=== PATIENT | male | born 1970 | race Caucasian/White ===

== ENCOUNTER 2016-06-06 21:46 | Emergency (ER) | payer MEDICAID ==
[~2016-06-06] VITALS: Ht 198.1 cm; Wt 63.9 kg
[2016-06-06 21:49] VITALS: BP 100/72; PULSE 144; RESP 20; TEMP 97.4; O2SAT 100
[2016-06-06 22:15] LABS: AUTOMATED NEUTROPHIL # 1.6 TH/MM3 (1.8-7.7); BASOPHIL % 0.9 % (0.0-2.0); EOSINOPHIL % 1.4 % (0.0-4.0); HEMATOCRIT 30.7 % (39.0-51.0); LYMPH % 15.3 % (9.0-44.0); LYMPHOCYTE # 0.3 TH/MM3 (1.0-4.8); MEAN CELL VOLUME 95.7 FL (80.0-100.0); MEAN CORPUSCULAR HEMOGLOBIN 32.4 PG (27.0-34.0); MEAN CORPUSCULAR HGB CONC 33.8 % (32.0-36.0); MONO % 7.1 % (0.0-8.0); NEUT % 75.3 % (16.0-70.0); PLATELET COUNT 45 TH/MM3 (150-450); RED BLOOD COUNT 3.21 MIL/MM3 (4.50-5.90); RED CELL DISTRIBUTION WIDTH 18.5 % (11.6-17.2); WHITE BLOOD COUNT 2.1 TH/MM3 (4.0-11.0)
[2016-06-06] MEDS ORDERED: ONDANSETRON HCL 4 MG/2 ML VIAL IV PUSH ONE (22:15)
[2016-06-06] MEDS ORDERED: SODIUM CHLOR 0.9% 1000 ML INJ 1,000 ML IV ONE ×3 (22:15→22:45)
[2016-06-06 22:22] LABS: HEMO FLAGS AUTO DIFF; POTASSIUM 3.3 MEQ/L (3.5-5.1)
--- NOTE | 2016-06-06 22:23 | PD ---
HPI Chief Complaint: GI Complaint Time Seen by Provider: 21:57 Travel History International Travel<30 days: No Contact w/Intl Traveler<30days: No Traveled to known affect area: No History of Present Illness HPI This 45-year-old male is complaining of weakness and dehydration. He has a history of lung cancer. The lung cancer is being treated with chemotherapy and radiation. He has esophagitis related to the radiation treatment. He has a feeding tube but is vomiting his feedings. He has had progressive weight loss. He is not taking any antiemetics PFSH Past Medical History Cancer: Yes (LUNG: DX ON 02/27/16) Cardiovascular Problems: No Chemotherapy: Yes (MONDAYS) Endocrine: No Gastrointestinal Disorders: Yes (UPPER ENDOSCOPIES X2: FEBRUARY 2016) Genitourinary: No Immune Disorder: No Implanted Vascular Access Dvce: No Musculoskeletal: No Neurologic: No Psychiatric: No Reproductive: No Respiratory: Yes Radiation Therapy: Yes (5 DAYS PER WEEK) Tetanus Vaccination: < 5 Years Influenza Vaccination: No Past Surgical History Surgical History: No Previous Surgery Other Surgery: Yes (G- TUBE PLACEMENT: FEBRUARY 2016) Social History Alcohol Use: No (QUIT MARCH 2016) Tobacco Use: No (QUIT 02/27/16, SMOKED SINCE AGE 15) Substance Use: No Allergies-Medications (Allergen,Severity, Reaction): Coded Allergies: No Known Allergies (Unverified , 06/06/16) Reported Meds & Prescriptions Reported Meds & Active Scripts Active No Active Prescriptions or Reported Medications Review of Systems General / Constitutional: Positive: Weight Loss, No: Fever, Chills Eyes: No: Diploplia, Blurred Vision HENT: No: Headaches, Vertigo Cardiovascular: Positive: Chest Pain or Discomfort Respiratory: No: Cough Gastrointestinal: Positive: Nausea, Vomiting, Dysphagia, Loss of Appetite Genitourinary: No: Urgency, Frequency Skin: No Rash Physical Exam Narrative GENERAL: Chronically ill-appearing male SKIN: Warm and dry. HEAD: Atraumatic. Normocephalic. EYES: Pupils equal and round. No scleral icterus. No injection or drainage. ENT: No nasal bleeding or discharge. Mucous membranes dry NECK: Trachea midline. No JVD. CARDIOVASCULAR: Regular rate and rhythm. No murmur appreciated. RESPIRATORY: No accessory muscle use. Clear to auscultation. Breath sounds equal bilaterally. GASTROINTESTINAL: Abdomen soft, non-tender, nondistended. Hepatic and splenic margins not palpable. Feeding tube present MUSCULOSKELETAL: No obvious deformities. No clubbing. No cyanosis. No edema. NEUROLOGICAL: Awake and alert. No obvious cranial nerve deficits. Motor grossly within normal limits. Normal speech. PSYCHIATRIC: Appropriate mood and affect; insight and judgment normal. Data Data Last Documented VS Vital Signs Date Time Temp Pulse Resp B/P Pulse Ox O2 Delivery O2 Flow Rate FiO2 06/06/16 23:04 100 18 100 Room Air 06/06/16 21:49 97.4 100/72 Orders Complete Blood Count With Diff (06/06/16 22:04) Basic Metabolic Panel (Bmp) (06/06/16 22:04) Sodium Chlor 0.9% 1000 Ml Inj (Ns 1000 M (06/06/16 22:15) Sodium Chlor 0.9% 1000 Ml Inj (Ns 1000 M (06/06/16 22:15) Ondansetron Inj (Zofran Inj) (06/06/16 22:15) Potassium Cl 40 Meq/30 Ml Liq (Kcl 40 Me (06/06/16 22:45) Sodium Chlor 0.9% 1000 Ml Inj (Ns 1000 M (06/06/16 22:45) Labs Laboratory Tests Test 06/06/16 22:05 White Blood Count 2.1 TH/MM3 Red Blood Count 3.21 MIL/MM3 Hemoglobin 10.4 GM/DL Hematocrit 30.7 % Mean Corpuscular Volume 95.7 FL Mean Corpuscular Hemoglobin 32.4 PG Mean Corpuscular Hemoglobin 33.8 % Concent Red Cell Distribution Width 18.5 % Platelet Count 45 TH/MM3 Mean Platelet Volume 8.2 FL Neutrophils (%) (Auto) 75.3 % Lymphocytes (%) (Auto) 15.3 % Monocytes (%) (Auto) 7.1 % Eosinophils (%) (Auto) 1.4 % Basophils (%) (Auto) 0.9 % Neutrophils # (Auto) 1.6 TH/MM3 Lymphocytes # (Auto) 0.3 TH/MM3 Monocytes # (Auto) 0.2 TH/MM3 Eosinophils # (Auto) 0.0 TH/MM3 Basophils # (Auto) 0.0 TH/MM3 CBC Comment AUTO DIFF Differential Comment AUTO DIFF CONFIRMED Platelet Estimate LOW Platelet Morphology Comment NORMAL Sodium Level 139 MEQ/L Potassium Level 3.3 MEQ/L Chloride Level 102 MEQ/L Carbon Dioxide Level 25.8 MEQ/L Anion Gap 11 MEQ/L Blood Urea Nitrogen 25 MG/DL Creatinine 0.91 MG/DL Estimat Glomerular Filtration 91 ML/MIN Rate Random Glucose 136 MG/DL Calcium Level 9.1 MG/DL MDM Medical Decision Making Medical Screen Exam Complete: Yes Emergency Medical Condition: Yes Medical Record Reviewed: Yes Differential Diagnosis Differential includes lung cancer, esophagitis, dehydration Narrative Course Patient was given several liters of fluid with improvement. He was given Zofran. Zofran seemed to help and I will prescribe some liquids Zofran to put in his NG tube. I will also recommended to him that he try Mylanta as he complains of some esophagitis Diagnosis Primary Impression: Esophagitis Additional Impression: Dehydration Scripts Ondansetron Liq (Zofran Liq)4 Mg/5 Ml Soln4 Mg G-TUBE Q6HR 10 Days Ref 0 Prov:Elkin Castaneda MD 06/06/16 Disposition: 01 DISCHARGE HOME Condition: Stable Elkin Castaneda MD Jun 06, 2016 22:23
[2016-06-06 22:25] LABS: BICARBONATE 25.8 MEQ/L (21.0-32.0)
[2016-06-06 22:40] LABS: PLATELET ESTIMATE SMEAR LOW (NORMAL); PLATELET MORPHOLOGY NORMAL (NORMAL); SCAN/DIFF AUTO DIFF CONFIRMED
[2016-06-06] MEDS ORDERED: POTASSIUM CL 40 MEQ/30 ML LIQ UDC NG ONE (22:45)
[2016-06-06 23:04] VITALS: PULSE 100; RESP 18; O2SAT 100
[2016-06-06] MEDS ORDERED: ZOFR4SOL G-TUBE (23:27)
[2016-06-06 23:42] VITALS: BP 98/53; PULSE 98; RESP 18; O2SAT 100
== END 2016-06-06 23:55 | disposition home or self-care (01) ==
LOC: PHED 21:46
DX: C34.90 Malignant neoplasm of unspecified part of unspecified bronchus or lung (principal); E86.0 Dehydration; K20.8 Other esophagitis; Z87.891 Personal history of nicotine dependence
CPT/HCPCS: 80048; 85025; 96361; 96374; 99285; J2405; J7030

== ENCOUNTER 2016-06-07 18:12 | Inpatient (IN) | payer MEDICAID ==
[~2016-06-07] VITALS: Ht 198.1 cm; Wt 68.0 kg
[~2016-06-07 18:12] MED LIST: ZOFR4SOL G-TUBE
[2016-06-07 18:14] VITALS: BP 100/72; PULSE 117; RESP 16; TEMP 97.9; O2SAT 100
--- NOTE | 2016-06-07 18:43 | PD ---
HPI Chief Complaint: Abnormal Results Time Seen by Provider: 18:37 Travel History International Travel<30 days: No Contact w/Intl Traveler<30days: No Traveled to known affect area: No History of Present Illness HPI This 45-year-old male presents with complaint of vomiting. He has a history of lung cancer. He was a patient here last night. His oncologist recommended he come to get some IV fluids. He was given several liters of IV fluids and some Zofran. He is getting chemotherapy and today he finished his radiation therapy to the mediastinum. Since having the radiation he has been having intractable vomiting and has been unable to swallow. On March 03 a gastrostomy tube was placed. He had been vomiting to be anxious placed in a gastrostomy tube yesterday. Today he has not tried the tube feeding but he continues to have vomiting of brown material. She has not been able to take any fluids today by mouth or by gastrostomy tube. Dr. Omer his radiation oncologist told him that he should come to the hospital and be admitted for some IV fluids and PFSH Past Medical History Cancer: Yes (LUNG: DX ON 02/27/16) Cardiovascular Problems: No Chemotherapy: Yes (LAST DOSE 1 MONTH AGO) Endocrine: No Gastrointestinal Disorders: Yes (UPPER ENDOSCOPIES X2: FEBRUARY 2016) Genitourinary: No Immune Disorder: No Implanted Vascular Access Dvce: No Musculoskeletal: No Neurologic: No Psychiatric: No Reproductive: No Respiratory: Yes (LUNG CA) Radiation Therapy: Yes (5 DAYS PER WEEK) Past Surgical History Other Surgery: Yes (G- TUBE PLACEMENT: FEBRUARY 2016) Social History Alcohol Use: No (QUIT MARCH 2016) Tobacco Use: No (QUIT 02/27/16, SMOKED SINCE AGE 15) Substance Use: No Allergies-Medications (Allergen,Severity, Reaction): Coded Allergies: No Known Allergies (Unverified , 06/07/16) Reported Meds & Prescriptions Reported Meds & Active Scripts Active Zofran Liq (Ondansetron HCl) 4 Mg/5 Ml Soln 4 Mg G-TUBE Q6HR 10 Days Review of Systems General / Constitutional: No: Fever, Chills Eyes: No: Diploplia HENT: No: Headaches Cardiovascular: Positive: Chest Pain or Discomfort Respiratory: No: Shortness of Breath Gastrointestinal: Positive: Vomiting, Dysphagia, Loss of Appetite, No: Hematochezia Genitourinary: No: Urgency, Frequency Musculoskeletal: No: Myalgias, Arthralgias Skin: No Rash Neurologic: No: Weakness Physical Exam Narrative GENERAL: Thin male SKIN: Warm and dry. HEAD: Atraumatic. Normocephalic. EYES: Pupils equal and round. No scleral icterus. No injection or drainage. ENT: No nasal bleeding or discharge. Mucous membranes dry NECK: Trachea midline. No JVD. CARDIOVASCULAR: Regular rate and rhythm. No murmur appreciated. RESPIRATORY: No accessory muscle use. Clear to auscultation. Breath sounds equal bilaterally. GASTROINTESTINAL: Abdomen soft, non-tender, nondistended. Hepatic and splenic margins not palpable. Gastrostomy tube in place MUSCULOSKELETAL: No obvious deformities. No clubbing. No cyanosis. No edema. NEUROLOGICAL: Awake and alert. No obvious cranial nerve deficits. Motor grossly within normal limits. Normal speech. PSYCHIATRIC: Appropriate mood and affect; insight and judgment normal. Data Data Last Documented VS Vital Signs Date Time Temp Pulse Resp B/P Pulse Ox O2 Delivery O2 Flow Rate FiO2 06/07/16 18:14 97.9 117 16 100/72 100 Orders Complete Blood Count With Diff (06/07/16 18:37) Basic Metabolic Panel (Bmp) (06/07/16 18:37) Sodium Chlor 0.9% 1000 Ml Inj (Ns 1000 M (06/07/16 18:45) Ondansetron Inj (Zofran Inj) (06/07/16 18:45) Labs Laboratory Tests Test 06/07/16 19:14 White Blood Count 1.5 TH/MM3 Red Blood Count 2.56 MIL/MM3 Hemoglobin 8.1 GM/DL Hematocrit 24.3 % Mean Corpuscular Volume 95.0 FL Mean Corpuscular Hemoglobin 31.8 PG Mean Corpuscular Hemoglobin 33.5 % Concent Red Cell Distribution Width 18.5 % Platelet Count 45 TH/MM3 Mean Platelet Volume 7.4 FL Neutrophils (%) (Auto) 70.9 % Lymphocytes (%) (Auto) 19.2 % Monocytes (%) (Auto) 7.4 % Eosinophils (%) (Auto) 1.7 % Basophils (%) (Auto) 0.8 % Neutrophils # (Auto) 1.1 TH/MM3 Lymphocytes # (Auto) 0.3 TH/MM3 Monocytes # (Auto) 0.1 TH/MM3 Eosinophils # (Auto) 0.0 TH/MM3 Basophils # (Auto) 0.0 TH/MM3 CBC Comment AUTO DIFF Sodium Level 140 MEQ/L Potassium Level 3.7 MEQ/L Chloride Level 107 MEQ/L Carbon Dioxide Level 24.6 MEQ/L Anion Gap 8 MEQ/L Blood Urea Nitrogen 15 MG/DL Creatinine 0.62 MG/DL Estimat Glomerular Filtration 142 ML/MIN Rate Random Glucose 85 MG/DL Calcium Level 8.3 MG/DL MDM Medical Decision Making Medical Screen Exam Complete: Yes Emergency Medical Condition: Yes Medical Record Reviewed: Yes Differential Diagnosis Differential includes esophagitis, intractable vomiting, dehydration Narrative Course This gentleman was seen yesterday for vomiting and was given Zofran. He continues to vomit and has failed outpatient treatment. Diagnosis Primary Impression: Esophagitis Additional Impression: Intractable vomiting Qualified Code: R11.2 - Intractable vomiting with nausea, unspecified vomiting type Elkin Castaneda MD Jun 07, 2016 18:43 Elkin Castaneda MD Jun 07, 2016 18:43
[2016-06-07] MEDS ORDERED: ONDANSETRON HCL 4 MG/2 ML VIAL IV PUSH ONE (18:45)
[2016-06-07] MEDS ORDERED: SODIUM CHLOR 0.9% 1000 ML INJ 1,000 ML IV ONE (18:45)
[2016-06-07 19:21] LABS: AUTOMATED NEUTROPHIL # 1.1 TH/MM3 (1.8-7.7); BASOPHIL % 0.8 % (0.0-2.0); EOSINOPHIL % 1.7 % (0.0-4.0); HEMATOCRIT 24.3 % (39.0-51.0); LYMPH % 19.2 % (9.0-44.0); LYMPHOCYTE # 0.3 TH/MM3 (1.0-4.8); MEAN CORPUSCULAR HEMOGLOBIN 31.8 PG (27.0-34.0); MEAN CORPUSCULAR HGB CONC 33.5 % (32.0-36.0); MONO % 7.4 % (0.0-8.0); NEUT % 70.9 % (16.0-70.0); PLATELET COUNT 45 TH/MM3 (150-450); RED BLOOD COUNT 2.56 MIL/MM3 (4.50-5.90); RED CELL DISTRIBUTION WIDTH 18.5 % (11.6-17.2); WHITE BLOOD COUNT 1.5 TH/MM3 (4.0-11.0)
[2016-06-07 19:25] LABS: POTASSIUM 3.7 MEQ/L (3.5-5.1)
[2016-06-07 19:28] LABS: BICARBONATE 24.6 MEQ/L (21.0-32.0)
[2016-06-07 19:40] LABS: HEMO FLAGS AUTO DIFF
[2016-06-07] MEDS ORDERED: ONDANSETRON HCL 4 MG/2 ML VIAL IVP PRN (20:00)
[2016-06-07] MEDS ORDERED: METOCLOPRAMIDE HCL 10 MG/2 ML VIAL IV PUSH PRN (20:00)
[2016-06-07] MEDS ORDERED: NALOXONE HCL 0.4 MG/ML AMP IV PRN (20:00)
[2016-06-07] MEDS ORDERED: SODIUM CHLORIDE 0.9% FLUSH 5 ML FLUSH FLUSH PRN (20:00)
[2016-06-07 20:01] LABS: BANDS 9 % (0-6); BASOPHILS 1 % (0-2); METAMYELOCYTES 2 % (0-1); NEUTROPHIL # MANUAL DIFF 1.1 TH/MM3 (1.8-7.7); POLYS (SEG NEUTROPHILS) 62 % (16-70); WBC DIFF SAMPLE 100
[2016-06-07 20:02] LABS: PLATELET ESTIMATE SMEAR LOW (NORMAL); PLATELET MORPHOLOGY NORMAL (NORMAL)
[2016-06-07 20:06] LABS: SCAN/DIFF FINAL DIFF MANUAL
[2016-06-07 21:12] VITALS: BP 102/76; PULSE 112; RESP 18; O2SAT 100
[2016-06-07] MEDS: PANTOPRAZOLE SODIUM 40 MG VIAL IV PUSH SCH (22:24)
[2016-06-07] MEDS: SODIUM CHLORIDE 0.9% FLUSH 5 ML FLUSH FLUSH SCH (22:24)
[2016-06-07] MEDS: SODIUM CHLOR 0.9% 1000 ML INJ 1,000 ML IV SCH (22:24)
[2016-06-07 22:42] VITALS: PULSE 90
[2016-06-08] VITALS: BP 105/63; PULSE 91; RESP 16; TEMP 97.6; O2SAT 96
[2016-06-08 04:00] VITALS: BP 94/62; PULSE 96; RESP 18; TEMP 97.2; O2SAT 100
[2016-06-08 06:32] LABS: AUTOMATED NEUTROPHIL # 0.7 TH/MM3 (1.8-7.7); BASOPHIL % 0.7 % (0.0-2.0); EOSINOPHIL % 1.7 % (0.0-4.0); HEMATOCRIT 21.2 % (39.0-51.0); LYMPH % 26.2 % (9.0-44.0); LYMPHOCYTE # 0.3 TH/MM3 (1.0-4.8); MEAN CELL VOLUME 95.2 FL (80.0-100.0); MEAN CORPUSCULAR HEMOGLOBIN 32.7 PG (27.0-34.0); MEAN CORPUSCULAR HGB CONC 34.3 % (32.0-36.0); MONO % 9.5 % (0.0-8.0); NEUT % 61.9 % (16.0-70.0); PLATELET COUNT 42 TH/MM3 (150-450); RED BLOOD COUNT 2.22 MIL/MM3 (4.50-5.90); RED CELL DISTRIBUTION WIDTH 18.4 % (11.6-17.2); WHITE BLOOD COUNT 1.1 TH/MM3 (4.0-11.0)
[2016-06-08 06:35] LABS: HEMO FLAGS AUTO DIFF
[2016-06-08 06:41] LABS: POTASSIUM 4.1 MEQ/L (3.5-5.1)
[2016-06-08 06:45] LABS: BICARBONATE 25.4 MEQ/L (21.0-32.0)
[2016-06-08 07:27] LABS: BANDS 1 % (0-6); EOSINOPHILS 1 % (0-4); NEUTROPHIL # MANUAL DIFF 0.6 TH/MM3 (1.8-7.7); PLATELET ESTIMATE SMEAR LOW (NORMAL); PLATELET MORPHOLOGY NORMAL (NORMAL); POLYS (SEG NEUTROPHILS) 58 % (16-70); SCAN/DIFF FINAL DIFF MANUAL; WBC DIFF SAMPLE 100
[2016-06-08 08:16] VITALS: BP 78/58; PULSE 86; RESP 17; TEMP 96.2; O2SAT 98
[2016-06-08] MEDS: SODIUM CHLOR 0.9% 1000 ML INJ 1,000 ML IV SCH ×3 (08:24→20:24)
[2016-06-08] MEDS: PANTOPRAZOLE SODIUM 40 MG VIAL IV PUSH SCH ×2 (08:25→20:23)
[2016-06-08] MEDS: SODIUM CHLORIDE 0.9% FLUSH 5 ML FLUSH FLUSH SCH ×2 (08:25→20:23)
--- NOTE | 2016-06-08 12:16 | HHI.HP ---
[facility] Service [facility] Primary Care Physician Non-Staff Admission Diagnosis INTRACTABLE VOMITING, ESOPHAGITIS, OUTPATIENT TREATMENT FAILURE Diagnoses: Chief Complaint: Intractable nausea and vomiting Travel History International Travel<30 Days: No Contact w/Intl Traveler <30 Da: No Traveled to Known Affected Are: No History of Present Illness Patient is a 45-year-old gentleman with a fairly recent diagnosis of right lower lung squamous cell carcinoma. He had been in radiation therapy with his oncologist and had increased nausea and vomiting. He was unable to swallow and unable to get nutrition. Patient had a gastrostomy tube placed in February, however he had been using it infrequently. Patient has not had any fevers or chills but is noted to be pancytopenic today. This is new for the patient. There has been no hematemesis but he has been having difficulty swallowing his saliva. Patient has been admitted to the hospital for further evaluation of pancytopenia and intractable nausea and vomiting. He denies any pain complaint Review of Systems Constitutional: COMPLAINS OF: Weight loss, DENIES: Diaphoretic episodes, Fatigue, Fever, Weight gain, Chills, Dizziness, Change in appetite, Night Sweats Endocrine: DENIES: Heat/cold intolerance, Polydipsia, Polyuria, Polyphagia Eyes: DENIES: Blurred vision, Diplopia, Eye inflammation, Eye pain, Vision loss , Photosensitivity, Double Vision Ears, nose, mouth, throat: DENIES: Tinnitus, Hearing loss, Vertigo, Nasal discharge, Oral lesions, Throat pain, Hoarseness, Ear Pain, Running Nose, Epistaxis, Sinus Pain, Toothache, Odynophagia Respiratory: DENIES: Apneas, Cough, Snoring, Wheezing, Hemoptysis, Sputum production, Shortness of breath Cardiovascular: DENIES: Chest pain, Palpitations, Syncope, Dyspnea on Exertion , PND, Lower Extremity Edema, Orthopnea, Claudication Gastrointestinal: COMPLAINS OF: Nausea, Vomiting, Difficulty Swallowing, DENIES: Abdominal pain, Black stools, Bloody stools, Constipation, Diarrhea, Anorexia Genitourinary: DENIES: Sexual dysfunction, Urinary frequency, Urinary incontinence, Urgency, Hematuria, Dysuria, Nocturia, Penile Discharge, Testicular Pain, Testicular Swelling Musculoskeletal: DENIES: Joint pain, Muscle aches, Stiffness, Joint Swelling, Back pain, Neck pain Immunologic/allergic: DENIES: Eczema, Urticaria Neurologic: DENIES: Abnormal gait, Headache, Localized weakness, Paresthesias, Seizures, Speech Problems, Tremor, Poor Balance Past Family Social History Past Medical History Right lower lobe squamous cell carcinoma Chronic hypotension Past Surgical History PEG tube placement Reported Medications Reviewed in the medical record, currently in radiation therapy as an outpatient Allergies: Coded Allergies: No Known Allergies (Unverified , 06/07/16) Active Ordered Medications Reviewed in the medical record Family History Family history of malignancy, there is a family history of diabetes Social History No current tobacco although he used to smoke 2 packs a day, and drinks alcohol was living independently 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 SKIN: No rashes, ecchymoses or lesions. Cool and dry. HEAD: Atraumatic. Normocephalic. No temporal or scalp tenderness. EYES: Pupils equal round and reactive. Extraocular motions intact. No scleral icterus. No injection or drainage. ENT: Nose without bleeding, purulent drainage or septal hematoma. Throat without erythema, tonsillar hypertrophy or exudate. Uvula midline. Airway patent. NECK: Trachea midline. No JVD or lymphadenopathy. Supple, nontender, no meningeal signs. CARDIOVASCULAR: Regular rate and rhythm without murmurs, gallops, or rubs. RESPIRATORY: Clear to auscultation. Breath sounds equal bilaterally. No wheezes , rales, or rhonchi. GASTROINTESTINAL: PEG tube. Abdomen soft, non-tender, nondistended. No hepato- splenomegaly, or palpable masses. No guarding. MUSCULOSKELETAL: Extremities without clubbing, cyanosis, or edema. No joint tenderness, effusion, or edema noted. No calf tenderness. Negative Homans sign bilaterally. NEUROLOGICAL: Awake and alert. Cranial nerves II through XII intact. Motor and sensory grossly within normal limits. Five out of 5 muscle strength in all muscle groups. Normal speech. Laboratory Laboratory Tests Test 06/07/16 06/08/16 19:14 05:10 White Blood Count 1.5 1.1 Red Blood Count 2.56 2.22 Hemoglobin 8.1 7.3 Hematocrit 24.3 21.2 Mean Corpuscular Volume 95.0 95.2 Mean Corpuscular Hemoglobin 31.8 32.7 Mean Corpuscular Hemoglobin 33.5 34.3 Concent Red Cell Distribution Width 18.5 18.4 Platelet Count 45 42 Mean Platelet Volume 7.4 7.5 Neutrophils (%) (Auto) 70.9 61.9 Lymphocytes (%) (Auto) 19.2 26.2 Monocytes (%) (Auto) 7.4 9.5 Eosinophils (%) (Auto) 1.7 1.7 Basophils (%) (Auto) 0.8 0.7 Neutrophils # (Auto) 1.1 0.7 Lymphocytes # (Auto) 0.3 0.3 Monocytes # (Auto) 0.1 0.1 Eosinophils # (Auto) 0.0 0.0 Basophils # (Auto) 0.0 0.0 CBC Comment AUTO DIFF AUTO DIFF Differential Total Cells 100 100 Counted Neutrophils % (Manual) 62 58 Band Neutrophils % 9 1 Lymphocytes % 15 29 Monocytes % 11 11 Basophils % 1 Neutrophils # (Manual) 1.1 0.6 Metamyelocytes 2 Differential Comment FINAL DIFF FINAL DIFF MANUAL MANUAL Platelet Estimate LOW LOW Platelet Morphology Comment NORMAL NORMAL Sodium Level 140 142 Potassium Level 3.7 4.1 Chloride Level 107 108 Carbon Dioxide Level 24.6 25.4 Anion Gap 8 9 Blood Urea Nitrogen 15 12 Creatinine 0.62 0.58 Estimat Glomerular Filtration 142 153 Rate Random Glucose 85 72 Calcium Level 8.3 7.8 Eosinophils % 1 Result Diagram: 06/08/16 0510 06/08/16 0510 Assessment and Plan Problem List: (1) Intractable vomiting ICD Code: R11.10 Status: Acute Plan: With associated dysphagia ? radiation Esophagitis, no evidence of romelia Antiemetics, IV hydration, use PEG tube KUB r/o obstruction PPI (2) Severe protein-calorie malnutrition ICD Code: E43 Status: Acute Plan: Continue tube feedings for now, (3) Lung cancer, middle lobe ICD Code: C34.2 Status: Acute Plan: Currently in radiation therapy. Hematology to follow (4) Pancytopenia ICD Code: D61.818 Status: Acute Plan: May be due to radiation therapy, Continue neutropenic precautions, patient may need transfusion. Hematology follow-up pending (5) Hypotension ICD Code: I95.9 Status: Acute Plan: Patient does appear quite dehydrated, no evidence of sepsis, we'll check blood cultures due to patient's neutropenia. Physician Certification 2 Midnight Certification Type: Admission for Inpatient Services Order for Inpatient Services The services are ordered in accordance with Medicare regulations or non- Medicare payer requirements, as applicable. In the case of services not specified as inpatient-only, they are appropriately provided as inpatient services in accordance with the 2-midnight benchmark. Estimated LOS (days): 3 3 days is the estimated time the patient will need to remain in the hospital, assuming treatment plan goals are met and no additional complications. Post-Hospital Plan: Home Problem Qualifiers (1) Intractable vomiting: Qualified Code: R11.2 - Intractable vomiting with nausea, unspecified vomiting type Sveta Millan MD Jun 08, 2016 12:16
[2016-06-08 13:13] VITALS: BP 94/61; PULSE 89; RESP 16; TEMP 97.2; O2SAT 98
--- NOTE | 2016-06-08 13:27 | RADHPO ---
EXAM DATE/TIME: 06/08/2016 13:16 [facility] COMPARISON: No previous studies available for comparison. INDICATIONS : Nausea. Vomiting for 1 week. MEDICAL HISTORY : Carcinoma, lung. Mediastinal mass. Bronchopneumonia. Chemotherapy. SURGICAL HISTORY : EGD. G-tube. ENCOUNTER: Subsequent ACUITY: 1 week PAIN SCORE: 3/10 LOCATION: Abdomen, upper quadrant. FINDINGS: Two-view abdomen demonstrates the G-tube remains in good position. Calcification right upper quadran t consistent with a renal calcification is stable. Bowel gas pattern is normal. There is no evidenc e of pneumatosis or obstruction. CONCLUSION: Unremarkable bowel gas pattern. G-tube is in excellent position. Julio Rosen MD on June 08, 2016 at 13:23 Board Certified Radiologist. This report was verified electronically.
[2016-06-08 17:02] VITALS: BP 82/59; PULSE 102; RESP 18; TEMP 98; O2SAT 100
--- NOTE | 2016-06-08 18:51 | MB ---
cc: CURTIS MILLAN MD, RUBY ANNE E. M.D. DATE OF CONSULTATION 06/08/[address] Curtis Millan CHIEF COMPLAINT Dr. Millan requests a consultation for Mr. Levi regarding nonsmall lung cancer. HISTORY OF PRESENT ILLNESS Mr. Levi is a 45 year old man with long history of smoking. He presented with 10 months of coughing. 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 He was started on carboplatin and Taxol on 03/04/16 under the care of Dr. Samaniego. He received concurrent chemotherapy and radiation and just finished his radiation therapy before being admitted to the hospital. He was last seen by Dr. Omer on 03/07/17. He was at the end of his treatment. He presented to the emergency room the day before complaining of weakness and dehydration. Radiation therapy was complicated by esophagitis. He was given IV fluid hydration and then discharged home. On the following day, he complained of nausea and vomiting. He was advised to come in for IV fluids. His vomiting became difficulty to manage. After his last radiation therapy, Dr. Omer recommended him admission for dehydration and intractable nausea and vomiting. He is starting to improve. This evening, he had some liquid diet. He admits that it is the first thing he has eaten in five days. He is starting to feel better. On admission, he had pancytopenia with a white blood cell count of 1.1, hemoglobin 7.3, platelet count of 42,000. He has been afebrile. His white count continues to decline and hemoglobin decrease between one day and the next. He denies any overt bleeding, no melena, no bright red blood per rectum. He has significant symptom of esophagitis. He feels like his left side and his chest is burning. The rest of his review of systems is negative. PAST MEDICAL HISTORY 1. Esophagitis 2. Esophageal obstruction due to extensive compression 3. Chronic tobacco use. 4. Pneumonia 5. 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 PAST SURGICAL HISTORY 1. Bronchoscopy with endobronchial biopsy 2. PEG tube placement. FAMILY HISTORY Mr. Levi's mother and father are both alive. No reported cancer. 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 Has 60 pack year smoking history. He drinks one drink per day. He denies any illicit drug use. He is no longer a smoker. ALLERGIES NO KNOWN DRUG ALLERGIES MEDICATIONS Current, 1. Protonix 2. Ondansetron 3. Reglan 4. Narcan PHYSICAL EXAMINATION VITAL SIGNS: Temperature 98.0, heart rate 102, respiratory rate 18, blood pressure 82/59. GENERAL: Mr. Levi is a thin-appearing young man in no acute distress sitting upright. His family member is at bedside. HEENT: Pupils are round, reactive to light and accommodation. Conjunctivae pale. Oropharynx is pale and dry. NECK: Supple. LUNGS: Clear to auscultation CARDIOVASCULAR: Tachycardia. EXTREMITIES: Lower extremity with no edema. ABDOMEN: Benign and flat. PEG tube is in place, clean. There is hyperpigmented post inflammatory changes of both upper back. LABORATORY DATA Pancytopenia as described above. BUN 12, creatinine 0.58. ASSESSMENT AND PLAN Mr. Levi is a 45 year old man with history of localized advanced nonsmall cell lung cancer, squamous cell histology. He has received concurrent chemotherapy and radiation. His course was complicated by intractable nausea and vomiting and severe esophagitis post completion of his radiation therapy. His course is further complicated a pancytopenia due to radiation and chemotherapy effect. I discussed with Mr. Levi our plans to support him. I have noted a significant decrease in his hemoglobin from one day to the next. I suspect this is due to dilution. We will check a CBC in the morning to rule out bleeding. I would offer him a blood transfusion for hemoglobin less than 7. No platelet transfusion is needed at present. We will monitor closely for any overt bleeding in the GI tract. The Protonix is administered. He may benefit from liquid Carafate, once in the morning and once in the evening. Because of neutropenia, he is in neutropenic precaution. He is afebrile. We will monitor closely for fever. GCSF support can be administered now that radiation is complete. We discussed plans to continue our support. He is eager to go home. We will monitor how well he can tolerated a diet tomorrow. He does have a PEG tube that can be used to supplement his nutrition and take care of his dehydration. His questions are answered to his satisfaction. Aditi Hudson MD RAD/ /6:00 PM /6:12 PM [id number]
[2016-06-08 20:00] VITALS: BP 94/58; PULSE 89; RESP 16; TEMP 97.7; O2SAT 100
[2016-06-08] MEDS: FILGRASTIM 300 MCG/ML VIAL SQ SCH (20:22)
[2016-06-08] MEDS: SUCRALFATE 1 GM/10 ML CUP PO SCH (20:23)
[2016-06-09] VITALS (8 sets, daily range): BP systolic 91–107; BP diastolic 61–67; PULSE 85–102; RESP 16–18; TEMP 97.5–98.6; O2SAT 99–100
[2016-06-09] MEDS ORDERED: ACETAMINOPHEN 325 MG TAB PO PRN (06:00)
[2016-06-09] MEDS ORDERED: diphenhydrAMINE HCL 25 MG CAP PO PRN (06:00)
[2016-06-09] MEDS ORDERED: SODIUM CHLOR 0.9% 250 ML INJ 250 ML IV ONE (06:00)
[2016-06-09] MEDS: SODIUM CHLOR 0.9% 1000 ML INJ 1,000 ML IV SCH ×2 (06:16→17:11)
[2016-06-09 06:35] LABS: AUTOMATED NEUTROPHIL # 0.9 TH/MM3 (1.8-7.7); BASOPHIL % 0.2 % (0.0-2.0); EOSINOPHIL % 1.8 % (0.0-4.0); HEMATOCRIT 21.4 % (39.0-51.0); LYMPH % 18.7 % (9.0-44.0); LYMPHOCYTE # 0.3 TH/MM3 (1.0-4.8); MEAN CELL VOLUME 94.8 FL (80.0-100.0); MEAN CORPUSCULAR HEMOGLOBIN 32.5 PG (27.0-34.0); MEAN CORPUSCULAR HGB CONC 34.3 % (32.0-36.0); MONO % 11.4 % (0.0-8.0); NEUT % 67.9 % (16.0-70.0); PLATELET COUNT 43 TH/MM3 (150-450); RED BLOOD COUNT 2.25 MIL/MM3 (4.50-5.90); RED CELL DISTRIBUTION WIDTH 18.2 % (11.6-17.2); WHITE BLOOD COUNT 1.4 TH/MM3 (4.0-11.0)
[2016-06-09 06:36] LABS: HEMO FLAGS AUTO DIFF
[2016-06-09 07:27] LABS: BANDS 2 % (0-6); EOSINOPHILS 3 % (0-4); NEUTROPHIL # MANUAL DIFF 0.9 TH/MM3 (1.8-7.7); PLATELET ESTIMATE SMEAR LOW (NORMAL); PLATELET MORPHOLOGY NORMAL (NORMAL); POLYS (SEG NEUTROPHILS) 64 % (16-70); WBC DIFF SAMPLE 100
[2016-06-09 07:28] LABS: OVALOCYTES 1+ (NORMAL); SCAN/DIFF FINAL DIFF MANUAL; TEARDROP RBCS 1+ (NORMAL)
[2016-06-09] MEDS: PANTOPRAZOLE SODIUM 40 MG VIAL IV PUSH SCH ×2 (08:26→19:46)
[2016-06-09] MEDS: SUCRALFATE 1 GM/10 ML CUP PO SCH ×2 (08:26→19:52)
[2016-06-09] MEDS: SODIUM CHLORIDE 0.9% FLUSH 5 ML FLUSH FLUSH SCH ×2 (08:27→19:49)
[2016-06-09] MEDS: FILGRASTIM 300 MCG/ML VIAL SQ SCH (14:37)
[2016-06-09] MEDS: DOCUSATE SODIUM 100 MG CAP PEG SCH ×2 (14:37→19:52)
--- NOTE | 2016-06-09 17:09 | HHI.PR ---
Subjective Remarks Patient states that he is feeling better in terms of not having had any further vomiting. However he has epigastric pain and chest pain and also has a headache. He has not tried anything oxycodone liquid but states he will try. Objective Vitals Vital Signs Date Time Temp Pulse Resp B/P Pulse Ox O2 Delivery O2 Flow Rate FiO2 06/09/16 12:00 98.2 99 18 107/61 99 06/09/16 08:00 97.7 97 18 104/64 100 06/09/16 00:00 97.5 102 16 91/62 100 06/08/16 20:00 97.7 89 16 94/58 100 I/O 06/08/16 06/08/16 06/08/16 06/09/16 06/09/16 06/09/16 06:59 14:59 22:59 06:59 14:59 22:59 Intake Total 488 ml 1897 ml 1090 ml Output Total 100 ml Balance 488 ml 1797 ml 1090 ml Intake Oral 550 ml 240 ml IV Total 488 ml 1347 ml 850 ml Output Urine Total 100 ml # Voids 1 2 2 # Bowel Movements 0 0 0 Result Diagram: 06/09/16 0549 06/08/16 0510 Objective Remarks GENERAL: Cachectic appearing male patient. SKIN: Warm and dry. HEAD: Normocephalic. EYES: No scleral icterus. No injection or drainage. NECK: Supple, trachea midline. No JVD or lymphadenopathy. CARDIOVASCULAR: Regular rate and rhythm without murmurs, gallops, or rubs. RESPIRATORY: Breath sounds equal bilaterally. No accessory muscle use. GASTROINTESTINAL: Abdomen soft, non-tender, nondistended. EXTREMITIES: No cyanosis, or edema. NEUROLOGICAL: Awake, alert, and oriented x 3. Non-focal. A/P Problem List: (1) Intractable vomiting ICD Code: R11.10 Status: Acute (2) Severe protein-calorie malnutrition ICD Code: E43 Status: Acute (3) Lung cancer, middle lobe ICD Code: C34.2 Status: Acute (4) Pancytopenia ICD Code: D61.818 Status: Acute (5) Hypotension ICD Code: I95.9 Status: Acute Assessment and Plan -Intractable vomiting, may have been due to radiation gastritis/esophagitis. Symptoms now resolved. Continue with tube feeds, clear liquid diet. Protonix and Carafate. -Pancytopenia secondary to recent chemotherapy. Continue monitoring CBC and supportive transfusions as needed. Hematology input appreciated. -Severe protein calorie nutrition. Tube feeds resumed. -Hypertension. Appears to be largely asymptomatic. Increase IV fluids to 150 ml/hr. 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 -DVT prophylaxis with SCDs. Problem Qualifiers (1) Intractable vomiting: Qualified Code: R11.2 - Intractable vomiting with nausea, unspecified vomiting type Leah Almonte MD Jun 09, 2016 17:09
--- NOTE | 2016-06-09 18:28 | PD.ONC.PN ---
Subjective Subjective Remarks feels weak. able to eat, but appetite still poor no bleeding no nausea/vomiting no fevers d/w rn Objective Data Date Time Temp Pulse Resp B/P Pulse Ox O2 Delivery O2 Flow Rate FiO2 06/09/16 17:43 98.1 87 16 99/61 100 06/09/16 12:00 98.2 99 18 107/61 99 06/09/16 08:00 97.7 97 18 104/64 100 06/09/16 00:00 97.5 102 16 91/62 100 06/08/16 20:00 97.7 89 16 94/58 100 06/09/16 06/09/16 06/09/16 07:00 15:00 23:00 Intake Total 1090 ml 1200 ml Balance 1090 ml 1200 ml Result Diagram: 06/09/16 0549 06/08/16 0510 Laboratory Results Laboratory Tests Test 06/08/16 06/09/16 21:07 05:49 Blood Type AB NEGATIVE Crossmatch Leukocyte-Reduced Red Blood Cells Blood Bank Comment White Blood Count 1.4 TH/MM3 Red Blood Count 2.25 MIL/MM3 Hemoglobin 7.3 GM/DL Hematocrit 21.4 % Mean Corpuscular Volume 94.8 FL Mean Corpuscular Hemoglobin 32.5 PG Mean Corpuscular Hemoglobin 34.3 % Concent Red Cell Distribution Width 18.2 % Platelet Count 43 TH/MM3 Mean Platelet Volume 7.3 FL Neutrophils (%) (Auto) 67.9 % Lymphocytes (%) (Auto) 18.7 % Monocytes (%) (Auto) 11.4 % Eosinophils (%) (Auto) 1.8 % Basophils (%) (Auto) 0.2 % Neutrophils # (Auto) 0.9 TH/MM3 Lymphocytes # (Auto) 0.3 TH/MM3 Monocytes # (Auto) 0.2 TH/MM3 Eosinophils # (Auto) 0.0 TH/MM3 Basophils # (Auto) 0.0 TH/MM3 CBC Comment AUTO DIFF Differential Total Cells 100 Counted Neutrophils % (Manual) 64 % Band Neutrophils % 2 % Lymphocytes % 22 % Monocytes % 9 % Eosinophils % 3 % Neutrophils # (Manual) 0.9 TH/MM3 Differential Comment FINAL DIFF MANUAL Platelet Estimate LOW Platelet Morphology Comment NORMAL Tear Drop Cells 1+ Ovalocytes 1+ Culture Results Microbiology Date/Time Procedure Status Source Growth 06/08/16 12:50 Aerobic Blood Culture - Preliminary Resulted Blood Peripheral NO GROWTH IN 1 DAY 06/08/16 12:50 Anaerobic Blood Culture - Preliminary Resulted Blood Peripheral NO GROWTH IN 1 DAY 06/08/16 13:00 Aerobic Blood Culture - Preliminary Resulted Blood Peripheral NO GROWTH IN 1 DAY 06/08/16 13:00 Anaerobic Blood Culture - Preliminary Resulted Blood Peripheral NO GROWTH IN 1 DAY Administered Medications Medications (Trade) Dose Ordered Sig/Abel Route PRN Reason Start Time Stop Time Status Last Admin Dose Admin Sodium Chloride (NS 1000 ml Inj) 1,000 ml @ 150 mls/hr [id number] IV 06/07/16 19:50 06/09/16 17:11 IV Flush (NS Flush) 2 ml BID FLUSH 06/07/16 21:00 06/09/16 08:27 Pantoprazole Sodium (Protonix Inj) 40 mg Q12H IV PUSH 06/07/16 21:00 06/09/16 08:26 Sucralfate (Carafate Liq) 1 gm BID PO 06/08/16 21:00 06/09/16 08:26 Filgrastim (Neupogen Inj) 300 mcg DAILY@14 SQ 06/08/16 19:00 06/09/16 14:37 Docusate Sodium (Colace) 100 mg BID PEG 06/09/16 09:00 06/09/16 14:37 Objective Remarks GENERAL: weak/pale, cachectic, chronically ill appearing SKIN: Warm and dry. LYMPHATIC: No adenopathy. CARDIOVASCULAR: Regular rate and rhythm without murmurs. RESPIRATORY: Breath sounds equal bilaterally. No accessory muscle use. GASTROINTESTINAL: Abdomen soft, non-tender, nondistended. EXTREMITIES: No cyanosis, or edema. Assessment/Plan Problem List: (1) Squamous cell carcinoma of lung Status: Acute (2) Dehydration Status: Acute (3) Esophagitis Status: Acute (4) Pancytopenia Status: Acute (5) Hypotension Status: Acute (6) Severe protein-calorie malnutrition Status: Acute (7) Intractable vomiting Status: Acute Assessment 45 year old man with history of localized advanced non-small cell lung cancer, squamous cell histology. He has received concurrent chemotherapy and radiation. Now with: 1. Neutropenia 2. Severe Anemia 3. Thrombocytopenia 4. Intractable Nausea/vomiting 5. Dehydration 6. Esophagitis 7, Oral Mucositis Plan - Will transfuse 1 unit of pRBC- premedicate with Tylenol and Benadryl - Check other causes of anemia besides chemotherapy effect. LDH/Haptoglobin and Bilirubin components. Iron studies would be unreliable at time since he has received pRBC transfusion. Check B12 and Folate - Obtain stool heme-occult - Check Mag and phosp - Nutrition consult/Continue PEG tube feeds. - IV Diflucan and magic mouth wash - Continue anti-emetics Problem Qualifiers (1) Intractable vomiting: Qualified Code: R11.2 - Intractable vomiting with nausea, unspecified vomiting type Ravin Augustine MD Jun 09, 2016 18:28
[2016-06-09 19:20] LABS: MAGNESIUM 1.5 MG/DL (1.5-2.5)
[2016-06-09 19:25] LABS: INDIRECT BILIRUBIN 0.6 MG/DL (0.0-0.8); TOTAL BILIRUBIN ADULT 0.9 MG/DL (0.2-1.0)
[2016-06-09] MEDS ORDERED: diphenhydrAMINE HCL 25 MG CAP PO SCH (19:45)
[2016-06-09] MEDS ORDERED: ACETAMINOPHEN 325 MG TAB PO SCH (19:45)
[2016-06-10] VITALS: BP 120/64; PULSE 80; RESP 18; TEMP 98; O2SAT 100
[2016-06-10] MEDS: SODIUM CHLOR 0.9% 1000 ML INJ 1,000 ML IV SCH ×3 (00:17→14:57)
[2016-06-10] MEDS: FLUCONAZOLE 100 MG PREMIX BAG 50 ML IV SCH (00:54)
[2016-06-10 04:00] VITALS: BP 112/68; PULSE 83; RESP 18; TEMP 97.6; O2SAT 100
[2016-06-10 05:57] LABS: HEMATOCRIT 24.5 % (39.0-51.0); MEAN CELL VOLUME 93.6 FL (80.0-100.0); MEAN CORPUSCULAR HEMOGLOBIN 32.5 PG (27.0-34.0); MEAN CORPUSCULAR HGB CONC 34.7 % (32.0-36.0); PLATELET COUNT 56 TH/MM3 (150-450); RED BLOOD COUNT 2.62 MIL/MM3 (4.50-5.90); RED CELL DISTRIBUTION WIDTH 18.7 % (11.6-17.2); WHITE BLOOD COUNT 1.5 TH/MM3 (4.0-11.0)
[2016-06-10 05:58] LABS: REVIEW FLAG FINAL
[2016-06-10 08:00] VITALS: BP 93/62; PULSE 90; RESP 16; TEMP 97.8; O2SAT 98
[2016-06-10] MEDS: SODIUM CHLORIDE 0.9% FLUSH 5 ML FLUSH FLUSH SCH ×2 (09:00→21:00)
[2016-06-10] MEDS: DOCUSATE SODIUM 100 MG CAP PEG SCH ×2 (09:31→21:21)
[2016-06-10] MEDS: SUCRALFATE 1 GM/10 ML CUP PO SCH ×2 (09:31→21:20)
[2016-06-10] MEDS: PANTOPRAZOLE SODIUM 40 MG VIAL IV PUSH SCH ×2 (09:31→21:21)
[2016-06-10] MEDS: NYSTAT/DIPHENHY/LIDO MOUTHWASH (Adult) 120ML SWISH-SPIT SCH ×4 (09:32→21:00)
[2016-06-10 12:00] VITALS: BP 93/61; PULSE 87; RESP 16; TEMP 98.5; O2SAT 99
[2016-06-10] MEDS: oxyCODONE HCL ORAL CONC 20 MG/ML SYRINGE PO PRN ×2 (12:17→17:44)
[2016-06-10] MEDS: FILGRASTIM 300 MCG/ML VIAL SQ SCH (12:18)
--- NOTE | 2016-06-10 14:21 | HHI.PR ---
Subjective Remarks Mr. bowles had vomiting this morning and requested to discontinue the continuous tube feeds. He states that at home he will use may be half a can 2- 3 times a day and that he feels full with fat. He did vomit this morning with a continuous tube feeds but none since then. He states that he is feeling much better and his epigastric pain is improved. Objective Vitals Vital Signs Date Time Temp Pulse Resp B/P Pulse Ox O2 Delivery O2 Flow Rate FiO2 06/10/16 12:00 98.5 87 16 93/61 99 06/10/16 08:00 97.8 90 16 93/62 98 06/10/16 04:00 97.6 83 18 112/68 100 06/10/16 00:00 98.0 80 18 120/64 100 06/09/16 23:20 98.6 85 18 95/66 100 06/09/16 20:35 98.2 85 17 104/65 100 06/09/16 20:20 98.2 89 18 99/67 100 06/09/16 20:15 98.2 89 18 99/67 100 06/09/16 17:43 98.1 87 16 99/61 100 I/O 06/09/16 06/09/16 06/09/16 06/10/16 06/10/16 06/10/16 06:59 14:59 22:59 06:59 14:59 22:59 Intake Total 1090 ml 3576 ml 1055 ml Balance 1090 ml 3576 ml 1055 ml Intake Oral 240 ml 1200 ml 80 ml IV Total 850 ml 1968 ml 820 ml Tube Feeding 251 ml Packed Cells 157 ml 155 ml # Voids 2 4 5 # Bowel Movements 0 0 Result Diagram: 06/10/16 0537 06/08/16 0510 Objective Remarks GENERAL: Cachectic appearing male patient. SKIN: Warm and dry. HEAD: Normocephalic. EYES: No scleral icterus. No injection or drainage. NECK: Supple, trachea midline. No JVD or lymphadenopathy. CARDIOVASCULAR: Regular rate and rhythm without murmurs, gallops, or rubs. RESPIRATORY: Breath sounds equal bilaterally. No accessory muscle use. GASTROINTESTINAL: Abdomen soft, non-tender, nondistended. EXTREMITIES: No cyanosis, or edema. NEUROLOGICAL: Awake, alert, and oriented x 3. Non-focal. A/P Problem List: (1) Intractable vomiting ICD Code: R11.10 Status: Acute (2) Severe protein-calorie malnutrition ICD Code: E43 Status: Acute (3) Lung cancer, middle lobe ICD Code: C34.2 Status: Acute (4) Pancytopenia ICD Code: D61.818 Status: Acute (5) Hypotension ICD Code: I95.9 Status: Acute Assessment and Plan -Intractable vomiting, may have been due to radiation gastritis/esophagitis. Symptoms now resolved. Continue with tube feeds as tolerated (patient gives himself small boluses several times a day at home), full liquid diet. Protonix and Carafate. -Pancytopenia secondary to recent chemotherapy. Continue monitoring CBC and supportive transfusions as needed. Hematology input appreciated. -Severe protein calorie nutrition. As above. -Hypertension. Appears to be asymptomatic. 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 -DVT prophylaxis with SCDs. Discharge Planning Discharge home in 1-2 days if continued tolerance of full liquid diet and CBC is stable. Problem Qualifiers (1) Intractable vomiting: Qualified Code: R11.2 - Intractable vomiting with nausea, unspecified vomiting type Leah Almonte MD Jun 10, 2016 14:21
[2016-06-10 16:00] VITALS: BP 97/60; PULSE 89; RESP 16; TEMP 97.7; O2SAT 100
--- NOTE | 2016-06-10 17:01 | PD.ONC.PN ---
Subjective Subjective Remarks Feels tired. +mouthsores and sore throat. Objective Data Date Time Temp Pulse Resp B/P Pulse Ox O2 Delivery O2 Flow Rate FiO2 06/10/16 16:00 97.7 89 16 97/60 100 06/10/16 12:00 98.5 87 16 93/61 99 06/10/16 08:00 97.8 90 16 93/62 98 06/10/16 04:00 97.6 83 18 112/68 100 06/10/16 00:00 98.0 80 18 120/64 100 06/09/16 23:20 98.6 85 18 95/66 100 06/09/16 20:35 98.2 85 17 104/65 100 06/09/16 20:20 98.2 89 18 99/67 100 06/09/16 20:15 98.2 89 18 99/67 100 06/09/16 17:43 98.1 87 16 99/61 100 06/10/16 06/10/16 06/10/16 07:00 15:00 23:00 Intake Total 1055 ml 480 ml Balance 1055 ml 480 ml Result Diagram: 06/10/16 0537 06/08/16 0510 Laboratory Results Laboratory Tests Test 06/09/16 06/10/16 18:57 05:37 Haptoglobin 105 MG/DL Phosphorus Level 2.7 MG/DL Magnesium Level 1.5 MG/DL Total Bilirubin 0.9 MG/DL Direct Bilirubin 0.3 MG/DL Indirect Bilirubin 0.6 MG/DL Lactate Dehydrogenase 150 U/L Blood Type AB NEGATIVE Direct Antiglobulin Test NEGATIVE (Naveed) White Blood Count 1.5 TH/MM3 Red Blood Count 2.62 MIL/MM3 Hemoglobin 8.5 GM/DL Hematocrit 24.5 % Mean Corpuscular Volume 93.6 FL Mean Corpuscular Hemoglobin 32.5 PG Mean Corpuscular Hemoglobin 34.7 % Concent Red Cell Distribution Width 18.7 % Platelet Count 56 TH/MM3 Mean Platelet Volume 6.8 FL Vitamin B12 Level 229 PG/ML Culture Results Microbiology Date/Time Procedure Status Source Growth 06/08/16 12:50 Aerobic Blood Culture - Preliminary Resulted Blood Peripheral NO GROWTH IN 2 DAYS 06/08/16 12:50 Anaerobic Blood Culture - Preliminary Resulted Blood Peripheral NO GROWTH IN 2 DAYS 06/08/16 13:00 Aerobic Blood Culture - Preliminary Resulted Blood Peripheral NO GROWTH IN 2 DAYS 06/08/16 13:00 Anaerobic Blood Culture - Preliminary Resulted Blood Peripheral NO GROWTH IN 2 DAYS Administered Medications Medications (Trade) Dose Ordered Sig/Abel Route PRN Reason Start Time Stop Time Status Last Admin Dose Admin Sodium Chloride (NS 1000 ml Inj) 1,000 ml @ 70 mls/hr [id number] IV 06/07/16 19:50 06/10/16 14:57 IV Flush (NS Flush) 2 ml BID FLUSH 06/07/16 21:00 06/09/16 08:27 Ondansetron HCl (Zofran Inj) 4 mg Q6H PRN IVP NAUSEA OR VOMITING 06/07/16 20:00 06/09/16 18:28 Pantoprazole Sodium (Protonix Inj) 40 mg Q12H IV PUSH 06/07/16 21:00 06/10/16 09:31 Sucralfate (Carafate Liq) 1 gm BID PO 06/08/16 21:00 06/10/16 09:31 Filgrastim (Neupogen Inj) 300 mcg DAILY@14 SQ 06/08/16 19:00 06/10/16 12:18 Oxycodone HCl (Roxicodone Intensol Liq) 5 mg Q4H PRN PO epigastric pain 06/09/16 08:30 06/10/16 12:17 Docusate Sodium 100 mg 100 mg BID PEG 06/09/16 09:00 06/10/16 09:31 Fluconazole/ Sodium Chloride (Diflucan 100 Mg Premix Bag) 50 ml @ 50 mls/hr Q24H IV 06/10/16 00:30 06/10/16 00:54 Multi-Ingredient Mouthwash/Gargle (Magic Mouthwash Adult Liq) 10 ml QID SWISH-SPIT 06/10/16 09:00 06/10/16 12:17 Objective Remarks GENERAL: Well-nourished, well-developed patient. Thin SKIN: Warm and dry. HEAD: Normocephalic. EYES: No scleral icterus. No injection or drainage. NECK: Supple, trachea midline. No JVD or lymphadenopathy. LYMPHATIC: No adenopathy. CARDIOVASCULAR: Regular rate and rhythm without murmurs. RESPIRATORY: Breath sounds equal bilaterally. No accessory muscle use. GASTROINTESTINAL: Abdomen soft, non-tender, nondistended. EXTREMITIES: No cyanosis, or edema. MUSCULOSKELETAL: Adequate muscle tone. NEUROLOGICAL: No obvious focal deficit. Awake, alert, and oriented x3. PSYCHIATRIC: Appropriate mood and affect; insight and judgment normal. Assessment/Plan Problem List: (1) Squamous cell carcinoma of lung Status: Acute (2) Dehydration Status: Acute (3) Esophagitis Status: Acute (4) Pancytopenia Status: Acute (5) Hypotension Status: Acute (6) Severe protein-calorie malnutrition Status: Acute (7) Intractable vomiting Status: Acute Assessment 45 year old man with history of localized advanced non-small cell lung cancer, squamous cell histology. He has received concurrent chemotherapy and radiation. Now with: 1. Neutropenia 2. Severe Anemia, Hgb trend up with transfusion. 3. Thrombocytopenia, platelet trending up. 4. Intractable Nausea/vomiting, improving. 5. Dehydration 6. Esophagitis 7, Oral Mucositis Plan - Monitor CBC, no need for transfusion today. -Continue neupogen. -Continue magic mouth wash. -Continue PEG tube feeds. - Continue anti-emetics -Discussed with pt and family. Problem Qualifiers (1) Intractable vomiting: Qualified Code: R11.2 - Intractable vomiting with nausea, unspecified vomiting type Jey Antunez MD Jun 10, 2016 17:01
[2016-06-10 20:00] VITALS: BP 86/58; PULSE 96; RESP 16; TEMP 98; O2SAT 97
[2016-06-11] VITALS: BP 78/51; PULSE 97; RESP 16; TEMP 98.2; O2SAT 98
[2016-06-11] MEDS: FLUCONAZOLE 100 MG PREMIX BAG 50 ML IV SCH (00:30)
[2016-06-11] MEDS: oxyCODONE HCL ORAL CONC 20 MG/ML SYRINGE PO PRN (01:16)
[2016-06-11] MEDS: SODIUM CHLOR 0.9% 1000 ML INJ 1,000 ML IV SCH ×2 (01:17→16:54)
[2016-06-11] MEDS ORDERED: SODIUM CHLORID 0.9% 500 ML INJ 500 ML IV ONE (01:45)
[2016-06-11 04:00] VITALS: BP 85/55; PULSE 93; RESP 18; TEMP 98.2; O2SAT 97
[2016-06-11 05:58] LABS: HEMATOCRIT 23.4 % (39.0-51.0); MEAN CELL VOLUME 94.1 FL (80.0-100.0); MEAN CORPUSCULAR HEMOGLOBIN 32.1 PG (27.0-34.0); MEAN CORPUSCULAR HGB CONC 34.1 % (32.0-36.0); PLATELET COUNT 61 TH/MM3 (150-450); RED BLOOD COUNT 2.49 MIL/MM3 (4.50-5.90); RED CELL DISTRIBUTION WIDTH 18.8 % (11.6-17.2); WHITE BLOOD COUNT 1.3 TH/MM3 (4.0-11.0)
[2016-06-11 05:59] LABS: HEMO FLAGS AUTO DIFF
[2016-06-11 06:17] LABS: BANDS 13 % (0-6); CORRECTED NUCLEATED RBC 3 /100 WBC (0-0); NEUTROPHIL # MANUAL DIFF 0.8 TH/MM3 (1.8-7.7); OVALOCYTES 1+ (NORMAL); PLATELET ESTIMATE SMEAR LOW (NORMAL); PLATELET MORPHOLOGY NORMAL (NORMAL); POLYS (SEG NEUTROPHILS) 45 % (16-70); SCAN/DIFF FINAL DIFF MANUAL; TEARDROP RBCS 1+ (NORMAL); WBC DIFF SAMPLE 100
[2016-06-11 08:00] VITALS: BP 78/56; PULSE 89; RESP 20; TEMP 98.1; O2SAT 98
[2016-06-11] MEDS: SODIUM CHLORIDE 0.9% FLUSH 5 ML FLUSH FLUSH SCH ×2 (09:00→20:42)
[2016-06-11] MEDS: SUCRALFATE 1 GM/10 ML CUP PO SCH ×2 (09:42→20:38)
[2016-06-11] MEDS: NYSTAT/DIPHENHY/LIDO MOUTHWASH (Adult) 120ML SWISH-SPIT SCH ×4 (09:42→20:39)
[2016-06-11] MEDS: DOCUSATE SODIUM 100 MG CAP PEG SCH ×2 (09:43→20:38)
[2016-06-11] MEDS: PANTOPRAZOLE SODIUM 40 MG VIAL IV PUSH SCH ×2 (09:44→20:38)
--- NOTE | 2016-06-11 10:22 | HHI.PR ---
Subjective Remarks Mr. bowles states that he is not feeling too well this morning. He did eat mashed potatoes last night and kept those down. However he had an episode of emesis this morning. He is still having burning pain in the epigastric area. Objective Vitals Vital Signs Date Time Temp Pulse Resp B/P Pulse Ox O2 Delivery O2 Flow Rate FiO2 06/11/16 04:00 98.2 93 18 85/55 97 06/11/16 00:00 98.2 97 16 78/51 98 06/10/16 20:00 98.0 96 16 86/58 97 06/10/16 16:00 97.7 89 16 97/60 100 06/10/16 12:00 98.5 87 16 93/61 99 I/O 06/10/16 06/10/16 06/10/16 06/11/16 06/11/16 06/11/16 07:00 15:00 23:00 07:00 15:00 23:00 Intake Total 1055 ml 480 ml 680 ml 460 ml Balance 1055 ml 480 ml 680 ml 460 ml Intake Oral 80 ml 480 ml 680 ml 460 ml IV Total 820 ml Packed Cells 155 ml # Voids 5 1 2 2 # Bowel Movements 0 0 0 Result Diagram: 06/11/16 0450 06/08/16 0510 Objective Remarks GENERAL: Cachectic appearing male patient. SKIN: Warm and dry. HEAD: Normocephalic. EYES: No scleral icterus. No injection or drainage. NECK: Supple, trachea midline. No JVD or lymphadenopathy. CARDIOVASCULAR: Regular rate and rhythm without murmurs, gallops, or rubs. RESPIRATORY: Breath sounds equal bilaterally. No accessory muscle use. GASTROINTESTINAL: Abdomen soft, non-tender, nondistended. EXTREMITIES: No cyanosis, or edema. NEUROLOGICAL: Awake, alert, and oriented x 3. Non-focal. A/P Problem List: (1) Intractable vomiting ICD Code: R11.10 Status: Acute (2) Severe protein-calorie malnutrition ICD Code: E43 Status: Acute (3) Lung cancer, middle lobe ICD Code: C34.2 Status: Acute (4) Pancytopenia ICD Code: D61.818 Status: Acute (5) Hypotension ICD Code: I95.9 Status: Acute Assessment and Plan -Intractable vomiting, may have been due to radiation gastritis/esophagitis. Continue with tube feeds as tolerated (patient gives himself small boluses several times a day at home), full liquid diet. Patient at this time is refusing any further tube feeds. Protonix and Carafate. Consider GI consultation if symptoms not improved. -Pancytopenia secondary to recent chemotherapy. Continue monitoring CBC and supportive transfusions as needed. No transfusion required today. Hematology input appreciated. -Severe protein calorie nutrition. As above. -Hypertension. Appears to be asymptomatic. 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 -DVT prophylaxis with SCDs. Discharge Planning Discharge home in 1-2 days if continued tolerance of full liquid diet and CBC is stable. Problem Qualifiers (1) Intractable vomiting: Qualified Code: R11.2 - Intractable vomiting with nausea, unspecified vomiting type Leah Almonte MD Jun 11, 2016 10:22
[2016-06-11] MEDS: FILGRASTIM 300 MCG/ML VIAL SQ SCH (14:37)
[2016-06-11 16:00] VITALS: BP 83/61; PULSE 93; RESP 21; TEMP 97.8; O2SAT 96
--- NOTE | 2016-06-11 17:48 | PD.ONC.PN ---
Subjective Subjective Remarks Nausea continues, little to no PO intake. Cough with phlegm. Denies fevers or chills. Has been hypotensive over the course of today. Objective Data Date Time Temp Pulse Resp B/P Pulse Ox O2 Delivery O2 Flow Rate FiO2 06/11/16 16:00 97.8 93 21 83/61 96 06/11/16 08:00 98.1 89 20 78/56 98 06/11/16 04:00 98.2 93 18 85/55 97 06/11/16 00:00 98.2 97 16 78/51 98 06/10/16 20:00 98.0 96 16 86/58 97 06/11/16 06/11/16 06/11/16 07:00 15:00 23:00 Intake Total 460 ml 800 ml 3636 ml Balance 460 ml 800 ml 3636 ml Result Diagram: 06/11/16 0450 06/08/16 0510 Laboratory Results Laboratory Tests Test 06/11/16 04:50 White Blood Count 1.3 TH/MM3 Red Blood Count 2.49 MIL/MM3 Hemoglobin 8.0 GM/DL Hematocrit 23.4 % Mean Corpuscular Volume 94.1 FL Mean Corpuscular Hemoglobin 32.1 PG Mean Corpuscular Hemoglobin 34.1 % Concent Red Cell Distribution Width 18.8 % Platelet Count 61 TH/MM3 Mean Platelet Volume 7.4 FL Neutrophils (%) (Auto) % Lymphocytes (%) (Auto) % Monocytes (%) (Auto) % Eosinophils (%) (Auto) % Basophils (%) (Auto) % Neutrophils # (Auto) TH/MM3 Lymphocytes # (Auto) TH/MM3 Monocytes # (Auto) TH/MM3 Eosinophils # (Auto) TH/MM3 Basophils # (Auto) TH/MM3 CBC Comment AUTO DIFF Differential Total Cells 100 Counted Neutrophils % (Manual) 45 % Band Neutrophils % 13 % Lymphocytes % 34 % Monocytes % 8 % Neutrophils # (Manual) 0.8 TH/MM3 Nucleated Red Blood Cells 3 /100 WBC Differential Comment FINAL DIFF MANUAL Platelet Estimate LOW Platelet Morphology Comment NORMAL Tear Drop Cells 1+ Ovalocytes 1+ Administered Medications Medications (Trade) Dose Ordered Sig/Abel Route PRN Reason Start Time Stop Time Status Last Admin Dose Admin Sodium Chloride (NS 1000 ml Inj) 1,000 ml @ 70 mls/hr [id number] IV 06/07/16 19:50 06/11/16 16:54 IV Flush (NS Flush) 2 ml BID FLUSH 06/07/16 21:00 06/09/16 08:27 Ondansetron HCl (Zofran Inj) 4 mg Q6H PRN IVP NAUSEA OR VOMITING 06/07/16 20:00 06/09/16 18:28 Pantoprazole Sodium (Protonix Inj) 40 mg Q12H IV PUSH 06/07/16 21:00 06/11/16 09:44 Sucralfate (Carafate Liq) 1 gm BID PO 06/08/16 21:00 06/11/16 09:42 Filgrastim (Neupogen Inj) 300 mcg DAILY@14 SQ 06/08/16 19:00 06/11/16 14:37 Oxycodone HCl (Roxicodone Intensol Liq) 5 mg Q4H PRN PO epigastric pain 06/09/16 08:30 06/11/16 01:16 Docusate Sodium 100 mg 100 mg BID PEG 06/09/16 09:00 06/11/16 09:43 Fluconazole/ Sodium Chloride (Diflucan 100 Mg Premix Bag) 50 ml @ 50 mls/hr Q24H IV 06/10/16 00:30 06/11/16 00:30 Multi-Ingredient Mouthwash/Gargle (Magic Mouthwash Adult Liq) 10 ml QID SWISH-SPIT 06/10/16 09:00 06/11/16 13:36 Objective Remarks GENERAL: Chronically ill male, laying in bed, is tall, thin and cachectic appearing, pale. Has a kidney tray at bedside containing phlegm and saliva. SKIN: Warm and dry. HEAD: Normocephalic. EYES: No scleral icterus. No injection or drainage. NECK: Supple, trachea midline. No JVD or lymphadenopathy. LYMPHATIC: No adenopathy. CARDIOVASCULAR: Regular rate and rhythm without murmurs. RESPIRATORY: Breath sounds equal bilaterally. No accessory muscle use. GASTROINTESTINAL: Thin ABD, feeding tube in place, + bowel sounds. EXTREMITIES: No cyanosis, or edema. MUSCULOSKELETAL: Adequate muscle tone. NEUROLOGICAL: No obvious focal deficit. Awake, alert, and oriented x3. PSYCHIATRIC: Appropriate mood and affect; insight and judgment normal. Assessment/Plan Problem List: (1) Squamous cell carcinoma of lung Status: Chronic Plan: Locally advance disease; T4N3Mx. S/p completion of concurrent chemoRT earlier this week. (2) Dehydration Status: Acute Plan: On IV fluids, encourage PO intake and tube feeds. (3) Esophagitis Status: Acute Plan: Due to RT. He had a large radiation field with esophageal exposure which was not avoidable. (4) Pancytopenia Status: Acute (5) Hypotension Status: Acute Plan: Continue IVfs. (6) Severe protein-calorie malnutrition Status: Acute Plan: I will start TFs at a basal rate. (7) Intractable vomiting Status: Acute Plan: Start dexamethasone and ativan to manage his symptoms. Assessment 45 year old man with history of localized advanced non-small cell lung cancer, squamous cell histology. He has received concurrent chemotherapy and radiation. Now with: 1. Neutropenia 2. Severe Anemia, Hgb trend up with transfusion. 3. Thrombocytopenia, platelet trending up. 4. Intractable Nausea/vomiting, improving. 5. Dehydration 6. Esophagitis 7, Oral Mucositis Problem Qualifiers (1) Intractable vomiting: Qualified Code: R11.2 - Intractable vomiting with nausea, unspecified vomiting type Emmanuel Samaniego MD Jun 11, 2016 17:48
[2016-06-11] MEDS: DEXAMETHASONE SOD PHOS 4 MG/ML VIAL IV PUSH SCH (19:00)
[2016-06-11 20:16] VITALS: BP 94/56; PULSE 86; RESP 16; TEMP 98.1; O2SAT 99
[2016-06-11] MEDS: LORazepam 0.5 MG TAB PO SCH (20:38)
[2016-06-12] VITALS: BP 98/58; PULSE 60; RESP 16; TEMP 98.3; O2SAT 100
[2016-06-12] MEDS: FLUCONAZOLE 100 MG PREMIX BAG 50 ML IV SCH ×2 (01:36→22:44)
[2016-06-12] MEDS: DEXAMETHASONE SOD PHOS 4 MG/ML VIAL IV PUSH SCH ×3 (01:36→17:43)
[2016-06-12] MEDS: LORazepam 0.5 MG TAB PO SCH ×3 (06:18→22:43)
[2016-06-12 06:43] LABS: HEMATOCRIT 28.5 % (39.0-51.0); MEAN CELL VOLUME 95.5 FL (80.0-100.0); MEAN CORPUSCULAR HEMOGLOBIN 32.2 PG (27.0-34.0); MEAN CORPUSCULAR HGB CONC 33.7 % (32.0-36.0); PLATELET COUNT 85 TH/MM3 (150-450); RED BLOOD COUNT 2.99 MIL/MM3 (4.50-5.90); RED CELL DISTRIBUTION WIDTH 18.8 % (11.6-17.2); WHITE BLOOD COUNT 2.5 TH/MM3 (4.0-11.0)
[2016-06-12 07:04] LABS: REVIEW FLAG FINAL
[2016-06-12 08:00] VITALS: BP 96/65; PULSE 84; RESP 16; TEMP 97.3; O2SAT 99
[2016-06-12] MEDS: SODIUM CHLOR 0.9% 1000 ML INJ 1,000 ML IV SCH ×2 (08:42→17:41)
[2016-06-12] MEDS: PANTOPRAZOLE SODIUM 40 MG VIAL IV PUSH SCH ×2 (08:45→20:18)
[2016-06-12] MEDS: SUCRALFATE 1 GM/10 ML CUP PO SCH ×2 (08:49→20:17)
[2016-06-12] MEDS: DOCUSATE SODIUM 100 MG CAP PEG SCH ×2 (08:51→20:17)
[2016-06-12] MEDS: NYSTAT/DIPHENHY/LIDO MOUTHWASH (Adult) 120ML SWISH-SPIT SCH ×4 (08:52→20:16)
[2016-06-12] MEDS: SODIUM CHLORIDE 0.9% FLUSH 5 ML FLUSH FLUSH SCH ×2 (08:56→20:17)
--- NOTE | 2016-06-12 10:35 | HHI.PR ---
Subjective Remarks Patient seen and examined today with Dr. Almonte. Patient states that he feeling much better today. His nausea vomiting has improved. Last time he vomited was last night. He actually indicates that he felt better today than he has BEEN in the hospital. Objective Vitals Vital Signs Date Time Temp Pulse Resp B/P Pulse Ox O2 Delivery O2 Flow Rate FiO2 06/12/16 08:00 97.3 84 16 96/65 99 06/12/16 00:00 98.3 60 16 98/58 100 06/11/16 20:16 98.1 86 16 94/56 99 06/11/16 16:00 97.8 93 21 83/61 96 I/O 06/11/16 06/11/16 06/11/16 06/12/16 06/12/16 06/12/16 07:00 15:00 23:00 07:00 15:00 23:00 Intake Total 460 ml 800 ml 3636 ml Balance 460 ml 800 ml 3636 ml Intake Oral 460 ml 800 ml IV Total 3636 ml # Voids 2 5 2 # Bowel Movements 0 0 Result Diagram: 06/12/16 0612 06/08/16 0510 Objective Remarks GENERAL: Well-developed, well-nourished, in no acute distress. alert and orientated HEENT: Head is normocephalic without any lesions or masses noted. Facial features are symmetric. Eyes: Extraocular muscles are intact. Conjunctivae were clear. NECK: Supple without any masses. Trachea midline no deviation. No JVD, CARDIAC: Regular rhythm, regular rate. S1/S2 are heard. No murmurs gallops or rubs. LUNGS: Clear to auscultation bilaterally. No wheeze, rhonchi or rales. No use of accessory muscles on inspiration or expiration. ABDOMEN: Soft, nontender. Nondistended. Bowel sounds heard in all 4 quadrants. No organomegaly or masses. Negative rebound, negative guarding. PEG tube is noted EXTREMITIES: No edema, pulses are equal bilaterally. No cyanosis or clubbing NEUROLOGY: Mood and affect appear appropriate. Cranial nerves II through XII grossly intact. Moving all extremities, speech is clear Urinary Catheter: No Vascular Central Line Catheter: No A/P Assessment and Plan -Intractable vomiting, may have been due to radiation gastritis/esophagitis. Patient refusing tube feeds, regular diet has been initiated. Continue Protonix and Carafate. Hematology again requesting dietary and tube feeding and started Ativan, Decadron -Pancytopenia secondary to recent chemotherapy. Improved Continue monitoring CBC and supportive transfusions as needed. No transfusion required today. Hematology input appreciated. -Severe protein calorie nutrition. As above. -Hypotension. Appears to be asymptomatic. 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 -DVT prophylaxis with SCDs. Written by Roman Centeno PA-C, acting as scribe for Dr. Almonte on 06/12/16 at 1200. The documentation accurately reflects the work and decisions performed face-to- face by Dr. Almonte on 06/12/16 at 1200. Roman Centeno Jun 12, 2016 10:35
[2016-06-12 12:00] VITALS: BP 99/60; PULSE 95; RESP 18; TEMP 97.7; O2SAT 95
[2016-06-12] MEDS: FILGRASTIM 300 MCG/ML VIAL SQ SCH (14:28)
[2016-06-12 16:00] VITALS: BP 89/60; PULSE 82; RESP 16; TEMP 98.2; O2SAT 99
[2016-06-12] MEDS: oxyCODONE HCL ORAL CONC 20 MG/ML SYRINGE PO PRN ×2 (17:48→22:45)
[2016-06-12 20:16] VITALS: BP 90/58; PULSE 58; RESP 16; TEMP 97.7; O2SAT 97
[2016-06-13 00:17] VITALS: BP 82/56; PULSE 71; RESP 18; TEMP 97.1; O2SAT 99
[2016-06-13] MEDS: DEXAMETHASONE SOD PHOS 4 MG/ML VIAL IV PUSH SCH ×2 (02:36→09:37)
[2016-06-13] MEDS: LORazepam 0.5 MG TAB PO SCH (05:54)
[2016-06-13 06:30] LABS: BASOPHIL % 0.2 % (0.0-2.0); EOSINOPHIL % 0.1 % (0.0-4.0); HEMATOCRIT 26.4 % (39.0-51.0); HEMO FLAGS AUTO DIFF; LYMPH % 9.5 % (9.0-44.0); LYMPHOCYTE # 0.5 TH/MM3 (1.0-4.8); MEAN CELL VOLUME 96.2 FL (80.0-100.0); MEAN CORPUSCULAR HEMOGLOBIN 32.1 PG (27.0-34.0); MEAN CORPUSCULAR HGB CONC 33.4 % (32.0-36.0); MONO % 10.8 % (0.0-8.0); NEUT % 79.4 % (16.0-70.0); PLATELET COUNT 99 TH/MM3 (150-450); RED BLOOD COUNT 2.74 MIL/MM3 (4.50-5.90); RED CELL DISTRIBUTION WIDTH 19.4 % (11.6-17.2)
[2016-06-13 06:32] LABS: POTASSIUM 3.7 MEQ/L (3.5-5.1)
[2016-06-13 06:37] LABS: MAGNESIUM 1.6 MG/DL (1.5-2.5)
[2016-06-13 07:08] LABS: BANDS 34 % (0-6); CORRECTED NUCLEATED RBC 1 /100 WBC (0-0); METAMYELOCYTES 1 % (0-1); OVALOCYTES 1+ (NORMAL); POLYS (SEG NEUTROPHILS) 44 % (16-70); ROULEAUX PRESENT (NORMAL); WBC DIFF SAMPLE 100
[2016-06-13 07:09] LABS: DOHLE BODIES PRESENT (NONE SEEN); PLATELET ESTIMATE SMEAR LOW (NORMAL); PLATELET MORPHOLOGY NORMAL (NORMAL); SCAN/DIFF FINAL DIFF MANUAL
[2016-06-13 08:00] VITALS: BP 95/63; PULSE 76; RESP 16; TEMP 96.8; O2SAT 99
[2016-06-13] MEDS: SODIUM CHLORIDE 0.9% FLUSH 5 ML FLUSH FLUSH SCH (09:00)
[2016-06-13] MEDS: oxyCODONE HCL ORAL CONC 20 MG/ML SYRINGE PO PRN (09:36)
[2016-06-13] MEDS: SUCRALFATE 1 GM/10 ML CUP PO SCH (09:38)
[2016-06-13] MEDS: DOCUSATE SODIUM 100 MG CAP PEG SCH (09:38)
[2016-06-13] MEDS: NYSTAT/DIPHENHY/LIDO MOUTHWASH (Adult) 120ML SWISH-SPIT SCH (09:38)
[2016-06-13] MEDS: PANTOPRAZOLE SODIUM 40 MG VIAL IV PUSH SCH (09:38)
--- NOTE | 2016-06-13 10:10 | HHI.PR ---
Subjective Remarks Patient seen and examined today with Dr. Almonte. Patient states that he is feeling much better. Laboratory studies are much improved. Patient has not vomited since 06/11/16 at 9 PM. He is tolerating diet. Objective Vitals Vital Signs Date Time Temp Pulse Resp B/P Pulse Ox O2 Delivery O2 Flow Rate FiO2 06/13/16 08:00 96.8 76 16 95/63 99 06/13/16 00:17 97.1 71 18 82/56 99 06/12/16 20:16 97.7 58 16 90/58 97 06/12/16 16:00 98.2 82 16 89/60 99 06/12/16 12:00 97.7 95 18 99/60 95 I/O 06/12/16 06/12/16 06/12/16 06/13/16 06/13/16 06/13/16 07:00 15:00 23:00 07:00 15:00 23:00 Intake Total 700 ml Balance 700 ml IV Total 646 ml Other 54 ml # Voids 2 2 Result Diagram: 06/13/16 0552 06/13/16 0552 Objective Remarks GENERAL: Well-developed, well-nourished, in no acute distress. alert and orientated HEENT: Head is normocephalic without any lesions or masses noted. Facial features are symmetric. Eyes: Extraocular muscles are intact. Conjunctivae were clear. NECK: Supple without any masses. Trachea midline no deviation. No JVD, CARDIAC: Regular rhythm, regular rate. S1/S2 are heard. No murmurs gallops or rubs. LUNGS: Clear to auscultation bilaterally. No wheeze, rhonchi or rales. No use of accessory muscles on inspiration or expiration. ABDOMEN: Soft, nontender. Nondistended. Bowel sounds heard in all 4 quadrants. No organomegaly or masses. Negative rebound, negative guarding. PEG tube is noted EXTREMITIES: No edema, pulses are equal bilaterally. No cyanosis or clubbing NEUROLOGY: Mood and affect appear appropriate. Cranial nerves II through XII grossly intact. Moving all extremities, speech is clear Urinary Catheter: No Vascular Central Line Catheter: No A/P Assessment and Plan -Intractable vomiting, may have been due to radiation gastritis/esophagitis. Patient refusing tube feeds, regular diet has been initiated. Continue fluconazole, Protonix, Reglan and Carafate. Hematology again requesting dietary and tube feeding and started Ativan, Decadron -Pancytopenia secondary to recent chemotherapy. Improved Continue monitoring CBC and supportive transfusions as needed. No transfusion required today. Hematology input appreciated. -Severe protein calorie nutrition. As above. -Hypotension. Appears to be asymptomatic. 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 -DVT prophylaxis with SCDs. Written by Roman Centeno PA-C, acting as scribe for Dr. Almonte on 06/13/16 at 1155. The documentation accurately reflects the work and decisions performed face-to- face by Dr. Almonte on 06/13/16 at 1155. Roman Centeno Jun 13, 2016 10:10
[2016-06-13 12:00] VITALS: BP 102/68; PULSE 81; RESP 16; TEMP 96.6; O2SAT 99
[2016-06-13] MEDS ORDERED: DOCU1CAP39 PEG (12:31)
[2016-06-13] MEDS ORDERED: PREV30TA3 G-TUBE (12:31)
[2016-06-13] MEDS ORDERED: MAGICADU2 SWISH-SPIT (12:31)
[2016-06-13] MEDS ORDERED: LORA-392 PO (12:31)
[2016-06-13] MEDS ORDERED: DIFL100T PEG (12:31)
[2016-06-13] MEDS ORDERED: OXYC1CAP PEG (12:31)
[2016-06-13] MEDS ORDERED: ZOFR4SOL G-TUBE (12:31)
[2016-06-13] MEDS ORDERED: SUCR1S PO (12:31)
--- NOTE | 2016-06-13 12:36 | HHI.DS ---
Discharge Summary Admission Date Jun 07, 2016 at 19:54 Discharge Date: Jun 13, 2016 Admitting Diagnosis INTRACTABLE VOMITING, ESOPHAGITIS, OUTPATIENT TREATMENT FAILURE (1) Intractable vomiting ICD Code: R11.10 (2) Severe protein-calorie malnutrition ICD Code: E43 (3) Lung cancer, middle lobe ICD Code: C34.2 (4) Pancytopenia ICD Code: D61.818 (5) Hypotension ICD Code: I95.9 Procedures None Brief History - From Admission Patient is a 45-year-old gentleman with a fairly recent diagnosis of right lower lung squamous cell carcinoma. He had been in radiation therapy with his oncologist and had increased nausea and vomiting. He was unable to swallow and unable to get nutrition. Patient had a gastrostomy tube placed in February, however he had been using it infrequently. Patient has not had any fevers or chills but is noted to be pancytopenic today. He had been having difficulty swallowing his saliva. Patient has been admitted to the hospital for further evaluation of pancytopenia and intractable nausea and vomiting. CBC/BMP: 06/13/16 0552 06/13/16 0552 Significant Findings Laboratory Tests Test 06/11/16 06/12/16 06/13/16 04:50 06:12 05:52 White Blood Count 1.3 TH/MM3 2.5 TH/MM3 (4.0-11.0) (4.0-11.0) Red Blood Count 2.49 MIL/MM3 2.99 MIL/MM3 2.74 MIL/MM3 (4.50-5.90) (4.50-5.90) (4.50-5.90) Hemoglobin 8.0 GM/DL 9.6 GM/DL 8.8 GM/DL (13.0-17.0) (13.0-17.0) (13.0-17.0) Hematocrit 23.4 % 28.5 % 26.4 % (39.0-51.0) (39.0-51.0) (39.0-51.0) Red Cell Distribution Width 18.8 % 18.8 % 19.4 % (11.6-17.2) (11.6-17.2) (11.6-17.2) Platelet Count 61 TH/MM3 85 TH/MM3 99 TH/MM3 (150-450) (150-450) (150-450) Band Neutrophils % 13 % (0-6) 34 % (0-6) Neutrophils # (Manual) 0.8 TH/MM3 (1.8-7.7) Nucleated Red Blood Cells 3 /100 WBC 1 /100 WBC (0-0) (0-0) Platelet Estimate LOW (NORMAL) LOW (NORMAL) Tear Drop Cells 1+ (NORMAL) Ovalocytes 1+ (NORMAL) 1+ (NORMAL) Neutrophils (%) (Auto) 79.4 % (16.0-70.0) Monocytes (%) (Auto) 10.8 % (0.0-8.0) Lymphocytes # (Auto) 0.5 TH/MM3 (1.0-4.8) Lymphocytes % 6 % (9-44) Monocytes % 15 % (0-8) Dohle Bodies PRESENT (NONE SEEN) Basophilic Stippling FAINT (NORMAL) Rouleau PRESENT (NORMAL) Random Glucose 116 MG/DL (74-106) Calcium Level 7.9 MG/DL (8.5-10.1) PE at Discharge GENERAL: Well-developed, well-nourished, in no acute distress. alert and orientated HEENT: Head is normocephalic without any lesions or masses noted. Facial features are symmetric. Eyes: Extraocular muscles are intact. Conjunctivae were clear. NECK: Supple without any masses. Trachea midline no deviation. No JVD, CARDIAC: Regular rhythm, regular rate. S1/S2 are heard. No murmurs gallops or rubs. LUNGS: Clear to auscultation bilaterally. No wheeze, rhonchi or rales. No use of accessory muscles on inspiration or expiration. ABDOMEN: Soft, nontender. Nondistended. Bowel sounds heard in all 4 quadrants. No organomegaly or masses. Negative rebound, negative guarding. PEG tube is noted EXTREMITIES: No edema, pulses are equal bilaterally. No cyanosis or clubbing NEUROLOGY: Mood and affect appear appropriate. Cranial nerves II through XII grossly intact. Moving all extremities, speech is clear Hospital Course The patient was admitted to the hospital and treated with IV fluids, Protonix, Diflucan for the presumed radiation induced esophagitis. Hematology was consulted. He was placed on Neupogen for the pancytopenia. He gradually improved. Has not had any vomiting for 2 days and is tolerating by mouth. Diet. Counts are improved. The patient will like to go home today and watch the [employer] Bowl. He agrees to follow-up with his oncologist Dr. Samaniego tomorrow. I discussed his care with Dr. Bryan who is covering for oncology and he was agreeable to this plan as well. The patient will be given a bottle of magic mouthwash at discharge as he states his co-pay is very high for that. He is given prescription for Protonix, Diflucan, pain medicine and Ativan as needed for anxiety. Pt Condition on Discharge: Stable Discharge Disposition: Discharge Home Discharge Time: > 30 minutes Discharge Instructions DIET: Follow Instructions for: As Tolerated, No Restrictions, On Tube Feeding Speech Therapy-Diet Recommends: Pureed Activities you can perform: Regular-No Restrictions Follow up Referrals: Oncology - Next Day with Emmanuel Samaniego MD New Medications: Fluconazole (Diflucan) 100 Mg Tab 100 MG PEG DAILY Infection #7 Ref 0 TAB Lansoprazole ODT (Prevacid Solutab ODT) 30 Mg Tab 30 MG G-TUBE DAILY Mix with 4 ml water before giving via tube. Ulcer Prevention #30 Ref 0 TAB Oxycodone (Oxycodone) 5 Mg Cap 5 MG PEG Q4H PRN PAIN #60 Ref 0 CAP Docusate Sodium (Dok) 100 Mg Cap 100 MG PEG BID prevent constipation #60 CAP Lorazepam (Ativan) 0.5 Mg Tab 0.5 MG PO Q8HR PRN anxiety #30 TAB Gtelzabp-Awajpcnouizlpcj-Zxoqoxtmg Liq (Magic Mouthwash Adult Liq) 120 Ml Susp 10 ML SWISH-SPIT QID sore mouth #300 ML Sucralfate Liq (Sucralfate Liq) 1 Gm/10 Ml Felicitas 1 GM PO BID esophagitis #30 BOTTLE Continued Medications: Ondansetron Liq (Zofran Liq) 4 Mg/5 Ml Soln 4 MG G-TUBE Q6HR Nausea/Vomiting Days 10 Ref 0 ML (This prescription has been renewed) Leah Almonte MD Jun 13, 2016 12:36
== END 2016-06-13 12:37 | disposition home or self-care (01) | DRG 391 ==
LOC: PHED 18:12 → PHEDA 19:54 → PH3B 22:29
PROVIDERS: ADMIT Family Medicine; ATTEND Family Medicine
PROC: 30233N1 Transfusion of Nonautologous Red Blood Cells into Peripheral Vein, Percutaneous Approach (ICD-10-PCS; principal; 2016-06-09)
DX: K20.8 Other esophagitis (principal); Y84.2 Radiological procedure and radiotherapy as the cause of abnormal reaction of the patient, or of later complication, without mention of misadventure at the time of the procedure; E43 Unspecified severe protein-calorie malnutrition; D61.818 Other pancytopenia; D61.810 Antineoplastic chemotherapy induced pancytopenia; I95.9 Hypotension, unspecified; C34.31 Malignant neoplasm of lower lobe, right bronchus or lung; Z93.1 Gastrostomy status; R13.10 Dysphagia, unspecified; Z68.1 Body mass index [BMI] 19.9 or less, adult; R11.2 Nausea with vomiting, unspecified; E86.0 Dehydration; K12.30 Oral mucositis (ulcerative), unspecified; Z87.891 Personal history of nicotine dependence
CPT/HCPCS: 36430; 74000; 77386; 80048; 82247; 82248; 82607; 82747; 83010; 83615; 83735; 84100; 85007; 85025; 85027; 86850; 86880; 86900; 86901; 86920; 87040; 96361; 96374; C9113; J1100; J1442; J1450; J2405; J2765; J7030; J7040; P9016

== ENCOUNTER 2016-09-08 10:02 | Day surgery (SDC) | payer MEDICAID ==
[~2016-09-08 10:02] MED LIST changes: +DIFL100T PEG; +DOCU1CAP39 PEG; +LORA-392 PO; +MAGICADU2 SWISH-SPIT; +OXYC1CAP PEG; +PREV30TA3 G-TUBE; +SUCR1S PO
[2016-09-08 10:24] VITALS: BP 120/83; PULSE 87; RESP 20; TEMP 97.6; O2SAT 99
== END 2016-09-08 13:00 | disposition home or self-care (01) ==
LOC: HROP 10:02 → HRIP 10:03 → HROP 13:00
PROVIDERS: ATTEND Internal Medicine Hematology & Oncology
DX: Z43.1 Encounter for attention to gastrostomy (principal)
CPT/HCPCS: 99211; G0463

== ENCOUNTER 2016-09-19 11:34 | Emergency (ER) | payer MEDICAID ==
[~2016-09-19] VITALS: Ht 198.1 cm; Wt 70.0 kg
[2016-09-19 11:37] VITALS: BP 106/81; PULSE 104; RESP 16; TEMP 98.2; O2SAT 99
--- NOTE | 2016-09-19 11:55 | PD ---
HPI Chief Complaint: Fall Time Seen by Provider: 11:44 Travel History International Travel<30 days: No Contact w/Intl Traveler<30days: No Traveled to known affect area: No History of Present Illness HPI This patient complains of pain in the left hip area. Yesterday at 6 PM he fell from the dock into a boat. He is ambulatory but has pain when walking. No complaints of head or neck or rib pain. He has history of metastatic lung cancer spread through the spine and sacrum and is getting palliative chemotherapy and starting radiation next week. Symptoms severity is moderate. Duration one day. No alleviating factors PFSH Past Medical History Hx Anticoagulant Therapy: No Cancer: Yes (LUNG: DX ON 02/27/16) Cardiovascular Problems: No Chemotherapy: Yes (TUESDAY) Endocrine: No Gastrointestinal Disorders: Yes (UPPER ENDOSCOPIES X2: FEBRUARY 2016) Genitourinary: No Immune Disorder: No Implanted Vascular Access Dvce: No Musculoskeletal: No Neurologic: No Psychiatric: No Reproductive: No Respiratory: Yes (LUNG CA) Radiation Therapy: Yes (5 DAYS PER WEEK, LAST DOSE 06-07-16) Past Surgical History Body Medical Devices: LUQ PEG TUBE Other Surgery: Yes (G- TUBE PLACEMENT: FEBRUARY 2016) Social History Alcohol Use: No (QUIT MARCH 2016) Tobacco Use: No (QUIT 02/27/16, SMOKED SINCE AGE 15) Substance Use: No Allergies-Medications (Allergen,Severity, Reaction): Coded Allergies: No Known Allergies (Unverified , 09/19/16) Reported Meds & Prescriptions Reported Meds & Active Scripts Active Ativan (Lorazepam) 0.5 Mg Tab 0.5 Mg PO Q8HR PRN Sucralfate Liq (Sucralfate) 1 Gm/10 Ml Felicitas 1 Gm PO BID Reported Oxycodone (Oxycodone HCl) 5 Mg Tab 5 Mg PO Q4H PRN Zofran Odt (Ondansetron Odt) 4 Mg Tab 4 Mg SL Q6HR PRN Prevacid Solutab ODT (Lansoprazole) 30 Mg Tab 30 Mg PO DAILY Mix with 4 ml water before giving via tube. Review of Systems General / Constitutional: No: Fever Eyes: No: Visual changes HENT: No: Headaches Cardiovascular: No: Chest Pain or Discomfort Respiratory: No: Shortness of Breath Gastrointestinal: No: Abdominal Pain Genitourinary: No: Dysuria Musculoskeletal: Positive: Myalgias, Arthralgias, Pain Skin: No Rash Neurologic: No: Weakness Psychiatric: No: Depression Endocrine: No: Polydipsia Hematologic/Lymphatic: No: Easy Bruising Physical Exam Narrative GENERAL: Well-nourished, well-developed patient in no apparent distress. SKIN: Focused skin assessment reveals no rash and nodules. Skin is Warm and dry. HEAD: Atraumatic. Normocephalic. EYES: Pupils equal and round. No scleral icterus. No injection or drainage. ENT: No nasal bleeding or discharge. Mucous membranes pink and moist. NECK: Trachea midline. No JVD. CARDIOVASCULAR: Regular rate and rhythm. No murmur appreciated. RESPIRATORY: No accessory muscle use. Clear to auscultation. Breath sounds equal bilaterally. GASTROINTESTINAL: Abdomen soft, non-tender, nondistended. Hepatic and splenic margins not palpable. MUSCULOSKELETAL: No obvious deformities. No clubbing. No cyanosis. No edema. Some discomfort with flexion of the left hip. No edema or ecchymosis. No rib tenderness NEUROLOGICAL: Awake and alert. No obvious cranial nerve deficits. Motor grossly within normal limits. Normal speech. PSYCHIATRIC: Appropriate mood and affect; insight and judgment normal. Data Data Last Documented VS Vital Signs Date Time Temp Pulse Resp B/P Pulse Ox O2 Delivery O2 Flow Rate FiO2 09/19/16 12:06 16 Room Air 09/19/16 11:37 98.2 104 106/81 99 Orders Pelvis, Ap Only (Routine) (09/19/16 ) Femur (Ap & Lat/2vws) (09/19/16 ) MDM Medical Decision Making Medical Screen Exam Complete: Yes Emergency Medical Condition: Yes Medical Record Reviewed: Yes Differential Diagnosis Hip fracture, hip contusion, pelvic fracture, pathologic fracture Narrative Course I have reviewed the patient's electronic medical record. Reviewed his oncologist note from 10 days ago detailing his extensive metastatic disease I reviewed his pelvis x-ray which is normal I reviewed his left femur x-rays which is normal Recommend using crutches for a few days which she has at home Recommend he follow-up with his physician. Diagnosis Primary Impression: Contusion of left hip, initial encounter Additional Impression: Squamous cell carcinoma of lung Qualified Code: C34.90 - Squamous cell carcinoma of lung, unspecified laterality Additional Instructions: The patient was advised to follow up with their physician and return if they worsen. Limit weightbearing right hip for a few days Med/Other Pt SpecificInfo: Other Disposition: 01 DISCHARGE HOME Condition: Stable Roman Bolton MD September 19, 2016 11:55
[2016-09-19] MEDS ORDERED: PREV30TA3 PO (12:05)
[2016-09-19] MEDS ORDERED: OXYC-392 PO (12:05)
[2016-09-19] MEDS ORDERED: ZOFR4TAB3 SL (12:05)
--- NOTE | 2016-09-19 12:25 | RADHPO ---
EXAM DATE/TIME: 09/19/2016 12:02 [facility] COMPARISON: No previous studies available for comparison. INDICATIONS : Fell, left femur pain MEDICAL HISTORY : Carcinoma, bone. Carcinoma, lung. SURGICAL HISTORY : None. ENCOUNTER: Initial ACUITY: 1 day PAIN SCORE: 10/10 LOCATION: Left femur FINDINGS: Two view examination of the left femur demonstrates no evidence of fracture or dislocation. Bony min eralization is normal. The soft tissue structures are intact. CONCLUSION: No acute fracture. Jamie Montanez MD on September 19, 2016 at 12:23 Board Certified Radiologist. This report was verified electronically.
--- NOTE | 2016-09-19 12:26 | RADHPO ---
EXAM DATE/TIME: 09/19/2016 12:06 [facility] COMPARISON: No previous studies available for comparison. INDICATIONS : Fell, left side pain MEDICAL HISTORY : Carcinoma, lung. Carcinoma, bone. SURGICAL HISTORY : None. ENCOUNTER: Initial ACUITY: 1 day PAIN SCORE: 10/10 LOCATION: Left pelvis FINDINGS: A single frontal view of the pelvis demonstrates no evidence of fracture. The bony pelvic ring is in tact. Bony mineralization is normal. The soft tissues are intact. CONCLUSION: No acute fracture. Jamie Montanez MD on September 19, 2016 at 12:23 Board Certified Radiologist. This report was verified electronically.
[2016-09-19 12:30] VITALS: BP 118/72; PULSE 88; RESP 16
[2016-09-19 13:39] VITALS: BP 112/69
== END 2016-09-19 14:12 | disposition home or self-care (01) ==
LOC: PHED 11:34
DX: S70.02XA Contusion of left hip, initial encounter (principal); C34.90 Malignant neoplasm of unspecified part of unspecified bronchus or lung; C79.51 Secondary malignant neoplasm of bone; Z87.19 Personal history of other diseases of the digestive system; Z87.891 Personal history of nicotine dependence; W17.89XA Other fall from one level to another, initial encounter; Y92.89 Other specified places as the place of occurrence of the external cause
CPT/HCPCS: 72170; 73552; 99283

== ENCOUNTER 2016-09-24 21:34 | Emergency (ER) | payer MEDICAID ==
[~2016-09-24] VITALS: Ht 198.1 cm; Wt 66.0 kg
[~2016-09-24 21:34] MED LIST changes: -DIFL100T PEG; -DOCU1CAP39 PEG; -MAGICADU2 SWISH-SPIT; +OXYC-392 PO; -OXYC1CAP PEG; -PREV30TA3 G-TUBE; +PREV30TA3 PO; -ZOFR4SOL G-TUBE; +ZOFR4TAB3 SL
[2016-09-24 21:42] VITALS: BP 126/75; PULSE 105; RESP 18; TEMP 98.6; O2SAT 98
[2016-09-24] MEDS ORDERED: SODIUM CHLOR 0.9% 1000 ML INJ 1,000 ML IV SCH (21:43)
[2016-09-24] MEDS ORDERED: ONDANSETRON HCL 4 MG/2 ML VIAL IVP ONE (21:45)
--- NOTE | 2016-09-24 21:47 | PD ---
HPI Chief Complaint: GI Complaint Time Seen by Provider: 21:38 Travel History International Travel<30 days: No Contact w/Intl Traveler<30days: No Traveled to known affect area: No History of Present Illness HPI This is a 45-year-old male with known history of squamous cell carcinoma of the lung with metastasis to the sacrum and spine. He presents via EMS for evaluation of intractable nausea and vomiting. He recently had chemotherapy 5 days ago and since then he has been nauseous, dehydrated, having difficulty keeping any of his prescribed medications down. He tends to just vomit up any medications that are prescribed including Zofran. He has no other complaints at this time. His oncologist is Dr. Samaniego. [facility] Past Medical History Hx Anticoagulant Therapy: No Cancer: Yes (LUNG: DX ON 02/27/16) Cardiovascular Problems: No Chemotherapy: Yes (this tuesday) Endocrine: No Gastrointestinal Disorders: Yes (UPPER ENDOSCOPIES X2: FEBRUARY 2016) Genitourinary: No Immune Disorder: No Implanted Vascular Access Dvce: No Musculoskeletal: No Neurologic: No Psychiatric: No Reproductive: No Respiratory: Yes (LUNG CA) Radiation Therapy: Yes (, LAST DOSE this past jun, 2016) Past Surgical History Body Medical Devices: LUQ PEG TUBE Other Surgery: Yes (G- TUBE PLACEMENT: FEBRUARY 2016 and removed 09/16/16) Social History Alcohol Use: No (QUIT MARCH 2016) Tobacco Use: No (QUIT 02/27/16, SMOKED SINCE AGE 15-smoked 1-2 ppd) Substance Use: No Allergies-Medications (Allergen,Severity, Reaction): Coded Allergies: No Known Allergies (Unverified , 09/19/16) Reported Meds & Prescriptions Reported Meds & Active Scripts Active Reglan (Metoclopramide HCl) 10 Mg Tab 10 Mg PO QID PRN Reported Prednisone (21) 10 mg tab Dose Pack (Prednisone) 10 Mg Pack 10 Mg PO DIRECTED Advair Diskus Inh (Fluticasone-Salmeterol Inh) 250-50 Mcg/Blist Aer 2 Puff INH DAILY Rinse mouth after use. Morphine IR (Morphine Sulfate) 30 Mg Tab 30 Mg PO Q4H PRN Zofran Odt (Ondansetron Odt) 4 Mg Tab 4 Mg SL Q6HR PRN Prevacid Solutab ODT (Lansoprazole) 30 Mg Tab 30 Mg PO DAILY Mix with 4 ml water before giving via tube. Review of Systems Except as stated in HPI: all other systems reviewed are Neg Physical Exam Narrative GENERAL: Well-developed well-nourished male in no acute distress SKIN: Warm and dry. HEAD: Atraumatic. Normocephalic. EYES: Pupils equal and round. No scleral icterus. No injection or drainage. ENT: No nasal bleeding or discharge. Mucous membranes pink and moist. NECK: Trachea midline. No JVD. CARDIOVASCULAR: Regular rate and rhythm. No murmur appreciated. RESPIRATORY: No accessory muscle use. Clear to auscultation. Breath sounds equal bilaterally. GASTROINTESTINAL: Abdomen soft, non-tender, nondistended. Hepatic and splenic margins not palpable. MUSCULOSKELETAL: No obvious deformities. No edema. Some tenderness to palpation along the mid back. NEUROLOGICAL: Awake and alert. No obvious cranial nerve deficits. Motor grossly within normal limits. Normal speech. PSYCHIATRIC: Appropriate mood and affect; insight and judgment normal. Data Data Last Documented VS Vital Signs Date Time Temp Pulse Resp B/P Pulse Ox O2 Delivery O2 Flow Rate FiO2 09/24/16 23:27 20 09/24/16 21:48 102 09/24/16 21:42 98.6 126/75 98 Orders Iv Access Insert/Monitor (09/24/16 21:43) Ecg Monitoring (09/24/16 21:43) Oximetry (09/24/16 21:43) Ondansetron Inj (Zofran Inj) (09/24/16 21:45) Sodium Chlor 0.9% 1000 Ml Inj (Ns 1000 M (09/24/16 21:43) Complete Blood Count With Diff (09/24/16 21:43) Comprehensive Metabolic Panel (09/24/16 21:43) Magnesium (Mg) (09/24/16 21:43) Abdomen, Flat & Upright (09/24/16 ) Metoclopramide Inj (Reglan Inj) (09/24/16 23:00) Morphine Inj (Morphine Inj) (09/24/16 23:15) Labs Laboratory Tests Test 09/24/16 21:50 White Blood Count 9.4 TH/MM3 Red Blood Count 4.38 MIL/MM3 Hemoglobin 14.2 GM/DL Hematocrit 40.8 % Mean Corpuscular Volume 93.3 FL Mean Corpuscular Hemoglobin 32.4 PG Mean Corpuscular Hemoglobin 34.7 % Concent Red Cell Distribution Width 14.9 % Platelet Count 247 TH/MM3 Mean Platelet Volume 7.9 FL Neutrophils (%) (Auto) 89.7 % Lymphocytes (%) (Auto) 6.0 % Monocytes (%) (Auto) 3.7 % Eosinophils (%) (Auto) 0.4 % Basophils (%) (Auto) 0.2 % Neutrophils # (Auto) 8.5 TH/MM3 Lymphocytes # (Auto) 0.6 TH/MM3 Monocytes # (Auto) 0.4 TH/MM3 Eosinophils # (Auto) 0.0 TH/MM3 Basophils # (Auto) 0.0 TH/MM3 CBC Comment DIFF FINAL Differential Comment Sodium Level 137 MEQ/L Potassium Level 3.5 MEQ/L Chloride Level 97 MEQ/L Carbon Dioxide Level 28.4 MEQ/L Anion Gap 12 MEQ/L Blood Urea Nitrogen 15 MG/DL Creatinine 0.81 MG/DL Estimat Glomerular Filtration 104 ML/MIN Rate Random Glucose 89 MG/DL Calcium Level 9.8 MG/DL Magnesium Level 2.0 MG/DL Total Bilirubin 0.7 MG/DL Aspartate Amino Transf 15 U/L (AST/SGOT) Alanine Aminotransferase 15 U/L (ALT/SGPT) Alkaline Phosphatase 137 U/L Total Protein 8.2 GM/DL Albumin 4.0 GM/DL MDM Medical Decision Making Medical Screen Exam Complete: Yes Emergency Medical Condition: Yes Medical Record Reviewed: Yes Differential Diagnosis Chemotherapy-induced nausea and vomiting, obstruction, gastroenteritis, dehydration, electrolyte abnormality Narrative Course 45-year-old male with known history of metastatic squamous cell carcinoma of the lung who presents after having undergone chemotherapy. He has been having intractable nausea and vomiting. Plan is for basic lab work, x-ray of the abdomen. He'll be given IV fluids, IV Zofran. He was placed on ECG monitoring and pulse oximetry. The patient's laboratory imaging studies are very reassuring. He has known metastatic disease to the thoracic spine with no acute abnormalities. Upon examination he continues to feel the same level of nausea with no improvement. Plan is to give him Reglan and attempt at oral hydration. Signed out to my attending physician pending results of this challenge. Scripts Metoclopramide (Reglan)10 Mg Tab10 Mg PO QID PRN (NAUSEA OR VOMITING) #20 TAB Ref 0 Prov:Kerry Vora MD 09/25/16 Mateo Lockwood September 24, 2016 21:47
[2016-09-24 21:48] VITALS: PULSE 102; RESP 18
[2016-09-24 22:22] LABS: AUTOMATED NEUTROPHIL # 8.5 TH/MM3 (1.8-7.7); BASOPHIL % 0.2 % (0.0-2.0); EOSINOPHIL % 0.4 % (0.0-4.0); HEMATOCRIT 40.8 % (39.0-51.0); HEMO FLAGS DIFF FINAL; LYMPHOCYTE # 0.6 TH/MM3 (1.0-4.8); MEAN CELL VOLUME 93.3 FL (80.0-100.0); MEAN CORPUSCULAR HEMOGLOBIN 32.4 PG (27.0-34.0); MEAN CORPUSCULAR HGB CONC 34.7 % (32.0-36.0); MONO % 3.7 % (0.0-8.0); NEUT % 89.7 % (16.0-70.0); PLATELET COUNT 247 TH/MM3 (150-450); RED BLOOD COUNT 4.38 MIL/MM3 (4.50-5.90); RED CELL DISTRIBUTION WIDTH 14.9 % (11.6-17.2); WHITE BLOOD COUNT 9.4 TH/MM3 (4.0-11.0)
[2016-09-24 22:34] LABS: ANION GAP 12 MEQ/L (5-15); AST (GOT) 15 U/L (15-37); BICARBONATE 28.4 MEQ/L (21.0-32.0); BLOOD UREA NITROGEN 15 MG/DL (7-18); CHLORIDE 97 MEQ/L (98-107); GLOMERULAR FILTRATION RATE 104 ML/MIN (>89); POTASSIUM 3.5 MEQ/L (3.5-5.1); SODIUM (NA) 137 MEQ/L (136-145)
[2016-09-24 22:38] LABS: ALKALINE PHOSPHATASE 137 U/L (45-117); ALT (GPT) 15 U/L (12-78); TOTAL BILIRUBIN ADULT 0.7 MG/DL (0.2-1.0)
[2016-09-24] MEDS ORDERED: MSIR30 PO (22:46)
[2016-09-24] MEDS ORDERED: PRED10PA PO (22:46)
[2016-09-24] MEDS ORDERED: ADVA250A INH (22:46)
--- NOTE | 2016-09-24 22:46 | RADRPT ---
EXAM DATE/TIME: 09/24/2016 22:17 [facility] COMPARISON: CT ABDOMEN & PELVIS W CONTRAST, February 29, 2016, 14:02. CT THORAX W CONTRAST, February 27, 2016, 22: 25. INDICATIONS : Vomiting and back pain. MEDICAL HISTORY : Carcinoma, lung. Mediastinal mass. Bronchopneumonia. Chemotherapy SURGICAL HISTORY : ENCOUNTER: Initial ACUITY: 4 - 6 months PAIN SCORE: 10/10 LOCATION: Bilateral abdomen and back FINDINGS: Nonobstructive bowel gas pattern. No free air. An 8 mm stone is again seen of the right kidney, did n ot appear to be obstructing on the previous CT. There is mild but slightly worsening levoconvex curvature of the spine. There is a 2.4 cm area of bon e destruction involving the left side of the T11 vertebral body and probably the pedicle as well. The re is mild loss of height of T11 towards the left. CONCLUSION: 1. Destructive metastatic lesion with mild compression deformity of the T11 vertebral body. Please se e above. 2. Benign-appearing abdomen. 8mm right renal stone not new. Amari Hernandez MD on September 24, 2016 at 22:41 Board Certified Radiologist. This report was verified electronically.
[2016-09-24] MEDS ORDERED: METOCLOPRAMIDE HCL 10 MG/2 ML VIAL IV PUSH ONE (23:00)
[2016-09-24] MEDS ORDERED: MORPHINE SULFATE 8 MG/ML INJ IV PUSH ONE (23:15)
[2016-09-24 23:27] VITALS: RESP 20
[2016-09-25] MEDS ORDERED: REGL10TA5 PO (00:14)
--- NOTE | 2016-09-25 00:14 | PD ---
Physical Exam Date Seen by Provider: September 24, 2016 Time Seen by Provider: 23:00 Narrative I, Dr. Vora, have reviewed the advance practice practitioner's documentation and am in agreement, met with the patient face to face, made the diagnosis, and the medical decision making was done by me. *My assessment and Findings: Patient seen with PA, please see PA note for further information. He is a known cancer patient on chemotherapy, having nausea and vomiting related to chemotherapy. Lab work did not show significant metabolic issues. Patient was initially given Zofran with not much relief and Reglan seems to have helped him better. At this point, patient is doing well and my plan would be to release the patient with further symptomatic relief or nausea and vomiting. Abdomen is fairly benign and would not suspecting an acute intra-abdominal process. X-ray did not show any signs of acute obstruction. Data Data Last Documented VS Vital Signs Date Time Temp Pulse Resp B/P Pulse Ox O2 Delivery O2 Flow Rate FiO2 09/24/16 21:48 102 18 09/24/16 21:42 98.6 126/75 98 Orders Iv Access Insert/Monitor (09/24/16 21:43) Ecg Monitoring (09/24/16 21:43) Oximetry (09/24/16 21:43) Ondansetron Inj (Zofran Inj) (09/24/16 21:45) Sodium Chlor 0.9% 1000 Ml Inj (Ns 1000 M (09/24/16 21:43) Complete Blood Count With Diff (09/24/16 21:43) Comprehensive Metabolic Panel (09/24/16 21:43) Magnesium (Mg) (09/24/16 21:43) Abdomen, Flat & Upright (09/24/16 ) Metoclopramide Inj (Reglan Inj) (09/24/16 23:00) Morphine Inj (Morphine Inj) (09/24/16 23:15) Labs Laboratory Tests Test 09/24/16 21:50 White Blood Count 9.4 TH/MM3 Red Blood Count 4.38 MIL/MM3 Hemoglobin 14.2 GM/DL Hematocrit 40.8 % Mean Corpuscular Volume 93.3 FL Mean Corpuscular Hemoglobin 32.4 PG Mean Corpuscular Hemoglobin 34.7 % Concent Red Cell Distribution Width 14.9 % Platelet Count 247 TH/MM3 Mean Platelet Volume 7.9 FL Neutrophils (%) (Auto) 89.7 % Lymphocytes (%) (Auto) 6.0 % Monocytes (%) (Auto) 3.7 % Eosinophils (%) (Auto) 0.4 % Basophils (%) (Auto) 0.2 % Neutrophils # (Auto) 8.5 TH/MM3 Lymphocytes # (Auto) 0.6 TH/MM3 Monocytes # (Auto) 0.4 TH/MM3 Eosinophils # (Auto) 0.0 TH/MM3 Basophils # (Auto) 0.0 TH/MM3 CBC Comment DIFF FINAL Differential Comment Sodium Level 137 MEQ/L Potassium Level 3.5 MEQ/L Chloride Level 97 MEQ/L Carbon Dioxide Level 28.4 MEQ/L Anion Gap 12 MEQ/L Blood Urea Nitrogen 15 MG/DL Creatinine 0.81 MG/DL Estimat Glomerular Filtration 104 ML/MIN Rate Random Glucose 89 MG/DL Calcium Level 9.8 MG/DL Magnesium Level 2.0 MG/DL Total Bilirubin 0.7 MG/DL Aspartate Amino Transf 15 U/L (AST/SGOT) Alanine Aminotransferase 15 U/L (ALT/SGPT) Alkaline Phosphatase 137 U/L Total Protein 8.2 GM/DL Albumin 4.0 GM/DL [facility] Medical Record Reviewed: Yes Supervised Visit with YORDY: Yes Diagnosis Primary Impression: Vomiting Med/Other Pt SpecificInfo: Prescription(s) given Scripts Metoclopramide (Reglan)10 Mg Tab10 Mg PO QID PRN (NAUSEA OR VOMITING) #20 TAB Ref 0 Prov:Kerry Vora MD 09/25/16 Disposition: 01 DISCHARGE HOME Condition: Stable Kerry Vora MD September 25, 2016 00:14
== END 2016-09-25 00:57 | disposition home or self-care (01) ==
LOC: NEPC 21:34
DX: R11.2 Nausea with vomiting, unspecified (principal); C79.51 Secondary malignant neoplasm of bone; Z92.21 Personal history of antineoplastic chemotherapy; Z85.118 Personal history of other malignant neoplasm of bronchus and lung
CPT/HCPCS: 74020; 80053; 83735; 85025; 96361; 96374; 96375; 99284; J2270; J2405; J2765; J7030

== ENCOUNTER 2016-10-07 18:24 | Inpatient (IN) | payer MEDICAID ==
[~2016-10-07] VITALS: Ht 198.1 cm; Wt 58.6 kg
[~2016-10-07 18:24] MED LIST changes: +ADVA250A INH; -LORA-392 PO; +MSIR30 PO; -OXYC-392 PO; +PRED10PA PO; +REGL10TA5 PO; -SUCR1S PO
[2016-10-07 18:26] VITALS: BP 114/78; PULSE 118; RESP 20; TEMP 97.4; O2SAT 94
--- NOTE | 2016-10-07 18:37 | PD ---
Physical Exam Time Seen by Provider: 18:34 Narrative 45yo M sent by Dr Diaz. Patient has lung CA and has not eaten in 6-[address] head. Throws up instantly when puts anything in his mouth. Cant even take his medications. reports generalized weakness. Patient seen in triage. VS reviewed. Awaiting bed placement. Data Data Last Documented VS Vital Signs Date Time Temp Pulse Resp B/P Pulse Ox O2 Delivery O2 Flow Rate FiO2 10/07/16 18:26 97.4 118 20 114/78 94 MDM Supervised Visit with YORDY: Anna Cervantes Oct 07, 2016 18:37
[2016-10-07 18:48] VITALS: BP 118/76; PULSE 104; RESP 19; O2SAT 98
[2016-10-07] MEDS ORDERED: SODIUM CHLOR 0.9% 1000 ML INJ 1,000 ML IV ONE ×3 (19:13→20:30)
[2016-10-07] MEDS ORDERED: diphenhydrAMINE HCL 50 MG/ML VIAL IV PUSH ONE (19:15)
[2016-10-07] MEDS ORDERED: PROCHLORPERAZINE INJ 10 MG/2 ML VIAL IV PUSH ONE (19:15)
[2016-10-07] MEDS ORDERED: SODIUM CHLORIDE 0.9% FLUSH 10 ML FLUSH IVF PRN (19:15)
--- NOTE | 2016-10-07 19:29 | PD ---
HPI . Persistent vomiting Chief Complaint: General Weakness Time Seen by Provider: 19:10 Travel History International Travel<30 days: No Contact w/Intl Traveler<30days: No Traveled to known affect area: No History of Present Illness HPI Patient presents complaining with nausea and vomiting since approximately 10/01. He states that he can't eat. He has lost a fair amount of weight. He states that he had outpatient labs done yesterday and received a phone call from his doctor today telling him to come to the emergency department. He reports that his doctor wants him to have an MRI of the brain. He reports that he is weak and dizzy. He reports no exacerbating or relieving factors. He complains of persistent pain in his back secondary to metastases. The pain is rated as 10/10. 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 He has had previous esophageal obstruction secondary to the mediastinal tumor. He has had palliative treatment with radiation and chemotherapy. He did have a PEG tube but started tolerating food again. The PEG tube was subsequently removed. PFSH Past Medical History Hx Anticoagulant Therapy: No Cancer: Yes (lung with Mets) Cardiovascular Problems: No Chemotherapy: Yes (this tuesday) COPD: Yes Endocrine: No Gastrointestinal Disorders: Yes (UPPER ENDOSCOPIES X2: FEBRUARY 2016) Genitourinary: No Immune Disorder: No Implanted Vascular Access Dvce: No Musculoskeletal: No Neurologic: No Psychiatric: No Reproductive: No Respiratory: Yes (LUNG CA) Radiation Therapy: Yes (, LAST DOSE this past jun, 2016) Tetanus Vaccination: < 5 Years Past Surgical History Surgical History: No Previous Surgery Body Medical Devices: LUQ PEG TUBE Other Surgery: Yes (G- TUBE PLACEMENT: FEBRUARY 2016 and removed 09/16/16) Social History Alcohol Use: No Tobacco Use: Yes (2016 hx of ;1ppd) Substance Use: No Allergies-Medications (Allergen,Severity, Reaction): Coded Allergies: No Known Allergies (Unverified , 10/07/16) Reported Meds & Prescriptions Reported Meds & Active Scripts Active Reglan (Metoclopramide HCl) 10 Mg Tab 10 Mg PO QID PRN Reported Prednisone (21) 10 mg tab Dose Pack (Prednisone) 10 Mg Pack 10 Mg PO DIRECTED Advair Diskus Inh (Fluticasone-Salmeterol Inh) 250-50 Mcg/Blist Aer 2 Puff INH DAILY Rinse mouth after use. Morphine IR (Morphine Sulfate) 30 Mg Tab 30 Mg PO Q4H PRN Zofran Odt (Ondansetron Odt) 4 Mg Tab 4 Mg SL Q6HR PRN Prevacid Solutab ODT (Lansoprazole) 30 Mg Tab 30 Mg PO DAILY Mix with 4 ml water before giving via tube. Review of Systems Except as stated in HPI: all other systems reviewed are Neg General / Constitutional: No: Fever, Chills Cardiovascular: No: Chest Pain or Discomfort Respiratory: No: Shortness of Breath Gastrointestinal: Positive: Nausea, Vomiting, Loss of Appetite, No: Abdominal Pain Musculoskeletal: Positive: Pain (back pain) Neurologic: Positive: Weakness, Dizziness Physical Exam Narrative Vital Signs Date Time Temp Pulse Resp B/P Pulse Ox O2 Delivery O2 Flow Rate FiO2 10/07/16 18:51 19 10/07/16 18:48 104 19 118/76 98 Room Air 10/07/16 18:26 97.4 118 20 114/78 94 GENERAL: This is a thin, chronically ill-appearing man who does not appear to be in any acute distress. SKIN: Warm and dry. HEAD: Atraumatic. Normocephalic. EYES: Pupils equal and round. Extraocular movements are intact. Sclerae are anicteric. ENT: No nasal bleeding or discharge. Mucous membranes are dry. NECK: Trachea midline. Neck is supple. CARDIOVASCULAR: Regular rhythm, rapid rate. RESPIRATORY: No accessory muscle use. Lungs sound clear. GASTROINTESTINAL: Abdomen soft, non-tender, nondistended. MUSCULOSKELETAL: No obvious deformities. No edema. NEUROLOGICAL: Awake and alert. No obvious cranial nerve deficits. Motor grossly within normal limits. Normal speech. PSYCHIATRIC: Appropriate mood and affect; insight and judgment normal. Data Data Last Documented VS Vital Signs Date Time Temp Pulse Resp B/P Pulse Ox O2 Delivery O2 Flow Rate FiO2 10/07/16 18:51 19 10/07/16 18:48 104 118/76 98 Room Air 10/07/16 18:26 97.4 Orders Complete Blood Count With Diff (10/07/16 19:13) Comprehensive Metabolic Panel (10/07/16 19:13) Urinalysis - C+S If Indicated (10/07/16 19:13) Iv Access Insert/Monitor (10/07/16 19:13) Morphine Inj (Morphine Inj) (10/07/16 19:15) Sodium Chlor 0.9% 1000 Ml Inj (Ns 1000 M (10/07/16 19:13) Sodium Chloride 0.9% Flush (Ns Flush) (10/07/16 19:15) Prochlorperazine Inj (Compazine Inj) (10/07/16 19:15) Diphenhydramine Inj (Benadryl Inj) (10/07/16 19:15) Sodium Chlor 0.9% 1000 Ml Inj (Ns 1000 M (10/07/16 19:15) Mri Brain W&W/O Contrast (10/07/16 19:17) Sodium Chlor 0.9% 1000 Ml Inj (Ns 1000 M (10/07/16 20:30) Admit Order (Ed Use Only) (10/07/16 21:00) Labs Laboratory Tests Test 10/07/16 19:45 White Blood Count 10.3 TH/MM3 Red Blood Count 4.22 MIL/MM3 Hemoglobin 13.5 GM/DL Hematocrit 38.5 % Mean Corpuscular Volume 91.3 FL Mean Corpuscular Hemoglobin 32.0 PG Mean Corpuscular Hemoglobin 35.1 % Concent Red Cell Distribution Width 14.1 % Platelet Count 192 TH/MM3 Mean Platelet Volume 7.9 FL Neutrophils (%) (Auto) 90.8 % Lymphocytes (%) (Auto) 4.1 % Monocytes (%) (Auto) 4.1 % Eosinophils (%) (Auto) 0.8 % Basophils (%) (Auto) 0.2 % Neutrophils # (Auto) 9.4 TH/MM3 Lymphocytes # (Auto) 0.4 TH/MM3 Monocytes # (Auto) 0.4 TH/MM3 Eosinophils # (Auto) 0.1 TH/MM3 Basophils # (Auto) 0.0 TH/MM3 CBC Comment DIFF FINAL Differential Comment Urine Color YELLOW Urine Turbidity HAZY Urine pH 6.0 Urine Specific [place] 1.025 Urine Protein 30 mg/dL Urine Glucose (UA) 150 mg/dL Urine Ketones 40 mg/dL Urine Occult Blood NEG Urine Nitrite NEG Urine Bilirubin NEG Urine Urobilinogen 2.0 MG/DL Urine Leukocyte Esterase NEG Urine RBC LESS THAN 1 /hpf Urine WBC 1 /hpf Urine Bacteria RARE /hpf Urine Mucus MANY /lpf Microscopic Urinalysis Comment CULT NOT INDICATED Sodium Level 133 MEQ/L Potassium Level 3.2 MEQ/L Chloride Level 95 MEQ/L Carbon Dioxide Level 28.0 MEQ/L Anion Gap 10 MEQ/L Blood Urea Nitrogen 12 MG/DL Creatinine 0.77 MG/DL Estimat Glomerular Filtration 110 ML/MIN Rate Random Glucose 80 MG/DL Calcium Level 9.7 MG/DL Total Bilirubin 0.5 MG/DL Aspartate Amino Transf 14 U/L (AST/SGOT) Alanine Aminotransferase 18 U/L (ALT/SGPT) Alkaline Phosphatase 179 U/L Total Protein 7.6 GM/DL Albumin 3.5 GM/DL MDM Medical Decision Making Medical Screen Exam Complete: Yes Emergency Medical Condition: Yes Medical Record Reviewed: Yes (patient's last admission was in June. He was admitted at that time for intractable nausea and vomiting as well as pancytopenia.) Differential Diagnosis Differential diagnosis of weakness includes but is not limited to infection, CVA , electrolyte disturbance, renal failure, hypoglycemia, UTI, ACS, acute blood loss Narrative Course This is a cancer patient who has a history of esophageal obstruction due to his mediastinal tumor. He has been treated palliatively with radiation therapy and chemotherapy. He comes in now with symptoms suggestive of esophageal obstruction. He states that his doctor once and have an MRI of the brain rule out brain metastasis. Patient reports that he is followed by Dr. Samaniego. Patient has had 2 L of fluid. The only urine output that he has had was for the purpose of obtaining a urinalysis. His mouth still feels very dry. This patient will be admitted for fluids. Diagnosis Primary Impression: Intractable vomiting Qualified Code: R11.2 - Intractable vomiting with nausea, unspecified vomiting type Admitting Information Admitting Physician Requests: Observation Condition: Stable Tova Mcbride MD Oct 07, 2016 19:29
[2016-10-07] MEDS: MORPHINE SULFATE 4 MG/ML INJ IV PRN ×3 (19:43→22:03)
[2016-10-07 19:56] LABS: AUTOMATED NEUTROPHIL # 9.4 TH/MM3 (1.8-7.7); BASOPHIL % 0.2 % (0.0-2.0); EOSINOPHIL # 0.1 TH/MM3 (0-0.4); EOSINOPHIL % 0.8 % (0.0-4.0); HEMATOCRIT 38.5 % (39.0-51.0); HEMO FLAGS DIFF FINAL; LYMPH % 4.1 % (9.0-44.0); LYMPHOCYTE # 0.4 TH/MM3 (1.0-4.8); MEAN CELL VOLUME 91.3 FL (80.0-100.0); MEAN CORPUSCULAR HGB CONC 35.1 % (32.0-36.0); MONO % 4.1 % (0.0-8.0); NEUT % 90.8 % (16.0-70.0); PLATELET COUNT 192 TH/MM3 (150-450); RED BLOOD COUNT 4.22 MIL/MM3 (4.50-5.90); RED CELL DISTRIBUTION WIDTH 14.1 % (11.6-17.2); WHITE BLOOD COUNT 10.3 TH/MM3 (4.0-11.0)
[2016-10-07 20:10] LABS: BACTERIA, URINE RARE /hpf; BLOOD, URINE NEG (NEG); COMMENT (UR) CULT NOT INDICATED; CULTURE IF INDICATED CULT NOT INDICATED; GLUCOSE,URINE 150 mg/dL (NEG); KETONE, URINE 40 mg/dL (NEG); MUCUS URINE MANY /lpf (OCC); NITRITE,URINE NEG (NEG); URINE COLOR YELLOW (YELLW/STRAW)
[2016-10-07 20:21] LABS: ANION GAP 10 MEQ/L (5-15); AST (GOT) 14 U/L (15-37); BLOOD UREA NITROGEN 12 MG/DL (7-18); CHLORIDE 95 MEQ/L (98-107); GLOMERULAR FILTRATION RATE 110 ML/MIN (>89); POTASSIUM 3.2 MEQ/L (3.5-5.1); SODIUM (NA) 133 MEQ/L (136-145)
[2016-10-07 20:22] LABS: ALT (GPT) 18 U/L (12-78)
[2016-10-07 20:24] LABS: ALKALINE PHOSPHATASE 179 U/L (45-117); TOTAL BILIRUBIN ADULT 0.5 MG/DL (0.2-1.0)
[2016-10-07 21:09] VITALS: BP 107/63; PULSE 95; RESP 18; O2SAT 100
[2016-10-07] MEDS ORDERED: NALOXONE HCL 0.4 MG/ML AMP IV PRN (21:15)
[2016-10-07] MEDS ORDERED: GADODIAMIDE PF 287 MG/ML 5 ML VIAL (for RAD MRI) IV ONE (21:33)
[2016-10-07 22:15] VITALS: BP 101/59; PULSE 99; RESP 24; TEMP 96.6; O2SAT 96
--- NOTE | 2016-10-07 22:20 | RADRPT ---
EXAM DATE/TIME: 10/07/2016 21:18 [facility] COMPARISON: CT SIMULATION, September 10, 2016, 11:43. CT BRAIN W & W/O CONTRAST, February 29, 2016, 14:02. INDICATIONS : Mass. CONTRAST: 13 cc Omniscan (gadodiamide) IV MEDICAL HISTORY : Carcinoma, lung. Metastatic disease. SURGICAL HISTORY : None. ENCOUNTER: Subsequent ACUITY: 1 day PAIN SCORE: 5/10 LOCATION: cranial TECHNIQUE: Multiplanar, multisequence MRI of the brain was performed both prior to and following the administrat ion of paramagnetic contrast. FINDINGS: A 10 x 8 x 6 mm enhancing nodule is seen at the cortical medullary junction of the left temporal lobe . No appreciable edema is observed. No mass effect. The remaining brain parenchyma shows normal signa l throughout. No acute hemorrhage or infarction. Ventricles are normal in size. Orbital structures an d paranasal sinuses are clear. CONCLUSION: 1. 10 x 8 x 6 mm enhancing nodule involving the left temporal lobe worrisome for metastatic focus. No mass effect or significant edema associated with this lesion. 2. No hemorrhage or acute infarction. Clayton Pendleton Jr., MD on October 07, 2016 at 22:13 Board Certified Radiologist. This report was verified electronically.
--- NOTE | 2016-10-07 23:37 | HHI.HP ---
[facility] Non[facility]Staff Admission Diagnosis intractable vomiting Diagnoses: Travel History International Travel<30 Days: No Contact w/Intl Traveler <30 Da: No Traveled to Known Affected Are: No History of Present Illness feeding tube removed 1 month ago esophageal tumor now 1 week not eating well dysphagia nausea vomtiing no fever no blood chemo and radiation chemo since feb mets to both lungs, spine, pelvis and lymph node the tuesday before was last chemo last radiation was 1 week ago today- supposed to be tuesday thru tuesday Review of Systems Except as stated in HPI: all other systems reviewed are Neg Past Family Social History Past Medical History esophageal cancer- diagnosed in feb copd Past Surgical History none Allergies: Coded Allergies: No Known Allergies (Unverified , 10/27/16) Family History none uncle with esophageal cancer aunts with cancer Social History smoking -quit in feb - about 20yrs smoking hx one or two beers a month only no drugs Physical Exam Vital Signs Vital Signs Date Time Temp Pulse Resp B/P Pulse Ox O2 Delivery O2 Flow Rate FiO2 10/07/16 22:15 96.6 99 24 101/59 96 10/07/16 21:09 95 18 107/63 100 Room Air 10/07/16 18:51 19 10/07/16 18:48 104 19 118/76 98 Room Air 10/07/16 18:26 97.4 118 20 114/78 94 Physical Exam GENERAL: This is a well-nourished, well-developed patient, in no apparent distress. SKIN: No rashes, ecchymoses or lesions. Cool and dry. HEAD: Atraumatic. Normocephalic. No temporal or scalp tenderness. EYES: No scleral icterus. No injection or drainage. ENT: Nose without bleeding, purulent drainage or septal hematoma. Airway patent. NECK: Trachea midline. No JVD CARDIO: regular rate and rhythm, no murmur appreciated RESPIRATORY: Clear to auscultation. Breath sounds equal bilaterally. No wheezes , rales, or rhonchi. GASTROINTESTINAL: Abdomen soft, non-tender, nondistended. No guarding. MUSCULOSKELETAL: Extremities without clubbing, cyanosis, or edema. no calf tenderness. NEUROLOGICAL: Awake and alert.Motor and sensory grossly within normal limits. Normal speech. Laboratory Laboratory Tests Test 10/07/16 19:45 White Blood Count 10.3 Red Blood Count 4.22 Hemoglobin 13.5 Hematocrit 38.5 Mean Corpuscular Volume 91.3 Mean Corpuscular Hemoglobin 32.0 Mean Corpuscular Hemoglobin 35.1 Concent Red Cell Distribution Width 14.1 Platelet Count 192 Mean Platelet Volume 7.9 Neutrophils (%) (Auto) 90.8 Lymphocytes (%) (Auto) 4.1 Monocytes (%) (Auto) 4.1 Eosinophils (%) (Auto) 0.8 Basophils (%) (Auto) 0.2 Neutrophils # (Auto) 9.4 Lymphocytes # (Auto) 0.4 Monocytes # (Auto) 0.4 Eosinophils # (Auto) 0.1 Basophils # (Auto) 0.0 CBC Comment DIFF FINAL Differential Comment Urine Color YELLOW Urine Turbidity HAZY Urine pH 6.0 Urine Specific [place] 1.025 Urine Protein 30 Urine Glucose (UA) 150 Urine Ketones 40 Urine Occult Blood NEG Urine Nitrite NEG Urine Bilirubin NEG Urine Urobilinogen 2.0 Urine Leukocyte Esterase NEG Urine RBC LESS THAN 1 Urine WBC 1 Urine Bacteria RARE Urine Mucus MANY Microscopic Urinalysis Comment CULT NOT INDICATED Sodium Level 133 Potassium Level 3.2 Chloride Level 95 Carbon Dioxide Level 28.0 Anion Gap 10 Blood Urea Nitrogen 12 Creatinine 0.77 Estimat Glomerular Filtration 110 Rate Random Glucose 80 Calcium Level 9.7 Total Bilirubin 0.5 Aspartate Amino Transf 14 (AST/SGOT) Alanine Aminotransferase 18 (ALT/SGPT) Alkaline Phosphatase 179 Total Protein 7.6 Albumin 3.5 Result Diagram: 10/07/16194410/07/161944 Assessment and Plan Assessment and Plan Impression: Hypokalemia Dysphagia metastatic sq cell CA of lung brain mets- new Plan: iv fluids oncology consult radiation oncology consult for inpatient treatment GI consult tele monitoring monitor electrolytes DVT prophylaxis - chemical prophylaxis post procedure Discussed Condition With patient, ER MD, nursing staff Alejandrina Mcintosh MD Oct 07, 2016 23:37
[2016-10-07 23:52] VITALS: PULSE 90
[2016-10-08] VITALS (7 sets, daily range): BP systolic 86–99; BP diastolic 53–68; PULSE 78–96; RESP 16–26; TEMP 96.3–99.3; O2SAT 95–99
[2016-10-08] MEDS: SODIUM CHLOR 0.9% 1000 ML INJ 1,000 ML IV SCH ×2 (08:34→18:21)
[2016-10-08] MEDS: SODIUM CHLORIDE 0.9% FLUSH 10 ML FLUSH IV FLUSH SCH ×2 (08:34→20:40)
[2016-10-08] MEDS ORDERED: POTASSIUM CHLORIDE INJ 40 MEQ in SODIUM CHLORID 0.9% 500 ML INJ 500 ML IV-CENTRAL ONE (09:00)
[2016-10-08 09:09] LABS: AUTOMATED NEUTROPHIL # 6.3 TH/MM3 (1.8-7.7); BASOPHIL % 0.1 % (0.0-2.0); EOSINOPHIL # 0.1 TH/MM3 (0-0.4); EOSINOPHIL % 0.9 % (0.0-4.0); HEMATOCRIT 34.4 % (39.0-51.0); HEMO FLAGS DIFF FINAL; LYMPH % 4.7 % (9.0-44.0); LYMPHOCYTE # 0.3 TH/MM3 (1.0-4.8); MEAN CELL VOLUME 92.5 FL (80.0-100.0); MEAN CORPUSCULAR HEMOGLOBIN 31.6 PG (27.0-34.0); MEAN CORPUSCULAR HGB CONC 34.2 % (32.0-36.0); MONO % 4.3 % (0.0-8.0); PLATELET COUNT 148 TH/MM3 (150-450); RED BLOOD COUNT 3.72 MIL/MM3 (4.50-5.90); RED CELL DISTRIBUTION WIDTH 14.1 % (11.6-17.2)
[2016-10-08 09:28] LABS: BICARBONATE 27.5 MEQ/L (21.0-32.0); POTASSIUM 3.6 MEQ/L (3.5-5.1)
[2016-10-08] MEDS ORDERED: DIATRIZOATE MEGLUM/DIATRIZOATE SOD 120 ML BTL (for RAD DIAG) PO ONE (10:16)
--- NOTE | 2016-10-08 10:17 | RADRPT ---
EXAM DATE/TIME: 10/08/2016 09:48 [facility] COMPARISON: No previous studies available for comparison. INDICATIONS : Dysphagia. FLUORO TIME: 2.3 minutes IMAGE COUNT: 15 CONTRAST: 1. Gastrografin (Diatrizoate Meglumine and Diatrizoate Sodium) E-Z HD Barium Sulfate (98% w.w) MEDICAL HISTORY : Carcinoma, esophageal. metastatic disease SURGICAL HISTORY : None. ENCOUNTER: Initial ACUITY: 1 week PAIN SCORE: 0/10 LOCATION: Bilateral neck FINDINGS: Patient swallowed thin and thick barium. Multiple spot images were obtained. There is diffuse narrowing of the AP diameter of the cervical esophagus. No focal areas of more sever e narrowing identified. Thoracic esophagus demonstrate normal diameter. No focal obstruction identified. Gastroesophageal Natalio ction within normal limits. The patient was unable to swallow barium tablet the tablet did not pass beyond the oropharynx. CONCLUSION: 1. Diffuse narrowing of the cervical esophagus. May represent esophagitis , post radiation change, or mass. CT soft tissue neck with contrast may be helpful to evaluate for any extrinsic masses. 2. Thoracic esophagus within normal limits. Marck Skelton MD on October 08, 2016 at 10:11 Board Certified Radiologist. This report was verified electronically.
--- NOTE | 2016-10-08 11:35 | MB ---
cc: QUENTIN URBANO MD,DAYAN FAUSTIN DATE OF CONSULTATION: 10/08/2016 DATE OF : 1970 Consult requested by the hospitalist service. REASON FOR CONSULTATION Metastatic lung carcinoma, currently on treatment. The patient presents with intractable nausea and vomiting which has been ongoing for the past one week. CURRENT TREATMENT The patient is on palliative systemic therapy with nivolumab which was started in early September 2016. He is also undergoing palliative radiation to symptomatic metastases in the sacrum and lower lumbar vertebral bodies. CHIEF COMPLAINT Mr. Levi reports having had a one-week history of inability to swallow, vomiting and progressive fatigue and weakness. He tells me he has been to the ER once previously about three days ago for the same reason and was given fluids and discharged home. Also earlier this week he was evaluated in my clinic and treated with IV fluid hydration for intractable nausea and vomiting. HISTORY OF PRESENT ILLNESS Mr. Levi is a very pleasant 45-year-old man who had smoked since he was 15, smoked up to two packs a day and has amassed a [id number] history of smoking. In the Fall of 2015 he was diagnosed with a locally advanced nonresectable squamous cell carcinoma of the right lung. The tumor had direct extension into the mediastinum and was nonresectable. He was treated with concurrent chemoradiotherapy and then was recommended palliative systemic chemotherapy with carboplatin and Taxol. In late August 2069 he was noted to have disease progression and he presented with bony metastases as well as intra-abdominal metastases. He was subsequently switched over to nivolumab and has thus far received I believe two infusions of this. About a week ago he developed difficulty swallowing and nausea and vomiting. He tells me he has not been able to hold down even water let alone solid food. He was asked to come into the hospital for further work-up and evaluation. An MRI of the brain performed in the emergency department last night revealed a 10 x 8 x 6 mm lesion in the left temporal lobe concerning for metastatic disease. However, this is not thought to be the cause of the nausea and vomiting. He has also received IV fluid hydration as well as antiemetic therapy and he tells me he is a little bit more comfortable right now. PAST MEDICAL HISTORY 1. 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 2. Personal history of tobaccoism. 3. Esophageal obstruction due to extensive compression from the tumor. 4. Radiation esophagitis. PAST SURGICAL HISTORY 1. PEG tube placement in 2016; this has since then been discontinued. 2. Bronchoscopy with endobronchial biopsies in February 2016. 3. Infusion port placement. ALLERGIES No known drug allergies. FAMILY HISTORY Parents are both alive, mom is well, father's health is not known. SOCIAL HISTORY The patient is . He lives at home with his mom at present. 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 He reports smoking about two packs a day for 30 years and drank occasionally as well. MEDICATIONS Current inpatient medications: 1. Potassium chloride 40 mEq IV x1. 2. Normal saline 100 cc per hour. 3. Morphine sulfate 4 mg IV every hour as needed for pain. 4. Zofran 4 mg IV q.6h. as needed for nausea and vomiting. REVIEW OF SYSTEMS A 13-point review of systems was obtained and the following are the pertinent positives: CONSTITUTIONAL: The patient reports fatigue and weakness. Denies fevers, chills, night sweats. HEENT: Denies headaches or blurry vision. He reports difficulty swallowing. Denies soreness in the throat. RESPIRATORY: Denies difficulty breathing. Reports chronic cough. Denies hemoptysis. Denies pleuritic chest pain. CARDIOVASCULAR: Denies angina-like chest pain, PND, orthopnea. Lower extremity swelling. GASTROINTESTINAL: Reports nausea, difficulty swallowing, vomiting/regurgitation. He denies hematochezia or melena. GENITOURINARY: Denies dysuria, hematuria, urinary incontinence. GEOGRAPHY TEACHER: No focal sensory or motor deficits. No other complaints reported. PHYSICAL EXAMINATION VITAL SIGNS: Temperature 97.7 degrees Fahrenheit, heart rate 89 beats per minute, respiratory rate 16, blood pressure 99/58, O2 sats 95% on room air. GENERAL APPEARANCE: Mr. Levi is a young male. He is very tall and near cachectic appearing. He is lying in bed in no apparent distress. HEENT: Head atraumatic, normocephalic. Conjunctivae are pale. Sclerae are anicteric. EOMI. PERRLA. Oral exam - poor dental hygiene. No pharyngeal erythema. No masses noted in the oral cavity. NECK: He does have palpable supraclavicular lymph nodes bilaterally. PULMONARY: Prolonged expiratory phase. Good air movement bilaterally without any added breath sounds. CARDIOVASCULAR: Regular rate and rhythm, S1, S2. No obvious murmurs, rubs or gallops. ABDOMEN: Thin belly, soft, nontender, nondistended. No palpable organ enlargement, specifically no hepatosplenomegaly. EXTREMITIES: No pretibial edema. No calf tenderness. GEOGRAPHY TEACHER: No focal sensory or motor deficits. LABORATORY FINDINGS Blood work dated 10/07/2016: WBC count 10.3, hemoglobin 13.5 gm/dl, hematocrit 38.5%, platelet count 192, absolute neutrophil count 9.4. Chemistries: Sodium 133, potassium 3.2, chloride 95, bicarbonate 28, BUN 12, creatinine 0.77, random glucose 80, calcium 8.7, AST 14, ALT 18, alkaline phosphatase 179, albumin 3.5. IMAGING STUDIES MRI of the brain dated 10/07/2016: 10 x 8 x 6 mm enhancing nodule involving the left temporal lobe worrisome for metastatic focus. No mass effect or significant edema associated with this lesion. No hemorrhage or acute infarction is identified. ASSESSMENT Mr. Levi is a 45-year-old man with a diagnosis of metastatic poorly differentiated squamous cell carcinoma of the lung. He was initially diagnosed with locally advanced disease in February 2017. Since then he has progressed following concurrent chemoradiotherapy which focused on the very large mass which had an infiltrating type appearance involving the mediastinum. The patient now has symptomatic bony metastases and has suspected esophageal obstruction due to extrinsic compression. He comes into the hospital with complaints of inability to swallow, nausea and progressive weakness. He has not been able to swallow for the past one week almost. PLAN/RECOMMENDATIONS 1. Metastatic squamous cell carcinoma of the lung: He had been on palliative systemic therapy with nivolumab and has only been on this for less than a month. He had also been receiving palliative radiation to symptomatic metastases to the sacrum/pelvis. This radiation will be resumed. 2. Dysphagia: I have requested a barium swallow. If this is abnormal, I would advise GI evaluation for possible esophageal stent placement. 3. New discovery of brain metastasis: I have made our radiation oncologist aware so that this lesion may be treated with radiation therapy at the appropriate time. Because there is no mass effect surrounding this I will not start him on steroids. 4. Nutrition: I will start him on TPN, given that he has not been able to eat for the past one week, for nutritional support. MD QING Licea/PARAG /7:22 AM /11:13 AM
--- NOTE | 2016-10-08 14:34 | PD.CONS ---
HPI History of Present Illness This is a 45 year old [gentleman] with hx esophageal tumor and metastatic disease who was referred to the hospital by Dr Samaniego for difficulty swallowing and inability to eat. For the last week he has had difficulty swallowign and subsequent regurgitation of foods and liquids. He had similar issues in June but the dysphagia resolved w/o intervention. He had a PEG tube but it was removed September 08 b/c he was able to tolerate PO. He is currently undergoing chemo and radiation. He has lost weight, he doesn't know how much. No abdomina pain, blood in stool, diarrhea. Barium swallow shows narrowing cervical esophagus, thoracic esophagus WNL. (Julianne Rodriguez) PFSH Past Medical History esophageal cancer- diagnosed in feb metastatic SCCa lung copd Past Surgical History none (Julianne Rodriguez) Coded Allergies: No Known Allergies (Unverified , 10/07/16) Family History none uncle with esophageal cancer aunts with cancer Social History smoking -quit in feb - about 20yrs smoking hx one or two beers a month only no drugs (Julianne Rodriguez) Review of Systems Constitutional: DENIES: Fever Eyes: DENIES: Blurred vision Ears, nose, mouth, throat: DENIES: Hearing loss Respiratory: DENIES: Hemoptysis Cardiovascular: DENIES: Chest pain Gastrointestinal: COMPLAINS OF: Vomiting, Difficulty Swallowing, DENIES: Abdominal pain, Black stools, Bloody stools, Diarrhea, Nausea, Odynophagia, Hematemesis Genitourinary: DENIES: Hematuria Musculoskeletal: DENIES: Muscle aches Integumentary: DENIES: Abnormal pigmentation Neurologic: DENIES: Abnormal gait Psychiatric: DENIES: Confusion (Julianne Rodriguez) GI Exam Vitals I&O Vital Signs Date Time Temp Pulse Resp B/P Pulse Ox O2 Delivery O2 Flow Rate FiO2 10/08/16 12:15 96.3 78 16 89/54 98 10/08/16 08:05 83 10/08/16 08:00 98.1 89 20 86/53 98 10/08/16 04:00 97.7 89 16 99/58 95 10/08/16 01:06 97.3 88 22 91/54 95 10/07/16 23:52 90 10/07/16 22:15 96.6 99 24 101/59 96 10/07/16 21:09 95 18 107/63 100 Room Air 10/07/16 18:51 19 10/07/16 18:48 104 19 118/76 98 Room Air 10/07/16 18:26 97.4 118 20 114/78 94 Imaging Last Impressions Barium Swallow X-Ray 10/08/16 0000 Signed Impressions: Service Date/Time: Saturday, October 08, 2016 09:48 - CONCLUSION: 1. Diffuse narrowing of the cervical esophagus. May represent esophagitis , post radiation change, or mass. CT soft tissue neck with contrast may be helpful to evaluate for any extrinsic masses. 2. Thoracic esophagus within normal limits. Marck Skelton MD Brain MRI 10/07/16 1917 Signed Impressions: Service Date/Time: October 21:18 - CONCLUSION: 1. 10 x 8 x 6 mm enhancing nodule involving the left temporal lobe worrisome for metastatic focus. No mass effect or significant edema associated with this lesion. 2. No hemorrhage or acute infarction. Clayton Pendleton Jr., MD Laboratory Test 10/07/16 10/08/16 19:45 07:59 White Blood Count 10.3 TH/MM3 7.0 TH/MM3 Red Blood Count 4.22 MIL/MM3 3.72 MIL/MM3 Hemoglobin 13.5 GM/DL 11.8 GM/DL Hematocrit 38.5 % 34.4 % Mean Corpuscular Volume 91.3 FL 92.5 FL Mean Corpuscular Hemoglobin 32.0 PG 31.6 PG Mean Corpuscular Hemoglobin 35.1 % 34.2 % Concent Red Cell Distribution Width 14.1 % 14.1 % Platelet Count 192 TH/MM3 148 TH/MM3 Mean Platelet Volume 7.9 FL 8.2 FL Neutrophils (%) (Auto) 90.8 % 90.0 % Lymphocytes (%) (Auto) 4.1 % 4.7 % Monocytes (%) (Auto) 4.1 % 4.3 % Eosinophils (%) (Auto) 0.8 % 0.9 % Basophils (%) (Auto) 0.2 % 0.1 % Neutrophils # (Auto) 9.4 TH/MM3 6.3 TH/MM3 Lymphocytes # (Auto) 0.4 TH/MM3 0.3 TH/MM3 Monocytes # (Auto) 0.4 TH/MM3 0.3 TH/MM3 Eosinophils # (Auto) 0.1 TH/MM3 0.1 TH/MM3 Basophils # (Auto) 0.0 TH/MM3 0.0 TH/MM3 CBC Comment DIFF FINAL DIFF FINAL Differential Comment Urine Color YELLOW Urine Turbidity HAZY Urine pH 6.0 Urine Specific Mcqueeney 1.025 Urine Protein 30 mg/dL Urine Glucose (UA) 150 mg/dL Urine Ketones 40 mg/dL Urine Occult Blood NEG Urine Nitrite NEG Urine Bilirubin NEG Urine Urobilinogen 2.0 MG/DL Urine Leukocyte Esterase NEG Urine RBC LESS THAN 1 /hpf Urine WBC 1 /hpf Urine Bacteria RARE /hpf Urine Mucus MANY /lpf Microscopic Urinalysis Comment CULT NOT INDICATED Sodium Level 133 MEQ/L 138 MEQ/L Potassium Level 3.2 MEQ/L 3.6 MEQ/L Chloride Level 95 MEQ/L 102 MEQ/L Carbon Dioxide Level 28.0 MEQ/L 27.5 MEQ/L Anion Gap 10 MEQ/L 9 MEQ/L Blood Urea Nitrogen 12 MG/DL 9 MG/DL Creatinine 0.77 MG/DL 0.65 MG/DL Estimat Glomerular Filtration 110 ML/MIN 134 ML/MIN Rate Random Glucose 80 MG/DL 82 MG/DL Calcium Level 9.7 MG/DL 9.1 MG/DL Total Bilirubin 0.5 MG/DL Aspartate Amino Transf 14 U/L (AST/SGOT) Alanine Aminotransferase 18 U/L (ALT/SGPT) Alkaline Phosphatase 179 U/L Total Protein 7.6 GM/DL Albumin 3.5 GM/DL Physical Examination HEENT: EOMI; normocephalic; atraumatic; no jaundice. CHEST: CTA CARDIAC: RRR ABDOMEN: Soft, nondistended, nontender; no hepatosplenomegaly; bowel sounds are present in all four quadrants. EXTREMITIES: No clubbing, cyanosis, or edema. SKIN: Normal; no rash; no jaundice. TIE BINDER: No focal deficits; alert and oriented times three. (Julianne Rodriguez) Assessment and Plan Plan ASSESSMENT - dysphagia - with regurgitation. hx esophageal tumor. Barium swallow shows narrowing cervical esophagus, thoracic esophagus WNL. On PPN. - metastatic SCCA lung per oncology PLAN - EGD with poss dilation, poss placement esophageal stent tomorrow - obtain consents - NPO - supportive care This pt seen by myself and Dr Garcia and this note is written on his behalf (Julianne Rodriguez) Physician Comments Seen and examined, plan as above, symptoms improved since this morning ? Will start with EGD in AM to evaluate the cause prior to any further recommendations. Risk, benefit and complications discussed with the patient. (Vaishnavi Garcia MD) Julianne Rodriguez Oct 08, 2016 14:34 Vaishnavi Garcia MD Oct 08, 2016 15:05
--- NOTE | 2016-10-08 17:53 | HHI.PR ---
Subjective Remarks Pt states he has some back pain but currently no pain w swallowing his saliva. family at bedside. Nausea and vomiting resolved at this time. no CP/SOB Objective Vitals Vital Signs Date Time Temp Pulse Resp B/P Pulse Ox O2 Delivery O2 Flow Rate FiO2 10/08/16 12:15 96.3 78 16 89/54 98 10/08/16 08:05 83 10/08/16 08:00 98.1 89 20 86/53 98 10/08/16 04:00 97.7 89 16 99/58 95 10/08/16 01:06 97.3 88 22 91/54 95 10/07/16 23:52 90 10/07/16 22:15 96.6 99 24 101/59 96 10/07/16 21:09 95 18 107/63 100 Room Air 10/07/16 18:51 19 10/07/16 18:48 104 19 118/76 98 Room Air 10/07/16 18:26 97.4 118 20 114/78 94 Result Diagram: 10/08/16 0759 10/08/16 0759 Imaging Last Impressions Barium Swallow X-Ray 10/08/16 0000 Signed Impressions: Service Date/Time: Saturday, October 08, 2016 09:48 - CONCLUSION: 1. Diffuse narrowing of the cervical esophagus. May represent esophagitis , post radiation change, or mass. CT soft tissue neck with contrast may be helpful to evaluate for any extrinsic masses. 2. Thoracic esophagus within normal limits. Marck Skelton MD Brain MRI 10/07/16 1917 Signed Impressions: Service Date/Time: October 21:18 - CONCLUSION: 1. 10 x 8 x 6 mm enhancing nodule involving the left temporal lobe worrisome for metastatic focus. No mass effect or significant edema associated with this lesion. 2. No hemorrhage or acute infarction. Clayton Pendleton Jr., MD Objective Remarks GENERAL: This is a well-nourished, well-developed patient, in no apparent distress. CARDIOVASCULAR: Regular rate and rhythm without murmurs RESPIRATORY: Clear to auscultation. Breath sounds equal bilaterally. No wheezes GASTROINTESTINAL: Abdomen soft, non-tender, nondistended. No guarding. MUSCULOSKELETAL: Extremities with edema. Negative Homans sign bilaterally. NEUROLOGICAL: Awake and alert. Cranial nerves II through XII intact. difficulty lifting his right lower extremity 2-3/5 and 3-4/5 on the left lower secondary to back pain. Normal speech. A/P Assessment and Plan Pt presented w dysphagia: barrium swallow showed narrowing of the cervical esophagus. GI following and has scheduled pt for EGD tomorrow for dilation vs stent placement. NPO metastatic squamous cell carcinoma of the lungs: pt on palliative systemic therapy and radiation. Oncology following. Pt found to have a nodule in the left temporal lobe on MRI. discussed finding w rad onc. Poor nutrition: pt started on TPN per onc. Back pain from metastatic disease: continue pain control w IV morphine for now and transition to po once tolerating po. PT to evaluate pt and make recs dehydration/n/v: zofran prn, NS@100ml/hr Discharge Planning EGD tomorrow. Imani León MD Oct 08, 2016 17:53
[2016-10-08] MEDS: MORPHINE SULFATE 4 MG/ML INJ IV PRN ×2 (18:27→23:02)
[2016-10-08] MEDS: FAT EMULSION 20% INJ 250 ML (@10 mls/hr) IV SCH (20:40)
[2016-10-08] MEDS: CLINIMIX E 4.25/5 1000 mL- </= 42 mls/hr IV SCH ×3 (20:40)
[2016-10-09] VITALS (10 sets, daily range): BP systolic 88–118; BP diastolic 52–64; PULSE 75–96; RESP 16–18; TEMP 96.6–99.2; O2SAT 97–100
[2016-10-09] MEDS: MORPHINE SULFATE 4 MG/ML INJ IV PRN ×5 (00:06→12:44)
[2016-10-09] MEDS: SODIUM CHLOR 0.9% 1000 ML INJ 1,000 ML IV SCH ×2 (01:43→12:44)
--- NOTE | 2016-10-09 09:00 | PD.ONC.PN ---
Subjective Subjective Remarks Afebrile "I feel much better, I feel like I could eat anything" Denies nausea Objective Data Date Time Temp Pulse Resp B/P Pulse Ox O2 Delivery O2 Flow Rate FiO2 10/09/16 07:27 16 10/09/16 04:00 97.9 85 16 91/53 98 10/09/16 00:00 99.2 89 16 92/56 99 10/08/16 20:38 96 10/08/16 16:00 99.3 92 26 94/68 99 10/08/16 12:15 96.3 78 16 89/54 98 Result Diagram: 10/08/16 0759 10/08/16 0759 Imaging Studies Last 48 hours Impressions Barium Swallow X-Ray 10/08/16 0000 Signed Impressions: Service Date/Time: Saturday, October 08, 2016 09:48 - CONCLUSION: 1. Diffuse narrowing of the cervical esophagus. May represent esophagitis , post radiation change, or mass. CT soft tissue neck with contrast may be helpful to evaluate for any extrinsic masses. 2. Thoracic esophagus within normal limits. Marck Skelton MD Brain MRI 10/07/16 1917 Signed Impressions: Service Date/Time: October 21:18 - CONCLUSION: 1. 10 x 8 x 6 mm enhancing nodule involving the left temporal lobe worrisome for metastatic focus. No mass effect or significant edema associated with this lesion. 2. No hemorrhage or acute infarction. Clayton Pendleton Jr., MD Administered Medications Medications (Trade) Dose Ordered Sig/Abel Route PRN Reason Start Time Stop Time Status Last Admin Dose Admin Morphine Sulfate (Morphine Inj) 4 mg Q1HR PRN IV pain 10/07/16 19:15 10/09/16 06:29 Sodium Chloride 2 ml 2 ml BID IV FLUSH 10/08/16 09:00 10/08/16 20:40 Sodium Chloride 1,000 ml @ 100 mls/hr Q10H IV 10/08/16 07:15 10/08/16 18:21 Multivitamins 10 ml/Folic Acid 1 mg/Amino Acids/ Electrolytes/ Dextrose 1,010.2 ml @ 42 mls/hr Q24H IV 10/08/16 20:00 10/08/16 20:40 Fat Emulsion Intravenous (Liposyn Iii 20% Inj) 250 ml @ 10 mls/hr Q24H IV 10/08/16 20:00 6/2/17 20:40 Objective Remarks GENERAL: Younger male, sitting up in bed in no distress watching TV getting TPN infusion. SKIN: Warm and dry. Multiple tattoos to bilateral arms. HEAD: Normocephalic. EYES: No injection or drainage. NECK: Supple, trachea midline. CARDIOVASCULAR: +S1/S2. No murmur noted. RESPIRATORY: Lung luna clear to auscultation. GASTROINTESTINAL: Abdomen mildly firm. Non-tender. EXTREMITIES: No cyanosis, or edema. NEUROLOGICAL: No obvious focal deficit. Awake, alert, and oriented x3. 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 -- Last chemo on 09/27/16. 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 The tumor had direct extension into the mediastinum and was nonresectable. He was treated with concurrent chemoradiotherapy and then was recommended palliative systemic chemotherapy with carboplatin and Taxol. In late August 2069 he was noted to have disease progression and he presented with bony metastases as well as intra-abdominal metastases. He was subsequently switched over to nivolumab and has thus far received I believe two infusions of this. (2) Mass of left temporal lobe Status: Acute Plan: -- No mass effect noted. Pt does not need steroids -- Will plan for XRT to lesion as outpatient. (3) Dysphagia Status: Acute Plan: -- Barium swallow showed diffuse narrowing of the cervical esophagus. May represent esophagitis , post radiation change, or mass. . -- Will get CT soft tissue neck to differentiate from mass. Assessment 45 y/o male with 60 pack year smoking history with metastatic lung cancer admitted with dysphagia, nausea and vomiting. Plan 1. Continue TPN 2. Obtain CT soft tissue neck 3. GI planning EGD for today 4. Further recommendation pending results of CT, EGD findings. Cordelia Lynch Oct 09, 2016 09:00
[2016-10-09] MEDS: SODIUM CHLORIDE 0.9% FLUSH 10 ML FLUSH IV FLUSH SCH ×2 (09:15→21:00)
--- NOTE | 2016-10-09 09:42 | HHI.PR ---
Subjective Remarks Patient seen and examined this morning. His vitals are stable and is afebrile. Low blood pressure, seems to be his baseline. Just had MRI and EGD performed. Requiring pain medicine every hour. Family is having an outdoor hydraulic boom operator for him today. Is hungry and wants to eat. Denies CP and SOB. Endorses back pain. Family at bedside. Objective Vital Signs Date Time Temp Pulse Resp B/P Pulse Ox O2 Delivery O2 Flow Rate FiO2 10/09/16 08:00 96.9 85 16 89/61 99 10/09/16 07:27 16 10/09/16 04:00 97.9 85 16 91/53 98 10/09/16 00:00 99.2 89 16 92/56 99 10/08/16 20:38 96 10/08/16 16:00 99.3 92 26 94/68 99 10/08/16 12:15 96.3 78 16 89/54 98 I/O 10/08/16 10/08/16 10/08/16 10/09/16 10/09/16 10/09/16 07:00 15:00 23:00 07:00 15:00 23:00 Intake Total 0 ml Balance 0 ml Intake Oral 0 ml # Voids 0 3 3 Result Diagram: 10/08/16 0759 10/08/16 0759 Imaging Last Impressions Sacrum/Coccyx MRI 10/09/16 0000 Signed Impressions: Service Date/Time: Sunday, October 09, 2016 09:29 - CONCLUSION: 7 cm bone abnormality with aggressive features in the left side of the sacrum involving S1 and S2 levels. Given the clinical history, this finding suggests bony metastatic disease. Marck Skelton MD Pelvis MRI 10/09/16 Signed Impressions: Service Date/Time: Sunday, October 09, 2016 09:29 - CONCLUSION: Bone lesion with aggressive features and the left side of the sacrum fully described on sacrum MRI report. Marck Skelton MD Neck CT 10/09/16 Signed Impressions: Service Date/Time: Sunday, October 09, 2016 10:53 - CONCLUSION: 1. No evidence of metastatic disease in the neck. No masses identified in the region of the cervical esophagus. 2. Multiple bilateral pulmonary nodules. Marck Skelton MD Lumbar Spine MRI 10/09/16 0000 Signed Impressions: Service Date/Time: Sunday, October 09, 2016 09:29 - CONCLUSION: 1. Evidence of bony metastatic disease in the sacrum will be fully described on sacrum MRI report. 2. Left-sided disc bulges at L4-5 and L5-S1 resulting in mild left neural foraminal narrowing at these levels. Central canal diameter within normal limits at all levels. Marck Skelton MD Barium Swallow X-Ray 10/08/16 0000 Signed Impressions: Service Date/Time: Saturday, October 08, 2016 09:48 - CONCLUSION: 1. Diffuse narrowing of the cervical esophagus. May represent esophagitis , post radiation change, or mass. CT soft tissue neck with contrast may be helpful to evaluate for any extrinsic masses. 2. Thoracic esophagus within normal limits. Marck Skelton MD Brain MRI 10/07/16 1917 Signed Impressions: Service Date/Time: October 21:18 - CONCLUSION: 1. 10 x 8 x 6 mm enhancing nodule involving the left temporal lobe worrisome for metastatic focus. No mass effect or significant edema associated with this lesion. 2. No hemorrhage or acute infarction. Clayton Pendleton Jr., MD Objective Remarks GENERAL: This is a well-nourished, well-developed patient, in no apparent distress. CARDIOVASCULAR: Regular rate and rhythm without murmurs RESPIRATORY: Clear to auscultation. Breath sounds equal bilaterally. No wheezes GASTROINTESTINAL: Abdomen soft, non-tender, nondistended. No guarding. MUSCULOSKELETAL: Extremities with edema. Negative Homans sign bilaterally. NEUROLOGICAL: Awake and alert. Sensory grossly intact. Difficulty lifting his right lower extremity 2-3/5 and 3-4/5 on the left lower secondary to back pain. Normal speech. A/P Problem List: (1) Squamous cell carcinoma of lung ICD Code: C34.90 (2) Dehydration ICD Code: E86.0 (3) Dysphagia ICD Code: R13.10 Assessment and Plan Pt presented w dysphagia: barrium swallow showed narrowing of the cervical esophagus. GI following and has scheduled pt for EGD today for dilation vs stent placement. Hematology ordered CT soft tissue neck CT differential mass. 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 pt on palliative systemic therapy and radiation. Oncology following. discussed findings w rad onc. Plan for XRT to lesion as outpatient. Poor nutrition: pt started on TPN per onc. Back pain from metastatic disease: pain uncontrolled. able to swallow. Oramorph 30 mg PO q8 quinn, may titrate up as needed. Dilaudid 1 mg IV q2-4 hrs for breakthrough pain. May want to consider fentanyl patch if pain remains uncontrolled. dehydration/n/v: zofran prn, NS@100ml/hr Full liquid diet Discharge Planning Pending further workup. Cadence Caballero MD R3 Oct 09, 2016 09:42
[2016-10-09] MEDS ORDERED: GADODIAMIDE PF 287 MG/ML 20 ML VIAL (for RAD MRI) IV ONE (10:26)
--- NOTE | 2016-10-09 11:05 | RADRPT ---
EXAM DATE/TIME: 10/09/2016 09:29 [facility] COMPARISON: No previous studies available for comparison. INDICATIONS : Metastatic disease. CONTRAST: 13 cc Omniscan (gadodiamide) IV MEDICAL HISTORY : Metastatic, lung. SURGICAL HISTORY : None. ENCOUNTER: Subsequent ACUITY: 2 day PAIN SCORE: 4/10 LOCATION: Paraspinal TECHNIQUE: Multiplanar multisequence MRI of the lumbar spine was performed with and without contrast. FINDINGS: The most caudal appearing lumbar vertebra is numbered as L5. VERTEBRAE: Sacral bone marrow signal abnormality leaflet is described on sacrum MRI report. Bone marrow signal i n the lumbar region is homogeneous and within normal limits. Alignment within normal limits. CONUS: Normal level and configuration. POST CONTRAST: Contrast in the lumbar region within normal limits. T12-L1: The thecal sac has a normal diameter. No evidence of disc bulge or protrusion. The neural foramina are patent bilaterally. L1-L2: The thecal sac has a normal diameter. No evidence of disc bulge or protrusion. The neural foramina are patent bilaterally. L2-L3: The thecal sac has a normal diameter. No evidence of disc bulge or protrusion. The neural foramina are patent bilaterally. L3-L4: The thecal sac has a normal diameter. No evidence of disc bulge or protrusion. The neural foramina are patent bilaterally. L4-L5: Left lateral disc bulge. Mild left neuroforaminal narrowing. Central canal diameter within normal hoffmann its. L5-S1: Left lateral disc bulge. Mild left neural foraminal narrowing. Mild left lateral recess narrowing. Ce ntral canal diameter within normal limits. CONCLUSION: 1. Evidence of bony metastatic disease in the sacrum will be fully described on sacrum MRI report. 2. Left-sided disc bulges at L4-5 and L5-S1 resulting in mild left neural foraminal narrowing at thes e levels. Central canal diameter within normal limits at all levels. Marck Skelton MD on October 09, 2016 at 11:01 Board Certified Radiologist. This report was verified electronically.
[2016-10-09] MEDS ORDERED: IOHEXOL 350 MG/ML 10 ML VIAL (for RAD DIAG) IV ONE (11:10)
--- NOTE | 2016-10-09 11:12 | RADRPT ---
EXAM DATE/TIME: 10/09/2016 09:29 [facility] COMPARISON: No previous studies available for comparison. INDICATIONS : Metastatic disease. CONTRAST: 13 cc Omniscan (gadodiamide) IV MEDICAL HISTORY : Metastatic, lung. SURGICAL HISTORY : None. ENCOUNTER: Subsequent ACUITY: 3 day PAIN SCORE: 3/10 LOCATION: Paraspinal TECHNIQUE: Multiplanar multisequence MRI examination of the sacrum/coccyx was performed. FINDINGS: Examination was tailored for evaluation of the sacrum. There is an ill-defined signal abnormality of the sacrum involving the entire left half of the S1 lev el and a large portion of the left half of the S2 level. The abnormality measures 6.9 x 5.9 cm in gre atest axial dimensions and 5.6 cm in craniocaudal dimension. It has intermediate signal to muscle on pre-contrast T1-weighted images, high signal on T2-weighted images, and enhances diffusely on postcon trast images. There is penetration of the anterior cortex with periosteal soft tissue signal abnormal ity and enhancement. The abnormality extends to the inferior margin of the left L5-S1 foramen but sousa s not significantly narrow the foramen. No involvement of the S2 and S3 foramina. Central canal diame ter within normal limits. There is mild epidural enhancement anteriorly and laterally at the S1 level . Mild enhancement around the left S1 nerve root in the lateral recess. CONCLUSION: 7 cm bone abnormality with aggressive features in the left side of the sacrum involving S1 and S2 lev els. Given the clinical history, this finding suggests bony metastatic disease. Marck Skelton MD on October 09, 2016 at 11:03 Board Certified Radiologist. This report was verified electronically.
--- NOTE | 2016-10-09 11:15 | RADRPT ---
EXAM DATE/TIME: 10/09/2016 09:29 [facility] COMPARISON: No previous studies available for comparison. INDICATIONS : Metastatic disease. CONTRAST: 13 cc Omniscan (gadodiamide) IV MEDICAL HISTORY : Metastatic, lung. SURGICAL HISTORY : None. ENCOUNTER: Subsequent ACUITY: 2 day PAIN SCORE: 3/10 LOCATION: Paraspinal TECHNIQUE: Multiplanar, multisequence magnetic resonance imaging of the pelvis was performed. FINDINGS: REPRODUCTIVE: No mass is visualized. BLADDER: No wall thickening or mass. RETROPERITONEUM: There is no lymphadenopathy. Vascular structures are within normal limits. BOWEL/MESENTERY: Visualized small and large bowel demonstrates no acute abnormality. There is no free fluid. INGUINAL: No lymphadenopathy or hernia. MUSCULOSKELETAL: Bone lesion with aggressive features and the left side of the sacrum fully described on sacrum MRI re port. CONCLUSION: Bone lesion with aggressive features and the left side of the sacrum fully described on sacrum MRI re port. Marck Skelton MD on October 09, 2016 at 11:10 Board Certified Radiologist. This report was verified electronically.
--- NOTE | 2016-10-09 11:51 | RADRPT ---
EXAM DATE/TIME: 10/09/2016 10:53 [facility] COMPARISON: No previous studies available for comparison. INDICATIONS : Dysphagia, evaluate for mass. IV CONTRAST: 60 cc Omnipaque 350 (iohexol) IV RADIATION DOSE: 21.20 CTDIvol (mGy) MEDICAL HISTORY : Hypertension. Carcinoma, lung. SURGICAL HISTORY : None. ENCOUNTER: Initial ACUITY: 1 day PAIN SCALE: 0/10 LOCATION: Bilateral neck TECHNIQUE: Volumetric scanning of the neck was performed. Using automated exposure control and adjustment of th e mA and/or kV according to patient size, radiation dose was kept as low as reasonably achievable to obtain optimal diagnostic quality images. FINDINGS: NASOPHARYNX: The nasopharyngeal airway has a normal configuration. No mucosal thickening or mass is seen. OROPHARYNX: The intrinsic muscles of the tongue are symmetric. The tonsillar pillars are intact. The prevertebr al soft tissues are not thickened. LARYNX: The supraglottic, glottic, and infraglottic structures are intact. PARAPHARYNGEAL: The parapharyngeal space is intact. SALIVARY GLANDS: The parotid and submandibular glands are intact. LYMPH NODES: No enlarged or necrotic-appearing nodes. THYROID: Homogeneous enhancement without evidence of nodule. BONES: Multilevel degenerative findings of the cervical spine. Central canal diameter within normal limits. Multiple bilateral pulmonary nodules noted. CONCLUSION: 1. No evidence of metastatic disease in the neck. No masses identified in the region of the cervical esophagus. 2. Multiple bilateral pulmonary nodules. Marck Skelton MD on October 09, 2016 at 11:45 Board Certified Radiologist. This report was verified electronically.
--- NOTE | 2016-10-09 12:00 | GIPROC ---
[facility] [address] [facility]. [facility], [id number] EGD PROCEDURE REPORT EXAM DATE: 10/09/2016 PATIENT NAME: Parent, Dominic Tucker MR #: [id number] BIRTHDATE: 1970 ATTENDING: Vaishnavi Garcia MD ORDER #: [id number] MAGAZINE JOURNALIST: Atul Calhoun and Leah Jenkins STATUS: inpatient INDICATIONS: The patient is a 45 yr old male here for an EGD due to dysphagia PROCEDURE PERFORMED: EGD, diagnostic MEDICATIONS: Per Anesthesia and None. TOPICAL ANESTHETIC: none CONSENT: The patient understands the risks and benefits of the procedure and understands that these risks include, but are not limited to: sedation, allergic reaction, infection, perforation and/or bleeding. Alternative means of evaluation and treatment include, among others: physical exam, x-rays, and/or surgical intervention. The patient elects to proceed with this endoscopic procedure. medical equipment was checked for proper function. Hand hygiene and appropriate measures for infection prevention was taken. After the risks, benefits and alternatives of the procedure were thoroughly explained, Informed consent was verified, confirmed and timeout was successfully executed by the treatment team. The patient was anesthetized with topical anesthesia and the Pentax EG-[id number] endoscope was introduced through the mouth and advanced to the second portion of the duodenum. Retroflexion was performed and was normal The gastroscope was then slowly withdrawn and removed. STOMACH: The stomach otherwise appeared normal. ESOPHAGUS: There was a short mild and malignant appearing stricture in the distal esophagus. The stricture was easily traversable. DUODENUM: The duodenal mucosa appeared normal in the bulb and second portion of the duodenum. ADVERSE EVENTS: There were no complications. IMPRESSIONS: 1. The stomach otherwise appeared normal 2. There was a short extrinsic compression from outside distal esophagus but easily passable with scope 3. Normal duodenal mucosa in the bulb and second portion of the duodenum 4. Retroflexion was performed and was normal RECOMMENDATIONS: No treatment PATIENT CONDITION: stable DISPOSITION: Observation REPEAT EXAM: Return as needed for EGD Vaishnavi Garcia MD eSigned: Vaishnavi Garcia MD 10/09/2016 12:00 PM cc:
[2016-10-09] MEDS ORDERED: PROPOFOL 200 MG/20 ML AMP IV ONE (12:47)
[2016-10-09] MEDS ORDERED: DO NOT ADM ANY ANTICOAGULANT DRUGS PRN (13:00)
[2016-10-09] MEDS ORDERED: MORPHINE SULFATE 4 MG/ML INJ IV PRN (14:00)
[2016-10-09] MEDS: MORPHINE SULFATE 30 MG CONTROLLED RELEASE TAB PO SCH ×2 (15:09→21:21)
[2016-10-09] MEDS: HYDROmorphone HCL PF 2 MG/ML VIAL IV PUSH PRN ×2 (18:22→22:34)
[2016-10-09] MEDS: FAT EMULSION 20% INJ 250 ML (@10 mls/hr) IV SCH (21:21)
[2016-10-09] MEDS: CLINIMIX E 4.25/5 1000 mL- </= 42 mls/hr IV SCH ×3 (21:21)
[2016-10-10] VITALS (9 sets, daily range): BP systolic 92–107; BP diastolic 50–64; PULSE 85–103; RESP 16–18; TEMP 96.8–99.3; O2SAT 95–100
[2016-10-10] MEDS: SODIUM CHLOR 0.9% 1000 ML INJ 1,000 ML IV SCH ×3 (00:45→21:54)
[2016-10-10] MEDS: ONDANSETRON HCL 4 MG/2 ML VIAL IVP PRN ×2 (01:54→09:19)
[2016-10-10] MEDS: HYDROmorphone HCL PF 2 MG/ML VIAL IV PUSH PRN ×4 (02:24→23:51)
[2016-10-10] MEDS: MORPHINE SULFATE 30 MG CONTROLLED RELEASE TAB PO SCH ×3 (05:54→21:06)
[2016-10-10] MEDS: SODIUM CHLORIDE 0.9% FLUSH 10 ML FLUSH IV FLUSH SCH ×2 (09:19→21:55)
--- NOTE | 2016-10-10 10:35 | HHI.GIFU ---
Subjective Remarks Resting in bed in no acute distress. Continues to have vomiting (bile), but no blood. Denies abdominal pain. Reports having normal bowel movements. (Shasha Sepulveda) Objective Vitals I&O Vital Signs Date Time Temp Pulse Resp B/P Pulse Ox O2 Delivery O2 Flow Rate FiO2 10/10/16 09:16 85 92/51 10/10/16 08:08 87 10/10/16 07:57 98.0 89 16 94/50 95 Manual Cuff/Auscultation 10/10/16 04:00 98.7 94 18 97/53 98 10/09/16 22:30 96 18 96/53 98 10/09/16 20:10 80 10/09/16 20:00 98.3 88 17 91/52 98 10/09/16 18:14 118/62 10/09/16 16:00 98.7 75 18 88/52 97 10/09/16 12:20 84 16 98 Room Air 10/09/16 12:15 97.7 80 15 98/58 97 Room Air 10/09/16 12:00 96.6 88 18 102/64 100 10/09/16 12:00 97.8 81 14 117/74 100 Nasal Cannula 3 I/O 10/09/16 10/09/16 10/09/16 10/10/16 10/10/16 10/10/16 07:00 15:00 23:00 07:00 15:00 23:00 Intake Total 0 ml 1070 ml 1037 ml 1988 ml Output Total 20 ml Balance 0 ml 1070 ml 1037 ml 1968 ml Intake Oral 0 ml 720 ml 0 ml IV Total 50 ml 342 ml 1226 ml TPN/PPN 610 ml 615 ml Lipid 85 ml 147 ml Other 300 ml Output Emesis 20 ml # Voids 3 3 3 2 # Bowel Movements 0 Laboratory Laboratory Tests Test 10/07/16 10/08/16 19:45 07:59 Urine Color YELLOW Urine Turbidity HAZY Urine pH 6.0 Urine Specific [place] 1.025 Urine Protein 30 mg/dL Urine Glucose (UA) 150 mg/dL Urine Ketones 40 mg/dL Urine Occult Blood NEG Urine Nitrite NEG Urine Bilirubin NEG Urine Urobilinogen 2.0 MG/DL Urine Leukocyte Esterase NEG Urine RBC LESS THAN 1 /hpf Urine WBC 1 /hpf Urine Bacteria RARE /hpf Urine Mucus MANY /lpf Microscopic Urinalysis Comment CULT NOT INDICATED Total Bilirubin 0.5 MG/DL Aspartate Amino Transf 14 U/L (AST/SGOT) Alanine Aminotransferase 18 U/L (ALT/SGPT) Alkaline Phosphatase 179 U/L Total Protein 7.6 GM/DL Albumin 3.5 GM/DL White Blood Count 7.0 TH/MM3 Red Blood Count 3.72 MIL/MM3 Hemoglobin 11.8 GM/DL Hematocrit 34.4 % Mean Corpuscular Volume 92.5 FL Mean Corpuscular Hemoglobin 31.6 PG Mean Corpuscular Hemoglobin 34.2 % Concent Red Cell Distribution Width 14.1 % Platelet Count 148 TH/MM3 Mean Platelet Volume 8.2 FL Neutrophils (%) (Auto) 90.0 % Lymphocytes (%) (Auto) 4.7 % Monocytes (%) (Auto) 4.3 % Eosinophils (%) (Auto) 0.9 % Basophils (%) (Auto) 0.1 % Neutrophils # (Auto) 6.3 TH/MM3 Lymphocytes # (Auto) 0.3 TH/MM3 Monocytes # (Auto) 0.3 TH/MM3 Eosinophils # (Auto) 0.1 TH/MM3 Basophils # (Auto) 0.0 TH/MM3 CBC Comment DIFF FINAL Differential Comment Sodium Level 138 MEQ/L Potassium Level 3.6 MEQ/L Chloride Level 102 MEQ/L Carbon Dioxide Level 27.5 MEQ/L Anion Gap 9 MEQ/L Blood Urea Nitrogen 9 MG/DL Creatinine 0.65 MG/DL Estimat Glomerular Filtration 134 ML/MIN Rate Random Glucose 82 MG/DL Calcium Level 9.1 MG/DL Imaging Last Impressions Sacrum/Coccyx MRI 10/09/16 0000 Signed Impressions: Service Date/Time: Sunday, October 09, 2016 09:29 - CONCLUSION: 7 cm bone abnormality with aggressive features in the left side of the sacrum involving S1 and S2 levels. Given the clinical history, this finding suggests bony metastatic disease. Marck Skelton MD Pelvis MRI 10/09/16 0000 Signed Impressions: Service Date/Time: Sunday, October 09, 2016 09:29 - CONCLUSION: Bone lesion with aggressive features and the left side of the sacrum fully described on sacrum MRI report. Marck Skelton MD Neck CT 10/09/16 0000 Signed Impressions: Service Date/Time: Sunday, October 09, 2016 10:53 - CONCLUSION: 1. No evidence of metastatic disease in the neck. No masses identified in the region of the cervical esophagus. 2. Multiple bilateral pulmonary nodules. Marck Skelton MD Lumbar Spine MRI 10/09/16 0000 Signed Impressions: Service Date/Time: Sunday, October 09, 2016 09:29 - CONCLUSION: 1. Evidence of bony metastatic disease in the sacrum will be fully described on sacrum MRI report. 2. Left-sided disc bulges at L4-5 and L5-S1 resulting in mild left neural foraminal narrowing at these levels. Central canal diameter within normal limits at all levels. Marck Skelton MD Barium Swallow X-Ray 10/08/16 0000 Signed Impressions: Service Date/Time: Saturday, October 08, 2016 09:48 - CONCLUSION: 1. Diffuse narrowing of the cervical esophagus. May represent esophagitis , post radiation change, or mass. CT soft tissue neck with contrast may be helpful to evaluate for any extrinsic masses. 2. Thoracic esophagus within normal limits. Marck Skelton MD Brain MRI 10/07/16 191 Signed Impressions: Service Date/Time: October 21:18 - CONCLUSION: 1. 10 x 8 x 6 mm enhancing nodule involving the left temporal lobe worrisome for metastatic focus. No mass effect or significant edema associated with this lesion. 2. No hemorrhage or acute infarction. Clayton Pendleton Jr., MD Physical Exam HEENT: PERRLA; normocephalic; atraumatic; no jaundice. NECK: Neck is supple, no JVD, no lymphadenopathy. CHEST: CTA CARDIAC: RRR ABDOMEN: Soft, nondistended, nontender; no hepatosplenomegaly; bowel sounds x 4 quadrants EXTREMITIES: No clubbing, cyanosis, bilateral lower extremity edema SKIN: Normal; no rash; no jaundice. ESTHETICIAN MAKEUP ARTIST: No focal deficits; alert and oriented times three. (Shasha Sepulveda) Assessment and Plan Plan ASSESSMENT Dysphagia with regurgitation, Patient with history of esophageal tumor. Barium swallow shows narrowing cervical esophagus, thoracic esophagus within normal limits. On PPN. EGD (10/09/16)--1. The stomach otherwise appeared normal 2. There was a short extrinsic compression from outside distal esophagus but easily passable with scope 3. Normal duodenal mucosa in the bulb and second portion of the duodenum 4. Retroflexion was performed and was normal Metastatic SCCA lung, per oncology PLAN -No esophageal dilation or stent indicated -GI will sign off -Please reconsult as needed. Patient seen and examined by Dr. Garcia and myself and this note is written on his behalf. (Shasha Sepulveda) Physician Comments Plan as above, please notify us if needed. (Vaishnavi Garcia MD) Shasha Sepulveda Oct 10, 2016 10:35 Vaishnavi Garcia MD Oct 10, 2016 12:39
[2016-10-10] MEDS ORDERED: SODIUM CHLORID 0.9% 500 ML INJ 500 ML IV ONE (11:45)
[2016-10-10] MEDS: OLANZapine 10 MG TAB PO SCH (12:15)
--- NOTE | 2016-10-10 12:15 | HHI.PR ---
Subjective Remarks Follow-up for metastatic lung disease and dysphagia. Patient stated that he had vomiting yesterday. He said that he feels nauseous most the time. Denies any abdominal pain. Patient stated that IntelliFlo is not working for him. Asking to be on a regular diet. Also stated that pain is mostly localized to the lower back. He stated that at the moment his current regimen does work for him but when he needs his IV medication on sometimes is not able to receive a due to low blood pressure. Denied any SOB or CP, Otherwise he has no other complaints. Objective Vitals Vital Signs Date Time Temp Pulse Resp B/P Pulse Ox O2 Delivery O2 Flow Rate FiO2 10/10/16 11:02 97.7 86 18 103/61 96 10/10/16 09:16 85 92/51 10/10/16 08:08 87 10/10/16 07:57 98.0 89 16 94/50 95 Manual Cuff/Auscultation 10/10/16 04:00 98.7 94 18 97/53 98 10/09/16 22:30 96 18 96/53 98 10/09/16 20:10 80 10/09/16 20:00 98.3 88 17 91/52 98 10/09/16 18:14 118/62 10/09/16 16:00 98.7 75 18 88/52 97 10/09/16 12:20 84 16 98 Room Air 10/09/16 12:15 97.7 80 15 98/58 97 Room Air I/O 10/09/16 10/09/16 10/09/16 10/10/16 10/10/16 10/10/16 07:00 15:00 23:00 07:00 15:00 23:00 Intake Total 0 ml 1070 ml 1037 ml 1988 ml Output Total 20 ml Balance 0 ml 1070 ml 1037 ml 1968 ml Intake Oral 0 ml 720 ml 0 ml IV Total 50 ml 342 ml 1226 ml TPN/PPN 610 ml 615 ml Lipid 85 ml 147 ml Other 300 ml Output Emesis 20 ml # Voids 3 3 3 2 # Bowel Movements 0 Result Diagram: 10/08/16 0759 10/08/16 0759 Objective Remarks GENERAL: in NAD CARDIOVASCULAR: Regular rate and rhythm without murmurs, gallops, or rubs. RESPIRATORY: Breath sounds equal bilaterally. No accessory muscle use. + intermittent stridor that is very faint. per patient that is stable. GASTROINTESTINAL: Abdomen soft, non-tender, nondistended. MUSCULOSKELETAL: No cyanosis, or edema. BACK: Nontender without obvious deformity. No CVA tenderness. Medications and IVs Current Medications Morphine Sulfate 4 mg 4 mg Q1HR PRN IV pain Last administered on 10/09/16 12:44 ; Start 10/07/16 at 19:15; Stop 10/09/16 at 13:47; Status DC Sodium Chloride (NS 1000 ml Inj) 1,000 ml @ 1,000 mls/hr Q1H ONCE IV Last administered on 10/07/16 19:42; Start 10/07/16 at 19:13; Stop 10/07/16 at 20:12; Status DC Sodium Chloride (NS Flush) 2 ml UNSCH PRN IVF FLUSH AFTER USING IV ACCESS Last administered on 10/07/16 19:43; Start 10/07/16 at 19:15; Stop 10/07/16 at 21:27; Status DC Prochlorperazine Edisylate (Compazine Inj) 10 mg ONCE ONCE IV PUSH Last administered on 10/07/16 19:42; Start 10/07/16 at 19:15; Stop 10/07/16 at 19:16; Status DC Diphenhydramine HCl 25 mg 25 mg ONCE ONCE IV PUSH Last administered on 19:42; Start 10/07/16 at 19:15; Stop 10/07/16 at 19:16; Status DC Sodium Chloride 1,000 ml @ 999 mls/hr BOLUS ONCE IV Last administered on 19:42; Start 10/07/16 at 19:15; Stop 10/07/16 at 20:15; Status DC Sodium Chloride (NS 1000 ml Inj) 1,000 ml @ 999 mls/hr BOLUS ONCE IV Last administered on 10/07/16 20:43; Start 10/07/16 at 20:30; Stop 10/07/16 at 21:30; Status DC Sodium Chloride (NS Flush) 2 ml UNSCH PRN IV FLUSH FLUSH AFTER USING IV ACCESS ; Start 10/07/16 at 21:15 Sodium Chloride (NS Flush) 2 ml BID IV FLUSH Last administered on 10/10/16 09: 19; Start 10/08/16 at 09:00 Ondansetron HCl (Zofran Inj) 4 mg Q6H PRN IVP NAUSEA OR VOMITING Last administered on 10/10/16 09:19; Start 10/07/16 at 21:15 Naloxone HCl (Narcan Inj) 0.4 mg UNSCH PRN IV SEE LABEL COMMENTS; Start at 21:15 Gadodiamide 13 ml 13 ml STK-MED ONCE IV Last administered on 10/07/16 21:33; Start 10/07/16 at 21:33; Stop 10/07/16 at 21:34; Status DC Potassium Chloride 40 meq/ Sodium Chloride 520 ml @ 130 mls/hr ONCE ONCE IV- CENTRAL Last administered on 10/08/16 10:10; Start 10/08/16 at 09:00; Stop at 12:59; Status DC Sodium Chloride (NS 1000 ml Inj) 1,000 ml @ 100 mls/hr Q10H IV Last administered on 10/10/16 09:23; Start 10/08/16 at 07:15 Diatrizoate Meglum/ Diatrizoate Sod 120 ml 120 ml STK-MED ONCE PO Last administered on 10/08/16 10:16; Start 10/08/16 at 10:16; Stop 10/08/16 at 10:17; Status DC Multivitamins 10 ml/Folic Acid 1 mg/Amino Acids/ Electrolytes/ Dextrose 1,010.2 ml @ 42 mls/hr Q24H IV Last administered on 10/09/16 21:21; Start 10/08/16 at 20:00 Fat Emulsion Intravenous (Liposyn Iii 20% Inj) 250 ml @ 10 mls/hr Q24H IV Last administered on 10/09/16 21:21; Start 10/08/16 at 20:00 Gadodiamide (Omniscan Pf Inj) 13 ml STK-MED ONCE IV ; Start 10/09/16 at 10:26; Stop 10/09/16 at 10:27; Status DC Iohexol (Omnipaque 350 Inj) 60 ml STK-MED ONCE IV Last administered on 11:10; Start 10/09/16 at 11:10; Stop 10/09/16 at 11:11; Status DC Propofol (Diprivan 200 Mg/20 ml Inj) 160 mg STK-MED ONCE IV ; Start 10/09/16 at 12:47; Stop 10/09/16 at 12:48; Status DC Miscellaneous Information ALL NURSING DEPARTME... UNSCH PRN .XX SEE LABEL COMMENTS; Start 10/09/16 at 13:00; Stop 10/10/16 at 12:59 Morphine Sulfate (Morphine Inj) 4 mg Q3HR PRN IV BREAKTHROUGH PAIN; Start at 14:00; Stop 10/09/16 at 14:00; Status DC Morphine Sulfate (Oramorph Sr) 30 mg Q8HR PO Last administered on 10/10/16t 05: 54; Start 10/09/16 at 14:00 Hydromorphone HCl 2 mg 2 mg Q4H PRN IV PUSH breakthrough pain Last administered on 10/10/16t 11:07; Start 10/09/16 at 14:00 Sodium Chloride (NS 500 ml Inj) 500 ml @ 500 mls/hr BOLUS ONCE IV ; Start 10/10 at 11:45; Stop 10/10/16 at 12:44 Promethazine HCl (Phenergan) 25 mg Q6H PRN PO nausea/vomiting; Start 10/10/16 at 12:00 A/P Assessment and Plan Pt presented w/ dysphagia: barrium swallow showed narrowing of the cervical esophagus. EGD done on 10/09 showed an extrinsic compression. Otherwise able to pass a probe with no difficulty. Speech therapist was consulted but patient had no difficulty tolerating clear liquid diet. We will allow for effacement of diet. 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 pt on palliative systemic therapy and radiation. Oncology following. discussed findings w rad onc. Plan for XRT to lesion as outpatient. We'll try Lidoderm patch for lower back pain. Poor nutrition: pt started on PPN per onc. At the moment patient is on a liquid diet will be as tolerated. Back pain from metastatic disease: pain controlled with current regimen. able to swallow. Oramorph 30 mg PO q8 quinn, may titrate up as needed. Dilaudid 1 mg IV q2-4 hrs for breakthrough pain. Will add Lidoderm patch to lower back. dehydration/n/v: zofran prn, NS@100ml/hr. we'll add Phenergan since nauseous uncontrolled. Discharge Planning Patient continues to be symptomatic and unable tolerate by mouth intake. He will need to continue with PPN and IV fluids. Mary Lauren MD Oct 10, 2016 12:15
--- NOTE | 2016-10-10 12:22 | PD.ONC.PN ---
Subjective Subjective Remarks Patient seen and examined, he reports continued nausea but wants to try to eat more. Also continues to have lower back pain. Tells me his been able to get up out of bed and has been ambulating without too much difficulty. Objective Data Date Time Temp Pulse Resp B/P Pulse Ox O2 Delivery O2 Flow Rate FiO2 10/10/16 11:02 97.7 86 18 103/61 96 10/10/16 09:16 85 92/51 10/10/16 08:08 87 10/10/16 07:57 98.0 89 16 94/50 95 Manual Cuff/Auscultation 10/10/16 04:00 98.7 94 18 97/53 98 10/09/16 22:30 96 18 96/53 98 10/09/16 20:10 80 10/09/16 20:00 98.3 88 17 91/52 98 10/09/16 18:14 118/62 10/09/16 16:00 98.7 75 18 88/52 97 10/09/16 12:20 84 16 98 Room Air 10/10/16 10/10/16 10/10/16 07:00 15:00 23:00 Intake Total 1988 ml Output Total 20 ml Balance 1968 ml Result Diagram: 10/08/16 0759 10/08/16 0759 Administered Medications Medications (Trade) Dose Ordered Sig/Abel Route PRN Reason Start Time Stop Time Status Last Admin Dose Admin Sodium Chloride (NS Flush) 2 ml BID IV FLUSH 10/08/16 09:00 10/10/16 09:19 Ondansetron HCl 4 mg 4 mg Q6H PRN IVP NAUSEA OR VOMITING 10/07/16 21:15 10/10/16 09:19 Sodium Chloride 1,000 ml @ 100 mls/hr Q10H IV 10/08/16 07:15 10/10/16 09:23 Multivitamins 10 ml/Folic Acid 1 mg/Amino Acids/ Electrolytes/ Dextrose 1,010.2 ml @ 42 mls/hr Q24H IV 10/08/16 20:00 10/09/16 21:21 Fat Emulsion Intravenous (Liposyn Iii 20% Inj) 250 ml @ 10 mls/hr Q24H IV 10/08/16 20:00 10/09/16 21:21 Morphine Sulfate (Oramorph Sr) 30 mg Q8HR PO 10/09/16 14:00 10/10/16 05:54 Hydromorphone HCl (Dilaudid Pf Inj) 2 mg Q4H PRN IV PUSH breakthrough pain 10/09/16 14:00 10/10/16 11:07 Objective Remarks GENERAL APPEARANCE: Mr. Levi is a young male. He is very tall and near cachectic appearing. He is lying in bed in no apparent distress. HEENT: Head atraumatic, normocephalic. Conjunctivae are pale. Sclerae are anicteric. EOMI. PERRLA. Oral exam - poor dental hygiene. No pharyngeal erythema. No masses noted in the oral cavity. NECK: He does have palpable supraclavicular lymph nodes bilaterally. PULMONARY: Prolonged expiratory phase. Good air movement bilaterally without any added breath sounds. CARDIOVASCULAR: Regular rate and rhythm, S1, S2. No obvious murmurs, rubs or gallops. ABDOMEN: Thin belly, soft, nontender, nondistended. No palpable organ enlargement, specifically no hepatosplenomegaly. EXTREMITIES: No pretibial edema. No calf tenderness. EDITOR: No focal sensory or motor deficits. 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 -- Last chemo on 09/27/16. 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 The tumor had direct extension into the mediastinum and was nonresectable. He was treated with concurrent chemoradiotherapy and then was recommended palliative systemic chemotherapy with carboplatin and Taxol. In late August 2069 he was noted to have disease progression and he presented with bony metastases as well as intra-abdominal metastases. He was subsequently switched over to nivolumab and has thus far received I believe two infusions of this. (2) Mass of left temporal lobe Status: Acute Plan: -- No mass effect noted. Pt does not need steroids -- Will plan for XRT to lesion as outpatient. (3) Dysphagia Status: Acute Plan: -- Barium swallow showed diffuse narrowing of the cervical esophagus. May represent esophagitis , post radiation change, or mass. . -- CT neck indicated no evidence of mass with extrinsic compression of the esophagus. EGD performed on 10/09/2016 indicates no evidence of extrinsic compression, Mass. or obstruction. Assessment 45 y/o male with 60 pack year smoking history with metastatic lung cancer admitted with dysphagia, nausea and vomiting. Plan 1. Nutrition: Continue PPN, will progress diet to mechanical soft. 2. Nausea: I have added on Armani pain 10 mg by mouth daily for treatment of what I suspect to be chemotherapy-related nausea, this will be given a trial for the next 2 days to see if there is an improvement. 3. Metastatic lung squamous cell carcinoma: Chemotherapy on hold for now, resume radiation next week to the lower spine and sacral area for pain control. Continue supportive care, assess for response to anti-emetic therapy and nausea control. Emmanuel Samaniego MD Oct 10, 2016 12:22
[2016-10-10] MEDS: PROMETHAZINE HCL 25 MG TAB PO PRN (12:27)
[2016-10-10] MEDS: LIDOCAINE HCL 5% PATCH T-DERMAL SCH (12:33)
[2016-10-10] MEDS: REMOVE OLD LIDOCAINE PATCH T-DERMAL SCH (21:06)
[2016-10-10] MEDS: CLINIMIX E 4.25/5 1000 mL- </= 42 mls/hr IV SCH ×3 (21:55)
[2016-10-10] MEDS: FAT EMULSION 20% INJ 250 ML (@10 mls/hr) IV SCH (21:55)
[2016-10-11] VITALS (7 sets, daily range): BP systolic 98–112; BP diastolic 53–63; PULSE 88–103; RESP 16–18; TEMP 98–100.1; O2SAT 95–98
[2016-10-11] MEDS: MORPHINE SULFATE 30 MG CONTROLLED RELEASE TAB PO SCH ×3 (05:10→20:46)
[2016-10-11] MEDS: PROMETHAZINE HCL 25 MG TAB PO PRN ×3 (06:11→23:04)
[2016-10-11 06:56] LABS: AUTOMATED NEUTROPHIL # 5.7 TH/MM3 (1.8-7.7); BASOPHIL % 0.1 % (0.0-2.0); EOSINOPHIL # 0.1 TH/MM3 (0-0.4); EOSINOPHIL % 1.8 % (0.0-4.0); HEMATOCRIT 33.9 % (39.0-51.0); HEMO FLAGS DIFF FINAL; LYMPH % 5.9 % (9.0-44.0); LYMPHOCYTE # 0.4 TH/MM3 (1.0-4.8); MEAN CORPUSCULAR HGB CONC 34.8 % (32.0-36.0); MONO % 3.9 % (0.0-8.0); NEUT % 88.3 % (16.0-70.0); PLATELET COUNT 126 TH/MM3 (150-450); RED BLOOD COUNT 3.68 MIL/MM3 (4.50-5.90); RED CELL DISTRIBUTION WIDTH 13.8 % (11.6-17.2); WHITE BLOOD COUNT 6.5 TH/MM3 (4.0-11.0)
[2016-10-11 07:14] LABS: ALT (GPT) 24 U/L (12-78); ANION GAP 7 MEQ/L (5-15); AST (GOT) 24 U/L (15-37); BICARBONATE 30.3 MEQ/L (21.0-32.0); BLOOD UREA NITROGEN 8 MG/DL (7-18); CHLORIDE 99 MEQ/L (98-107); GLOMERULAR FILTRATION RATE 142 ML/MIN (>89); POTASSIUM 3.3 MEQ/L (3.5-5.1); SODIUM (NA) 136 MEQ/L (136-145)
[2016-10-11 07:21] LABS: ALKALINE PHOSPHATASE 186 U/L (45-117); TOTAL BILIRUBIN ADULT 0.3 MG/DL (0.2-1.0)
--- NOTE | 2016-10-11 08:55 | MB ---
cc: DAYAN SAMANIEGO MD, ALVARO DATE OF CONSULTATION: 10/08/2016 DATE OF : 1970. REQUESTING PHYSICIAN: Dr. Dayan Samaniego. DIAGNOSIS: Metastatic carcinoma, non-small cell carcinoma. STAGE: Stage IV. CHIEF COMPLAINT: Intractable nausea and vomiting with inability to swallow. Patient with new brain metastasis. HISTORY OF PRESENT ILLNESS: This is a 45-year-old white male known to me as I treated him for his lung carcinoma. The patient was treated with a total dose of 6400 cGy to the lung completed on 06/04/2016. Following this, the patient developed metastatic disease to bone and has been receiving palliative radiation therapy to the thoracic spine and left sacrum. The patient has four treatments left. The patient did not show to up to our department for about five days. Finally yesterday I was able to get hold of the patient and he told me he was very sick and was not able to swallow or drink anything or keep anything down for at least a week to ten days. The patient, due to his condition, was discussed with Dr. Samaniego and advised to come to the emergency room for evaluation. The patient has been admitted. An MRI of the brain showed a solitary brain metastasis. The patient also has been evaluated by GI and is awaiting dilation versus stent placement. I have been asked to see the patient in consult for continuation of care and for his new diagnosis of brain metastasis. PAST MEDICAL HISTORY: As above and as previously recorded. MEDICATIONS: As per hospitalist chart. ALLERGIES: NO KNOWN DRUG ALLERGIES. FAMILY HISTORY: As previously recorded. SOCIAL HISTORY: As previously recorded. REVIEW OF SYSTEMS: CONSTITUTIONAL: The patient with fatigue but he says he feels a lot better. ALLERGIES: The patient has not had a major allergic reaction recently. EYES: Unremarkable. ENT: Difficulty and pain with swallowing. He says he has been better since getting admitted to the hospital and able to suck on some ice chips. NECK: Unremarkable. INTEGUMENTARY: Unremarkable. CARDIOVASCULAR: Unremarkable. The patient denies any chest pain, any clinical signs or symptoms of myocardial infarction. RESPIRATORY: Unremarkable. The patient denies any major shortness of breath, chest pain or hemoptysis. GASTROINTESTINAL: The patient with nausea and vomiting, although he says he has been good since being admitted into the hospital. He has not had any more vomiting. GENITOURINARY: Unremarkable. MUSCULOSKELETAL: The patient says that his left sacral pain has improved but now he has increased pain in the right hip and right upper pelvic area and lower lumbar area. NEUROLOGICAL: The patient denies any neurological deficits. No changes in cognitive functions or motor functions. PSYCHIATRIC Unremarkable. ENDOCRINE: Unremarkable. HEMATOLOGIC: Unremarkable. DERMATOLOGIC: Unremarkable. PHYSICAL EXAMINATION: GENERAL: The patient is oriented times three and in no immediate acute distress at the time of the evaluation. PAIN SCALE: His pain he says is about 5-6/10 but it is mostly in his lower back. VITAL SIGNS: Stable. LUNGS: Bilateral lungs were clear to auscultation with appropriate ventilatory respiratory effort. HEART: Regular in rate and rhythm. No murmurs. NECK: Palpation of the neck and bilateral supraclavicular areas are free. ABDOMEN: Palpation of the abdominal cavity reveals no hepatosplenomegaly and no pain elicited. EXTREMITIES: No lower extremity edema detected. There is pain in the right lower lumbar area to range of motion of the lower extremities. NEUROLOGIC: No neurological deficits detected. Motor function is preserved. Cognitive functions are preserved. SURGICAL PATHOLOGY: Surgical pathology as previously recorded. RADIOLOGY STUDIES: MRI of the brain, 10/07/2016, IMPRESSION: A 10 x 8 x 6 mm enhanced nodule noted in the left temporal lobe worrisome for a metastatic focus. No mass effect or significant edema associated this lesion. No hemorrhage or acute infarction. Barium swallow, 10/08/2016, IMPRESSION: Diffuse narrowing of the cervical esophagus, which may represent esophagitis, post radiation change or mass. Thoracic esophagus within normal limits. ASSESSMENT: A 45-year white male with diagnosis of metastatic lung carcinoma. The patient is being evaluated for salvage treatment options to the brain. PLAN: I had an extensive discussion with the patient and his brother. I also had a discussion with his mother today. I have discussed this case personally with Dr. Samaniego. I advised him that he appears to have a lesion within the brain and it is a solitary lesion so we can address this with radiosurgery. We do not have to treat him emergently so we can wait for him to be discharged from the hospital. The patient has two pending MRIs that I had ordered for Tuesday and since the patient is in the hospital, I went ahead and ordered an MRI of the lumbar spine and sacrum and an MRI of the pelvis to be done to determine if his back pain is related to a new lesion that needs to be addressed. I also advised the patient that I will hold the radiation today. I will see how he is doing on Tuesday and decide if we are going to continue radiation therapy on Tuesday. The patient has been advised that if I can be of any further assistance, to please let me know otherwise we will proceed as above. Dr. Samaniego, thank you much for placing this consult and for allowing me to participate in the care of your patient. Should you have any further questions or concerns, please do not hesitate to contact me. MD TORRI Azul/ROB /3:53 PM /8:55 AM [id number]
[2016-10-11] MEDS: SODIUM CHLORIDE 0.9% FLUSH 10 ML FLUSH IV FLUSH SCH ×2 (09:00→20:47)
--- NOTE | 2016-10-11 09:37 | HHI.PR ---
Subjective Remarks Follow-up for lung metastases and intractable emesis Patient stated that he had a horrible night last night. He stated that he didn' t have emesis but he feels very nauseous as if he had motion sickness. He stated that he feels like the room is spinning a little bit. He did not feel that the change in medication regimen work yesterday. Patient stated that he was able to tolerate the diet but just felt very nauseous so do not eat much. Deny any abdominal pain. Objective Vitals Vital Signs Date Time Temp Pulse Resp B/P Pulse Ox O2 Delivery O2 Flow Rate FiO2 10/11/16 04:00 99.0 101 17 106/63 98 10/11/16 00:00 99.5 103 16 100/55 98 10/10/16 20:21 103 10/10/16 20:00 99.3 98 17 107/62 98 10/10/16 16:00 96.8 95 16 101/64 100 10/10/16 12:00 97.5 86 16 101/59 97 10/10/16 11:02 97.7 86 18 103/61 96 I/O 10/10/16 10/10/16 10/10/16 10/11/16 10/11/16 10/11/16 07:00 15:00 23:00 07:00 15:00 23:00 Intake Total 1988 ml 2230 ml 480 ml 2892 ml Output Total 20 ml Balance 1968 ml 2230 ml 480 ml 2892 ml Intake Oral 620 ml 480 ml 480 ml IV Total 1226 ml 1181 ml 1588 ml TPN/PPN 615 ml 346 ml 666 ml Lipid 147 ml 83 ml 158 ml Output Emesis 20 ml # Voids 2 3 7 4 # Bowel Movements 0 Result Diagram: 10/11/16 0611 10/11/16 0611 Objective Remarks GENERAL: in NAD CARDIOVASCULAR: Regular rate and rhythm without murmurs, gallops, or rubs. RESPIRATORY: Breath sounds equal bilaterally. No accessory muscle use. per patient that is stable. GASTROINTESTINAL: Abdomen soft, non-tender, nondistended. MUSCULOSKELETAL: No cyanosis, or edema. BACK: Nontender without obvious deformity. No CVA tenderness. Medications and IVs Current Medications Morphine Sulfate 4 mg 4 mg Q1HR PRN IV pain Last administered on 10/09/16t 12:44 ; Start 10/07/16 at 19:15; Stop 10/09/16 at 13:47; Status DC Sodium Chloride (NS 1000 ml Inj) 1,000 ml @ 1,000 mls/hr Q1H ONCE IV Last administered on 10/07/16 19:42; Start 10/07/16 at 19:13; Stop 10/07/16 at 20:12; Status DC Sodium Chloride (NS Flush) 2 ml UNSCH PRN IVF FLUSH AFTER USING IV ACCESS Last administered on 10/07/16 19:43; Start 10/07/16 at 19:15; Stop 10/07/16 at 21:27; Status DC Prochlorperazine Edisylate (Compazine Inj) 10 mg ONCE ONCE IV PUSH Last administered on 10/07/16 19:42; Start 10/07/16 at 19:15; Stop 10/07/16 at 19:16; Status DC Diphenhydramine HCl 25 mg 25 mg ONCE ONCE IV PUSH Last administered on 19:42; Start 10/07/16 at 19:15; Stop 10/07/16 at 19:16; Status DC Sodium Chloride 1,000 ml @ 999 mls/hr BOLUS ONCE IV Last administered on 19:42; Start 10/07/16 at 19:15; Stop 10/07/16 at 20:15; Status DC Sodium Chloride (NS 1000 ml Inj) 1,000 ml @ 999 mls/hr BOLUS ONCE IV Last administered on 10/07/16 20:43; Start 10/07/16 at 20:30; Stop 10/07/16 at 21:30; Status DC Sodium Chloride (NS Flush) 2 ml UNSCH PRN IV FLUSH FLUSH AFTER USING IV ACCESS ; Start 10/07/16 at 21:15 Sodium Chloride (NS Flush) 2 ml BID IV FLUSH Last administered on 10/10/16 21: 55; Start 10/08/16 at 09:00 Ondansetron HCl (Zofran Inj) 4 mg Q6H PRN IVP NAUSEA OR VOMITING Last administered on 10/10/16 09:19; Start 10/07/16 at 21:15 Naloxone HCl (Narcan Inj) 0.4 mg UNSCH PRN IV SEE LABEL COMMENTS; Start at 21:15 Gadodiamide 13 ml 13 ml STK-MED ONCE IV Last administered on 10/07/16 21:33; Start 10/07/16 at 21:33; Stop 10/07/16 at 21:34; Status DC Potassium Chloride 40 meq/ Sodium Chloride 520 ml @ 130 mls/hr ONCE ONCE IV- CENTRAL Last administered on 10/08/16 10:10; Start 10/08/16 at 09:00; Stop at 12:59; Status DC Sodium Chloride (NS 1000 ml Inj) 1,000 ml @ 100 mls/hr Q10H IV Last administered on 10/10/16 21:54; Start 10/08/16 at 07:15 Diatrizoate Meglum/ Diatrizoate Sod 120 ml 120 ml STK-MED ONCE PO Last administered on 10/08/16 10:16; Start 10/08/16 at 10:16; Stop 10/08/16 at 10:17; Status DC Multivitamins 10 ml/Folic Acid 1 mg/Amino Acids/ Electrolytes/ Dextrose 1,010.2 ml @ 42 mls/hr Q24H IV Last administered on 10/10/16 21:55; Start 10/08/16 at 20:00 Fat Emulsion Intravenous (Liposyn Iii 20% Inj) 250 ml @ 10 mls/hr Q24H IV Last administered on 10/10/16 21:55; Start 10/08/16 at 20:00 Gadodiamide (Omniscan Pf Inj) 13 ml STK-MED ONCE IV ; Start 10/09/16 at 10:26; Stop 10/09/16 at 10:27; Status DC Iohexol (Omnipaque 350 Inj) 60 ml STK-MED ONCE IV Last administered on 11:10; Start 10/09/16 at 11:10; Stop 10/09/16 at 11:11; Status DC Propofol (Diprivan 200 Mg/20 ml Inj) 160 mg STK-MED ONCE IV ; Start 10/09/16 at 12:47; Stop 10/09/16 at 12:48; Status DC Miscellaneous Information ALL NURSING DEPARTME... UNSCH PRN .XX SEE LABEL COMMENTS; Start 10/09/16 at 13:00; Stop 10/10/16 at 12:59; Status DC Morphine Sulfate (Morphine Inj) 4 mg Q3HR PRN IV BREAKTHROUGH PAIN; Start at 14:00; Stop 10/09/16 at 14:00; Status DC Morphine Sulfate (Oramorph Sr) 30 mg Q8HR PO Last administered on 10/11/16 05: 10; Start 10/09/16 at 14:00 Hydromorphone HCl 2 mg 2 mg Q4H PRN IV PUSH breakthrough pain Last administered on 10/10/16 23:51; Start 10/09/16 at 14:00 Sodium Chloride (NS 500 ml Inj) 500 ml @ 500 mls/hr BOLUS ONCE IV Last administered on 10/10/16 12:27; Start 10/10/16 at 11:45; Stop 10/10/16 at 12:44; Status DC Promethazine HCl (Phenergan) 25 mg Q6H PRN PO nausea/vomiting Last administered on 10/11/16 06:11; Start 10/10/16 at 12:00 Lidocaine HCl (Lidoderm 5% Patch.12 Hr) 1 patch DAILY T-DERMAL Last administered on 10/10/16 12:33; Start 10/10/16 at 12:15 Olanzapine (ZyPREXA) 10 mg DAILY PO ; Start 10/10/16 at 12:15 Miscellaneous Information 1 Q24H T-DERMAL Last administered on 10/10/16 21:06; Start 10/10/16 at 21:00 A/P Assessment and Plan Pt presented w/ dysphagia: barium swallow showed narrowing of the cervical esophagus. EGD done on 10/09 showed an extrinsic compression. Otherwise able to pass a probe with no difficulty. Speech therapist was consulted but patient had no difficulty tolerating clear liquid diet. Patient tolerating his diet but this seems more due to nausea and dysphagia. Intractable emesis Most likely secondary to chemotherapy. Patient feels Phenergan and Zyprexa is not helping. His nausea seems more due to vertigo. Will try meclizine to see if this help with symptoms. Otherwise patient was told that he still has Zofran as needed. 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 pt on palliative systemic therapy and radiation. Oncology following. discussed findings w rad onc. Plan for XRT to lesion as outpatient. On Lidoderm patch. Poor nutrition: pt started on PPN per onc. At the moment patient is on a liquid diet will be as tolerated. Back pain from metastatic disease: pain controlled with current regimen. able to swallow. Oramorph 30 mg PO q8 quinn, may titrate up as needed. Dilaudid 1 mg IV q2-4 hrs for breakthrough pain. Will add Lidoderm patch to lower back. dehydration/n/v: zofran prn, NS@100ml/hr. see treatment as above. Discharge Planning Patient continues to be symptomatic and unable tolerate by mouth intake. He will need to continue with PPN and IV fluids. Mary Lauren MD Oct 11, 2016 09:37
[2016-10-11] MEDS ORDERED: MECLIZINE HCL 25 MG TAB PO ONE (09:45)
[2016-10-11] MEDS: OLANZapine 10 MG TAB PO SCH (10:00)
[2016-10-11] MEDS: LIDOCAINE HCL 5% PATCH T-DERMAL SCH (10:02)
[2016-10-11] MEDS: ONDANSETRON HCL 4 MG/2 ML VIAL IVP PRN ×2 (10:17→20:45)
[2016-10-11] MEDS: HYDROmorphone HCL PF 2 MG/ML VIAL IV PUSH PRN ×2 (10:18→22:52)
[2016-10-11] MEDS: SODIUM CHLOR 0.9% 1000 ML INJ 1,000 ML IV SCH (17:04)
[2016-10-11] MEDS: FAT EMULSION 20% INJ 250 ML (@10 mls/hr) IV SCH (20:47)
[2016-10-11] MEDS: REMOVE OLD LIDOCAINE PATCH T-DERMAL SCH (20:47)
[2016-10-11] MEDS: CLINIMIX E 4.25/5 1000 mL- </= 42 mls/hr IV SCH ×3 (20:47)
[2016-10-12] VITALS (10 sets, daily range): BP systolic 92–118; BP diastolic 54–58; PULSE 86–148; RESP 16–18; TEMP 98.9–100.2; O2SAT 93–95
[2016-10-12] MEDS: SODIUM CHLOR 0.9% 1000 ML INJ 1,000 ML IV SCH ×3 (01:15→21:04)
[2016-10-12] MEDS: HYDROmorphone HCL PF 2 MG/ML VIAL IV PUSH PRN ×4 (02:04→22:44)
[2016-10-12] MEDS: ONDANSETRON HCL 4 MG/2 ML VIAL IVP PRN ×2 (06:05→12:27)
[2016-10-12] MEDS: MORPHINE SULFATE 30 MG CONTROLLED RELEASE TAB PO SCH ×3 (06:05→22:11)
[2016-10-12 07:32] LABS: BICARBONATE 32.5 MEQ/L (21.0-32.0); POTASSIUM 3.8 MEQ/L (3.5-5.1)
--- NOTE | 2016-10-12 07:53 | PD.ONC.PN ---
Subjective Subjective Remarks Patient continues to have nausea, aversion to eating though he is able to swallow liquids and soft solids. He tells me he had a few bites of macaroni and cheese and pulled pork yesterday he also ate cookies and crackers. Disease to have lower back pain which is intense and keeps them in bed most the day. Additionally patient reports vertigo like symptoms when he tries to stand up. Objective Data Date Time Temp Pulse Resp B/P Pulse Ox O2 Delivery O2 Flow Rate FiO2 10/12/16 07:14 16 10/12/16 04:00 99.6 86 16 109/58 95 10/12/16 03:10 16 10/12/16 00:45 99.6 97 16 92/55 94 10/11/16 21:15 100.1 100 18 104/57 95 10/11/16 20:39 100 10/11/16 17:05 99.5 96 16 98/53 95 10/11/16 13:05 98.0 90 18 110/54 95 10/11/16 08:00 99.6 88 16 112/62 95 10/12/16 10/12/16 10/12/16 07:00 15:00 23:00 Intake Total 240 ml Balance 240 ml Result Diagram: 10/11/16 0611 10/12/16 0622 Laboratory Results Laboratory Tests Test 10/12/16 06:22 Sodium Level 136 MEQ/L Potassium Level 3.8 MEQ/L Chloride Level 99 MEQ/L Carbon Dioxide Level 32.5 MEQ/L Anion Gap 5 MEQ/L Blood Urea Nitrogen 8 MG/DL Creatinine 0.53 MG/DL Estimat Glomerular Filtration 170 ML/MIN Rate Random Glucose 77 MG/DL Calcium Level 8.2 MG/DL Administered Medications Medications (Trade) Dose Ordered Sig/Abel Route PRN Reason Start Time Stop Time Status Last Admin Dose Admin Sodium Chloride (NS Flush) 2 ml BID IV FLUSH 10/08/16 09:00 10/10/16 21:55 Ondansetron HCl 4 mg 4 mg Q6H PRN IVP NAUSEA OR VOMITING 10/07/16 21:15 10/12/16 06:05 Sodium Chloride 1,000 ml @ 100 mls/hr Q10H IV 10/08/16 07:15 10/11/16 17:04 Multivitamins 10 ml/Folic Acid 1 mg/Amino Acids/ Electrolytes/ Dextrose 1,010.2 ml @ 42 mls/hr Q24H IV 10/08/16 20:00 10/11/16 20:47 Fat Emulsion Intravenous (Liposyn Iii 20% Inj) 250 ml @ 10 mls/hr Q24H IV 10/08/16 20:00 10/11/16 20:47 Morphine Sulfate (Oramorph Sr) 30 mg Q8HR PO 10/09/16 14:00 10/12/16 06:05 Hydromorphone HCl (Dilaudid Pf Inj) 2 mg Q4H PRN IV PUSH breakthrough pain 10/09/16 14:00 10/12/16 02:04 Promethazine HCl (Phenergan) 25 mg Q6H PRN PO nausea/vomiting 10/10/16 12:00 10/11/16 23:04 Lidocaine HCl (Lidoderm 5% Patch.12 Hr) 1 patch DAILY T-DERMAL 10/10/16 12:15 10/11/16 10:02 Olanzapine (ZyPREXA) 10 mg DAILY PO 10/10/16 12:15 10/11/16 10:00 Miscellaneous Information 1 Q24H T-DERMAL 10/10/16 21:00 10/11/16 20:47 Objective Remarks GENERAL APPEARANCE: Mr. Levi is a young male. He is very tall and near cachectic appearing. He is lying in bed in no apparent distress. HEENT: Head atraumatic, normocephalic. Conjunctivae are pale. Sclerae are anicteric. EOMI. PERRLA. Oral exam - poor dental hygiene. No pharyngeal erythema. No masses noted in the oral cavity. NECK: He does have palpable supraclavicular lymph nodes bilaterally. PULMONARY: Prolonged expiratory phase. Good air movement bilaterally without any added breath sounds. CARDIOVASCULAR: Regular rate and rhythm, S1, S2. No obvious murmurs, rubs or gallops. ABDOMEN: Thin belly, soft, nontender, nondistended. No palpable organ enlargement, specifically no hepatosplenomegaly. EXTREMITIES: No pretibial edema. No calf tenderness. PARKING MANAGER: No focal sensory or motor deficits. 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 -- Last chemo on 09/27/16. 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 The tumor had direct extension into the mediastinum and was nonresectable. He was treated with concurrent chemoradiotherapy and then was recommended palliative systemic chemotherapy with carboplatin and Taxol. In late August 2069 he was noted to have disease progression and he presented with bony metastases as well as intra-abdominal metastases. He was subsequently switched over to nivolumab and has thus far received I believe two infusions of this. (2) Mass of left temporal lobe Status: Acute Plan: -- No mass effect noted. Pt does not need steroids -- Will plan for XRT to lesion as outpatient. (3) Dysphagia Status: Acute Plan: -- Barium swallow showed diffuse narrowing of the cervical esophagus. May represent esophagitis , post radiation change, or mass. . -- CT neck indicated no evidence of mass with extrinsic compression of the esophagus. EGD performed on 10/09/2016 indicates no evidence of extrinsic compression, Mass. or obstruction. Assessment 45 y/o male with 60 pack year smoking history with metastatic lung cancer admitted with dysphagia, nausea and vomiting. Plan 1. Nutrition: Continue PPN, will progress diet to mechanical soft. 2. Nausea: He was started on Zyprexa but this seems not to have helped, I will discontinue Zyprexa at this time and schedule him for Xanax 0.5 mg by mouth every 8 hours to see if this might help. 3. Metastatic lung squamous cell carcinoma: Chemotherapy on hold for now, resume radiation next week to the lower spine and sacral area for pain control. Continue supportive care, assess for response to anti-emetic therapy and nausea control. Monitor for improvement. Emmanuel Samaniego MD Oct 12, 2016 07:52
[2016-10-12] MEDS: LORazepam 0.5 MG TAB PO SCH ×3 (08:16→22:11)
[2016-10-12] MEDS: REMOVE OLD LIDOCAINE PATCH T-DERMAL SCH ×2 (08:17→21:07)
[2016-10-12] MEDS: LIDOCAINE HCL 5% PATCH T-DERMAL SCH (08:17)
[2016-10-12] MEDS: SODIUM CHLORIDE 0.9% FLUSH 10 ML FLUSH IV FLUSH SCH ×2 (08:23→21:05)
--- NOTE | 2016-10-12 14:12 | HHI.PR ---
Subjective Remarks Follow-up for constant nausea and feeling dizzy Patient he still feels nauseous but it has improved. Patient also complaining of acid reflux. Denies any emesis. Denies any double pain. He had a low-grade fever. Otherwise no complaints. Objective Vitals Vital Signs Date Time Temp Pulse Resp B/P Pulse Ox O2 Delivery O2 Flow Rate FiO2 10/12/16 12:00 98.9 100 18 101/55 94 10/12/16 08:00 100.2 103 18 108/54 93 10/12/16 07:14 16 10/12/16 04:00 99.6 86 16 109/58 95 10/12/16 03:10 16 10/12/16 00:45 99.6 97 16 92/55 94 10/11/16 21:15 100.1 100 18 104/57 95 10/11/16 20:39 100 10/11/16 17:05 99.5 96 16 98/53 95 I/O 10/11/16 10/11/16 10/11/16 10/12/16 10/12/16 10/12/16 07:00 15:00 23:00 07:00 15:00 23:00 Intake Total 2892 ml 1158 ml 1200 ml 240 ml 3414 ml Balance 2892 ml 1158 ml 1200 ml 240 ml 3414 ml Intake Oral 480 ml 1200 ml 240 ml IV Total 1588 ml 1158 ml 3414 ml TPN/PPN 666 ml Lipid 158 ml # Voids 4 6 1 Result Diagram: 10/11/16 0611 10/12/16 0622 Objective Remarks GENERAL: in NAD CARDIOVASCULAR: Regular rate and rhythm without murmurs, gallops, or rubs. RESPIRATORY: Breath sounds equal bilaterally. No accessory muscle use. per patient that is stable. GASTROINTESTINAL: Abdomen soft, non-tender, nondistended. MUSCULOSKELETAL: No cyanosis, or edema. BACK: Nontender without obvious deformity. No CVA tenderness. Medications and IVs Current Medications Morphine Sulfate 4 mg 4 mg Q1HR PRN IV pain Last administered on 10/09/16 12:44 ; Start 10/07/16 at 19:15; Stop 10/09/16 at 13:47; Status DC Sodium Chloride (NS 1000 ml Inj) 1,000 ml @ 1,000 mls/hr Q1H ONCE IV Last administered on 10/07/16 19:42; Start 10/07/16 at 19:13; Stop 10/07/16 at 20:12; Status DC Sodium Chloride (NS Flush) 2 ml UNSCH PRN IVF FLUSH AFTER USING IV ACCESS Last administered on 10/07/16 19:43; Start 10/07/16 at 19:15; Stop 10/07/16 at 21:27; Status DC Prochlorperazine Edisylate (Compazine Inj) 10 mg ONCE ONCE IV PUSH Last administered on 10/07/16 19:42; Start 10/07/16 at 19:15; Stop 10/07/16 at 19:16; Status DC Diphenhydramine HCl 25 mg 25 mg ONCE ONCE IV PUSH Last administered on 19:42; Start 10/07/16 at 19:15; Stop 10/07/16 at 19:16; Status DC Sodium Chloride 1,000 ml @ 999 mls/hr BOLUS ONCE IV Last administered on 19:42; Start 10/07/16 at 19:15; Stop 10/07/16 at 20:15; Status DC Sodium Chloride (NS 1000 ml Inj) 1,000 ml @ 999 mls/hr BOLUS ONCE IV Last administered on 10/07/16 20:43; Start 10/07/16 at 20:30; Stop 10/07/16 at 21:30; Status DC Sodium Chloride (NS Flush) 2 ml UNSCH PRN IV FLUSH FLUSH AFTER USING IV ACCESS ; Start 10/07/16 at 21:15 Sodium Chloride (NS Flush) 2 ml BID IV FLUSH Last administered on 10/10/16 21: 55; Start 10/08/16 at 09:00 Ondansetron HCl (Zofran Inj) 4 mg Q6H PRN IVP NAUSEA OR VOMITING Last administered on 10/12/16 12:27; Start 10/07/16 at 21:15 Naloxone HCl (Narcan Inj) 0.4 mg UNSCH PRN IV SEE LABEL COMMENTS; Start at 21:15 Gadodiamide 13 ml 13 ml STK-MED ONCE IV Last administered on 10/07/16 21:33; Start 10/07/16 at 21:33; Stop 10/07/16 at 21:34; Status DC Potassium Chloride 40 meq/ Sodium Chloride 520 ml @ 130 mls/hr ONCE ONCE IV- CENTRAL Last administered on 10/08/16 10:10; Start 10/08/16 at 09:00; Stop at 12:59; Status DC Sodium Chloride (NS 1000 ml Inj) 1,000 ml @ 100 mls/hr Q10H IV Last administered on 10/12/16 12:27; Start 10/08/16 at 07:15 Diatrizoate Meglum/ Diatrizoate Sod 120 ml 120 ml STK-MED ONCE PO Last administered on 10/08/16 10:16; Start 10/08/16 at 10:16; Stop 10/08/16 at 10:17; Status DC Multivitamins 10 ml/Folic Acid 1 mg/Amino Acids/ Electrolytes/ Dextrose 1,010.2 ml @ 42 mls/hr Q24H IV Last administered on 10/11/16 20:47; Start 10/08/16 at 20:00 Fat Emulsion Intravenous (Liposyn Iii 20% Inj) 250 ml @ 10 mls/hr Q24H IV Last administered on 10/11/16 20:47; Start 10/08/16 at 20:00 Gadodiamide (Omniscan Pf Inj) 13 ml STK-MED ONCE IV ; Start 10/09/16 at 10:26; Stop 10/09/16 at 10:27; Status DC Iohexol (Omnipaque 350 Inj) 60 ml STK-MED ONCE IV Last administered on 11:10; Start 10/09/16 at 11:10; Stop 10/09/16 at 11:11; Status DC Propofol (Diprivan 200 Mg/20 ml Inj) 160 mg STK-MED ONCE IV ; Start 10/09/16 at 12:47; Stop 10/09/16 at 12:48; Status DC Miscellaneous Information ALL NURSING DEPARTME... UNSCH PRN .XX SEE LABEL COMMENTS; Start 10/09/16 at 13:00; Stop 10/10/16 at 12:59; Status DC Morphine Sulfate (Morphine Inj) 4 mg Q3HR PRN IV BREAKTHROUGH PAIN; Start at 14:00; Stop 10/09/16 at 14:00; Status DC Morphine Sulfate (Oramorph Sr) 30 mg Q8HR PO Last administered on 10/12/16 14: 03; Start 10/09/16 at 14:00 Hydromorphone HCl 2 mg 2 mg Q4H PRN IV PUSH breakthrough pain Last administered on 10/12/16 12:27; Start 10/09/16 at 14:00 Sodium Chloride (NS 500 ml Inj) 500 ml @ 500 mls/hr BOLUS ONCE IV Last administered on 10/10/16 12:27; Start 10/10/16 at 11:45; Stop 10/10/16 at 12:44; Status DC Promethazine HCl (Phenergan) 25 mg Q6H PRN PO nausea/vomiting Last administered on 10/11/16 23:04; Start 10/10/16 at 12:00 Lidocaine HCl (Lidoderm 5% Patch.12 Hr) 1 patch DAILY T-DERMAL Last administered on 10/12/16 08:17; Start 10/10/16 at 12:15 Olanzapine (ZyPREXA) 10 mg DAILY PO Last administered on 10/11/16 10:00; Start 10/10/16 at 12:15; Stop 10/12/16 at 07:49; Status DC Miscellaneous Information 1 Q24H T-DERMAL Last administered on 10/12/16 08:17; Start 10/10/16 at 21:00 Meclizine HCl (Antivert) 25 mg ONCE ONCE PO Last administered on 10/11/16 10: 00; Start 10/11/16 at 09:45; Stop 10/11/16 at 09:46; Status DC Lorazepam (Ativan) 0.5 mg Q8HR PO Last administered on 10/12/16 08:16; Start at 08:00 A/P Assessment and Plan Pt presented w/ dysphagia: barium swallow showed narrowing of the cervical esophagus. EGD done on 10/09 showed an extrinsic compression. Otherwise able to pass a probe with no difficulty. Speech therapist was consulted but patient had no difficulty tolerating clear liquid diet. Patient tolerating his diet but this seems more due to nausea and dysphagia. Intractable emesis Most likely secondary to chemotherapy. Patient feels Phenergan and Zyprexa is not helping. His nausea seems more due to vertigo. Patient unsure meclizine helped but he think it might help a little bit. Will increase meclizine to 50 mg. Per oncologist may be exacerbated by anxiety. Ativan was added. Continue to monitor clinically. Acid reflux Will add Tums. 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 pt on palliative systemic therapy and radiation. Oncology following. discussed findings w rad onc. Plan for XRT to lesion as outpatient. On Lidoderm patch. Poor nutrition: pt started on PPN per onc. At the moment patient is on a liquid diet will be as tolerated. Back pain from metastatic disease: pain controlled with current regimen. able to swallow. Oramorph 30 mg PO q8 quinn, may titrate up as needed. Dilaudid 1 mg IV q2-4 hrs for breakthrough pain. Continue Lidoderm patch to lower back. dehydration/n/v: zofran prn, NS@100ml/hr. see treatment as above. Discharge Planning Patient continues to be symptomatic and unable tolerate by mouth intake. He will need to continue with PPN and IV fluids. Mary Lauren MD Oct 12, 2016 14:12
[2016-10-12] MEDS ORDERED: ROLLER WALKER1 MI1 (14:13)
[2016-10-12] MEDS ORDERED: MECLIZINE HCL 25 MG TAB PO ONE (14:15)
[2016-10-12] MEDS: CALCIUM CARBONATE 500 MG CHEWABLE TAB CHEW SCH ×2 (15:46→20:50)
[2016-10-12] MEDS: CLINIMIX E 4.25/5 1000 mL- </= 42 mls/hr IV SCH ×3 (20:50)
[2016-10-12] MEDS: FAT EMULSION 20% INJ 250 ML (@10 mls/hr) IV SCH (20:50)
[2016-10-13] VITALS (8 sets, daily range): BP systolic 94–107; BP diastolic 52–58; PULSE 87–140; RESP 16–18; TEMP 97.6–99.6; O2SAT 91–93
[2016-10-13] MEDS: SODIUM CHLOR 0.9% 1000 ML INJ 1,000 ML IV SCH ×2 (04:24→20:30)
[2016-10-13] MEDS: LORazepam 0.5 MG TAB PO SCH ×3 (06:09→20:15)
[2016-10-13] MEDS: MORPHINE SULFATE 30 MG CONTROLLED RELEASE TAB PO SCH ×3 (06:12→20:15)
[2016-10-13] MEDS: HYDROmorphone HCL PF 2 MG/ML VIAL IV PUSH PRN ×3 (07:00→15:38)
[2016-10-13] MEDS: SODIUM CHLORIDE 0.9% FLUSH 10 ML FLUSH IV FLUSH PRN (07:01)
--- NOTE | 2016-10-13 08:31 | PD.ONC.PN ---
Subjective Subjective Remarks Patient reports back pain, he tells me he has been having difficulty getting up out of bed and in particular had a very hard time getting off the radiation table yesterday. He describes the pain as involving his right hip with "electric currents" going down his right leg. He tells me his nausea was fractionally improved yesterday and that he has been able to drink muscle milk and swallow small quantities of soft solids as well. Objective Data Date Time Temp Pulse Resp B/P Pulse Ox O2 Delivery O2 Flow Rate FiO2 10/13/16 06:50 100 107/52 10/13/16 04:00 99.6 108 18 104/57 92 10/13/16 00:41 140 10/13/16 00:37 100 94/54 10/12/16 22:40 112 104/58 10/12/16 22:13 99.3 112 18 101/55 95 10/12/16 22:09 148 10/12/16 20:49 117 10/12/16 20:00 99.6 109 18 113/57 93 10/12/16 16:00 99.5 102 18 118/55 93 10/12/16 12:00 98.9 100 18 101/55 94 Result Diagram: 10/11/16 0611 10/12/16 0622 Administered Medications Medications (Trade) Dose Ordered Sig/Abel Route PRN Reason Start Time Stop Time Status Last Admin Dose Admin Sodium Chloride (NS Flush) 2 ml UNSCH PRN IV FLUSH FLUSH AFTER USING IV ACCESS 10/07/16 21:15 10/13/16 07:01 Sodium Chloride (NS Flush) 2 ml BID IV FLUSH 10/08/16 09:00 10/12/16 21:05 Ondansetron HCl 4 mg 4 mg Q6H PRN IVP NAUSEA OR VOMITING 10/07/16 21:15 10/12/16 12:27 Sodium Chloride 1,000 ml @ 100 mls/hr Q10H IV 10/08/16 07:15 10/13/16 04:24 Multivitamins 10 ml/Folic Acid 1 mg/Amino Acids/ Electrolytes/ Dextrose 1,010.2 ml @ 42 mls/hr Q24H IV 10/08/16 20:00 10/12/16 20:50 Fat Emulsion Intravenous (Liposyn Iii 20% Inj) 250 ml @ 10 mls/hr Q24H IV 10/08/16 20:00 10/12/16 20:50 Morphine Sulfate (Oramorph Sr) 30 mg Q8HR PO 10/09/16 14:00 10/13/16 06:12 Hydromorphone HCl (Dilaudid Pf Inj) 2 mg Q4H PRN IV PUSH breakthrough pain 10/09/16 14:00 10/13/16 07:00 Promethazine HCl (Phenergan) 25 mg Q6H PRN PO nausea/vomiting 10/10/16 12:00 10/11/16 23:04 Lidocaine HCl (Lidoderm 5% Patch.12 Hr) 1 patch DAILY T-DERMAL 10/10/16 12:15 10/12/16 08:17 Miscellaneous Information 1 Q24H T-DERMAL 10/10/16 21:00 10/12/16 21:07 Lorazepam (Ativan) 0.5 mg Q8HR PO 10/12/16 08:00 10/13/16 06:09 Calcium Carbonate (Tums Chew) 500 mg Q12HR CHEW 10/12/16 14:15 10/12/16 20:50 Objective Remarks GENERAL APPEARANCE: Mr. Levi is a young male. He is very tall and near cachectic appearing. He is lying in bed in no apparent distress. HEENT: Head atraumatic, normocephalic. Conjunctivae are pale. Sclerae are anicteric. EOMI. PERRLA. Oral exam - poor dental hygiene. No pharyngeal erythema. No masses noted in the oral cavity. NECK: He does have palpable supraclavicular lymph nodes bilaterally. PULMONARY: Prolonged expiratory phase. Good air movement bilaterally without any added breath sounds. CARDIOVASCULAR: Regular rate and rhythm, S1, S2. No obvious murmurs, rubs or gallops. ABDOMEN: Thin belly, soft, nontender, nondistended. No palpable organ enlargement, specifically no hepatosplenomegaly. EXTREMITIES: No pretibial edema. No calf tenderness. ELECTRONIC DRAFTER: No focal sensory or motor deficits. 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 -- Last chemo on 09/27/16. Hx/Workup: In the Fall of 2015 he was diagnosed with a locally advanced nonresectable squamous cell carcinoma of the right lung. The tumor had direct extension into the mediastinum and was nonresectable. He was treated with concurrent chemoradiotherapy and then was recommended palliative systemic chemotherapy with carboplatin and Taxol. In late August 2069 he was noted to have disease progression and he presented with bony metastases as well as intra-abdominal metastases. He was subsequently switched over to nivolumab and has thus far received I believe two infusions of this. (2) Mass of left temporal lobe Status: Acute Plan: -- No mass effect noted. -- I'm not certain if some of his nausea may be related to the intracranial metastases specifically secondary to his location in the temporal lobe. -- I have empirically start him on dexamethasone 2 mg by mouth every 12 hours to see if this may help his nausea. (3) Dysphagia Status: Acute Plan: -- Barium swallow showed diffuse narrowing of the cervical esophagus. May represent esophagitis , post radiation change, or mass. . -- CT neck indicated no evidence of mass with extrinsic compression of the esophagus. EGD performed on 10/09/2016 indicates no evidence of extrinsic compression, Mass. or obstruction. Assessment 45 y/o male with 60 pack year smoking history with metastatic lung cancer admitted with dysphagia, nausea and vomiting. Plan 1. Nutrition: Continue PPN, will progress diet to mechanical soft. He is tolerating nutritional supplements including muscle milk, liquids and soft solids. He previously had a feeding tube and asked for this to be removed a little over a month ago because of constant pain associated with it. Because he had difficulty with a feeding tube in the past I do not recommend having a new one placed. 2. Nausea: He was started on Zyprexa but this seems not to have helped, I will discontinue Zyprexa at this time and schedule him for Xanax 0.5 mg by mouth every 8 hours to see if this might help. Xanax scheduled over the course the day seems to have helped his nausea. I will also start him on dexamethasone 2 mg by mouth twice daily to help control his nausea. 3. Metastatic lung squamous cell carcinoma: Chemotherapy on hold for now, resume radiation next week to the lower spine and sacral area for pain control. Continue supportive care, assess for response to anti-emetic therapy and nausea control. Monitor for improvement. Disposition: He is approaching a point at which he can be discharged home/rehabilitation. I would like to see him a little bit more comfortable for he goes, I suspect the dexamethasone will help improve his symptoms. At discharge I would like the dexamethasone to be continued at the current dose along with Xanax scheduled over the course of day. Emmanuel Samaniego MD Oct 13, 2016 08:31
[2016-10-13] MEDS: CALCIUM CARBONATE 500 MG CHEWABLE TAB CHEW SCH ×2 (08:43→20:15)
[2016-10-13] MEDS: SODIUM CHLORIDE 0.9% FLUSH 10 ML FLUSH IV FLUSH SCH ×2 (08:44→20:15)
[2016-10-13] MEDS: LIDOCAINE HCL 5% PATCH T-DERMAL SCH (08:44)
[2016-10-13] MEDS ORDERED: POLYETHYLENE GLYCOL 17 GM PKG PO ONE (10:00)
[2016-10-13] MEDS: DEXAMETHASONE 0.5 MG TAB PO SCH ×2 (10:10→20:15)
[2016-10-13] MEDS: DOCUSATE SODIUM 100 MG CAP PO SCH ×2 (10:10→20:14)
[2016-10-13] MEDS: ONDANSETRON HCL 4 MG/2 ML VIAL IVP PRN ×2 (11:20→20:16)
[2016-10-13 13:10] LABS: CREATINE KINASE 45 U/L (39-308)
--- NOTE | 2016-10-13 14:31 | EKG ---
Date Performed: 10/13/2016 Time Performed: 11:39:45 PTAGE: 45 years EKG: Sinus rhythm NORMAL ECG PREVIOUS TRACING : 02/27/2016 20.09 Compared to prior tracing no significant change DOCTOR: Red Wade Interpretating Date/Time 10/13/2016 14:29:57
--- NOTE | 2016-10-13 16:22 | HHI.PR ---
Subjective Remarks f/u intractable emesis and nausea patient stated he had an episode of emesis in AM per nurse looks like he through up broth. It was nonbilious and not bloody. Patient stated that he is also having intermittent chest pain and stated when he has this he feels like the room in spinning and is not able to reach for things. + anxiety. He stated TUMS helped his acid reflux. Objective Vitals Vital Signs Date Time Temp Pulse Resp B/P Pulse Ox O2 Delivery O2 Flow Rate FiO2 10/13/16 08:00 99.3 101 16 103/58 91 10/13/16 06:50 100 107/52 10/13/16 04:00 99.6 108 18 104/57 92 10/13/16 00:41 140 10/13/16 00:37 100 94/54 10/12/16 22:40 112 104/58 10/12/16 22:13 99.3 112 18 101/55 95 10/12/16 22:09 148 10/12/16 20:49 117 10/12/16 20:00 99.6 109 18 113/57 93 I/O 10/12/16 10/12/16 10/12/16 10/13/16 10/13/16 10/13/16 07:00 15:00 23:00 07:00 15:00 23:00 Intake Total 240 ml 3414 ml 1015 ml 1185 ml Balance 240 ml 3414 ml 1015 ml 1185 ml Intake Oral 240 ml 480 ml IV Total 3414 ml 115 ml 775 ml TPN/PPN 340 ml 335 ml Lipid 80 ml 75 ml # Voids 1 2 1 Result Diagram: 10/11/16 0611 10/12/16 0622 Objective Remarks GENERAL: in NAD CARDIOVASCULAR: Regular rate and rhythm without murmurs, gallops, or rubs. RESPIRATORY: Breath sounds equal bilaterally. No accessory muscle use. per patient that is stable. GASTROINTESTINAL: Abdomen soft, non-tender, nondistended. MUSCULOSKELETAL: No cyanosis, or edema. BACK: Nontender without obvious deformity. No CVA tenderness. Medications and IVs Current Medications Morphine Sulfate 4 mg 4 mg Q1HR PRN IV pain Last administered on 10/09/16t 12:44 ; Start 10/07/16 at 19:15; Stop 10/09/16 at 13:47; Status DC Sodium Chloride (NS 1000 ml Inj) 1,000 ml @ 1,000 mls/hr Q1H ONCE IV Last administered on 10/07/16 19:42; Start 10/07/16 at 19:13; Stop 10/07/16 at 20:12; Status DC Sodium Chloride (NS Flush) 2 ml UNSCH PRN IVF FLUSH AFTER USING IV ACCESS Last administered on 10/07/16 19:43; Start 10/07/16 at 19:15; Stop 10/07/16 at 21:27; Status DC Prochlorperazine Edisylate (Compazine Inj) 10 mg ONCE ONCE IV PUSH Last administered on 10/07/16 19:42; Start 10/07/16 at 19:15; Stop 10/07/16 at 19:16; Status DC Diphenhydramine HCl 25 mg 25 mg ONCE ONCE IV PUSH Last administered on 19:42; Start 10/07/16 at 19:15; Stop 10/07/16 at 19:16; Status DC Sodium Chloride 1,000 ml @ 999 mls/hr BOLUS ONCE IV Last administered on 19:42; Start 10/07/16 at 19:15; Stop 10/07/16 at 20:15; Status DC Sodium Chloride (NS 1000 ml Inj) 1,000 ml @ 999 mls/hr BOLUS ONCE IV Last administered on 10/07/16 20:43; Start 10/07/16 at 20:30; Stop 10/07/16 at 21:30; Status DC Sodium Chloride (NS Flush) 2 ml UNSCH PRN IV FLUSH FLUSH AFTER USING IV ACCESS Last administered on 10/13/16 07:01; Start 10/07/16 at 21:15 Sodium Chloride (NS Flush) 2 ml BID IV FLUSH Last administered on 10/12/16 21: 05; Start 10/08/16 at 09:00 Ondansetron HCl (Zofran Inj) 4 mg Q6H PRN IVP NAUSEA OR VOMITING Last administered on 10/13/16 11:20; Start 10/07/16 at 21:15 Naloxone HCl (Narcan Inj) 0.4 mg UNSCH PRN IV SEE LABEL COMMENTS; Start at 21:15 Gadodiamide 13 ml 13 ml STK-MED ONCE IV Last administered on 10/07/16 21:33; Start 10/07/16 at 21:33; Stop 10/07/16 at 21:34; Status DC Potassium Chloride 40 meq/ Sodium Chloride 520 ml @ 130 mls/hr ONCE ONCE IV- CENTRAL Last administered on 10/08/16 10:10; Start 10/08/16 at 09:00; Stop at 12:59; Status DC Sodium Chloride (NS 1000 ml Inj) 1,000 ml @ 100 mls/hr Q10H IV Last administered on 10/13/16 04:24; Start 10/08/16 at 07:15 Diatrizoate Meglum/ Diatrizoate Sod 120 ml 120 ml STK-MED ONCE PO Last administered on 10/08/16 10:16; Start 10/08/16 at 10:16; Stop 10/08/16 at 10:17; Status DC Multivitamins 10 ml/Folic Acid 1 mg/Amino Acids/ Electrolytes/ Dextrose 1,010.2 ml @ 42 mls/hr Q24H IV Last administered on 10/12/16 20:50; Start 10/08/16 at 20:00 Fat Emulsion Intravenous (Liposyn Iii 20% Inj) 250 ml @ 10 mls/hr Q24H IV Last administered on 10/12/16 20:50; Start 10/08/16 at 20:00 Gadodiamide (Omniscan Pf Inj) 13 ml STK-MED ONCE IV ; Start 10/09/16 at 10:26; Stop 10/09/16 at 10:27; Status DC Iohexol (Omnipaque 350 Inj) 60 ml STK-MED ONCE IV Last administered on 11:10; Start 10/09/16 at 11:10; Stop 10/09/16 at 11:11; Status DC Propofol (Diprivan 200 Mg/20 ml Inj) 160 mg STK-MED ONCE IV ; Start 10/09/16 at 12:47; Stop 10/09/16 at 12:48; Status DC Miscellaneous Information ALL NURSING DEPARTME... UNSCH PRN .XX SEE LABEL COMMENTS; Start 10/09/16 at 13:00; Stop 10/10/16 at 12:59; Status DC Morphine Sulfate (Morphine Inj) 4 mg Q3HR PRN IV BREAKTHROUGH PAIN; Start at 14:00; Stop 10/09/16 at 14:00; Status DC Morphine Sulfate (Oramorph Sr) 30 mg Q8HR PO Last administered on 10/13/16 14: 07; Start 10/09/16 at 14:00 Hydromorphone HCl 2 mg 2 mg Q4H PRN IV PUSH breakthrough pain Last administered on 10/13/16 15:38; Start 10/09/16 at 14:00 Sodium Chloride (NS 500 ml Inj) 500 ml @ 500 mls/hr BOLUS ONCE IV Last administered on 10/10/16 12:27; Start 10/10/16 at 11:45; Stop 10/10/16 at 12:44; Status DC Promethazine HCl (Phenergan) 25 mg Q6H PRN PO nausea/vomiting Last administered on 10/11/16 23:04; Start 10/10/16 at 12:00 Lidocaine HCl (Lidoderm 5% Patch.12 Hr) 1 patch DAILY T-DERMAL Last administered on 10/13/16 08:44; Start 10/10/16 at 12:15 Olanzapine (ZyPREXA) 10 mg DAILY PO Last administered on 10/11/16 10:00; Start 10/10/16 at 12:15; Stop 10/12/16 at 07:49; Status DC Miscellaneous Information 1 Q24H T-DERMAL Last administered on 10/12/16 21:07; Start 10/10/16 at 21:00 Meclizine HCl (Antivert) 25 mg ONCE ONCE PO Last administered on 10/11/16 10: 00; Start 10/11/16 at 09:45; Stop 10/11/16 at 09:46; Status DC Lorazepam (Ativan) 0.5 mg Q8HR PO Last administered on 10/13/16 14:06; Start at 08:00 Meclizine HCl (Antivert) 50 mg ONCE ONCE PO Last administered on 10/12/16 15: 46; Start 10/12/16 at 14:15; Stop 10/12/16 at 14:16; Status DC Calcium Carbonate (Tums Chew) 500 mg Q12HR CHEW Last administered on 6/7/17at 08:43; Start 10/12/16 at 14:15 Dexamethasone (Decadron) 2 mg Q12HR PO Last administered on 10/13/16 10:10; Start 10/13/16 at 09:30 Docusate Sodium (Colace) 100 mg BID PO Last administered on 10/13/16 10:10; Start 10/13/16 at 10:00 Polyethylene Glycol (Miralax) 17 gm ONCE ONCE PO Last administered on 10:10; Start 10/13/16 at 10:00; Stop 10/13/16 at 10:01; Status DC A/P Assessment and Plan Pt presented w/ dysphagia: barium swallow showed narrowing of the cervical esophagus. EGD done on 10/09 showed an extrinsic compression. Otherwise able to pass a probe with no difficulty. Speech therapist was consulted but patient had no difficulty tolerating clear liquid diet. Patient tolerating his diet but this seems more due to nausea and dysphagia. Intractable emesis Patient feels Phenergan and Zyprexa is not helping. Meclizine does not help either. Zyprexa d/c and dexamethasone started by Onc. Vertigo meclizine is not working. will try one dose of Valium in replacement of the Ativan to see if there is improvement. Acid reflux improves with TUMS. 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 pt on palliative systemic therapy and radiation. Oncology following. discussed findings w rad onc. Plan for XRT to lesion as outpatient. On Lidoderm patch. Poor nutrition: pt started on PPN per onc. At the moment patient is on a liquid diet will be as tolerated. Back pain from metastatic disease: pain controlled with current regimen. able to swallow. Oramorph 30 mg PO q8 quinn, may titrate up as needed. Dilaudid 1 mg IV q2-4 hrs for breakthrough pain. Continue Lidoderm patch to lower back. dehydration/n/v: zofran prn, NS@100ml/hr. see treatment as above. Discharge Planning Patient continues to be symptomatic and unable tolerate by mouth intake. He will need to continue with PPN and IV fluids. Mary Lauren MD Oct 13, 2016 16:22
[2016-10-13] MEDS ORDERED: DIAZEPAM 5 MG TAB PO ONE (16:30)
[2016-10-13] MEDS ORDERED: HYDROmorphone HCL PF 2 MG/ML VIAL IV ONE (18:30)
[2016-10-13] MEDS: FAT EMULSION 20% INJ 250 ML (@10 mls/hr) IV SCH (20:20)
[2016-10-13] MEDS: CLINIMIX E 4.25/5 1000 mL- </= 42 mls/hr IV SCH ×3 (20:20)
[2016-10-13] MEDS: REMOVE OLD LIDOCAINE PATCH T-DERMAL SCH (21:00)
[2016-10-14] VITALS (7 sets, daily range): BP systolic 101–109; BP diastolic 56–61; PULSE 82–100; RESP 16; TEMP 96.6–98.4; O2SAT 91–97
[2016-10-14] MEDS: LORazepam 0.5 MG TAB PO SCH ×3 (05:51→20:46)
[2016-10-14] MEDS: HYDROmorphone HCL PF 2 MG/ML VIAL IV PUSH PRN (05:51)
[2016-10-14] MEDS: SODIUM CHLOR 0.9% 1000 ML INJ 1,000 ML IV SCH ×3 (05:52→20:55)
[2016-10-14] MEDS: MORPHINE SULFATE 30 MG CONTROLLED RELEASE TAB PO SCH ×3 (06:17→20:46)
[2016-10-14 07:30] LABS: BICARBONATE 32.8 MEQ/L (21.0-32.0); MAGNESIUM 2.1 MG/DL (1.5-2.5); POTASSIUM 3.9 MEQ/L (3.5-5.1)
[2016-10-14] MEDS: CALCIUM CARBONATE 500 MG CHEWABLE TAB CHEW SCH ×2 (08:26→20:45)
[2016-10-14] MEDS: DOCUSATE SODIUM 100 MG CAP PO SCH (08:26)
[2016-10-14] MEDS: SODIUM CHLORIDE 0.9% FLUSH 10 ML FLUSH IV FLUSH SCH ×2 (08:26→20:47)
[2016-10-14] MEDS: LIDOCAINE HCL 5% PATCH T-DERMAL SCH (08:27)
[2016-10-14] MEDS: DEXAMETHASONE 0.5 MG TAB PO SCH (08:29)
--- NOTE | 2016-10-14 08:39 | PD.ONC.PN ---
Subjective Subjective Remarks Patient seen and examined today. He reports continued difficulty swallowing, he tells me he feels a "choking sensation " every time he tries to swallow solids. He is drinking nutritional supplements including muscle milk and remains on PPN. He had an episode of severe back pain and spasm while trying to get off the radiation table yesterday and this was relieved with IV hydromorphone yesterday evening. I spoke to him about having a feeding tube placed, he tells me he is not yet ready for feeding tube and would like to wait and see how he swallows over the next day or 2. Objective Data Date Time Temp Pulse Resp B/P Pulse Ox O2 Delivery O2 Flow Rate FiO2 10/14/16 04:45 97.4 83 16 104/61 94 10/14/16 00:00 98.4 90 16 105/56 91 10/13/16 20:09 87 10/13/16 20:00 97.6 88 16 101/56 93 10/13/16 16:00 97.7 92 16 97/55 93 10/14/16 10/14/16 10/14/16 07:00 15:00 23:00 Intake Total 1456 ml Balance 1456 ml Result Diagram: 10/11/16 0611 10/14/16 0547 Laboratory Results Laboratory Tests Test 10/13/16 10/14/16 11:52 05:47 Total Creatine Kinase 45 U/L Troponin I LESS THAN 0.02 NG/ML Sodium Level 139 MEQ/L Potassium Level 3.9 MEQ/L Chloride Level 99 MEQ/L Carbon Dioxide Level 32.8 MEQ/L Anion Gap 7 MEQ/L Blood Urea Nitrogen 8 MG/DL Creatinine 0.45 MG/DL Estimat Glomerular Filtration 205 ML/MIN Rate Random Glucose 114 MG/DL Calcium Level 8.3 MG/DL Magnesium Level 2.1 MG/DL Administered Medications Medications (Trade) Dose Ordered Sig/Abel Route PRN Reason Start Time Stop Time Status Last Admin Dose Admin Sodium Chloride (NS Flush) 2 ml UNSCH PRN IV FLUSH FLUSH AFTER USING IV ACCESS 10/07/16 21:15 10/13/16 07:01 Sodium Chloride (NS Flush) 2 ml BID IV FLUSH 10/08/16 09:00 10/12/16 21:05 Ondansetron HCl 4 mg 4 mg Q6H PRN IVP NAUSEA OR VOMITING 10/07/16 21:15 10/13/16 20:16 Sodium Chloride 1,000 ml @ 100 mls/hr Q10H IV 10/08/16 07:15 10/14/16 05:52 Multivitamins 10 ml/Folic Acid 1 mg/Amino Acids/ Electrolytes/ Dextrose 1,010.2 ml @ 42 mls/hr Q24H IV 10/08/16 20:00 10/13/16 20:20 Fat Emulsion Intravenous (Liposyn Iii 20% Inj) 250 ml @ 10 mls/hr Q24H IV 10/08/16 20:00 10/13/16 20:20 Morphine Sulfate (Oramorph Sr) 30 mg Q8HR PO 10/09/16 14:00 10/14/16 06:17 Hydromorphone HCl (Dilaudid Pf Inj) 2 mg Q4H PRN IV PUSH breakthrough pain 10/09/16 14:00 10/14/16 05:51 Promethazine HCl (Phenergan) 25 mg Q6H PRN PO nausea/vomiting 10/10/16 12:00 10/11/16 23:04 Lidocaine HCl (Lidoderm 5% Patch.12 Hr) 1 patch DAILY T-DERMAL 10/10/16 12:15 10/14/16 08:27 Miscellaneous Information 1 Q24H T-DERMAL 10/10/16 21:00 10/13/16 21:00 Lorazepam (Ativan) 0.5 mg Q8HR PO 10/12/16 08:00 10/14/16 05:51 Calcium Carbonate (Tums Chew) 500 mg Q12HR CHEW 10/12/16 14:15 10/14/16 08:26 Dexamethasone (Decadron) 2 mg Q12HR PO 10/13/16 09:30 10/14/16 08:29 Docusate Sodium (Colace) 100 mg BID PO 10/13/16 10:00 10/14/16 08:26 Objective Remarks GENERAL APPEARANCE: Mr. Levi is a young male. He is very tall and near cachectic appearing. He is lying in bed in no apparent distress. HEENT: Head atraumatic, normocephalic. Conjunctivae are pale. Sclerae are anicteric. EOMI. PERRLA. Oral exam - poor dental hygiene. No pharyngeal erythema. No masses noted in the oral cavity. NECK: He does have palpable supraclavicular lymph nodes bilaterally. PULMONARY: Prolonged expiratory phase. Good air movement bilaterally without any added breath sounds. CARDIOVASCULAR: Regular rate and rhythm, S1, S2. No obvious murmurs, rubs or gallops. ABDOMEN: Thin belly, soft, nontender, nondistended. No palpable organ enlargement, specifically no hepatosplenomegaly. EXTREMITIES: No pretibial edema. No calf tenderness. 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 -- Last chemo on 09/27/16. 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 The tumor had direct extension into the mediastinum and was nonresectable. He was treated with concurrent chemoradiotherapy and then was recommended palliative systemic chemotherapy with carboplatin and Taxol. In late August 2069 he was noted to have disease progression and he presented with bony metastases as well as intra-abdominal metastases. He was subsequently switched over to nivolumab and has thus far received I believe two infusions of this. (2) Mass of left temporal lobe Status: Acute Plan: -- No mass effect noted. -- I'm not certain if some of his nausea may be related to the intracranial metastases specifically secondary to his location in the temporal lobe. -- I have empirically start him on dexamethasone 2 mg by mouth every 12 hours to see if this may help his nausea. (3) Dysphagia Status: Acute Plan: -- Barium swallow showed diffuse narrowing of the cervical esophagus. May represent esophagitis , post radiation change, or mass. . -- CT neck indicated no evidence of mass with extrinsic compression of the esophagus. EGD performed on 10/09/2016 indicates no evidence of extrinsic compression, Mass. or obstruction. Assessment 45 y/o male with 60 pack year smoking history with metastatic lung cancer admitted with dysphagia, nausea and vomiting. Plan 1. Nutrition: Continue PPN, will progress diet to mechanical soft. He is tolerating nutritional supplements including muscle milk, liquids and soft solids. He previously had a feeding tube and asked for this to be removed a little over a month ago because of constant pain associated with it. If he is unable to maintain nutritional intake orally feeding tube may be necessary to place, and I explained this to the patient but he declined feeding tube at this time due to his previous difficulties with his last feeding tube. 2. Nausea: He was started on Zyprexa but this seems not to have helped, I will discontinue Zyprexa at this time and schedule him for Xanax 0.5 mg by mouth every 8 hours to see if this might help. Xanax scheduled over the course the day seems to have helped his nausea. I will also start him on dexamethasone 2 mg by mouth twice daily to help control his nausea. Nausea persists. 3. Metastatic lung squamous cell carcinoma: Chemotherapy on hold for now, resume radiation next week to the lower spine and sacral area for pain control. Continue supportive care, assess for response to anti-emetic therapy and nausea control. Monitor for improvement. 4. Pain control: I've added a one-time dose of hydromorphone to be given prior to him going down for radiation every day. Disposition: Continue ongoing care, little improvement from day to day. I will consult palliative care. Emmanuel Samaniego MD Oct 14, 2016 08:39
[2016-10-14] MEDS ORDERED: HYDROmorphone HCL PF 2 MG/ML VIAL IV PUSH ONE (08:45)
[2016-10-14] MEDS ORDERED: PILL SPLITTER OTHER PRN (14:15)
--- NOTE | 2016-10-14 15:25 | PD.CONS ---
Consult Service Palliative Care Consult Requested By Dr. Samaniego. Primary Care Physician Non-Staff Reason for Consultation a. To assist with evaluation and management of symptoms including: Intractable nausea and pain. b. To assist medical decision maker(s) with: better understanding of current medical conditions; weighing benefits/burdens of medical treatment options; making medical treatment decisions. . HPI History of Present Illness Mr. Levi is a 45-year-old male with a medical history significant for metastatic lung carcinoma. Patient presented to emergency room on 10/07/16 endorsing intractable nausea for the previous week, worsening dysphagia and decreased oral intake. Brain MRI revealing 10 x 8 x 6 mm nodule involving the left temporal lobe worrisome for metastatic disease, no acute process noted. Patient was seen by Dr. Samaniego on 10/08/16, additional diagnostic studies were ordered. Sacrum/coccyx MRI 10/09/16 revealing 7 cm bone abnormality in the left side of the sacrum involving S1 and S2 suggesting metastatic disease. Next CT negative for metastatic disease, multiple bilateral pulmonary nodules noted. Lumbar spine MRI 10/09/16 revealing bony metastatic disease in the sacrum as previously reported. . Swallow showed narrowing cervical esophagus, GI consulted on 10/08/16. Patient underwent EGD on 10/09/16, no esophageal dilation or stent indicated. Radiation oncology, Dr. Haskins consulted on . 5 radiation treatments to thoracic spine recommended, patient underwent radiation treatment #3/5 today. Radiosurgery recommended for brain solitary lesion as outpatient. 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 Patient had a CT of the chest on arrival to the ED and was found to have significant lymphadenopathy with possible primary pulmonary malignancy. He was therefore admitted to the hospital for further evaluation. Head CT negative for metastasis at that time. Oncology, Dr. Samaniego originally consulted on 02/29/16. Patient underwent bronchoscopy and lung biopsy on 03/01/16. Patient underwent PEG tube placement on 03/03/16. Pathology positive for poorly differentiated squamous cell carcinoma of the lung. Patient was started on Taxol and carboplatin on 03/05/16. Patient was discharged home with concurrent chemotherapy and radiation therapy. Acute hospitalization from 06/07/2016 to 06/13/16. At that time, patient presented to ED with reports of intractable nausea and vomiting. Patient was admitted for further evaluation of pancytopenia, weakness and dehydration. Patient was seen by Dr. Hudson. Patient was transfused 1 pack of red blood cells secondary to anemia. Patient was discharged home. PEG tube was discontinued on 08/25/16 as per patient's request, patient reported that he was causing a lot of discomfort and he was not using it. Patient was noted to have disease progression as evidenced by bony metastasis as well as intra-abdominal metastasis. Systemic therapy was switched to Nivolumab. Patient returned to ED on 09/19/16: Secondary to pain to left hip, subsequently returned on 09/24/16 secondary to intractable vomiting. Patient seen in his room, he was resting in bed in no acute distress. Patient alert and oriented times self, place and situation. Patient with a very good insight into his progression of illness and prognosis. Patient endorsing nausea , no vomiting today. Nausea exacerbated after meals and by physical exertion. Patient feels that current regimen of dexamethasone and Ativan seems to be effective at this time. Endorsing pain to left hip and right side of back. Pain is described as sharp, with intermittent "electric shocks" running down his right leg. Exacerbated by movement, alleviated by immobility and immobility. Pain currently at 4/10. Patient afebrile, stable hemodynamically. Tolerating room air, oxygen saturation in the low to mid 90s. Most recent laboratory 10/11/16 revealing WBC 6.5, Hgb 11.8, platelet count 126. Chemistry 10/14/16 showing sodium 139, potassium 3.9, BUN/creatinine 8/0.45. Long discussion with patient regarding goals of care. Reviewed past medical history, and events leading to these hospitalization, and current treatment plan. Patient tells me that he is having difficulty with swallowing, ongoing calorie count at this time. Patient currently on TPN, patient tells me that he had PEG tube previously, it was discontinued on approximately a month ago secondary to causing a lot of pain and discomfort. Patient does not feel that he will agree to PEG tube placement at this time. Discussed new findings of brain metastasis, progression of disease despite systemic therapy and radiation. Patient tells me that his goal of therapy is for an improved quality of life, symptom management. He wished to be DNR/DNI, and to be made comfortable if no additional systemic therapy is recommended. Discussed the future role of hospice should his clinical condition worsen or there is additional physical decline. Patient receptive to do this, he tells me that he has been in touch with hospice and that they are following. Assisted patient incompletion of designation are healthcare surrogate and [place] DNR form. . Function/Cognitive Trajectory Decrease performance status secondary to burden of disease, debility and malnutrition. Patient ambulating without assistance prior to these hospitalization. Ambulation is limited by acute pain and nausea. No cognitive decline reported. . Review of Systems Constitutional: COMPLAINS OF: Fatigue, Weight loss, Change in appetite, Pain, Generalized weakness Endocrine: DENIES: Heat/cold intolerance Eyes: DENIES: Eye pain, Vision loss, Double Vision Ears, nose, mouth, throat: DENIES: Hearing loss, Oral lesions, Running Nose Respiratory: COMPLAINS OF: Cough, Shortness of breath Cardiovascular: DENIES: Chest pain, Lower Extremity Edema Gastrointestinal: COMPLAINS OF: Nausea, Difficulty Swallowing, Anorexia, DENIES: Abdominal pain, Vomiting Genitourinary: DENIES: Urinary incontinence Musculoskeletal: COMPLAINS OF: Back pain Integumentary: DENIES: Abnormal pigmentation Hematologic/Lymphatics: DENIES: Bruising Immunologic/Allergic: DENIES: Eczema Neurologic: DENIES: Headache, Localized weakness, Seizures Psychiatric: DENIES: Anxiety, Confusion, Depression Past Family Social History Coded Allergies: No Known Allergies (Unverified , 10/07/16) Past Medical History Metastatic small cell carcinoma of lung Esophageal obstruction secondary to tumor compression Radiation esophagitis Nicotine use and abuse . Past Surgical History Peg tube placement 03/03/16, D/C on 08/24/16 Bronchoscopy and lung biopsy on 03/01/16 Infusion port placement . Reported Medications Zofran 4 mg every 6 hours when necessary nausea Prednisone 10 mg by mouth daily Morphine IR 30 mg every 4 hours when necessary pain Reglan 10 mg by mouth every 6 hours when necessary nausea or vomiting . Current Medications Medications (Trade) Dose Ordered Sig/Abel Route Start Time Stop Time Status Last Admin (NS Flush) 2 ml UNSCH PRN IV FLUSH 10/07/16 21:15 10/13/16 07:01 (NS Flush) 2 ml BID IV FLUSH 10/08/16 09:00 10/12/16 21:05 (Zofran Inj) 4 mg Q6H PRN IVP 10/07/16 21:15 10/13/16 20:16 Naloxone HCl 0.4 mg 0.4 mg UNSCH PRN IV 10/07/16 21:15 Sodium Chloride 1,000 ml @ 100 mls/hr Q10H IV 10/08/16 07:15 10/14/16 13:12 Multivitamins 10 ml/Folic Acid 1 mg/Amino Acids/ Electrolytes/ Dextrose 1,010.2 ml @ 42 mls/hr Q24H IV 10/08/16 20:00 10/13/16 20:20 (Liposyn Iii 20% Inj) 250 ml @ 10 mls/hr Q24H IV 10/08/16 20:00 10/13/16 20:20 (Oramorph Sr) 30 mg Q8HR PO 10/09/16 14:00 10/14/16 13:12 (Dilaudid Pf Inj) 2 mg Q4H PRN IV PUSH 10/09/16 14:00 10/14/16 05:51 (Phenergan) 25 mg Q6H PRN PO 10/10/16 12:00 10/11/16 23:04 (Lidoderm 5% Patch.12 Hr) 1 patch DAILY T-DERMAL 10/10/16 12:15 10/14/16 08:27 Miscellaneous Information 1 Q24H T-DERMAL 10/10/16 21:00 10/13/16 21:00 (Ativan) 0.5 mg Q8HR PO 10/12/16 08:00 10/14/16 13:12 (Tums Chew) 500 mg Q12HR CHEW 10/12/16 14:15 10/14/16 08:26 (Colace) 100 mg BID PO 10/13/16 10:00 10/14/16 08:26 (Decadron) 2 mg BID PO 10/15/16 09:00 UNV (Dolophine) 2.5 mg Q8H PO 10/14/16 14:00 UNV (Lioresal) 5 mg Q8HR PO 10/14/16 14:00 UNV Family History Both parents are alive and well. uncle with esophageal cancer aunts with cancer . Substance Use Tobacco: [id number] history. Patient smoking 2 packs a day since age 15. Alcohol: Social intake. Prescription med abuse: None reported. Illicits: None reported. . Psychosocial History Patient is originally from [place]. He moved to [place] in 1987 with both of his parents and 6 siblings. Patient is to Xochitl Parent since 1997, in 2003. Not legally . They have one son, 17-year-old. 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 He lost his job in January 2016 prior to his cancer diagnosis. . Spiritual/Cultural Factors No jew affiliation. . Living Will: Never completed Health Care Surrogate: Copy in medical record Durable Power of Hospice Music Therapy: Never completed Date completed: 10/14/2016. . Health Care Surrogate(s): [facility] sister Cesia Tejeda. Alternate [facility] sister Yolanda Strange. . Documented care wishes: No living will completed at this time. Living will information provided to patient, form left at bedside. . Today's verbally stated goals: DNR/DNI. Goal of therapy at this time is to maintain the best quality of life while undergoing radiation therapy. . Family/friends goals: No family at bedside. . Ethical and Legal Issues No ethical legal issues have been identified. Physical Exam Vital Signs Date Time Temp Pulse Resp B/P Pulse Ox O2 Delivery O2 Flow Rate FiO2 10/14/16 12:00 97.4 87 16 109/59 94 10/14/16 08:00 96.6 82 16 103/60 92 10/14/16 04:45 97.4 83 16 104/61 94 10/14/16 00:00 98.4 90 16 105/56 91 10/13/16 20:09 87 10/13/16 20:00 97.6 88 16 101/56 93 10/13/16 16:00 97.7 92 16 97/55 93 10/13/16 10/14/16 19:00 07:00 Intake Total 3152 ml Balance 3152 ml Intake Oral 720 ml IV Total 1600 ml TPN/PPN 672 ml Lipid 160 ml # Voids 3 Exam CONSTITUTIONAL/GENERAL: This is a thin male patient, in no apparent distress. TUBES/LINES/DRAINS: PIV's. SKIN: No jaundice, rashes, or lesions. No wounds seen anteriorly. Skin temperature appropriate. Not diaphoretic. HEAD: Atraumatic. Normocephalic. EYES: Pupils equal and round and reactive. Extraocular motions intact. No scleral icterus. No injection or drainage. Fundi not examined. ENT: Hearing grossly normal. Nose without bleeding or purulent drainage. Throat without visible erythema, exudates, masses, or lesions. Poor dentition. NECK: Trachea midline. Supple, nontender. CARDIOVASCULAR: Regular rate and rhythm without murmurs, gallops, or rubs. Peripheral pulses symmetric. RESPIRATORY/CHEST: Symmetric, unlabored respirations. Clear to auscultation. Breath sounds equal bilaterally. No wheezes, rales, or rhonchi. GASTROINTESTINAL: Abdomen soft, non-tender, nondistended. No guarding. Bowel sounds present. GENITOURINARY: Without palpable bladder distension. MUSCULOSKELETAL: Extremities without clubbing, cyanosis, or edema. NEUROLOGICAL: Awake and alert. Motor and sensory grossly within normal limits. Follows commands. Cognitively sharp. Moves all extremities. PSYCHIATRIC: No obvious anxiety/depression. no apparent hallucinations or other psychotic thought process. . Diagnostic Tests Laboratory Laboratory Tests Test 10/12/16 10/13/16 10/14/16 06:22 11:52 05:47 Sodium Level 136 MEQ/L 139 MEQ/L (136-145) (136-145) Potassium Level 3.8 MEQ/L 3.9 MEQ/L (3.5-5.1) (3.5-5.1) Chloride Level 99 MEQ/L 99 MEQ/L (98-107) (98-107) Carbon Dioxide Level 32.5 MEQ/L 32.8 MEQ/L (21.0-32.0) (21.0-32.0) Anion Gap 5 MEQ/L (5-15) 7 MEQ/L (5-15) Blood Urea Nitrogen 8 MG/DL (7-18) 8 MG/DL (7-18) Creatinine 0.53 MG/DL 0.45 MG/DL (0.60-1.30) (0.60-1.30) Estimat Glomerular Filtration 170 ML/MIN 205 ML/MIN Rate (>89) (>89) Random Glucose 77 MG/DL 114 MG/DL (74-106) (74-106) Calcium Level 8.2 MG/DL 8.3 MG/DL (8.5-10.1) (8.5-10.1) Total Creatine Kinase 45 U/L (39-308) Troponin I LESS THAN 0.02 NG/ML (0.02-0.05) Magnesium Level 2.1 MG/DL (1.5-2.5) Result Diagram: 10/11/16 0611 10/14/16 0547 Imaging Last Impressions Sacrum/Coccyx MRI 10/09/16 Signed Impressions: Service Date/Time: Sunday, October 09, 2016 09:29 - CONCLUSION: 7 cm bone abnormality with aggressive features in the left side of the sacrum involving S1 and S2 levels. Given the clinical history, this finding suggests bony metastatic disease. Marck Skelton MD Pelvis MRI 10/09/16 Signed Impressions: Service Date/Time: Sunday, October 09, 2016 09:29 - CONCLUSION: Bone lesion with aggressive features and the left side of the sacrum fully described on sacrum MRI report. Marck Skelton MD Neck CT 10/09/16 Signed Impressions: Service Date/Time: Sunday, October 09, 2016 10:53 - CONCLUSION: 1. No evidence of metastatic disease in the neck. No masses identified in the region of the cervical esophagus. 2. Multiple bilateral pulmonary nodules. Marck Skelton MD Lumbar Spine MRI 10/09/16 Signed Impressions: Service Date/Time: Sunday, October 09, 2016 09:29 - CONCLUSION: 1. Evidence of bony metastatic disease in the sacrum will be fully described on sacrum MRI report. 2. Left-sided disc bulges at L4-5 and L5-S1 resulting in mild left neural foraminal narrowing at these levels. Central canal diameter within normal limits at all levels. Marck Skelton MD Barium Swallow X-Ray 10/08/16 Signed Impressions: Service Date/Time: Saturday, October 08, 2016 09:48 - CONCLUSION: 1. Diffuse narrowing of the cervical esophagus. May represent esophagitis , post radiation change, or mass. CT soft tissue neck with contrast may be helpful to evaluate for any extrinsic masses. 2. Thoracic esophagus within normal limits. Marck Skelton MD Brain MRI 10/07/161916 Signed Impressions: Service Date/Time: October 21:18 - CONCLUSION: 1. 10 x 8 x 6 mm enhancing nodule involving the left temporal lobe worrisome for metastatic focus. No mass effect or significant edema associated with this lesion. 2. No hemorrhage or acute infarction. Clayton Pendleton Jr., MD Procedures * 10/09/16 -EGD . Patient/Family Conference Present at Family Conference: No family at bedside. Goals of care discussion with patient. Family Conference Time (mins): 46 Family Conference Location: Bedside Issues Discussed: * Palliative care role, purpose, approach * Additional medical, psychosocial, and spiritual history * Patients general health, functional status, and cognitive changes in the months leading up to the current hospitalization * Patient's understanding of the current medical problems -metastatic small cell carcinoma of lung. Newly diagnosed brain metastasis. * Patient/family's understanding of prognosis. Patient tells me that his family is aware of diagnosis and prognosis. * Patients goals of care as best understood from advance directives and/or conversations and/or values * Current medical treatment options and benefits/burdens of those options. PEG tube placement discussion. * Likely scenarios comparing ongoing aggressive care with a transition to comfort measures only * Questions answered to the best of my ability * Palliative care contact information provided * CPR -risks, benefits and limitations * Hospice philosophy and benefits . Assessment and Plan Disease Oriented Problem List: (1) Squamous cell carcinoma of lung (2) Brain metastasis (3) Severe protein-calorie malnutrition Symptom Scale: (1) Pain 0-10 Scale: 5 Comment: Secondary to burden of disease. (2) Nausea & vomiting 0-10 Scale: 0 Comment: Secondary to burden of disease. (3) Dysphagia 0-10 Scale: 5 Comment: Tumor related. Pertinent Non-Medical Issues Psychosocial: but . Has one son who is 17 years old. Both parents and 6 siblings residing in [place]. Family originally from [place]. Spiritual: No jew affiliation. Legal: No living will completed. Living will information provided to patient, form left at bedside. Ethical issues impacting care: No living will completed. Living will information provided to patient, form left at bedside. . Important Contacts [facility] -Cesia Tejeda -sister Alt [facility] -Yolanda Strange -sister . . Prognosis Mr. 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 Now with progression of illness in spite of systemic therapy. Metastasis to bone, lymph nodes and brain. Patient is cachectic, malnourished currently receiving TPN. His overall prognosis is very poor for an improved quality of life or prolong survival given the rapid progression of illness. Patient at high risk for continued decline, further complications and . Patient appropriate for hospice services if comfort directed care is elected. . Code Status: No Code Plan * CODE STATUS: No code status recorded. Patient electing DNR/DNI. Community DNR has been signed, copy in chart/EMR. * HEALTHCARE DECISION-MAKER: Patient participating in medical decision-making. Palliative care assisted patient in completion of designation are healthcare surrogate. Patient electing his sister Cesia Tejeda as HCS, alt HCS sister Yolanda Strange. Copy in chart/EMR. * GOALS OF CARE: Patient voiced an understanding of terminal prognosis. Goal of therapy at this time is for an improved quality of life while receiving radiation therapy. Ongoing calorie count at this time, patient with dysphagia secondary to tumor burden, receiving TPN. Patient tells me that he will NOT likely pursue PEG tube placement. He tells me that his quality of life is most important than prolongation of survival. Discuss with patient that he has the right to elect any additional therapy/continue or discontinue any treatment. Discussed the future role of hospice should his clinical course worsen or he decides for comfort-directed care given his metastatic disease/terminal prognosis. Patient receptive to hospice, he tells me that he has been in contact with [facility] and has received information about services offered. * SYMPTOMS: * =PAIN: Secondary to cancer burden. Pain described as both somatic and neuropathic pain. Endorsing pain to left hip and right side of back. Pain is described as sharp, with intermittent "electric shocks" running down his right leg. Exacerbated by movement, alleviated by immobility and immobility. Pain currently at 4/10. Current regimen of morphine 30 mg every 8 hours around-the- clock and hydromorphone 2 mg every 4 hours PRN. Has received an average of 3 doses of hydromorphone PRN per day. Pain remains an issue for patient. Collaborated with Dr. Webster, [facility]. Adding methadone 2.5mg q8h ATC in addition to Morphine as currently ordered. The goal is to switch long-acting Morphine to Methadone within the next 3-5 days as Methadone has proven effective for both somatic and neuropathic pain. Adding Baclofen 5mg q8h ATC for muscle spasms. Will closely monitor. * =NAUSEA: Patient endorsing nausea, no vomiting today. Nausea exacerbated after meals and by physical exertion. Patient feels that current regimen of dexamethasone and Ativan seems to be effective at this time. Dexamethasone schedule every 12 hours, nighttime dose at 9 PM. Changing afternoon dose from 9 PM to 2 PM in order to avoid insomnia. Phenergan and Zofran available as needed. Patient feels that current regimen is effective. No further recommendations at this time but will continue to monitor. * =DYSPHAGIA: Secondary to tumor burden. Patient on TPN at this time. He reports that he will likely decline PEG tube placement. Will continue to follow -up. * =CONSTIPATION: Secondary to opioids and exacerbated by bedrest. Currently on Colace twice a day. Will change to senna-s 2 tabs at bedtime. Adding Dulcolax suppository as needed. * Palliative care contact information has been provided to patient. * Palliative care will continue to follow-up for symptom management and clarifications of goals of care as his clinical course evolves. . Time Spent Total Floor Time (mins): 115 (Total time to include review and summarization of available medical records to include multiple prior hospitalizations and ED visits, physical exam, goals of care discussion with patient, assistance incompletion of advanced directives and DNR form, and case discussion with Dr. Webster. ) Face to Face Time (mins): 75 >50% Counseling/Coord of Care: Yes Thank you for the opportunity to participate in the care of Mr. Levi. Attestation To help prompt me to consider important information that might be impacting today's encounter and assessment, information from prior notes written by myself or my colleagues may have been "brought forward" into today's note. My signature on this note, however, is an attestation that I personally performed the exam, history, and/or decision-making noted today, and, unless otherwise indicated, the interactions with patient, family, and staff as well as the review of records all occurred today. I also attest that the listed assessment and stated plan reflect my best clinical judgment today based on the combination of historical information, prior notes, and today's exam/ interactions. When time spent is documented, it refers only to time spent today by the signer, or if indicated, combined time spent today by collaborating physician/nurse practitioner. Brenda Mann Oct 14, 2016 15:08
--- NOTE | 2016-10-14 15:28 | HHI.PR ---
Subjective Remarks Follow-up for intractable emesis and dizziness Patient stated that his nausea has improved. Now he is complaining of burning sensation after tolerating PO intake. He stated that he is small portion improved. Patient stated that he was an bleeding this more with physical therapist. Objective Vitals Vital Signs Date Time Temp Pulse Resp B/P Pulse Ox O2 Delivery O2 Flow Rate FiO2 10/14/16 12:00 97.4 87 16 109/59 94 10/14/16 08:00 96.6 82 16 103/60 92 10/14/16 04:45 97.4 83 16 104/61 94 10/14/16 00:00 98.4 90 16 105/56 91 10/13/16 20:09 87 10/13/16 20:00 97.6 88 16 101/56 93 10/13/16 16:00 97.7 92 16 97/55 93 I/O 10/13/16 10/13/16 10/13/16 10/14/16 10/14/16 10/14/16 07:00 15:00 23:00 07:00 15:00 23:00 Intake Total 1185 ml 1696 ml 1456 ml Balance 1185 ml 1696 ml 1456 ml Intake Oral 480 ml 240 ml IV Total 775 ml 800 ml 800 ml TPN/PPN 335 ml 336 ml 336 ml Lipid 75 ml 80 ml 80 ml # Voids 1 2 1 Result Diagram: 10/11/16 0611 10/14/16 0547 Objective Remarks GENERAL: in NAD CARDIOVASCULAR: Regular rate and rhythm without murmurs, gallops, or rubs. RESPIRATORY: Breath sounds equal bilaterally. No accessory muscle use. per patient that is stable. GASTROINTESTINAL: Abdomen soft, non-tender, nondistended. MUSCULOSKELETAL: No cyanosis, or edema. BACK: Nontender without obvious deformity. No CVA tenderness. Medications and IVs Current Medications Morphine Sulfate 4 mg 4 mg Q1HR PRN IV pain Last administered on 10/09/16 12:44 ; Start 10/07/16 at 19:15; Stop 10/09/16 at 13:47; Status DC Sodium Chloride (NS 1000 ml Inj) 1,000 ml @ 1,000 mls/hr Q1H ONCE IV Last administered on 10/07/16 19:42; Start 10/07/16 at 19:13; Stop 10/07/16 at 20:12; Status DC Sodium Chloride (NS Flush) 2 ml UNSCH PRN IVF FLUSH AFTER USING IV ACCESS Last administered on 10/07/16 19:43; Start 10/07/16 at 19:15; Stop 10/07/16 at 21:27; Status DC Prochlorperazine Edisylate (Compazine Inj) 10 mg ONCE ONCE IV PUSH Last administered on 10/07/16 19:42; Start 10/07/16 at 19:15; Stop 10/07/16 at 19:16; Status DC Diphenhydramine HCl 25 mg 25 mg ONCE ONCE IV PUSH Last administered on 19:42; Start 10/07/16 at 19:15; Stop 10/07/16 at 19:16; Status DC Sodium Chloride 1,000 ml @ 999 mls/hr BOLUS ONCE IV Last administered on 19:42; Start 10/07/16 at 19:15; Stop 10/07/16 at 20:15; Status DC Sodium Chloride (NS 1000 ml Inj) 1,000 ml @ 999 mls/hr BOLUS ONCE IV Last administered on 10/07/16 20:43; Start 10/07/16 at 20:30; Stop 10/07/16 at 21:30; Status DC Sodium Chloride (NS Flush) 2 ml UNSCH PRN IV FLUSH FLUSH AFTER USING IV ACCESS Last administered on 10/13/16 07:01; Start 10/07/16 at 21:15 Sodium Chloride (NS Flush) 2 ml BID IV FLUSH Last administered on 10/12/16 21: 05; Start 10/08/16 at 09:00 Ondansetron HCl (Zofran Inj) 4 mg Q6H PRN IVP NAUSEA OR VOMITING Last administered on 10/13/16 20:16; Start 10/07/16 at 21:15 Naloxone HCl (Narcan Inj) 0.4 mg UNSCH PRN IV SEE LABEL COMMENTS; Start at 21:15 Gadodiamide 13 ml 13 ml STK-MED ONCE IV Last administered on 10/07/16 21:33; Start 10/07/16 at 21:33; Stop 10/07/16 at 21:34; Status DC Potassium Chloride 40 meq/ Sodium Chloride 520 ml @ 130 mls/hr ONCE ONCE IV- CENTRAL Last administered on 10/08/16 10:10; Start 10/08/16 at 09:00; Stop at 12:59; Status DC Sodium Chloride (NS 1000 ml Inj) 1,000 ml @ 100 mls/hr Q10H IV Last administered on 10/14/16 13:12; Start 10/08/16 at 07:15 Diatrizoate Meglum/ Diatrizoate Sod 120 ml 120 ml STK-MED ONCE PO Last administered on 10/08/16 10:16; Start 10/08/16 at 10:16; Stop 10/08/16 at 10:17; Status DC Multivitamins 10 ml/Folic Acid 1 mg/Amino Acids/ Electrolytes/ Dextrose 1,010.2 ml @ 42 mls/hr Q24H IV Last administered on 10/13/16 20:20; Start 10/08/16 at 20:00 Fat Emulsion Intravenous (Liposyn Iii 20% Inj) 250 ml @ 10 mls/hr Q24H IV Last administered on 10/13/16 20:20; Start 10/08/16 at 20:00 Gadodiamide (Omniscan Pf Inj) 13 ml STK-MED ONCE IV ; Start 10/09/16 at 10:26; Stop 10/09/16 at 10:27; Status DC Iohexol (Omnipaque 350 Inj) 60 ml STK-MED ONCE IV Last administered on 11:10; Start 10/09/16 at 11:10; Stop 10/09/16 at 11:11; Status DC Propofol (Diprivan 200 Mg/20 ml Inj) 160 mg STK-MED ONCE IV ; Start 10/09/16 at 12:47; Stop 10/09/16 at 12:48; Status DC Miscellaneous Information ALL NURSING DEPARTME... UNSCH PRN .XX SEE LABEL COMMENTS; Start 10/09/16 at 13:00; Stop 10/10/16 at 12:59; Status DC Morphine Sulfate (Morphine Inj) 4 mg Q3HR PRN IV BREAKTHROUGH PAIN; Start at 14:00; Stop 10/09/16 at 14:00; Status DC Morphine Sulfate (Oramorph Sr) 30 mg Q8HR PO Last administered on 10/14/16 13: 12; Start 10/09/16 at 14:00 Hydromorphone HCl 2 mg 2 mg Q4H PRN IV PUSH breakthrough pain Last administered on 10/14/16 05:51; Start 10/09/16 at 14:00 Sodium Chloride (NS 500 ml Inj) 500 ml @ 500 mls/hr BOLUS ONCE IV Last administered on 10/10/16 12:27; Start 10/10/16 at 11:45; Stop 10/10/16 at 12:44; Status DC Promethazine HCl (Phenergan) 25 mg Q6H PRN PO nausea/vomiting Last administered on 10/11/16 23:04; Start 10/10/16 at 12:00 Lidocaine HCl (Lidoderm 5% Patch.12 Hr) 1 patch DAILY T-DERMAL Last administered on 10/14/16 08:27; Start 10/10/16 at 12:15 Olanzapine (ZyPREXA) 10 mg DAILY PO Last administered on 10/11/16 10:00; Start 10/10/16 at 12:15; Stop 10/12/16 at 07:49; Status DC Miscellaneous Information 1 Q24H T-DERMAL Last administered on 10/13/16 21:00; Start 10/10/16 at 21:00 Meclizine HCl (Antivert) 25 mg ONCE ONCE PO Last administered on 10/11/16 10: 00; Start 10/11/16 at 09:45; Stop 10/11/16 at 09:46; Status DC Lorazepam (Ativan) 0.5 mg Q8HR PO Last administered on 10/14/16 13:12; Start at 08:00 Meclizine HCl (Antivert) 50 mg ONCE ONCE PO Last administered on 10/12/16 15: 46; Start 10/12/16 at 14:15; Stop 10/12/16 at 14:16; Status DC Calcium Carbonate (Tums Chew) 500 mg Q12HR CHEW Last administered on 10/14/16 08:26; Start 10/12/16 at 14:15 Dexamethasone (Decadron) 2 mg Q12HR PO Last administered on 10/14/16 08:29; Start 10/13/16 at 09:30; Stop 10/14/16 at 13:52; Status DC Docusate Sodium (Colace) 100 mg BID PO Last administered on 10/14/16 08:26; Start 10/13/16 at 10:00 Polyethylene Glycol (Miralax) 17 gm ONCE ONCE PO Last administered on 10:10; Start 10/13/16 at 10:00; Stop 10/13/16 at 10:01; Status DC Diazepam (Valium) 5 mg ONCE ONCE PO ; Start 10/13/16 at 16:30; Stop 10/13/16 at 16:31; Status DC Hydromorphone HCl (Dilaudid Pf Inj) 2 mg NOW ONCE IV Last administered on 18:36; Start 10/13/16 at 18:30; Stop 10/13/16 at 19:06; Status DC Hydromorphone HCl (Dilaudid Pf Inj) 2 mg ONCE ONCE IV PUSH ; Start 10/14/16 at 08:45; Stop 10/14/16 at 08:46; Status DC Dexamethasone (Decadron) 2 mg BID@09,14 PO ; Start 10/14/16 at 14:00 Methadone HCl (Dolophine) 2.5 mg Q8HR PO ; Start 10/14/16 at 14:00 Baclofen (Lioresal) 5 mg Q8HR PO ; Start 10/14/16 at 14:00 Miscellaneous (Pill Splitter) 1 ea UNSCH PRN OTHER SEE LABEL COMMENTS; Start at 14:15 A/P Assessment and Plan Pt with metastatic lung cancer who presented with dysphagia: -barium swallow showed narrowing of the cervical esophagus. EGD done on 10/09 showed an extrinsic compression. Otherwise able to pass a probe with no difficulty. Speech therapist was consulted but patient had no difficulty tolerating diet. -Patient tolerating his diet but this seems more due to nausea and dysphagia. Intractable emesis/nausea -This seems to be more due to brain mass. -He failed treatment with Phenergan and Zyprexa. Patient started on dexamethasone this seems to improving consistent symptoms. Vertigo -Meclizine did not work. -Seemed to be more due to the brain mass. Improving but dexamethasone. Acid reflux -Currently on Tums. Will add Pepcid. 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 pt on palliative systemic therapy and radiation. -Oncology following. discussed findings w rad onc. Plan for XRT to lesion as outpatient. -On Lidoderm patch. Poor nutrition: -Calorie counts started on 10/13/2016. -pt on PPN per onc. Back pain from metastatic disease: -pain controlled with current regimen. able to swallow. Oramorph 30 mg PO q8 quinn, may titrate up as needed. Dilaudid 1 mg IV q2-4 hrs for breakthrough pain. Continue Lidoderm patch to lower back. Discharge Planning Patient symptoms are improving with dexamethasone. He still requires PPN. Anticipating discharge in 2-3 days. Mary Lauren MD Oct 14, 2016 15:28
[2016-10-14] MEDS ORDERED: BISACODYL 10 MG SUPP RECTAL PRN (15:45)
[2016-10-14] MEDS: METHADONE HCL 10 MG TAB PO SCH ×2 (18:21→22:03)
[2016-10-14] MEDS: DEXAMETHASONE 4 MG TAB PO SCH (18:23)
[2016-10-14] MEDS: BACLOFEN 10 MG TAB PO SCH ×2 (18:23→20:45)
[2016-10-14] MEDS: FAMOTIDINE 20 MG TAB PO SCH ×2 (18:25→20:45)
[2016-10-14] MEDS: CLINIMIX E 4.25/5 1000 mL- </= 42 mls/hr IV SCH ×3 (20:44)
[2016-10-14] MEDS: FAT EMULSION 20% INJ 250 ML (@10 mls/hr) IV SCH (20:44)
[2016-10-14] MEDS: ONDANSETRON HCL 4 MG/2 ML VIAL IVP PRN (20:44)
[2016-10-14] MEDS: DOCUSATE SODIUM 50 MG/SENNA 8.6 MG TAB PO SCH (20:45)
[2016-10-14] MEDS: REMOVE OLD LIDOCAINE PATCH T-DERMAL SCH (20:46)
[2016-10-15 04:00] VITALS: BP 105/62; PULSE 91; RESP 16; TEMP 98.1; O2SAT 98
[2016-10-15] MEDS: BACLOFEN 10 MG TAB PO SCH ×3 (05:14→22:34)
[2016-10-15] MEDS: METHADONE HCL 10 MG TAB PO SCH ×3 (05:15→22:33)
[2016-10-15] MEDS: LORazepam 0.5 MG TAB PO SCH ×3 (05:16→22:32)
[2016-10-15] MEDS: MORPHINE SULFATE 30 MG CONTROLLED RELEASE TAB PO SCH ×3 (05:16→22:32)
--- NOTE | 2016-10-15 07:53 | PD.ONC.PN ---
Subjective Subjective Remarks Patient seen and examined, subjectively he reports his nausea is slightly improved, he was able to tolerate some soft solids and soup yesterday. He continues to have lower and mid back pain with spasms and shooting pain down his right leg especially when he gets up out of bed. Tells me he feels slightly improved today. He was started on baclofen and methadone by the palliative care service: Appreciate their assistance. Objective Data Date Time Temp Pulse Resp B/P Pulse Ox O2 Delivery O2 Flow Rate FiO2 10/15/16 04:00 98.1 91 16 105/62 98 10/14/16 21:53 100 10/14/16 20:00 98.1 91 16 102/56 97 10/14/16 16:00 97.4 90 16 101/59 94 10/14/16 12:00 97.4 87 16 109/59 94 10/14/16 08:00 96.6 82 16 103/60 92 10/15/16 10/15/16 10/15/16 07:00 15:00 23:00 Intake Total 1316 ml Balance 1316 ml Result Diagram: 10/11/16 0611 10/14/16 0547 Administered Medications Medications (Trade) Dose Ordered Sig/Abel Route PRN Reason Start Time Stop Time Status Last Admin Dose Admin Sodium Chloride (NS Flush) 2 ml UNSCH PRN IV FLUSH FLUSH AFTER USING IV ACCESS 10/07/16 21:15 10/13/16 07:01 Sodium Chloride (NS Flush) 2 ml BID IV FLUSH 10/08/16 09:00 10/14/16 20:47 Ondansetron HCl 4 mg 4 mg Q6H PRN IVP NAUSEA OR VOMITING 10/07/16 21:15 10/14/16 20:44 Sodium Chloride 1,000 ml @ 100 mls/hr Q10H IV 10/08/16 07:15 10/14/16 20:55 Multivitamins 10 ml/Folic Acid 1 mg/Amino Acids/ Electrolytes/ Dextrose 1,010.2 ml @ 42 mls/hr Q24H IV 10/08/16 20:00 10/14/16 20:44 Fat Emulsion Intravenous (Liposyn Iii 20% Inj) 250 ml @ 10 mls/hr Q24H IV 10/08/16 20:00 10/14/16 20:44 Morphine Sulfate (Oramorph Sr) 30 mg Q8HR PO 10/09/16 14:00 10/15/16 05:16 Hydromorphone HCl (Dilaudid Pf Inj) 2 mg Q4H PRN IV PUSH breakthrough pain 10/09/16 14:00 10/14/16 05:51 Promethazine HCl (Phenergan) 25 mg Q6H PRN PO nausea/vomiting 10/10/16 12:00 10/11/16 23:04 Lidocaine HCl (Lidoderm 5% Patch.12 Hr) 1 patch DAILY T-DERMAL 10/10/16 12:15 10/14/16 08:27 Miscellaneous Information 1 Q24H T-DERMAL 10/10/16 21:00 10/14/16 20:46 Lorazepam (Ativan) 0.5 mg Q8HR PO 10/12/16 08:00 10/15/16 05:16 Calcium Carbonate (Tums Chew) 500 mg Q12HR CHEW 10/12/16 14:15 10/14/16 20:45 Dexamethasone (Decadron) 2 mg BID@09,14 PO 10/14/16 14:00 10/14/16 18:23 Methadone HCl (Dolophine) 2.5 mg Q8HR PO 10/14/16 14:00 10/15/16 05:15 Baclofen (Lioresal) 5 mg Q8HR PO 10/14/16 14:00 10/15/16 05:14 Famotidine (Pepcid) 20 mg BID PO 10/14/16 16:00 10/14/16 20:45 Senna/Docusate Sodium (Evi-Colace) 2 tab HS PO 10/14/16 21:00 10/14/16 20:45 Objective Remarks GENERAL PHYSICAL APPEARANCE: Mr. Mccormack is a young man, he appears comfortable, sitting up in bed. HEENT: Head atraumatic, normocephalic. Conjunctive are pale. Sclerae are anicteric. Oral exam - no pharyngeal erythema. Oral examination: To the extractions performed yesterday, no bleeding in the oral cavity, some inflammation of the gingiva noted. NECK EXAM: Palpable cervical lymphadenopathy. Chest: Interval removal of infusion port along right side of the chest, surgical dressing is clean, no bruising no hematoma or overt bleeding appreciated. Musculo skeletal: Contractures of the joints of the upper extremities and knees , decreased range of motion. RESPIRATORY EXAM: Good air movement bilaterally, specifically over the bases as well. CARDIOVASCULAR: Tachycardiac, regular, S1-S2. No obvious murmurs, rubs or gallops. ABDOMINAL EXAM: Thin belly, soft and nontender, nondistended. No palpable organ enlargement. TOBY MAKER: Generally weak but no localized motor or sensory deficits. Muscle skeletal: Swelling and tenderness noted in the right biceps, tenderness noted of the right shoulder. 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 -- Last chemo on 09/27/16. 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 The tumor had direct extension into the mediastinum and was nonresectable. He was treated with concurrent chemoradiotherapy and then was recommended palliative systemic chemotherapy with carboplatin and Taxol. In late August 2069 he was noted to have disease progression and he presented with bony metastases as well as intra-abdominal metastases. He was subsequently switched over to nivolumab and has thus far received I believe two infusions of this. (2) Mass of left temporal lobe Status: Acute Plan: -- No mass effect noted. -- I'm not certain if some of his nausea may be related to the intracranial metastases specifically secondary to his location in the temporal lobe. -- I have empirically start him on dexamethasone 2 mg by mouth every 12 hours to see if this may help his nausea. (3) Dysphagia Status: Acute Plan: -- Barium swallow showed diffuse narrowing of the cervical esophagus. May represent esophagitis , post radiation change, or mass. . -- CT neck indicated no evidence of mass with extrinsic compression of the esophagus. EGD performed on 10/09/2016 indicates no evidence of extrinsic compression, Mass. or obstruction. Assessment 45 y/o male with 60 pack year smoking history with metastatic lung cancer admitted with dysphagia, nausea and vomiting. Plan 1. Nutrition: Continue PPN, tolerate some soft solids yesterday, continues to drink liquids and nutritional supplements. Declines feeding tube. 2. Nausea: He was started on Zyprexa but this seems not to have helped, I will discontinue Zyprexa at this time and schedule him for Xanax 0.5 mg by mouth every 8 hours to see if this might help. Xanax scheduled over the course the day seems to have helped his nausea. I will also start him on dexamethasone 2 mg by mouth twice daily to help control his nausea. Nausea persists but is improved with dexamethasone, Xanax and Zofran. Dysphagia likely secondary to her esophageal tumor burden and previous radiation rendered to the area. 3. Metastatic lung squamous cell carcinoma: Chemotherapy on hold for now, resume radiation next week to the lower spine and sacral area for pain control. Monitor for improvement of symptoms. 4. Pain control: I've added a one-time dose of hydromorphone to be given prior to him going down for radiation every day. Disposition: Continue ongoing care, little improvement from day to day. Appreciate palliative care input. Emmanuel Samaniego MD Oct 15, 2016 07:53
[2016-10-15 08:39] VITALS: BP 98/65; PULSE 86; RESP 16; TEMP 96.7; O2SAT 97
[2016-10-15] MEDS: SODIUM CHLORIDE 0.9% FLUSH 10 ML FLUSH IV FLUSH SCH ×2 (09:00→22:33)
[2016-10-15] MEDS: SODIUM CHLOR 0.9% 1000 ML INJ 1,000 ML IV SCH ×2 (09:15→19:15)
[2016-10-15] MEDS: FAMOTIDINE 20 MG TAB PO SCH ×2 (09:16→22:32)
[2016-10-15] MEDS: LIDOCAINE HCL 5% PATCH T-DERMAL SCH (09:16)
[2016-10-15] MEDS: CALCIUM CARBONATE 500 MG CHEWABLE TAB CHEW SCH ×2 (09:17→22:33)
[2016-10-15] MEDS: DEXAMETHASONE 4 MG TAB PO SCH ×2 (09:17→14:13)
--- NOTE | 2016-10-15 11:52 | HHI.HCPN ---
Reason for visit a. To assist with evaluation and management of symptoms including: Intractable nausea and pain. b. To assist medical decision maker(s) with: better understanding of current medical conditions; weighing benefits/burdens of medical treatment options; making medical treatment decisions. . Subjective/Interval History Mr. 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 Patient s/p chemotherapy with Taxol and carboplatin, systemic therapy was subsequently switched to Nivolumab. Patient with progression of disease as evidence by metastasis to bone, lymph nodes and newly discovered brain lesion. Patient currently receiving palliative radiation treatment to thoracic spine for pain control. Outpatient radiosurgery recommended for brain solitary lesion. Palliative care following for clarifications of goals of care given terminal prognosis and assistance with pain and symptom management. Patient sitting in his room, he was worsening bed in no acute distress. He reports that overall pain has much improved since initiation of methadone and baclofen. Patient reports 1 muscle spasm overnight, which is much improved from previous days. Patient reports feeling better, had a much improved night sleep. Has been tolerating soft solids since yesterday, intermittent nausea but not vomiting. Ongoing calorie count at this time. Patient verbalize that he has decline PEG tube placement. Pain reported to bilateral hips and right leg, exacerbated by movement and alleviated by rest and pain medication. Pain currently 4/10 which is an acceptable pain goal for patient. Patient satisfied with current pain and symptom treatment plan. Patient remains afebrile, stable hemodynamically. Tolerating room air, oxygen saturation in the high 90s. No new laboratory or imaging for review. Patient tells me that after discussing with additional family members, he is considering seeking a second oncology opinion at [facility] or [facility]. He tells me that if "nothing else can be done" and prognosis remain poor, will be ready to seek comfort measures with hospice services. He reports that he may need a second opinion for peace of mind. Discussed continuation of nutrition in the setting of his decline for PEG tube placement, TPN vs. oral intake as tolerated. Patient tells me that he would definitely like to continue oral intake as tolerated with the understanding that as illness continues to progress , his swallowing abilities will be impaired. Reviewed that under hospice services, TPN/without lipids may be continued temporarily, and would have to be frequently evaluated as his clinical condition worsen secondary to progression of illness. Reviewed the benefits of switching opioid from morphine extended release to methadone as extended release pill cannot be crushed and methadone can be given crushed or liquid. Palliative care will continue to follow-up for further clarifications of goals of care and pain and symptom management. . Family/friend interactions No family at bedside. . Advance Directives Living Will: Never completed Health Care Surrogate: Copy in medical record Durable Power of Reticle Printer: Never completed Advance Directive Specifics Date completed: 10/14/2016. . Health Care Surrogate(s): [facility] sister Cesia Tejeda. Alternate [facility] sister Yolanda Strange. . Documented care wishes: No living will completed at this time. Living will information provided to patient, form left at bedside. . Significant change in goals: No code. DNR/DNI. Continue conservative management, patient may seek second opinion for treatment plan/prognosis. . Objective Vital Signs Date Time Temp Pulse Resp B/P Pulse Ox O2 Delivery O2 Flow Rate FiO2 10/15/16 08:39 96.7 86 16 98/65 97 10/15/16 04:00 98.1 91 16 105/62 98 10/14/16 21:53 100 10/14/16 20:00 98.1 91 16 102/56 97 10/14/16 16:00 97.4 90 16 101/59 94 10/14/16 12:00 97.4 87 16 109/59 94 Intake & Output 10/15/16 10/15/16 06:59 18:59 Intake Total 1946 ml Balance 1946 ml Intake Oral 930 ml IV Total 600 ml TPN/PPN 336 ml Lipid 80 ml # Voids 6 Physical Exam CONSTITUTIONAL/GENERAL: This is a thin male patient, in no apparent distress. TUBES/LINES/DRAINS: PIV's. SKIN: No jaundice, rashes, or lesions. No wounds seen anteriorly. Skin temperature appropriate. Not diaphoretic. HEAD: Atraumatic. Normocephalic. EYES: Pupils equal and round and reactive. Extraocular motions intact. No scleral icterus. No injection or drainage. ENT: Hearing grossly normal. Nose without bleeding or purulent drainage. Throat without visible erythema, exudates, masses, or lesions. Poor dentition. NECK: Trachea midline. Supple, nontender. CARDIOVASCULAR: Regular rate and rhythm without murmurs, gallops, or rubs. Peripheral pulses symmetric. RESPIRATORY/CHEST: Symmetric, unlabored respirations. Clear to auscultation. Breath sounds equal bilaterally. No wheezes, rales, or rhonchi. GASTROINTESTINAL: Abdomen flat, soft, non-tender, nondistended. No guarding. Bowel sounds present. GENITOURINARY: Without palpable bladder distension. MUSCULOSKELETAL: Extremities without clubbing, cyanosis, or edema. NEUROLOGICAL: Awake and alert. Motor and sensory grossly within normal limits. Follows commands. Cognitively sharp. Moves all extremities. PSYCHIATRIC: No obvious anxiety/depression. no apparent hallucinations or other psychotic thought process. . Diagnostic Tests Laboratory Laboratory Tests Test 10/13/16 10/14/16 11:52 05:47 Total Creatine Kinase 45 U/L (39-308) Troponin I LESS THAN 0.02 NG/ML (0.02-0.05) Sodium Level 139 MEQ/L (136-145) Potassium Level 3.9 MEQ/L (3.5-5.1) Chloride Level 99 MEQ/L (98-107) Carbon Dioxide Level 32.8 MEQ/L (21.0-32.0) Anion Gap 7 MEQ/L (5-15) Blood Urea Nitrogen 8 MG/DL (7-18) Creatinine 0.45 MG/DL (0.60-1.30) Estimat Glomerular Filtration 205 ML/MIN Rate (>89) Random Glucose 114 MG/DL (74-106) Calcium Level 8.3 MG/DL (8.5-10.1) Magnesium Level 2.1 MG/DL (1.5-2.5) Result Diagram: 10/11/16 0611 10/14/16 0547 Procedures * 10/09/16 -EGD . Assessment and Plan Disease Oriented Problem List: (1) Squamous cell carcinoma of lung (2) Brain metastasis (3) Severe protein-calorie malnutrition Symptom Scale: (1) Pain 0-10 Scale: 4 Comment: Secondary to burden of disease. (2) Nausea & vomiting 0-10 Scale: 0 Comment: Secondary to burden of disease. (3) Dysphagia 0-10 Scale: 2 Comment: Tumor related. Pertinent Non-Medical Issues Psychosocial: but . Has one son who is 17 years old. Both parents and 6 siblings residing in [place]. Family originally from [place]. Spiritual: No orthodox affiliation. Legal: No living will completed. Living will information provided to patient, form left at bedside. Ethical issues impacting care: No living will completed. Living will information provided to patient, form left at bedside. . Important Contacts [facility] -Cesia Tejeda -sister Alt [facility] -Yolanda Strange -sister . . Prognosis Mr. 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 Now with progression of illness in spite of systemic therapy. Metastasis to bone, lymph nodes and brain. Patient is cachectic, malnourished currently receiving TPN. His overall prognosis is very poor for an improved quality of life or prolong survival given the rapid progression of illness. Patient at high risk for continued decline, further complications and . Patient appropriate for hospice services if comfort directed care is elected. . Code Status: No Code Plan * CODE STATUS: DNR/DNI. Community DNR has been signed, copy in chart/EMR. * HEALTHCARE DECISION-MAKER: Patient participating in medical decision-making. Designation are healthcare surrogate completed. Patient electing his sister Cesia Tejeda as HCS, alt [facility] sister Yolanda Strange. Copy in chart/EMR. * GOALS OF CARE: Patient considering seeking a second oncology opinion for peace of mind at [facility] or [facility]. He tells me that if "nothing else can be done" and prognosis remain poor, will be ready to seek comfort measures with hospice services. At that time, patient would like to be home with the goal of pain and symptom management/improved quality of life vs. prolongation of survival. Discussed continuation of nutrition in the setting of his decline for PEG tube placement, to include TPN vs. oral intake as tolerated. Patient tells me that he would like to continue oral intake for as long as tolerated with the understanding that as illness continues to progress, his swallowing abilities may be impaired. Reviewed that under hospice services, TPN/without lipids may be continued temporarily, and would have to be frequently evaluated as his clinical condition worsen. [facility] has been following since September at the request of patient. * SYMPTOMS: * =PAIN: Secondary to cancer burden. Pain described as both somatic and neuropathic pain. Current regimen morphine 30 mg every 8 hours around-the- clock and hydromorphone 2 mg every 4 hours PRN. Methadone 2.5mg q8h ATC was added yesterday in addition to Morphine ER. The goal is to switch long-acting Morphine to Methadone as Methadone has proven effective for both somatic and neuropathic pain. Moreover, switching from morphine extended release to methadone is beneficial in anticipation of worsening dysphagia and decline of PEG tube placement by patient. Morphine extended release cannot be crushed. Contrary to this, methadone pills can be crushed or given in a liquid form. Baclofen 5 mg q8h ATC for muscle spasms was added yesterday with good effect. Patient reports muscle spasms have much improved since yesterday. * Recommended pain regimen at discharge (option 1 or 2): * 1. Patient may continue with current treatment plan to include morphine ER 30 mg q8h, methadone 2.5mg q8h and baclofen 5mg q8h ATC. Methadone and baclofen can be titrated as needed, recommending titrating methadone by 2.5mg every 3-5 days. However, it is anticipated that dysphagia will worsen secondary to tumor burden making administration of morphine ER troublesome as this cannot be crushed. Recommending adding Roxinol (Morphine liquid 20mg/ml) dose 10mg to 15mg q3h for breakthrough pain. * 2. The most appropriate pain regimen would include the replacement of Methadone as the long-acting opioid and discontinuation of morphine ER in anticipation of worsening dysphagia. This switch can be achieved as follow: * Tuesday10/18/16: decrease Morphine ER to 30mg from q8h to q12h. Increase Methadone from 2.5mg to 5mg q8h ATC. * Tuesday10/22/16: decrease Morphine ER 30mg from q12h to q24h. Increase Methadone from 5mg to 7.5mg q8h ATC. this is Methadone recommended max dose based on patient's total morphine daily intake. * Tuesday10/25/16: discontinue Morphine ER. * =NAUSEA: controlled with current regimen of dexamethasone and Ativan. Phenergan and Zofran available as needed. No further recommendations at this time but will continue to monitor. * =DYSPHAGIA: Secondary to tumor burden. Patient on TPN at this time, tolerating soft solids since yesterday. Patient has decline PEG tube placement. * =CONSTIPATION: Secondary to opioids and exacerbated by bedrest. Currently on senna-s 2 tabs at bedtime and Dulcolax suppository as needed. * Case discussed with bedside RN and Dr. Webster -[facility]. * Palliative care contact information has been provided to patient. * Palliative care will continue to follow-up for symptom management and clarifications of goals of care as his clinical course evolves. . Time Spent Total Floor Time (mins): 46 (Total time to include review of medical records, physical exam, and case discussion with bedside RN and Dr. Webster.) Face to Face Time (mins): 32 >50% Counseling/Coord of Care: Yes Attestation To help prompt me to consider important information that might be impacting today's encounter and assessment, information from prior notes written by myself or my colleagues may have been "brought forward" into today's note. My signature on this note, however, is an attestation that I personally performed the exam, history, and/or decision-making noted today, and, unless otherwise indicated, the interactions with patient, family, and staff as well as the review of records all occurred today. I also attest that the listed assessment and stated plan reflect my best clinical judgment today based on the combination of historical information, prior notes, and today's exam/ interactions. When time spent is documented, it refers only to time spent today by the signer, or if indicated, combined time spent today by collaborating physician/nurse practitioner. Brenda Mann Oct 15, 2016 11:52
[2016-10-15 12:00] VITALS: BP 92/61; PULSE 86; RESP 16; TEMP 97.3; O2SAT 97
--- NOTE | 2016-10-15 15:27 | HHI.PR ---
Subjective Remarks Patient is still not able to eat. He was actively vomiting when I entered the room. Could not tolerate breakfast or lunch. Endorsed nausea. Reports same back pain. Objective Vitals Vital Signs Date Time Temp Pulse Resp B/P Pulse Ox O2 Delivery O2 Flow Rate FiO2 10/15/16 12:00 97.3 86 16 92/61 97 10/15/16 08:39 96.7 86 16 98/65 97 10/15/16 04:00 98.1 91 16 105/62 98 10/14/16 21:53 100 10/14/16 20:00 98.1 91 16 102/56 97 10/14/16 16:00 97.4 90 16 101/59 94 I/O 10/14/16 10/14/16 10/14/16 10/15/16 10/15/16 10/15/16 07:00 15:00 23:00 07:00 15:00 23:00 Intake Total 1456 ml 720 ml 2009 ml 1316 ml Balance 1456 ml 720 ml 2009 ml 1316 ml Intake Oral 240 ml 720 ml 630 ml 300 ml IV Total 800 ml 1379 ml 600 ml TPN/PPN 336 ml 336 ml Lipid 80 ml 80 ml # Voids 1 4 3 3 Result Diagram: 10/11/16 0611 10/14/16 0547 Imaging Last Impressions Sacrum/Coccyx MRI 10/09/16 Signed Impressions: Service Date/Time: Sunday, October 09, 2016 09:29 - CONCLUSION: 7 cm bone abnormality with aggressive features in the left side of the sacrum involving S1 and S2 levels. Given the clinical history, this finding suggests bony metastatic disease. Marck Skelton MD Pelvis MRI 10/09/16 Signed Impressions: Service Date/Time: Sunday, October 09, 2016 09:29 - CONCLUSION: Bone lesion with aggressive features and the left side of the sacrum fully described on sacrum MRI report. Marck Skelton MD Neck CT 10/09/16 Signed Impressions: Service Date/Time: Sunday, October 09, 2016 10:53 - CONCLUSION: 1. No evidence of metastatic disease in the neck. No masses identified in the region of the cervical esophagus. 2. Multiple bilateral pulmonary nodules. Marck Skelton MD Lumbar Spine MRI 10/09/16 Signed Impressions: Service Date/Time: Sunday, October 09, 2016 09:29 - CONCLUSION: 1. Evidence of bony metastatic disease in the sacrum will be fully described on sacrum MRI report. 2. Left-sided disc bulges at L4-5 and L5-S1 resulting in mild left neural foraminal narrowing at these levels. Central canal diameter within normal limits at all levels. Marck Skelton MD Barium Swallow X-Ray 10/08/16 0000 Signed Impressions: Service Date/Time: Saturday, October 08, 2016 09:48 - CONCLUSION: 1. Diffuse narrowing of the cervical esophagus. May represent esophagitis , post radiation change, or mass. CT soft tissue neck with contrast may be helpful to evaluate for any extrinsic masses. 2. Thoracic esophagus within normal limits. Marck Skelton MD Brain MRI 10/07/16 1917 Signed Impressions: Service Date/Time: October 21:18 - CONCLUSION: 1. 10 x 8 x 6 mm enhancing nodule involving the left temporal lobe worrisome for metastatic focus. No mass effect or significant edema associated with this lesion. 2. No hemorrhage or acute infarction. Clayton Pendleton Jr., MD Objective Remarks GENERAL: Cachectic looking male, appearing older than stated age. CARDIOVASCULAR: Normal rate and regular rhythm without murmurs, gallops, or rubs. RESPIRATORY: Good respiratory efforts. Breath sounds equal and clear to auscultation bilaterally. GASTROINTESTINAL: Abdomen soft, non-tender, non-distended. Normal active bowel sounds MUSCULOSKELETAL: Extremities without cyanosis, or edema. NEURO: Alert & Oriented x4 to person, place, time, situation. Moves all ext x4 PSYCH: Appropriate mood and affect. A/P Assessment and Plan 45-year-old male with metastatic lung cancer including brain lesions who presented with intractable nausea and vomiting. Dysphagia: -barium swallow showed narrowing of the cervical esophagus. EGD done on 10/09 showed an extrinsic compression. Otherwise able to pass a probe with no difficulty. Speech therapist was consulted but patient had no difficulty tolerating diet. -Patient tolerating his diet but this seems more due to nausea and dysphagia. Intractable emesis/nausea: Likely related to brain mass. Initially saw mild improvement with Decadron. However his symptoms are now persisting. - Continue supportive care and antiemetics. Vertigo -Meclizine did not work. -Seemed to be more due to the brain mass. On dexamethasone. Acid reflux -Currently on Tums. Will add Pepcid. 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 pt on palliative systemic therapy and radiation. -Oncology following. . Patient wants a second opinion. He states Dr. Samaniego will help coordinate for him to see someone in [place] -On Lidoderm patch. - Appreciate palliative care following. Patient started on methadone and baclofen in addition to Oramorph. Appreciate pain management recommendations. Poor nutrition: -Calorie counts started on 10/13/2016. -pt on PPN per onc. Back pain from metastatic disease: -Appreciate palliative care following and pain management recommendations. Discharge Planning Continue inpatient care. Hallie Zuniga MD Oct 15, 2016 15:26
[2016-10-15 16:26] VITALS: BP 118/65; PULSE 85; RESP 16; TEMP 97.6; O2SAT 95
[2016-10-15] MEDS: HYDROmorphone HCL PF 2 MG/ML VIAL IV PUSH PRN (17:13)
[2016-10-15 20:00] VITALS: BP 109/63; PULSE 82; RESP 18; TEMP 96.1; O2SAT 97
[2016-10-15 20:46] VITALS: PULSE 87
[2016-10-15] MEDS: DOCUSATE SODIUM 50 MG/SENNA 8.6 MG TAB PO SCH (21:00)
[2016-10-15] MEDS: REMOVE OLD LIDOCAINE PATCH T-DERMAL SCH (21:00)
[2016-10-15] MEDS: CLINIMIX E 4.25/5 1000 mL- </= 42 mls/hr IV SCH ×3 (22:31)
[2016-10-15] MEDS: FAT EMULSION 20% INJ 250 ML (@10 mls/hr) IV SCH (22:31)
[2016-10-15] MEDS: ONDANSETRON HCL 4 MG/2 ML VIAL IVP PRN (22:35)
[2016-10-16] VITALS (7 sets, daily range): BP systolic 101–111; BP diastolic 57–65; PULSE 82–97; RESP 16–20; TEMP 96.2–97.8; O2SAT 95–98
[2016-10-16] MEDS: SODIUM CHLOR 0.9% 1000 ML INJ 1,000 ML IV SCH ×2 (05:15→23:14)
[2016-10-16] MEDS: ONDANSETRON HCL 4 MG/2 ML VIAL IVP PRN ×2 (06:15→23:09)
[2016-10-16] MEDS: MORPHINE SULFATE 30 MG CONTROLLED RELEASE TAB PO SCH ×3 (06:15→23:12)
[2016-10-16] MEDS: METHADONE HCL 10 MG TAB PO SCH ×3 (06:16→23:12)
[2016-10-16] MEDS: BACLOFEN 10 MG TAB PO SCH ×3 (06:16→23:12)
[2016-10-16] MEDS: LORazepam 0.5 MG TAB PO SCH ×3 (06:16→23:12)
[2016-10-16] MEDS: DEXAMETHASONE 4 MG TAB PO SCH ×2 (08:24→13:54)
[2016-10-16] MEDS: LIDOCAINE HCL 5% PATCH T-DERMAL SCH (08:24)
[2016-10-16] MEDS: FAMOTIDINE 20 MG TAB PO SCH ×2 (08:24→20:34)
[2016-10-16] MEDS: CALCIUM CARBONATE 500 MG CHEWABLE TAB CHEW SCH ×2 (08:24→20:34)
[2016-10-16] MEDS: SODIUM CHLORIDE 0.9% FLUSH 10 ML FLUSH IV FLUSH SCH ×2 (08:25→20:35)
--- NOTE | 2016-10-16 11:16 | HHI.PR ---
Subjective Remarks Patient is still not able to eat anything. Persistent nausea. No vomiting this morning. Pain is controlled. Objective Vitals Vital Signs Date Time Temp Pulse Resp B/P Pulse Ox O2 Delivery O2 Flow Rate FiO2 10/16/16 08:00 97.0 85 16 111/64 95 10/16/16 04:00 96.6 83 18 110/61 97 10/16/16 00:00 96.2 82 17 109/58 96 10/15/16 23:51 16 10/15/16 23:51 16 10/15/16 20:46 87 10/15/16 20:00 96.1 82 18 109/63 97 10/15/16 16:26 97.6 85 16 118/65 95 10/15/16 12:00 97.3 86 16 92/61 97 I/O 10/15/16 10/15/16 10/15/16 10/16/16 10/16/16 10/16/16 07:00 15:00 23:00 07:00 15:00 23:00 Intake Total 1316 ml 480 ml 2152 ml 480 ml Balance 1316 ml 480 ml 2152 ml 480 ml Intake Oral 300 ml 480 ml 480 ml 480 ml IV Total 600 ml 1672 ml TPN/PPN 336 ml Lipid 80 ml # Voids 3 3 8 5 Result Diagram: 10/14/16 0547 Objective Remarks GENERAL: Cachectic looking male, appearing older than stated age. CARDIOVASCULAR: Normal rate and regular rhythm without murmurs, gallops, or rubs. RESPIRATORY: Good respiratory efforts. Breath sounds equal and clear to auscultation bilaterally. GASTROINTESTINAL: Abdomen soft, non-tender, non-distended. Normal active bowel sounds MUSCULOSKELETAL: Extremities without cyanosis, or edema. NEURO: Alert & Oriented x4 to person, place, time, situation. Moves all ext x4 PSYCH: Appropriate mood and affect. A/P Assessment and Plan 45-year-old male with metastatic lung cancer including brain lesions who presented with intractable nausea and vomiting. Dysphagia: -barium swallow showed narrowing of the cervical esophagus. EGD done on 10/09 showed an extrinsic compression. Otherwise able to pass a probe with no difficulty. Speech therapist was consulted but patient had no difficulty tolerating diet. -Patient not able to tolerate a diet. Calorie count ongoing Intractable emesis/nausea: Likely related to brain mass. Initially saw mild improvement with Decadron. However his symptoms are now persisting. - Continue supportive care and antiemetics..Symptoms persisting. Not able to tolerate a diet. Calorie count ongoing. Vertigo -Meclizine did not work. -Seemed to be more due to the brain mass. On dexamethasone. Acid reflux -Currently on Tums. Will add Pepcid. 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 pt on palliative systemic therapy and radiation. -Oncology following. . Patient wants a second opinion. He states Dr. Samaniego will help coordinate for him to see someone in [place] -On Lidoderm patch. - Appreciate palliative care following. Patient started on methadone and baclofen in addition to Oramorph. Appreciate pain management recommendations. Poor nutrition: -Calorie counts started on 10/13/2016. -pt on PPN per onc. Back pain from metastatic disease: -Appreciate palliative care following and pain management recommendations. Discharge Planning Continue inpatient care. Hallie Zuniga MD Oct 16, 2016 11:16
--- NOTE | 2016-10-16 11:44 | PD.ONC.PN ---
Subjective Subjective Remarks Afebrile overnight. Still feeling nauseated. Also feels a bit dizzy. Swallowing okay now, but does not want to eat because of the nausea. Still has some pain in the back, but much better controlled on current pain regimen. Objective Data Date Time Temp Pulse Resp B/P Pulse Ox O2 Delivery O2 Flow Rate FiO2 10/16/16 08:00 97.0 85 16 111/64 95 10/16/16 04:00 96.6 83 18 110/61 97 10/16/16 00:00 96.2 82 17 109/58 96 10/15/16 23:51 16 10/15/16 23:51 16 10/15/16 20:46 87 10/15/16 20:00 96.1 82 18 109/63 97 10/15/16 16:26 97.6 85 16 118/65 95 10/15/16 12:00 97.3 86 16 92/61 97 10/16/16 10/16/16 10/16/16 07:00 15:00 23:00 Intake Total 480 ml Balance 480 ml Result Diagram: 10/14/16 0547 Administered Medications Medications (Trade) Dose Ordered Sig/Abel Route PRN Reason Start Time Stop Time Status Last Admin Dose Admin Sodium Chloride (NS Flush) 2 ml UNSCH PRN IV FLUSH FLUSH AFTER USING IV ACCESS 10/07/16 21:15 10/13/16 07:01 Sodium Chloride (NS Flush) 2 ml BID IV FLUSH 10/08/16 09:00 10/15/16 22:33 Ondansetron HCl 4 mg 4 mg Q6H PRN IVP NAUSEA OR VOMITING 10/07/16 21:15 10/16/16 06:15 Sodium Chloride 1,000 ml @ 100 mls/hr Q10H IV 10/08/16 07:15 10/15/16 09:15 Multivitamins 10 ml/Folic Acid 1 mg/Amino Acids/ Electrolytes/ Dextrose 1,010.2 ml @ 42 mls/hr Q24H IV 10/08/16 20:00 10/15/16 22:31 Fat Emulsion Intravenous (Liposyn Iii 20% Inj) 250 ml @ 10 mls/hr Q24H IV 10/08/16 20:00 10/15/16 22:31 Morphine Sulfate (Oramorph Sr) 30 mg Q8HR PO 10/09/16 14:00 10/16/16 06:15 Hydromorphone HCl (Dilaudid Pf Inj) 2 mg Q4H PRN IV PUSH breakthrough pain 10/09/16 14:00 10/15/16 17:13 Promethazine HCl (Phenergan) 25 mg Q6H PRN PO nausea/vomiting 10/10/16 12:00 10/11/16 23:04 Lidocaine HCl (Lidoderm 5% Patch.12 Hr) 1 patch DAILY T-DERMAL 10/10/16 12:15 10/16/16 08:24 Miscellaneous Information 1 Q24H T-DERMAL 10/10/16 21:00 10/15/16 21:00 Lorazepam (Ativan) 0.5 mg Q8HR PO 10/12/16 08:00 10/16/16 06:16 Calcium Carbonate (Tums Chew) 500 mg Q12HR CHEW 10/12/16 14:15 10/16/16 08:24 Dexamethasone (Decadron) 2 mg BID@09,14 PO 10/14/16 14:00 10/16/16 08:24 Methadone HCl (Dolophine) 2.5 mg Q8HR PO 10/14/16 14:00 10/16/16 06:16 Baclofen (Lioresal) 5 mg Q8HR PO 10/14/16 14:00 10/16/16 06:16 Famotidine (Pepcid) 20 mg BID PO 10/14/16 16:00 10/16/16 08:24 Senna/Docusate Sodium (Evi-Colace) 2 tab HS PO 10/14/16 21:00 10/15/16 21:00 Objective Remarks GENERAL: Chronically ill male, sitting up in bed in [facility]. SKIN: Warm and dry. HEAD: Normocephalic. EYES: No injection or drainage. NECK: Supple, trachea midline. CARDIOVASCULAR: Regular rate and rhythm RESPIRATORY: Breath sounds equal bilaterally. No accessory muscle use. GASTROINTESTINAL: Abdomen soft, non-tender, nondistended. EXTREMITIES: No cyanosis NEUROLOGICAL: No obvious focal deficit. Awake, alert, and oriented x3. 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 tumor with direct extension into mediastinum. treatment with concurrent chemoradiotherapy then palliative systemic carbo/taxol August 2016: +disease progression-->bony mets + intra-abdominal mets. Started on Nivolumab--received two infusions, last infusion on 09/27/16. One week prior to admission: developed difficulty swallowing with n/v. On admission: MRI brain: +metastatic brain lesion (2) Dysphagia Status: Acute Plan: --likely secondary to esophageal tumor burden and previous radiation rendered to the area. -- Barium swallow showed diffuse narrowing of the cervical esophagus. May represent esophagitis , post radiation change, or mass. . -- CT neck indicated no evidence of mass with extrinsic compression of the esophagus. --EGD performed on 10/09/2016 showed no evidence of extrinsic compression, Mass. or obstruction. (3) Nausea & vomiting Status: Acute Plan: --unclear etiology --unlikely due to intracranial mets --currently on decadron 2mg PO q 12 as well as Xanax and Zofran (4) Severe protein-calorie malnutrition Status: Acute Plan: --trial Megace --on PPN, --tolerates some soft solids and nutritional supplements. --Declines feeding tube. (5) Pain Status: Acute Plan: --appreciate palliative care assistance-->palliative care note and plan for pain management reviewed --currently on Methadone 2.5mg PO q 8 hours --Oramorph 30mg PO q 8 hours -Dilaudid 2mg IV q 4 hours PRN breakthrough --also on Baclofen and Lidocaine. Assessment 45 y/o male with 60 pack year smoking history with metastatic lung cancer admitted with dysphagia, nausea and vomiting. Attending Statement Patient complaining of nausea and anorexia Back pain is getting better Continue radiation treatment Continue pain medications Start Megace We will follow The exam, history, and the medical decision-making described in the above note were completed with the assistance of the mid-level provider. I reviewed and agree with the findings presented. I attest that I had a [id number] encounter with the patient on the same day, and personally performed and documented my assessment and findings in the medical record. Taylor Hood Oct 16, 2016 11:44 Douglas Bryan MD Oct 16, 2016 21:27
[2016-10-16] MEDS ORDERED: MEGESTROL ACETATE SUSP 400 MG/10 ML CUP PO ONE (12:00)
[2016-10-16] MEDS: DOCUSATE SODIUM 50 MG/SENNA 8.6 MG TAB PO SCH (20:34)
[2016-10-16] MEDS: CLINIMIX E 4.25/5 1000 mL- </= 42 mls/hr IV SCH ×3 (20:35)
[2016-10-16] MEDS: FAT EMULSION 20% INJ 250 ML (@10 mls/hr) IV SCH (20:35)
[2016-10-16] MEDS: REMOVE OLD LIDOCAINE PATCH T-DERMAL SCH (20:50)
[2016-10-17] VITALS (7 sets, daily range): BP systolic 99–114; BP diastolic 55–67; PULSE 79–94; RESP 16–20; TEMP 96.3–97.5; O2SAT 97–100
[2016-10-17] MEDS: PROMETHAZINE HCL 25 MG TAB PO PRN (03:43)
[2016-10-17] MEDS: ONDANSETRON HCL 4 MG/2 ML VIAL IVP PRN (05:51)
[2016-10-17] MEDS: MORPHINE SULFATE 30 MG CONTROLLED RELEASE TAB PO SCH ×3 (05:52→21:44)
[2016-10-17] MEDS: LORazepam 0.5 MG TAB PO SCH ×3 (05:52→21:44)
[2016-10-17] MEDS: BACLOFEN 10 MG TAB PO SCH ×3 (05:53→21:44)
[2016-10-17] MEDS: METHADONE HCL 10 MG TAB PO SCH ×3 (05:54→21:43)
[2016-10-17 08:51] LABS: AUTOMATED NEUTROPHIL # 6.9 TH/MM3 (1.8-7.7); BASOPHIL % 0.1 % (0.0-2.0); EOSINOPHIL % 0.6 % (0.0-4.0); HEMATOCRIT 29.8 % (39.0-51.0); HEMO FLAGS DIFF FINAL; LYMPH % 1.8 % (9.0-44.0); LYMPHOCYTE # 0.1 TH/MM3 (1.0-4.8); MEAN CELL VOLUME 93.7 FL (80.0-100.0); MEAN CORPUSCULAR HEMOGLOBIN 30.9 PG (27.0-34.0); MEAN CORPUSCULAR HGB CONC 32.9 % (32.0-36.0); MONO % 4.3 % (0.0-8.0); NEUT % 93.2 % (16.0-70.0); PLATELET COUNT 101 TH/MM3 (150-450); RED BLOOD COUNT 3.18 MIL/MM3 (4.50-5.90); RED CELL DISTRIBUTION WIDTH 14.4 % (11.6-17.2); WHITE BLOOD COUNT 7.4 TH/MM3 (4.0-11.0)
[2016-10-17 09:12] LABS: ANION GAP 10 MEQ/L (5-15); AST (GOT) 29 U/L (15-37); BICARBONATE 27.3 MEQ/L (21.0-32.0); BLOOD UREA NITROGEN 10 MG/DL (7-18); CHLORIDE 100 MEQ/L (98-107); GLOMERULAR FILTRATION RATE 210 ML/MIN (>89); POTASSIUM 3.7 MEQ/L (3.5-5.1); SODIUM (NA) 137 MEQ/L (136-145)
[2016-10-17 09:14] LABS: ALT (GPT) 40 U/L (12-78)
[2016-10-17 09:16] LABS: ALKALINE PHOSPHATASE 173 U/L (45-117); TOTAL BILIRUBIN ADULT 0.3 MG/DL (0.2-1.0)
[2016-10-17] MEDS: CALCIUM CARBONATE 500 MG CHEWABLE TAB CHEW SCH ×2 (09:29→21:46)
[2016-10-17] MEDS: MEGESTROL ACETATE SUSP 400 MG/10 ML CUP PO SCH (09:29)
[2016-10-17] MEDS: LIDOCAINE HCL 5% PATCH T-DERMAL SCH (09:30)
[2016-10-17] MEDS: FAMOTIDINE 20 MG TAB PO SCH ×2 (09:30→21:46)
[2016-10-17] MEDS: DEXAMETHASONE 4 MG TAB PO SCH ×2 (09:30→14:37)
[2016-10-17] MEDS: SODIUM CHLORIDE 0.9% FLUSH 10 ML FLUSH IV FLUSH SCH ×2 (09:32→21:00)
[2016-10-17] MEDS: SODIUM CHLOR 0.9% 1000 ML INJ 1,000 ML IV SCH ×2 (11:02→21:48)
--- NOTE | 2016-10-17 13:17 | HHI.PR ---
Subjective Remarks Patient states he is feeling much better today. over 10 family member in the room. He tolerated breakfast and lunch. Reports he feels a lot better. Objective Vitals Vital Signs Date Time Temp Pulse Resp B/P Pulse Ox O2 Delivery O2 Flow Rate FiO2 10/17/16 12:25 97.3 93 20 109/64 100 10/17/16 08:42 96.5 79 20 106/66 100 10/17/16 04:00 96.8 80 16 114/66 99 10/17/16 00:00 96.9 82 16 99/55 97 10/16/16 23:00 97 10/16/16 20:00 96.9 84 16 101/60 98 10/16/16 16:07 97.7 89 20 101/65 98 I/O 10/16/16 10/16/16 10/16/16 10/17/16 10/17/16 10/17/16 07:00 15:00 23:00 07:00 15:00 23:00 Intake Total 480 ml 480 ml 480 ml 2445 ml Balance 480 ml 480 ml 480 ml 2445 ml Intake Oral 480 ml 480 ml 480 ml 240 ml IV Total 2205 ml # Voids 5 5 4 3 Result Diagram: 10/17/1680410/17/16804 Objective Remarks GENERAL: Cachectic looking male, appearing older than stated age. CARDIOVASCULAR: Normal rate and regular rhythm without murmurs, gallops, or rubs. RESPIRATORY: Good respiratory efforts. Breath sounds equal and clear to auscultation bilaterally. GASTROINTESTINAL: Abdomen soft, non-tender, non-distended. Normal active bowel sounds MUSCULOSKELETAL: Extremities without cyanosis, or edema. NEURO: Alert & Oriented x4 to person, place, time, situation. Moves all ext x4 PSYCH: Appropriate mood and affect. A/P Assessment and Plan 45-year-old male with metastatic lung cancer including brain lesions who presented with intractable nausea and vomiting. Dysphagia: -barium swallow showed narrowing of the cervical esophagus. EGD done on 10/09 showed an extrinsic compression. Otherwise able to pass a probe with no difficulty. Speech therapist was consulted but patient had no difficulty tolerating diet. -Patient has not been able to eat much. Improved today. Calorie count ongoing Intractable emesis/nausea: Likely related to brain mass. Initially saw mild improvement with Decadron. However his symptoms were persisting until today. - Continue supportive care and antiemetics. - Calorie count ongoing. - Megace per Oncology. Vertigo -Meclizine did not work. -Seemed to be more due to the brain mass. On dexamethasone. - Improved Acid reflux -Currently on Tums. Will add Pepcid. 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 pt on palliative systemic therapy and radiation. -Oncology following. . Patient wants a second opinion. He states Dr. Samaniego will help coordinate for him to see someone else in [place] -On Lidoderm patch. - Appreciate palliative care following. Patient started on methadone and baclofen in addition to Oramorph. Appreciate pain management recommendations. Poor nutrition: -Calorie counts started on 10/13/2016. -pt on PPN per onc. Back pain from metastatic disease: -Appreciate palliative care following and pain management recommendations. Discharge Planning Continue inpatient care. Pending improving in symptoms and clearance by consultants. Hallie Zuniga MD Oct 17, 2016 13:17
[2016-10-17] MEDS: DOCUSATE SODIUM 50 MG/SENNA 8.6 MG TAB PO SCH (21:00)
[2016-10-17] MEDS: CLINIMIX E 4.25/5 1000 mL- </= 42 mls/hr IV SCH ×3 (21:34)
[2016-10-17] MEDS: FAT EMULSION 20% INJ 250 ML (@10 mls/hr) IV SCH (21:34)
[2016-10-17] MEDS: REMOVE OLD LIDOCAINE PATCH T-DERMAL SCH (21:47)
[2016-10-18] VITALS (8 sets, daily range): BP systolic 99–110; BP diastolic 58–66; PULSE 77–87; RESP 16–18; TEMP 96.2–97.8; O2SAT 98–100
[2016-10-18] MEDS: MORPHINE SULFATE 30 MG CONTROLLED RELEASE TAB PO SCH ×2 (06:38→21:15)
[2016-10-18] MEDS: LORazepam 0.5 MG TAB PO SCH ×3 (06:39→21:15)
[2016-10-18] MEDS: BACLOFEN 10 MG TAB PO SCH ×3 (06:39→21:15)
[2016-10-18] MEDS: METHADONE HCL 10 MG TAB PO SCH ×3 (06:39→21:14)
[2016-10-18] MEDS: PROMETHAZINE HCL 25 MG TAB PO PRN ×2 (09:19→15:43)
[2016-10-18] MEDS: FAMOTIDINE 20 MG TAB PO SCH ×2 (09:19→21:16)
[2016-10-18] MEDS: CALCIUM CARBONATE 500 MG CHEWABLE TAB CHEW SCH ×2 (09:19→21:14)
[2016-10-18] MEDS: SODIUM CHLORIDE 0.9% FLUSH 10 ML FLUSH IV FLUSH SCH ×2 (09:20→19:01)
[2016-10-18] MEDS: DEXAMETHASONE 4 MG TAB PO SCH ×2 (09:20→15:43)
[2016-10-18] MEDS: LIDOCAINE HCL 5% PATCH T-DERMAL SCH (09:20)
[2016-10-18] MEDS: SODIUM CHLOR 0.9% 1000 ML INJ 1,000 ML IV SCH ×2 (09:24→18:59)
--- NOTE | 2016-10-18 11:11 | HHI.HCPN ---
Reason for visit a. To assist with evaluation and management of symptoms including: Intractable nausea and pain. b. To assist medical decision maker(s) with: better understanding of current medical conditions; weighing benefits/burdens of medical treatment options; making medical treatment decisions. . (Brenda Mann) Subjective/Interval History Mr. 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 Patient s/p chemotherapy with Taxol and carboplatin, systemic therapy was subsequently switched to Nivolumab. Patient with progression of disease as evidence by metastasis to bone, lymph nodes and newly discovered brain lesion. Patient currently receiving palliative radiation treatment to thoracic spine for pain control. Outpatient radiosurgery recommended for brain solitary lesion. Palliative care following for clarifications of goals of care given terminal prognosis and assistance with pain and symptom management. Patient seen in his room, he was sitting up in bed in no acute distress. Patient reports that her overall pain has much improved since initiation of methadone and baclofen last week. Endorsing nausea, one episode of vomiting this morning. Main complaint is intractable nausea. Has been eating solid foods throughout the weekend but remains nauseous. Nausea is worsened after meals, patient was eating cereal with milk this morning. Pain much improved, remains intermittent to bilateral hips and right leg. Currently 4 out of 10 which is unacceptable pain goal for patient. Pain is exacerbated by movement and alleviated by rest and pain medication. Patient remains afebrile, stable hemodynamically. Tolerating room air, oxygen saturation in the high 90s. Most recent laboratory 10/17/16 showing WBC 7.4, Hgb 9.8, platelet count 101. Sodium 137, potassium 3.7, BUN/creatinine 10/0.44. Albumin 2.6. Patient tells me that after discussing with additional family members, he is considering seeking a second oncology opinion at [place] or [place]. He tells me that if "nothing else can be done" and prognosis remain poor, will be ready to seek comfort measures with hospice services. He reports that he may need a second opinion for peace of mind. Patient remains on TPN, declined PEG tube placement. Hospice is following at the request of patient. . Family/friend interactions No family at bedside. . (Brenda Mann) Advance Directives Living Will: Never completed Health Care Surrogate: Copy in medical record Durable Power of Environmental Research Scientist: Never completed (Brenda Mann) Advance Directive Specifics Date completed: 10/14/2016. . Health Care Surrogate(s): [facility] sister Cesia Tejeda. Alternate [facility] sister Yolanda Strange. . Documented care wishes: No living will completed at this time. Living will information provided to patient, form left at bedside. . Significant change in goals: No code. DNR/DNI. Patient seeking second opinion at this time. (Brenda Mann) Objective Vital Signs Date Time Temp Pulse Resp B/P Pulse Ox O2 Delivery O2 Flow Rate FiO2 10/18/16 08:17 77 10/18/16 08:00 97.8 81 16 103/59 100 10/18/16 04:00 96.6 81 16 99/64 100 10/18/16 00:00 96.2 79 16 106/66 98 10/17/16 20:02 94 10/17/16 20:00 97.5 86 17 103/57 97 10/17/16 16:00 96.3 86 20 107/67 100 10/17/16 12:25 97.3 93 20 109/64 100 Intake & Output 10/18/16 10/18/16 07:00 19:00 Intake Total 4425 ml Balance 4425 ml Intake Oral 720 ml IV Total 2450 ml TPN/PPN 1010 ml Lipid 245 ml # Voids 9 Physical Exam CONSTITUTIONAL/GENERAL: This is a thin male patient, in no apparent distress. TUBES/LINES/DRAINS: PIV's. PICC line. SKIN: No jaundice, rashes, or lesions. No wounds seen anteriorly. Skin temperature appropriate. Not diaphoretic. HEAD: Atraumatic. Normocephalic. EYES: Pupils equal and round and reactive. Extraocular motions intact. No scleral icterus. No injection or drainage. ENT: Hearing grossly normal. Nose without bleeding or purulent drainage. Throat without visible erythema, exudates, masses, or lesions. Poor dentition. NECK: Trachea midline. Supple, nontender. CARDIOVASCULAR: Regular rate and rhythm without murmurs, gallops, or rubs. Peripheral pulses symmetric. RESPIRATORY/CHEST: Symmetric, unlabored respirations. Mild expiratory wheezes. Breath sounds equal bilaterally. GASTROINTESTINAL: Abdomen flat, soft, non-tender, nondistended. No guarding. Bowel sounds present. GENITOURINARY: Without palpable bladder distension. MUSCULOSKELETAL: Extremities without clubbing, cyanosis, or edema. NEUROLOGICAL: Awake and alert. Motor and sensory grossly within normal limits. Follows commands. Cognitively sharp. Moves all extremities. PSYCHIATRIC: No obvious anxiety/depression. no apparent hallucinations or other psychotic thought process. . (Brenda Mann) Diagnostic Tests Laboratory Laboratory Tests Test 10/17/16 08:05 White Blood Count 7.4 TH/MM3 (4.0-11.0) Red Blood Count 3.18 MIL/MM3 (4.50-5.90) Hemoglobin 9.8 GM/DL (13.0-17.0) Hematocrit 29.8 % (39.0-51.0) Mean Corpuscular Volume 93.7 FL (80.0-100.0) Mean Corpuscular Hemoglobin 30.9 PG (27.0-34.0) Mean Corpuscular Hemoglobin 32.9 % Concent (32.0-36.0) Red Cell Distribution Width 14.4 % (11.6-17.2) Platelet Count 101 TH/MM3 (150-450) Mean Platelet Volume 9.4 FL (7.0-11.0) Neutrophils (%) (Auto) 93.2 % (16.0-70.0) Lymphocytes (%) (Auto) 1.8 % (9.0-44.0) Monocytes (%) (Auto) 4.3 % (0.0-8.0) Eosinophils (%) (Auto) 0.6 % (0.0-4.0) Basophils (%) (Auto) 0.1 % (0.0-2.0) Neutrophils # (Auto) 6.9 TH/MM3 (1.8-7.7) Lymphocytes # (Auto) 0.1 TH/MM3 (1.0-4.8) Monocytes # (Auto) 0.3 TH/MM3 (0-0.9) Eosinophils # (Auto) 0.0 TH/MM3 (0-0.4) Basophils # (Auto) 0.0 TH/MM3 (0-0.2) CBC Comment DIFF FINAL Differential Comment Sodium Level 137 MEQ/L (136-145) Potassium Level 3.7 MEQ/L (3.5-5.1) Chloride Level 100 MEQ/L (98-107) Carbon Dioxide Level 27.3 MEQ/L (21.0-32.0) Anion Gap 10 MEQ/L (5-15) Blood Urea Nitrogen 10 MG/DL (7-18) Creatinine 0.44 MG/DL (0.60-1.30) Estimat Glomerular Filtration 210 ML/MIN Rate (>89) Random Glucose 86 MG/DL (74-106) Calcium Level 8.5 MG/DL (8.5-10.1) Total Bilirubin 0.3 MG/DL (0.2-1.0) Aspartate Amino Transf 29 U/L (15-37) (AST/SGOT) Alanine Aminotransferase 40 U/L (12-78) (ALT/SGPT) Alkaline Phosphatase 173 U/L (45-117) Total Protein 5.9 GM/DL (6.4-8.2) Albumin 2.6 GM/DL (3.4-5.0) (Brenda Mann) Result Diagram: 10/17/1680410/17/16804 Imaging Last Impressions Sacrum/Coccyx MRI 10/09/16 Signed Impressions: Service Date/Time: Sunday, October 09, 2016 09:29 - CONCLUSION: 7 cm bone abnormality with aggressive features in the left side of the sacrum involving S1 and S2 levels. Given the clinical history, this finding suggests bony metastatic disease. Marck Skelton MD Pelvis MRI 10/09/16 Signed Impressions: Service Date/Time: Sunday, October 09, 2016 09:29 - CONCLUSION: Bone lesion with aggressive features and the left side of the sacrum fully described on sacrum MRI report. Marck Skelton MD Neck CT 10/09/16 Signed Impressions: Service Date/Time: Sunday, October 09, 2016 10:53 - CONCLUSION: 1. No evidence of metastatic disease in the neck. No masses identified in the region of the cervical esophagus. 2. Multiple bilateral pulmonary nodules. Marck Skelton MD Lumbar Spine MRI 10/09/16 Signed Impressions: Service Date/Time: Sunday, October 09, 2016 09:29 - CONCLUSION: 1. Evidence of bony metastatic disease in the sacrum will be fully described on sacrum MRI report. 2. Left-sided disc bulges at L4-5 and L5-S1 resulting in mild left neural foraminal narrowing at these levels. Central canal diameter within normal limits at all levels. Marck Skelton MD Barium Swallow X-Ray 10/08/16 0000 Signed Impressions: Service Date/Time: Saturday, October 08, 2016 09:48 - CONCLUSION: 1. Diffuse narrowing of the cervical esophagus. May represent esophagitis , post radiation change, or mass. CT soft tissue neck with contrast may be helpful to evaluate for any extrinsic masses. 2. Thoracic esophagus within normal limits. Marck Skelton MD Brain MRI 10/07/16 1917 Signed Impressions: Service Date/Time: October 21:18 - CONCLUSION: 1. 10 x 8 x 6 mm enhancing nodule involving the left temporal lobe worrisome for metastatic focus. No mass effect or significant edema associated with this lesion. 2. No hemorrhage or acute infarction. Clayton Pendleton Jr., MD Procedures * 10/09/16 -EGD . (Brenda Mann) Assessment and Plan Disease Oriented Problem List: (1) Squamous cell carcinoma of lung (2) Brain metastasis (3) Severe protein-calorie malnutrition Symptom Scale: (1) Pain 0-10 Scale: 4 Comment: Secondary to burden of disease. (2) Nausea & vomiting 0-10 Scale: 7 Comment: Secondary to burden of disease. (3) Dysphagia 0-10 Scale: 3 Comment: Tumor related. Pertinent Non-Medical Issues Psychosocial: but . Has one son who is 17 years old. Both parents and 6 siblings residing in [place]. Family originally from [place]. Spiritual: No religion affiliation. Legal: No living will completed. Living will information provided to patient, form left at bedside. Ethical issues impacting care: No living will completed. Living will information provided to patient, form left at bedside. . Important Contacts [facility] -Cesia Tejeda -sister Alt [facility] -Yolanda Strange -sister . . Prognosis Mr. 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 Now with progression of illness in spite of systemic therapy. Metastasis to bone, lymph nodes and brain. Patient is cachectic, malnourished currently receiving TPN. His overall prognosis is very poor for an improved quality of life or prolong survival given the rapid progression of illness. Patient at high risk for continued decline, further complications and . Patient appropriate for hospice services if comfort directed care is elected. . Code Status: No Code Plan * CODE STATUS: DNR/DNI. Community DNR has been signed, copy in chart/EMR. * HEALTHCARE DECISION-MAKER: Patient participating in medical decision-making. Designation are healthcare surrogate completed. Patient electing his sister Cesia Tejeda as HCS, alt HCS sister Yolanda Strange. Copy in chart/EMR. * GOALS OF CARE: Patient considering seeking a second oncology opinion for peace of mind at [place] or [place]. He tells me that if "nothing else can be done" and prognosis remain poor, will be ready to seek comfort measures with hospice services. At that time, patient would like to be home with the goal of pain and symptom management/improved quality of life vs. prolongation of survival. Discussed continuation of nutrition in the setting of his decline for PEG tube placement, to include TPN vs. oral intake as tolerated. Patient tells me that he would like to continue oral intake for as long as tolerated with the understanding that as illness continues to progress, his swallowing abilities may be impaired. Reviewed that under hospice services, TPN/without lipids may be continued temporarily, and would have to be frequently evaluated as his clinical condition worsen. [facility] has been following since September at the request of patient. * SYMPTOMS: * =PAIN: Secondary to cancer burden. Pain described as both somatic and neuropathic pain. Current regimen morphine 30 mg every 8 hours around-the- clock and hydromorphone 2 mg every 4 hours PRN. Methadone 2.5mg q8h ATC was added yesterday in addition to Morphine ER. The goal is to switch long-acting Morphine to Methadone as Methadone has proven effective for both somatic and neuropathic pain. Moreover, switching from morphine extended release to methadone is beneficial in anticipation of worsening dysphagia and decline of PEG tube placement by patient. Morphine extended release cannot be crushed. Contrary to this, methadone pills can be crushed or given in liquid form. Baclofen 5 mg q8h ATC for muscle spasms was added last week with good effect. Patient reports muscle spasms have much improved since. * Changing frequency of morphine ER 30 mg from every 8hr to every 12 hours and increasing methadone from 2.5 mg to 5 mg every 8 hours [id number]. Patient in agreement with this plan. * Recommended pain regimen at discharge (option 1 or 2): * 1. Patient may continue with current treatment plan to include morphine ER 30 mg q12h, methadone 5mg q8h and baclofen 5mg q8h ATC. Methadone and baclofen can be titrated as needed, recommending titrating methadone by 2.5mg every 3-5 days. However, it is anticipated that dysphagia will worsen secondary to tumor burden making administration of morphine ER troublesome as this cannot be crushed. Recommending adding Roxinol (Morphine liquid 20mg/ml) dose 10mg to 15mg q3h for breakthrough pain. * 2. The most appropriate pain regimen would include the replacement of Methadone as the long-acting opioid and discontinuation of morphine ER in anticipation of worsening dysphagia. This switch can be achieved as follow: * Tuesday10/22/16: Adjust frequency of Morphine ER 30mg from q12h to q24h. Increase Methadone from 5mg to 7.5mg q8h ATC as tolerated. this is Methadone recommended max dose based on patient's total morphine daily intake. * Tuesday10/25/16: discontinue Morphine ER. Continue with methadone and baclofen. * =NAUSEA: Intractable nausea with vomiting. Currently on Dexamethasone 2 mg twice a day and Ativan. Phenergan and Zofran available as needed. Increasing a.m. dose of dexamethasone from 2 mg to 4 mg, afternoon dose remains the same at 2mg. Will continue to monitor. * =DYSPHAGIA: Secondary to tumor burden. Patient on TPN at this time, tolerating soft solids since yesterday. Patient has decline PEG tube placement. * =CONSTIPATION: Secondary to opioids and exacerbated by bedrest. Currently on senna-s 2 tabs at bedtime and Dulcolax suppository as needed. * Case discussed with bedside RN and Dr. [facility]. * Palliative care contact information has been provided to patient. * Palliative care will continue to follow-up for symptom management and clarifications of goals of care as his clinical course evolves. . (Brenda Mann) Time Spent Total Floor Time (mins): 46 (Total time to include review medical records, physical exam, case discussion with Dr. Bella.) Face to Face Time (mins): 28 >50% Counseling/Coord of Care: Yes (Brenda Mann) Attestation To help prompt me to consider important information that might be impacting today's encounter and assessment, information from prior notes written by myself or my colleagues may have been "brought forward" into today's note. My signature on this note, however, is an attestation that I personally performed the exam, history, and/or decision-making noted today, and, unless otherwise indicated, the interactions with patient, family, and staff as well as the review of records all occurred today. I also attest that the listed assessment and stated plan reflect my best clinical judgment today based on the combination of historical information, prior notes, and today's exam/ interactions. When time spent is documented, it refers only to time spent today by the signer, or if indicated, combined time spent today by collaborating physician/nurse practitioner. (Brenda Mann) Collaborating MD Comments Discussed with JUAN, agree with assessment and plan (Partha Bella MD) Brenda Mann Oct 18, 2016 11:11 Partha Belal MD Oct 20, 2016 13:43
[2016-10-18] MEDS: MEGESTROL ACETATE SUSP 400 MG/10 ML CUP PO SCH (11:19)
[2016-10-18] MEDS: ONDANSETRON HCL 4 MG/2 ML VIAL IVP PRN ×2 (11:23→19:01)
--- NOTE | 2016-10-18 12:41 | HHI.PR ---
Subjective Remarks patient is feeling better each day swallowing better, good po, still with occasional nausea though good BM up and ambulating with renewed energy Objective Vitals Vital Signs Date Time Temp Pulse Resp B/P Pulse Ox O2 Delivery O2 Flow Rate FiO2 10/18/16 08:17 77 10/18/16 08:00 97.8 81 16 103/59 100 10/18/16 04:00 96.6 81 16 99/64 100 10/18/16 00:00 96.2 79 16 106/66 98 10/17/16 20:02 94 10/17/16 20:00 97.5 86 17 103/57 97 10/17/16 16:00 96.3 86 20 107/67 100 I/O 10/17/16 10/17/16 10/17/16 10/18/16 10/18/16 10/18/16 07:00 15:00 23:00 07:00 15:00 23:00 Intake Total 2445 ml 480 ml 2965 ml 1460 ml Balance 2445 ml 480 ml 2965 ml 1460 ml Intake Oral 240 ml 480 ml 480 ml 240 ml IV Total 2205 ml 1650 ml 800 ml TPN/PPN 670 ml 340 ml Lipid 165 ml 80 ml # Voids 3 3 4 5 # Bowel Movements 1 Result Diagram: 10/17/1680410/17/16804 Imaging Last Impressions Sacrum/Coccyx MRI 10/09/16 Signed Impressions: Service Date/Time: Sunday, October 09, 2016 09:29 - CONCLUSION: 7 cm bone abnormality with aggressive features in the left side of the sacrum involving S1 and S2 levels. Given the clinical history, this finding suggests bony metastatic disease. Marck Skelton MD Pelvis MRI 10/09/16 Signed Impressions: Service Date/Time: Sunday, October 09, 2016 09:29 - CONCLUSION: Bone lesion with aggressive features and the left side of the sacrum fully described on sacrum MRI report. Marck Skelton MD Neck CT 10/09/16 Signed Impressions: Service Date/Time: Sunday, October 09, 2016 10:53 - CONCLUSION: 1. No evidence of metastatic disease in the neck. No masses identified in the region of the cervical esophagus. 2. Multiple bilateral pulmonary nodules. Marck Skelton MD Lumbar Spine MRI 10/09/16 Signed Impressions: Service Date/Time: Sunday, October 09, 2016 09:29 - CONCLUSION: 1. Evidence of bony metastatic disease in the sacrum will be fully described on sacrum MRI report. 2. Left-sided disc bulges at L4-5 and L5-S1 resulting in mild left neural foraminal narrowing at these levels. Central canal diameter within normal limits at all levels. Marck Skelton MD Barium Swallow X-Ray 10/08/16 0000 Signed Impressions: Service Date/Time: Saturday, October 08, 2016 09:48 - CONCLUSION: 1. Diffuse narrowing of the cervical esophagus. May represent esophagitis , post radiation change, or mass. CT soft tissue neck with contrast may be helpful to evaluate for any extrinsic masses. 2. Thoracic esophagus within normal limits. Marck Skelton MD Brain MRI 10/07/16 1917 Signed Impressions: Service Date/Time: October 21:18 - CONCLUSION: 1. 10 x 8 x 6 mm enhancing nodule involving the left temporal lobe worrisome for metastatic focus. No mass effect or significant edema associated with this lesion. 2. No hemorrhage or acute infarction. Clayton Pendleton Jr., MD Objective Remarks awake and alert NAD anicteric lungs no rales, or wheezes regular rhythm abdomen soft, nontender extremities no edema neuro exam- non focal A/P Assessment and Plan 45-year-old male with metastatic lung cancer including brain lesions who presented with intractable nausea and vomiting. Dysphagia: secondary to extrinsic compression -barium swallow showed narrowing of the cervical esophagus. EGD done on 10/09 showed an extrinsic compression. Otherwise able to pass a probe with no difficulty. 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 pt on palliative systemic therapy and radiation. -Oncology following. . Patient wants a second opinion. He states Dr. Samaniego will help coordinate for him to see someone else in [place]- hopefully we will know today -On Lidoderm patch. - Appreciate palliative care following. Patient started on methadone and baclofen in addition to Oramorph. Appreciate pain management recommendations. Intractable emesis/nausea: Likely related to brain mass. Initially saw mild improvement with Decadron. - still slight nausea- but po tolerating well - Continue supportive care and antiemetics. - Calorie count ongoing. Vertigo- improved -Meclizine did not work. -Seemed to be more due to the brain mass. On dexamethasone. - Improved Acid reflux -Currently on Tums. PPI Poor nutrition: -Calorie counts started on 10/13/2016. -pt on PPN per onc. Back pain from metastatic disease: - controlled- up and ambulating -Appreciate palliative care following and pain management recommendations. Cam Danielle MD Oct 18, 2016 12:41
--- NOTE | 2016-10-18 13:54 | PD.ONC.PN ---
Subjective Subjective Remarks Afebrile overnight. Remains on PPN Eating well. Pain controlled Still with nausea and vomiting--one episode of vomiting this morning. Objective Data Date Time Temp Pulse Resp B/P Pulse Ox O2 Delivery O2 Flow Rate FiO2 10/18/16 08:17 77 10/18/16 08:00 97.8 81 16 103/59 100 10/18/16 04:00 96.6 81 16 99/64 100 10/18/16 00:00 96.2 79 16 106/66 98 10/17/16 20:02 94 10/17/16 20:00 97.5 86 17 103/57 97 10/17/16 16:00 96.3 86 20 107/67 100 10/18/16 10/18/16 10/18/16 07:00 15:00 23:00 Intake Total 1460 ml Balance 1460 ml Result Diagram: 10/17/16 0805 10/17/16 0805 Administered Medications Medications (Trade) Dose Ordered Sig/Abel Route PRN Reason Start Time Stop Time Status Last Admin Dose Admin Sodium Chloride (NS Flush) 2 ml UNSCH PRN IV FLUSH FLUSH AFTER USING IV ACCESS 10/07/16 21:15 10/13/16 07:01 Sodium Chloride (NS Flush) 2 ml BID IV FLUSH 10/08/16 09:00 10/17/16 09:32 Ondansetron HCl 4 mg 4 mg Q6H PRN IVP NAUSEA OR VOMITING 10/07/16 21:15 10/18/16 11:23 Sodium Chloride 1,000 ml @ 100 mls/hr Q10H IV 10/08/16 07:15 10/18/16 09:24 Multivitamins 10 ml/Folic Acid 1 mg/Amino Acids/ Electrolytes/ Dextrose 1,010.2 ml @ 42 mls/hr Q24H IV 10/08/16 20:00 10/17/16 21:34 Fat Emulsion Intravenous (Liposyn Iii 20% Inj) 250 ml @ 10 mls/hr Q24H IV 10/08/16 20:00 10/17/16 21:34 Hydromorphone HCl (Dilaudid Pf Inj) 2 mg Q4H PRN IV PUSH breakthrough pain 10/09/16 14:00 10/15/16 17:13 Promethazine HCl (Phenergan) 25 mg Q6H PRN PO nausea/vomiting 10/10/16 12:00 10/18/16 09:19 Lidocaine HCl (Lidoderm 5% Patch.12 Hr) 1 patch DAILY T-DERMAL 10/10/16 12:15 10/18/16 09:20 Miscellaneous Information 1 Q24H T-DERMAL 10/10/16 21:00 10/17/16 21:47 Lorazepam (Ativan) 0.5 mg Q8HR PO 10/12/16 08:00 10/18/16 06:39 Calcium Carbonate (Tums Chew) 500 mg Q12HR CHEW 10/12/16 14:15 10/18/16 09:19 Baclofen (Lioresal) 5 mg Q8HR PO 10/14/16 14:00 10/18/16 06:39 Miscellaneous (Pill Splitter) 1 ea UNSCH PRN OTHER SEE LABEL COMMENTS 10/14/16 14:15 10/16/16 23:13 Famotidine (Pepcid) 20 mg BID PO 10/14/16 16:00 10/18/16 09:19 Senna/Docusate Sodium (Evi-Colace) 2 tab HS PO 10/14/16 21:00 10/16/16 20:34 Megestrol Acetate (Megace Liq) 400 mg DAILY PO 10/17/16 09:00 10/18/16 11:19 Objective Remarks GENERAL: Middle aged male, sitting up in bed in nad. SKIN: Warm and dry. HEAD: Normocephalic. EYES: No injection or drainage. NECK: Supple, trachea midline. CARDIOVASCULAR: Regular rate and rhythm RESPIRATORY: Breath sounds equal bilaterally. No accessory muscle use. GASTROINTESTINAL: Abdomen soft, non-tender, nondistended. EXTREMITIES: No cyanosis NEUROLOGICAL: No obvious focal deficit. Awake, alert, and oriented x3. 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 tumor with direct extension into mediastinum. treatment with concurrent chemoradiotherapy then palliative systemic carbo/taxol August 2016: +disease progression-->bony mets + intra-abdominal mets. Started on Nivolumab--received two infusions, last infusion on 09/27/16. One week prior to admission: developed difficulty swallowing with n/v. On admission: MRI brain: +metastatic brain lesion (2) Nausea & vomiting Status: Acute Plan: --unclear etiology --likely due to intracranial mets --currently on decadron 4mg PO q AM and 2mg PO qPM --also on phenergan, zofran, ativan (3) Severe protein-calorie malnutrition Status: Acute Plan: --improved appetite on Megace but quality system manager recommends continuing PPN for now. --continue Megace and monitoring intake. (4) Pain Status: Acute Plan: --currently on Methadone 5mg PO q 8 hours --Oramorph 30mg PO q 12 hours --Dilaudid 2mg IV q 4 hours PRN breakthrough --also on Baclofen and Lidocaine. Assessment 45 y/o male with 60 pack year smoking history with metastatic lung cancer admitted with dysphagia, nausea and vomiting. Plan 1. continue PPN per quality system manager recommendations, encourage PO diet 2. continue anti-emetics,pain control 3. start XRT Tuesday Taylor Hood Oct 18, 2016 13:54
[2016-10-18] MEDS ORDERED: DEXAMETHASONE 0.5 MG TAB PO SCH (14:00)
[2016-10-18 14:43] LABS: AUTOMATED NEUTROPHIL # 9.6 TH/MM3 (1.8-7.7); BASOPHIL # 0.1 TH/MM3 (0-0.2); BASOPHIL % 0.5 % (0.0-2.0); EOSINOPHIL % 0.3 % (0.0-4.0); HEMATOCRIT 33.6 % (39.0-51.0); LYMPHOCYTE # 0.1 TH/MM3 (1.0-4.8); MEAN CELL VOLUME 94.3 FL (80.0-100.0); MEAN CORPUSCULAR HEMOGLOBIN 30.7 PG (27.0-34.0); MEAN CORPUSCULAR HGB CONC 32.5 % (32.0-36.0); MONO % 2.8 % (0.0-8.0); NEUT % 95.4 % (16.0-70.0); PLATELET COUNT 98 TH/MM3 (150-450); RED BLOOD COUNT 3.56 MIL/MM3 (4.50-5.90); RED CELL DISTRIBUTION WIDTH 14.5 % (11.6-17.2)
[2016-10-18 14:45] LABS: HEMO FLAGS DIFF FINAL
[2016-10-18] MEDS ORDERED: PILL SPLITTER OTHER PRN (15:15)
[2016-10-18] MEDS: CLINIMIX E 4.25/5 1000 mL- </= 42 mls/hr IV SCH ×3 (20:30)
[2016-10-18] MEDS: FAT EMULSION 20% INJ 250 ML (@10 mls/hr) IV SCH (20:30)
[2016-10-18] MEDS: DOCUSATE SODIUM 50 MG/SENNA 8.6 MG TAB PO SCH (21:00)
[2016-10-18] MEDS: REMOVE OLD LIDOCAINE PATCH T-DERMAL SCH (21:16)
[2016-10-19] VITALS (9 sets, daily range): BP systolic 104–113; BP diastolic 60–69; PULSE 73–104; RESP 16–20; TEMP 96.9–97.4; O2SAT 98–100
[2016-10-19] MEDS: SODIUM CHLOR 0.9% 1000 ML INJ 1,000 ML IV SCH ×3 (03:15→16:51)
[2016-10-19] MEDS: LORazepam 0.5 MG TAB PO SCH ×3 (05:59→21:16)
[2016-10-19] MEDS: BACLOFEN 10 MG TAB PO SCH ×3 (05:59→21:16)
[2016-10-19] MEDS: METHADONE HCL 10 MG TAB PO SCH ×3 (05:59→21:18)
[2016-10-19] MEDS: CALCIUM CARBONATE 500 MG CHEWABLE TAB CHEW SCH ×2 (08:44→20:15)
[2016-10-19] MEDS: FAMOTIDINE 20 MG TAB PO SCH ×2 (08:44→20:15)
[2016-10-19] MEDS: DEXAMETHASONE 4 MG TAB PO SCH ×2 (08:44→13:57)
[2016-10-19] MEDS: MEGESTROL ACETATE SUSP 400 MG/10 ML CUP PO SCH (08:45)
[2016-10-19] MEDS: MORPHINE SULFATE 30 MG CONTROLLED RELEASE TAB PO SCH ×2 (08:45→21:19)
[2016-10-19] MEDS: SODIUM CHLORIDE 0.9% FLUSH 10 ML FLUSH IV FLUSH SCH ×2 (08:45→20:15)
[2016-10-19] MEDS: LIDOCAINE HCL 5% PATCH T-DERMAL SCH (08:45)
[2016-10-19] MEDS: PROMETHAZINE HCL 25 MG TAB PO PRN ×2 (08:46→16:35)
--- NOTE | 2016-10-19 09:17 | PD.ONC.PN ---
Subjective Subjective Remarks Patient seen and examined, vital signs, labs and medications were reviewed. Subjectively; he reports his back pain is improved, he is eating a little bit better but continues to have nausea especially in the mornings and evenings. He is very concerned that the severe nausea and vomiting which led up to this hospitalization and previous ER visits will recur after he leaves the hospital. Objective Data Date Time Temp Pulse Resp B/P Pulse Ox O2 Delivery O2 Flow Rate FiO2 10/19/16 04:45 96 10/19/16 04:44 97.4 18 107/66 98 10/19/16 00:30 97.3 73 18 109/66 98 10/18/16 20:49 97.4 87 18 110/64 100 10/18/16 20:12 84 10/18/16 16:00 97.8 84 18 106/58 100 10/18/16 12:00 97.8 79 18 103/59 100 Result Diagram: 10/18/16 1436 10/17/16 0805 Laboratory Results Laboratory Tests Test 10/18/16 14:36 White Blood Count 10.0 TH/MM3 Red Blood Count 3.56 MIL/MM3 Hemoglobin 10.9 GM/DL Hematocrit 33.6 % Mean Corpuscular Volume 94.3 FL Mean Corpuscular Hemoglobin 30.7 PG Mean Corpuscular Hemoglobin 32.5 % Concent Red Cell Distribution Width 14.5 % Platelet Count 98 TH/MM3 Mean Platelet Volume 8.2 FL Neutrophils (%) (Auto) 95.4 % Lymphocytes (%) (Auto) 1.0 % Monocytes (%) (Auto) 2.8 % Eosinophils (%) (Auto) 0.3 % Basophils (%) (Auto) 0.5 % Neutrophils # (Auto) 9.6 TH/MM3 Lymphocytes # (Auto) 0.1 TH/MM3 Monocytes # (Auto) 0.3 TH/MM3 Eosinophils # (Auto) 0.0 TH/MM3 Basophils # (Auto) 0.1 TH/MM3 CBC Comment DIFF FINAL Differential Comment Administered Medications Medications (Trade) Dose Ordered Sig/Abel Route PRN Reason Start Time Stop Time Status Last Admin Dose Admin Sodium Chloride (NS Flush) 2 ml UNSCH PRN IV FLUSH FLUSH AFTER USING IV ACCESS 10/07/16 21:15 10/13/16 07:01 Sodium Chloride (NS Flush) 2 ml BID IV FLUSH 10/08/16 09:00 10/18/16 19:01 Ondansetron HCl 4 mg 4 mg Q6H PRN IVP NAUSEA OR VOMITING 10/07/16 21:15 10/18/16 19:01 Sodium Chloride 1,000 ml @ 100 mls/hr Q10H IV 10/08/16 07:15 10/19/16 06:58 Multivitamins 10 ml/Folic Acid 1 mg/Amino Acids/ Electrolytes/ Dextrose 1,010.2 ml @ 42 mls/hr Q24H IV 10/08/16 20:00 10/18/16 20:30 Fat Emulsion Intravenous (Liposyn Iii 20% Inj) 250 ml @ 10 mls/hr Q24H IV 10/08/16 20:00 10/18/16 20:30 Hydromorphone HCl (Dilaudid Pf Inj) 2 mg Q4H PRN IV PUSH breakthrough pain 10/09/16 14:00 10/15/16 17:13 Promethazine HCl (Phenergan) 25 mg Q6H PRN PO nausea/vomiting 10/10/16 12:00 10/19/16 08:46 Lidocaine HCl (Lidoderm 5% Patch.12 Hr) 1 patch DAILY T-DERMAL 10/10/16 12:15 10/19/16 08:45 Miscellaneous Information 1 Q24H T-DERMAL 10/10/16 21:00 10/18/16 21:16 Lorazepam (Ativan) 0.5 mg Q8HR PO 10/12/16 08:00 10/19/16 05:59 Calcium Carbonate (Tums Chew) 500 mg Q12HR CHEW 10/12/16 14:15 10/19/16 08:44 Baclofen (Lioresal) 5 mg Q8HR PO 10/14/16 14:00 10/19/16 05:59 Famotidine (Pepcid) 20 mg BID PO 10/14/16 16:00 10/19/16 08:44 Senna/Docusate Sodium (Evi-Colace) 2 tab HS PO 10/14/16 21:00 10/16/16 20:34 Megestrol Acetate (Megace Liq) 400 mg DAILY PO 10/17/16 09:00 10/19/16 08:45 Dexamethasone (Decadron) 4 mg DAILY PO 10/19/16 09:00 10/19/16 08:44 Methadone HCl (Dolophine) 5 mg Q8HR PO 10/18/16 14:00 10/19/16 05:59 Morphine Sulfate (Oramorph Sr) 30 mg Q12HR PO 10/18/16 21:00 10/19/16 08:45 Dexamethasone (Decadron) 2 mg DAILY@14 PO 10/18/16 15:45 10/18/16 15:43 Objective Remarks GENERAL APPEARANCE: Mr. Levi is a young male. He is very tall and near cachectic appearing. He is lying in bed in no apparent distress. HEENT: Head atraumatic, normocephalic. Conjunctivae are pale. Sclerae are anicteric. EOMI. PERRLA. Oral exam - poor dental hygiene. No pharyngeal erythema. No masses noted in the oral cavity. NECK: He does have palpable supraclavicular lymph nodes bilaterally. PULMONARY: Prolonged expiratory phase. Good air movement bilaterally without any added breath sounds. CARDIOVASCULAR: Regular rate and rhythm, S1, S2. No obvious murmurs, rubs or gallops. ABDOMEN: Thin belly, soft, nontender, nondistended. No palpable organ enlargement, specifically no hepatosplenomegaly. EXTREMITIES: No pretibial edema. No calf tenderness. PLANT QUALITY MANAGER: No focal sensory or motor deficits. 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 tumor with direct extension into mediastinum. treatment with concurrent chemoradiotherapy then palliative systemic carbo/taxol August 2016: +disease progression-->bony mets + intra-abdominal mets. Started on Nivolumab--received two infusions, last infusion on 09/27/16. One week prior to admission: developed difficulty swallowing with n/v. On admission: MRI brain: +metastatic brain lesion (2) Nausea & vomiting Status: Acute Plan: --unclear etiology --likely due to intracranial mets --currently on decadron 4mg PO q AM and 2mg PO qPM --also on phenergan, zofran, ativan 10/19/2016: Will start Marinol 5 mg by mouth twice a day for additional nausea coverage. (3) Severe protein-calorie malnutrition Status: Acute Plan: --improved appetite on Megace but cook pickled meat recommends continuing PPN for now. --continue Megace and monitoring intake. (4) Pain Status: Acute Plan: --currently on Methadone 5mg PO q 8 hours --Oramorph 30mg PO q 12 hours --Dilaudid 2mg IV q 4 hours PRN breakthrough --also on Baclofen and Lidocaine. Assessment 45 y/o male with 60 pack year smoking history with metastatic lung cancer admitted with dysphagia, nausea and vomiting. Plan 1. Metastatic lung carcinoma: Systemic Treatment on hold until he improves clinically. He will continue palliative radiation to his metastatic disease in the lower back. 2. Severe nausea: Patient is now on every 8 hours Ativan 0.5 mg, dexamethasone , Zofran all of which seemed to have helped but have not completely eliminated the nausea. He previously also received Zyprexa which seems not to help. I will start him on Marinol 5 mg by mouth twice a day. 3. Back pain controlled better with addition of methadone at a low dose. He is also on baclofen. Disposition: From an oncology standpoint he can be discharged home when his symptoms are improved. He seems reasonably comfortable to me and in fact told me that he would be okay if he were discharged home today. I have written prescriptions and have placed him in the chart for dexamethasone , Ativan and Marinol and methadone. Emmanuel Samaniego MD Oct 19, 2016 09:17
--- NOTE | 2016-10-19 11:05 | HHI.HCPN ---
Reason for visit a. To assist with evaluation and management of symptoms including: Intractable nausea and pain. b. To assist medical decision maker(s) with: better understanding of current medical conditions; weighing benefits/burdens of medical treatment options; making medical treatment decisions. . (Brenda Mann) Subjective/Interval History Mr. 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 Patient s/p chemotherapy with Taxol and carboplatin, systemic therapy was subsequently switched to Nivolumab. Patient with progression of disease as evidence by metastasis to bone, lymph nodes and newly discovered brain lesion. Patient currently receiving palliative radiation treatment to thoracic spine for pain control. Outpatient radiosurgery recommended for brain solitary lesion. Palliative care following for clarifications of goals of care given terminal prognosis and assistance with pain and symptom management. Patient seen in his room, he was sitting up in bed in no acute distress. Patient in good spirit, reports feeling much better and is ready to be DC home. Reports that pain is much improved since starting on Methadone. Pain at an average of 4/10 which is an acceptable pain goal for patient. Remains with intermittent episodes of nausea, no vomiting today. Reports that he has been tolerating solid foods. Remains afebrile, stable hemodynamically. Tolerating room air, oxygen saturation 100%. Laboratory workup today showing WBC 10.0, Hgb 10.9, platelet count 98. Most recent chemistry 10/17/16 showing sodium 137, potassium 3.7, BUN/creatinine 10/0.44. Albumin 2.6. . Family/friend interactions No family at bedside. . (Brenda Mann) Advance Directives Living Will: Copy in medical record Health Care Surrogate: Copy in medical record Durable Power of Revenue Enforcement Agent: Never completed (Brenda Mann) Advance Directive Specifics Date completed: 10/14/2016. . Health Care Surrogate(s): [facility] sister Cesia Tejeda. Alternate [facility] sister Yolanda Strange. . Documented care wishes: Patient is a setting completion of living will today. Standard verbiage as it relates to the terminal condition, end-stage condition or vegetative state. . Significant change in goals: Goals remain unchanged. . (Brenda Mann) Objective Vital Signs Date Time Temp Pulse Resp B/P Pulse Ox O2 Delivery O2 Flow Rate FiO2 10/19/16 08:00 96.9 81 20 113/69 100 10/19/16 04:45 96 10/19/16 04:44 97.4 18 107/66 98 10/19/16 00:30 97.3 73 18 109/66 98 10/18/16 20:49 97.4 87 18 110/64 100 10/18/16 20:12 84 10/18/16 16:00 97.8 84 18 106/58 100 10/18/16 12:00 97.8 79 18 103/59 100 Physical Exam CONSTITUTIONAL/GENERAL: This is a thin male patient, in no apparent distress. TUBES/LINES/DRAINS: PIV's. PICC line. SKIN: No jaundice, rashes, or lesions. No wounds seen anteriorly. Skin temperature appropriate. Not diaphoretic. HEAD: Atraumatic. Normocephalic. EYES: Pupils equal and round and reactive. Extraocular motions intact. No scleral icterus. No injection or drainage. ENT: Hearing grossly normal. Nose without bleeding or purulent drainage. Throat without visible erythema, exudates, masses, or lesions. Poor dentition. NECK: Trachea midline. Supple, nontender. CARDIOVASCULAR: Regular rate and rhythm without murmurs, gallops, or rubs. Peripheral pulses symmetric. RESPIRATORY/CHEST: Symmetric, unlabored respirations. Clear breath sounds. Breath sounds equal bilaterally. GASTROINTESTINAL: Abdomen flat, soft, non-tender, nondistended. No guarding. Bowel sounds present. GENITOURINARY: Without palpable bladder distension. MUSCULOSKELETAL: Extremities without clubbing, cyanosis, or edema. NEUROLOGICAL: Awake and alert. Motor and sensory grossly within normal limits. Follows commands. Cognitively sharp. Moves all extremities. PSYCHIATRIC: No obvious anxiety/depression. no apparent hallucinations or other psychotic thought process. Pleasant and cooperative. . (Brenda Mann) Diagnostic Tests Laboratory Laboratory Tests Test 10/17/16 10/18/16 08:05 14:36 White Blood Count 7.4 TH/MM3 10.0 TH/MM3 (4.0-11.0) (4.0-11.0) Red Blood Count 3.18 MIL/MM3 3.56 MIL/MM3 (4.50-5.90) (4.50-5.90) Hemoglobin 9.8 GM/DL 10.9 GM/DL (13.0-17.0) (13.0-17.0) Hematocrit 29.8 % 33.6 % (39.0-51.0) (39.0-51.0) Mean Corpuscular Volume 93.7 FL 94.3 FL (80.0-100.0) (80.0-100.0) Mean Corpuscular Hemoglobin 30.9 PG 30.7 PG (27.0-34.0) (27.0-34.0) Mean Corpuscular Hemoglobin 32.9 % 32.5 % Concent (32.0-36.0) (32.0-36.0) Red Cell Distribution Width 14.4 % 14.5 % (11.6-17.2) (11.6-17.2) Platelet Count 101 TH/MM3 98 TH/MM3 (150-450) (150-450) Mean Platelet Volume 9.4 FL 8.2 FL (7.0-11.0) (7.0-11.0) Neutrophils (%) (Auto) 93.2 % 95.4 % (16.0-70.0) (16.0-70.0) Lymphocytes (%) (Auto) 1.8 % 1.0 % (9.0-44.0) (9.0-44.0) Monocytes (%) (Auto) 4.3 % (0.0-8.0) 2.8 % (0.0-8.0) Eosinophils (%) (Auto) 0.6 % (0.0-4.0) 0.3 % (0.0-4.0) Basophils (%) (Auto) 0.1 % (0.0-2.0) 0.5 % (0.0-2.0) Neutrophils # (Auto) 6.9 TH/MM3 9.6 TH/MM3 (1.8-7.7) (1.8-7.7) Lymphocytes # (Auto) 0.1 TH/MM3 0.1 TH/MM3 (1.0-4.8) (1.0-4.8) Monocytes # (Auto) 0.3 TH/MM3 0.3 TH/MM3 (0-0.9) (0-0.9) Eosinophils # (Auto) 0.0 TH/MM3 0.0 TH/MM3 (0-0.4) (0-0.4) Basophils # (Auto) 0.0 TH/MM3 0.1 TH/MM3 (0-0.2) (0-0.2) CBC Comment DIFF FINAL DIFF FINAL Differential Comment Sodium Level 137 MEQ/L (136-145) Potassium Level 3.7 MEQ/L (3.5-5.1) Chloride Level 100 MEQ/L (98-107) Carbon Dioxide Level 27.3 MEQ/L (21.0-32.0) Anion Gap 10 MEQ/L (5-15) Blood Urea Nitrogen 10 MG/DL (7-18) Creatinine 0.44 MG/DL (0.60-1.30) Estimat Glomerular Filtration 210 ML/MIN Rate (>89) Random Glucose 86 MG/DL (74-106) Calcium Level 8.5 MG/DL (8.5-10.1) Total Bilirubin 0.3 MG/DL (0.2-1.0) Aspartate Amino Transf 29 U/L (15-37) (AST/SGOT) Alanine Aminotransferase 40 U/L (12-78) (ALT/SGPT) Alkaline Phosphatase 173 U/L (45-117) Total Protein 5.9 GM/DL (6.4-8.2) Albumin 2.6 GM/DL (3.4-5.0) (Brenda Mann) Result Diagram: 10/18/16 1436 10/17/16 0805 Procedures * 10/09/16 -EGD . (Brenda Mann) Assessment and Plan Disease Oriented Problem List: (1) Squamous cell carcinoma of lung (2) Brain metastasis (3) Severe protein-calorie malnutrition Symptom Scale: (1) Pain 0-10 Scale: 4 Comment: Secondary to burden of disease. (2) Nausea & vomiting 0-10 Scale: 4 Comment: Secondary to burden of disease. (3) Dysphagia 0-10 Scale: 0 Comment: Tumor related. Pertinent Non-Medical Issues Psychosocial: but . Has one son who is 17 years old. Both parents and 6 siblings residing in [place]. Family originally from [place]. Spiritual: No taoist affiliation. Legal: No living will completed. Living will information provided to patient, form left at bedside. Ethical issues impacting care: No living will completed. Living will information provided to patient, form left at bedside. . Important Contacts [facility] -Cesia Tejeda -sister Alt [facility] -Yolanda Strange -sister . . 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 Now with progression of illness in spite of systemic therapy. Metastasis to bone, lymph nodes and brain. Patient is cachectic, malnourished currently receiving TPN. His overall prognosis is very poor for an improved quality of life or prolong survival given the rapid progression of illness. Patient at high risk for continued decline, further complications and . Patient appropriate for hospice services if comfort directed care is elected. . Code Status: No Code Plan * CODE STATUS: DNR/DNI. Community DNR has been signed, copy in chart/EMR. * HEALTHCARE DECISION-MAKER: Patient participating in medical decision-making. Designation are healthcare surrogate completed. Patient electing his sister Cesia Tejeda as HCS, alt [facility] sister Yolanda Strange. Copy in chart/EMR. * GOALS OF CARE: Patient considering seeking a second oncology opinion for peace of mind at [place] or [place]. He tells me that if "nothing else can be done" and prognosis remain poor, will be ready to seek comfort measures with hospice services. Patient declining PEG tube placement at this time. Patient tells me that quality of life is more important to him than prolongation of survival. [facility] has been following since Sep, 2016 at the request of patient. Patient electing to continue with palliative radiation treatments for pain management and symptom, schedule to start brain XRT this Tuesday. * SYMPTOMS: * =PAIN: Secondary to cancer burden. Pain described as both somatic and neuropathic pain. Current regimen morphine 30 mg every 12 hours around-the- clock and hydromorphone 2 mg every 4 hours PRN. Methadone was increased yesterday to 5mg q8h. The goal is to switch long-acting Morphine to Methadone as Methadone has proven effective for both somatic and neuropathic pain. Moreover, switching from morphine extended release to methadone is beneficial in anticipation of worsening dysphagia and decline of PEG tube placement by patient. Morphine extended release cannot be crushed. Contrary to this, methadone pills can be crushed or given in liquid form. Baclofen 5 mg q8h ATC for muscle spasms was added last week with good effect. Patient reports muscle spasms have much improved since. * Recommended pain regimen at discharge (option 1 or 2): * 1. Patient may continue with current treatment plan to include morphine ER 30 mg q12h, methadone 5mg q8h and baclofen 5mg q8h ATC. Methadone and baclofen can be titrated as needed, recommending titrating methadone by 2.5mg every 3-5 days. However, it is anticipated that dysphagia will worsen secondary to tumor burden making administration of morphine ER troublesome as this cannot be crushed. Recommending adding Roxinol (Morphine liquid 20mg/ml) dose 10mg to 15mg q3h for breakthrough pain. * 2. The most appropriate pain regimen would include the replacement of Methadone as the long-acting opioid and discontinuation of morphine ER in anticipation of worsening dysphagia. This switch can be achieved as follow: * Tuesday10/22/16: Adjust frequency of Morphine ER 30mg from q12h to q24h. Increase Methadone from 5mg to 7.5mg q8h ATC as tolerated. this is Methadone recommended max dose based on patient's total morphine daily intake. * Tuesday10/25/16: discontinue Morphine ER. Continue with methadone and baclofen. Both recommendation have been reviewed with patient. * =NAUSEA: Intractable nausea with vomiting. Currently on Dexamethasone twice a day. Dexamethasone a.m. dose was increased yesterday from 2 mg to 4 mg, p.m. dose remains at 2 mg. Phenergan and Zofran available as needed. Marinol 5 mg twice a day was added yesterday with good effect. Long conversation with patient regarding treatment plan and diet recommendation; avoid spicy, oily foods. * =DYSPHAGIA: Secondary to tumor burden. Patient on TPN at this time, tolerating soft solid diet. Patient has decline PEG tube placement. * =CONSTIPATION: Secondary to opioids and exacerbated by bedrest. Controlled with senna-s 2 tabs at bedtime and Dulcolax suppository as needed. * =DECREASED APPETITE: Patient currently on Megace, Marinol bursitis yesterday for nausea and appetite stimulant. Patient also on dexamethasone. Patient reports that appetite has much improved since last week. Tolerating solid foods. * Palliative care contact information has been provided to patient. * Palliative care will continue to follow-up for symptom management and clarifications of goals of care as his clinical course evolves. . (Brenda Mann) Time Spent Total Floor Time (mins): 40 (Total time to include review medical records, physical exam, goals of care conversation with patient, and assistance incompletion of living will. ) Face to Face Time (mins): 32 >50% Counseling/Coord of Care: Yes (Brenda Mann) Attestation To help prompt me to consider important information that might be impacting today's encounter and assessment, information from prior notes written by myself or my colleagues may have been "brought forward" into today's note. My signature on this note, however, is an attestation that I personally performed the exam, history, and/or decision-making noted today, and, unless otherwise indicated, the interactions with patient, family, and staff as well as the review of records all occurred today. I also attest that the listed assessment and stated plan reflect my best clinical judgment today based on the combination of historical information, prior notes, and today's exam/ interactions. When time spent is documented, it refers only to time spent today by the signer, or if indicated, combined time spent today by collaborating physician/nurse practitioner. (Brenda Mann) Attestation Discussed with JUAN, agree with assessment and plan (Partha Bella MD) Brenda Mann Oct 19, 2016 11:05 Partha Bella MD Oct 20, 2016 13:54
[2016-10-19] MEDS ORDERED: HOSP BED1 (11:08)
[2016-10-19] MEDS: DRONABINOL 5 MG CAP PO SCH ×2 (11:14→16:35)
--- NOTE | 2016-10-19 13:53 | HHI.PR ---
Subjective Remarks patient po intake much improved Objective Vitals Vital Signs Date Time Temp Pulse Resp B/P Pulse Ox O2 Delivery O2 Flow Rate FiO2 10/19/16 12:53 97.4 90 20 104/62 100 10/19/16 08:35 81 10/19/16 08:00 96.9 81 20 113/69 100 10/19/16 04:45 96 10/19/16 04:44 97.4 18 107/66 98 10/19/16 00:30 97.3 73 18 109/66 98 10/18/16 20:49 97.4 87 18 110/64 100 10/18/16 20:12 84 10/18/16 16:00 97.8 84 18 106/58 100 I/O 10/18/16 10/18/16 10/18/16 10/19/16 10/19/16 10/19/16 07:00 15:00 23:00 07:00 15:00 23:00 Intake Total 1460 ml 2212 ml 1865 ml Balance 1460 ml 2212 ml 1865 ml Intake Oral 240 ml 840 ml IV Total 800 ml 901 ml 1275 ml TPN/PPN 340 ml 381 ml 480 ml Lipid 80 ml 90 ml 110 ml # Voids 5 5 Result Diagram: 10/18/16 1436 10/17/16 0805 Imaging Last Impressions Sacrum/Coccyx MRI 10/09/16 Signed Impressions: Service Date/Time: Sunday, October 09, 2016 09:29 - CONCLUSION: 7 cm bone abnormality with aggressive features in the left side of the sacrum involving S1 and S2 levels. Given the clinical history, this finding suggests bony metastatic disease. Marck Skelton MD Pelvis MRI 10/09/16 Signed Impressions: Service Date/Time: Sunday, October 09, 2016 09:29 - CONCLUSION: Bone lesion with aggressive features and the left side of the sacrum fully described on sacrum MRI report. Marck Skelton MD Neck CT 10/09/16 Signed Impressions: Service Date/Time: Sunday, October 09, 2016 10:53 - CONCLUSION: 1. No evidence of metastatic disease in the neck. No masses identified in the region of the cervical esophagus. 2. Multiple bilateral pulmonary nodules. Marck Skelton MD Lumbar Spine MRI 10/09/16 Signed Impressions: Service Date/Time: Sunday, October 09, 2016 09:29 - CONCLUSION: 1. Evidence of bony metastatic disease in the sacrum will be fully described on sacrum MRI report. 2. Left-sided disc bulges at L4-5 and L5-S1 resulting in mild left neural foraminal narrowing at these levels. Central canal diameter within normal limits at all levels. Marck Skelton MD Barium Swallow X-Ray 10/08/16 0000 Signed Impressions: Service Date/Time: Saturday, October 08, 2016 09:48 - CONCLUSION: 1. Diffuse narrowing of the cervical esophagus. May represent esophagitis , post radiation change, or mass. CT soft tissue neck with contrast may be helpful to evaluate for any extrinsic masses. 2. Thoracic esophagus within normal limits. Marck Skelton MD Brain MRI 10/07/16 1917 Signed Impressions: Service Date/Time: October 21:18 - CONCLUSION: 1. 10 x 8 x 6 mm enhancing nodule involving the left temporal lobe worrisome for metastatic focus. No mass effect or significant edema associated with this lesion. 2. No hemorrhage or acute infarction. Clayton Pendleton Jr., MD Objective Remarks awake and alert NAD anicteric lungs no rales, or wheezes regular rhythm abdomen soft, nontender extremities no edema neuro exam- non focal A/P Assessment and Plan 45-year-old male with metastatic lung cancer including brain lesions who presented with intractable nausea and vomiting. Dysphagia: secondary to extrinsic compression -barium swallow showed narrowing of the cervical esophagus. EGD done on 10/09 showed an extrinsic compression. Otherwise able to pass a probe with no difficulty. Speech therapist - tolerating diet well - on PPN appetite much improved 'metastatic squamous cell carcinoma of the lungs: - mets to left temporal lobe of brain, and sacrum. pt on palliative systemic therapy and radiation. -Oncology following. . Patient wants a second opinion. He states Dr. Samaniego will help coordinate for him to see someone else in [place]- hopefully we will know today -On Lidoderm patch. - Appreciate palliative care following. Patient started on methadone and baclofen in addition to Oramorph. Appreciate pain management recommendations. Intractable emesis/nausea: Likely related to brain mass. Initially saw mild improvement with Decadron. - still slight nausea- but po tolerating well - Continue supportive care and antiemetics. - Calorie count ongoing. Vertigo- improved -Meclizine did not work. -Seemed to be more due to the brain mass. On dexamethasone. - Improved Acid reflux -Currently on Tums. PPI Poor nutrition: -Calorie counts started on 10/13/2016. -pt on PPN per onc. Back pain from metastatic disease: - controlled- up and ambulating -Appreciate palliative care following and pain management recommendations. Cam Danielle MD Oct 19, 2016 13:53
[2016-10-19] MEDS ORDERED: HYDROmorphone HCL PF 2 MG/ML VIAL IV PUSH PRN (14:00)
[2016-10-19] MEDS ORDERED: DEXAMETHASONE 4 MG TAB PO SCH (14:00)
[2016-10-19] MEDS: ONDANSETRON HCL 4 MG/2 ML VIAL IVP PRN ×2 (14:11→20:15)
[2016-10-19] MEDS: DOCUSATE SODIUM 50 MG/SENNA 8.6 MG TAB PO SCH (20:15)
[2016-10-19] MEDS: FAT EMULSION 20% INJ 250 ML (@10 mls/hr) IV SCH (20:16)
[2016-10-19] MEDS: CLINIMIX E 4.25/5 1000 mL- </= 42 mls/hr IV SCH ×3 (20:17)
[2016-10-19] MEDS: REMOVE OLD LIDOCAINE PATCH T-DERMAL SCH (21:00)
[2016-10-20 00:26] VITALS: BP 116/73; PULSE 86; RESP 18; TEMP 96.8; O2SAT 99
[2016-10-20 04:49] VITALS: BP 103/62; PULSE 85; RESP 16; TEMP 96.6; O2SAT 98
[2016-10-20] MEDS: LORazepam 0.5 MG TAB PO SCH (05:35)
[2016-10-20] MEDS: METHADONE HCL 10 MG TAB PO SCH (05:35)
[2016-10-20] MEDS: BACLOFEN 10 MG TAB PO SCH (05:35)
[2016-10-20] MEDS: SODIUM CHLORIDE 0.9% FLUSH 10 ML FLUSH IV FLUSH PRN (05:43)
[2016-10-20] MEDS: ONDANSETRON HCL 4 MG/2 ML VIAL IVP PRN (05:43)
[2016-10-20 08:01] VITALS: PULSE 75
[2016-10-20] MEDS: SODIUM CHLORIDE 0.9% FLUSH 10 ML FLUSH IV FLUSH SCH (09:00)
[2016-10-20] MEDS: DEXAMETHASONE 4 MG TAB PO SCH (09:13)
[2016-10-20] MEDS: FAMOTIDINE 20 MG TAB PO SCH (09:13)
[2016-10-20] MEDS: MORPHINE SULFATE 30 MG CONTROLLED RELEASE TAB PO SCH (09:14)
[2016-10-20] MEDS: CALCIUM CARBONATE 500 MG CHEWABLE TAB CHEW SCH (09:14)
[2016-10-20] MEDS: MEGESTROL ACETATE SUSP 400 MG/10 ML CUP PO SCH (09:14)
[2016-10-20] MEDS: LIDOCAINE HCL 5% PATCH T-DERMAL SCH (09:14)
--- NOTE | 2016-10-20 10:48 | HHI.PR ---
Subjective Remarks tolerating po well minimal nausea- only using Phenergan prn good BM no pain complains- ready and excited to go home Objective Vitals Vital Signs Date Time Temp Pulse Resp B/P Pulse Ox O2 Delivery O2 Flow Rate FiO2 10/20/16 08:01 75 10/20/16 06:35 16 10/20/16 04:49 96.6 85 16 103/62 98 10/20/16 00:26 96.8 86 18 116/73 99 10/19/16 22:18 18 10/19/16 20:21 97.2 87 16 113/65 98 10/19/16 20:00 104 10/19/16 16:47 96.9 83 20 111/60 98 10/19/16 12:53 97.4 90 20 104/62 100 I/O 10/19/16 10/19/16 10/19/16 10/20/16 10/20/16 10/20/16 07:00 15:00 23:00 07:00 15:00 23:00 Intake Total 1865 ml 1610 ml 1720 ml 1603 ml Output Total 500 ml Balance 1865 ml 1610 ml 1220 ml 1603 ml Intake Oral 440 ml 640 ml 560 ml IV Total 1275 ml 827 ml 700 ml 737 ml TPN/PPN 480 ml 275 ml 300 ml 236 ml Lipid 110 ml 68 ml 80 ml 70 ml Output Urine Total 500 ml # Voids 6 4 # Bowel Movements 0 0 Result Diagram: 10/18/16 1436 10/17/16 0805 Imaging Last Impressions Sacrum/Coccyx MRI 10/09/16 0000 Signed Impressions: Service Date/Time: Sunday, October 09, 2016 09:29 - CONCLUSION: 7 cm bone abnormality with aggressive features in the left side of the sacrum involving S1 and S2 levels. Given the clinical history, this finding suggests bony metastatic disease. Marck Skelton MD Pelvis MRI 10/09/16 0000 Signed Impressions: Service Date/Time: Sunday, October 09, 2016 09:29 - CONCLUSION: Bone lesion with aggressive features and the left side of the sacrum fully described on sacrum MRI report. Marck Skelton MD Neck CT 10/09/16 0000 Signed Impressions: Service Date/Time: Sunday, October 09, 2016 10:53 - CONCLUSION: 1. No evidence of metastatic disease in the neck. No masses identified in the region of the cervical esophagus. 2. Multiple bilateral pulmonary nodules. Markc Skelton MD Lumbar Spine MRI 10/09/16 0000 Signed Impressions: Service Date/Time: Sunday, October 09, 2016 09:29 - CONCLUSION: 1. Evidence of bony metastatic disease in the sacrum will be fully described on sacrum MRI report. 2. Left-sided disc bulges at L4-5 and L5-S1 resulting in mild left neural foraminal narrowing at these levels. Central canal diameter within normal limits at all levels. Marck Skelton MD Barium Swallow X-Ray 10/08/16 0000 Signed Impressions: Service Date/Time: Saturday, October 08, 2016 09:48 - CONCLUSION: 1. Diffuse narrowing of the cervical esophagus. May represent esophagitis , post radiation change, or mass. CT soft tissue neck with contrast may be helpful to evaluate for any extrinsic masses. 2. Thoracic esophagus within normal limits. Marck Skelton MD Brain MRI 10/07/16 191 Signed Impressions: Service Date/Time: October 21:18 - CONCLUSION: 1. 10 x 8 x 6 mm enhancing nodule involving the left temporal lobe worrisome for metastatic focus. No mass effect or significant edema associated with this lesion. 2. No hemorrhage or acute infarction. Clayton Pendleton Jr., MD Objective Remarks awake and alert NAD anicteric lungs no rales, or wheezes regular rhythm abdomen soft, nontender extremities no edema neuro exam- non focal A/P Assessment and Plan 45-year-old male with metastatic lung cancer including brain lesions who presented with intractable nausea and vomiting. Dysphagia: secondary to extrinsic compression -barium swallow showed narrowing of the cervical esophagus. EGD done on 10/09 showed an extrinsic compression. Otherwise able to pass a probe with no difficulty. Speech therapist - tolerating diet well PO intake IMPROVED. 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 pt on palliative systemic therapy and radiation. -Oncology following. . Patient wants a second opinion. He states Dr. Samaniego will help coordinate for him to see someone else in [place]- - Appreciate palliative care following. Patient started on methadone and baclofen in addition to Oramorph. Appreciate pain management recommendations. Intractable emesis/nausea: Likely related to brain mass. Initially saw mild improvement with Decadron. - still slight nausea- but po tolerating well - Continue supportive care and antiemetics.- [place] - Calorie count ongoing. Vertigo- Resolved -Meclizine did not work. -Seemed to be more due to the brain mass. On dexamethasone. - Improved Acid reflux -Currently on Tums. PPI Poor nutrition: IMproved patient got muscle milk at home for suplements Back pain from metastatic disease: - controlled- up and ambulating -Appreciate palliative care following and pain management recommendations. - continue on Methadone DC home today OP ff up with Cam Perkins MD Oct 20, 2016 10:48
[2016-10-20] MEDS ORDERED: FAMO20TA2 PO (10:55)
[2016-10-20] MEDS ORDERED: SENN1TAB PO (10:55)
[2016-10-20] MEDS ORDERED: MEGE40SU PO (10:55)
[2016-10-20] MEDS ORDERED: PROM25TA10 PO (10:55)
[2016-10-20] MEDS ORDERED: DEXA4TAB PO (10:55)
[2016-10-20] MEDS ORDERED: Calcium Carbonate Chew CHEW (10:55)
[2016-10-20] MEDS ORDERED: LIDO5DIS5 T-DERMAL (10:55)
[2016-10-20] MEDS ORDERED: LORA-392 PO (10:55)
[2016-10-20] MEDS ORDERED: BACL10TA PO (10:55)
[2016-10-20] MEDS ORDERED: DRON5CAP PO (10:55)
--- NOTE | 2016-10-20 10:57 | HHI.DS ---
Discharge Summary Admission Date Oct 07, 2016 at 23:31 Discharge Date: Oct 20, 2016 Admitting Diagnosis intractable vomiting (1) Dysphagia ICD Code: R13.10 Diagnosis: Principal (2) Squamous cell carcinoma of lung ICD Code: C34.90 Diagnosis: Principal Procedures none Brief History - From Admission feeding tube removed 1 month ago esophageal tumor now 1 week not eating well dysphagia nausea vomtiing no fever no blood chemo and radiation chemo since feb mets to both lungs, spine, pelvis and lymph node the tuesday before was last chemo last radiation was 1 week ago today- supposed to be tuesday thru tuesday CBC/BMP: 10/18/16 1436 10/17/16 0805 Significant Findings Laboratory Tests Test 10/18/16 14:36 Red Blood Count 3.56 MIL/MM3 (4.50-5.90) Hemoglobin 10.9 GM/DL (13.0-17.0) Hematocrit 33.6 % (39.0-51.0) Platelet Count 98 TH/MM3 (150-450) Neutrophils (%) (Auto) 95.4 % (16.0-70.0) Lymphocytes (%) (Auto) 1.0 % (9.0-44.0) Neutrophils # (Auto) 9.6 TH/MM3 (1.8-7.7) Lymphocytes # (Auto) 0.1 TH/MM3 (1.0-4.8) Imaging Last Impressions Sacrum/Coccyx MRI 10/09/16 0000 Signed Impressions: Service Date/Time: Sunday, October 09, 2016 09:29 - CONCLUSION: 7 cm bone abnormality with aggressive features in the left side of the sacrum involving S1 and S2 levels. Given the clinical history, this finding suggests bony metastatic disease. Marck Skelton MD Pelvis MRI 10/09/16 0000 Signed Impressions: Service Date/Time: Sunday, October 09, 2016 09:29 - CONCLUSION: Bone lesion with aggressive features and the left side of the sacrum fully described on sacrum MRI report. Marck Skelton MD Neck CT 10/09/16 0000 Signed Impressions: Service Date/Time: Sunday, October 09, 2016 10:53 - CONCLUSION: 1. No evidence of metastatic disease in the neck. No masses identified in the region of the cervical esophagus. 2. Multiple bilateral pulmonary nodules. Marck Skelton MD Lumbar Spine MRI 10/09/16 0000 Signed Impressions: Service Date/Time: Sunday, October 09, 2016 09:29 - CONCLUSION: 1. Evidence of bony metastatic disease in the sacrum will be fully described on sacrum MRI report. 2. Left-sided disc bulges at L4-5 and L5-S1 resulting in mild left neural foraminal narrowing at these levels. Central canal diameter within normal limits at all levels. Marck Skelton MD Barium Swallow X-Ray 10/08/16 0000 Signed Impressions: Service Date/Time: Saturday, October 08, 2016 09:48 - CONCLUSION: 1. Diffuse narrowing of the cervical esophagus. May represent esophagitis , post radiation change, or mass. CT soft tissue neck with contrast may be helpful to evaluate for any extrinsic masses. 2. Thoracic esophagus within normal limits. Marck Skelton MD Brain MRI 10/07/161916 Signed Impressions: Service Date/Time: October 21:18 - CONCLUSION: 1. 10 x 8 x 6 mm enhancing nodule involving the left temporal lobe worrisome for metastatic focus. No mass effect or significant edema associated with this lesion. 2. No hemorrhage or acute infarction. Clayton Pendleton Jr., MD PE at Discharge awake and alert NAD anicteric lungs no rales, or wheezes regular rhythm abdomen soft, nontender extremities no edema neuro exam- non focal Pt update on day of discharge awake and alert, headache and dizziness improved po intake improved and tolerating diet Hospital Course 45-year-old male with metastatic lung cancer including brain lesions who presented with intractable nausea and vomiting. Dysphagia: secondary to extrinsic compression -barium swallow showed narrowing of the cervical esophagus. EGD done on 10/09 showed an extrinsic compression. Otherwise able to pass a probe with no difficulty. Speech therapist - tolerating diet well PO intake IMPROVED. 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 pt on palliative systemic therapy and radiation. -Oncology following. . Patient wants a second opinion. He states Dr. Samaniego will help coordinate for him to see someone else in [place]- - Appreciate palliative care following. Patient started on methadone and baclofen in addition to Oramorph. Appreciate pain management recommendations. Intractable emesis/nausea: Likely related to brain mass. Initially saw mild improvement with Decadron. - still slight nausea- but po tolerating well - Continue supportive care and antiemetics.- Oheneragan - Calorie count ongoing. Vertigo- Resolved -Meclizine did not work. -Seemed to be more due to the brain mass. On dexamethasone. - Improved Acid reflux -Currently on Tums. PPI Poor nutrition: IMproved patient got muscle milk at home for suplements Back pain from metastatic disease: - controlled- up and ambulating -Appreciate palliative care following and pain management recommendations. - continue on Methadone DC home today OP ff up with Dr. Samaniego Pt Condition on Discharge: Stable Discharge Disposition: Discharge Home Discharge Time: <= 30 minutes Discharge Instructions DIET: Follow Instructions for: As Tolerated, No Restrictions Speech Therapy-Diet Recommends: Regular Activities you can perform: Weight Bearing as Rell Activities to Avoid: Strenuous Activity Follow up Referrals: Oncology - 1 Week with Emmanuel Samaniego MD New Medications: Hospital Bed - Electric (Hospital Bed - Electric) 1 Ea Ea 1 EA .ROUTE DIRECTED #1 EA Misc. Devices (Roller Walker) 1 Mis Mis 1 EA .ROUTE NOW #1 EA Baclofen (Baclofen) 10 Mg Tab 5 MG PO Q8HR Pain Management Days 10 TAB Dexamethasone (Dexamethasone) 4 Mg Tab 4 MG PO DAILY ONCO #30 TAB Dronabinol (Dronabinol) 5 Mg Cap 5 MG PO BID@11,16 YORDY #60 CAP Famotidine (Famotidine) 20 Mg Tab 20 MG PO BID GI #60 TAB Lidocaine (Lidoderm) 5 % Adh..patch 1 PATCH T-DERMAL DAILY Pain Management Days 30 PATCH Lorazepam (Ativan) 0.5 Mg Tab 0.5 MG PO Q8HR ONCO #90 TAB Megestrol Liq (Megestrol Liq) 40 Mg/Ml Susp 400 MG PO DAILY appe #30 BOTTLE Morphine ER (Morphine ER) 30 Mg Tab 30 MG PO Q12HR Pain Management Days 15 Ref 0 TAB Promethazine (Phenergan) 25 Mg Tablet 25 MG PO Q8HR PRN nausea/vomiting #90 TAB Sennosides-Docusate Sodium (Senna Plus 8.6-50 mg) 1 Tab Tab 2 TAB PO HS BM #30 TAB ([Calcium Carbonate Chew]) 500 MG CHEW 500 MG CHEW Q12HR GI Days 30 TAB.CHEW Continued Medications: Fluticasone-Salmeterol Inh (Advair Diskus Inh) 250-50 Mcg/Blist Aer 2 PUFF INH DAILY Rinse mouth after use. #1 Ref 0 INHALER Discontinued Medications: Lansoprazole ODT (Prevacid Solutab ODT) 30 Mg Tab 30 MG PO DAILY Mix with 4 ml water before giving via tube. Ulcer Prevention #30 Ref 0 TAB Metoclopramide (Reglan) 10 Mg Tab 10 MG PO QID PRN NAUSEA OR VOMITING #20 Ref 0 TAB Morphine IR (Morphine IR) 30 Mg Tab 30 MG PO Q4H PRN PAIN Ref 0 TAB Ondansetron Odt (Zofran Odt) 4 Mg Tab 4 MG SL Q6HR PRN NAUSEA #30 Ref 0 TAB Prednisone (21) 10 mg tab Dose Pack (Prednisone (21) 10 mg tab Dose Pack) 10 Mg Pack 10 MG PO DIRECTED Inflammation #1 Ref 0 Cam Jiang MD Oct 20, 2016 10:57
[2016-10-20] MEDS ORDERED: MORP1TAB25 PO (10:59)
[2016-10-20 12:00] VITALS: BP_SYST 102; BP_SYST 99; BP_DIAS 65; BP_DIAS 70; PULSE 81; PULSE 93; RESP 16; RESP 17; TEMP 97.7; TEMP 98.5; O2SAT 96; O2SAT 99
== END 2016-10-20 12:53 | disposition home or self-care (01) | DRG 391 ==
LOC: NEPE 18:24 → NEDA 21:02 → N05B 22:17 → OBSVTOIN 23:31 → HOCB 10-08 12:06
PROVIDERS: ADMIT Internal Medicine; ATTEND Internal Medicine
PROC: 3E0336Z Introduction of Nutritional Substance into Peripheral Vein, Percutaneous Approach (ICD-10-PCS; 2016-10-08)
PROC: 0DJ08ZZ Inspection of Upper Intestinal Tract, Via Natural or Artificial Opening Endoscopic (ICD-10-PCS; principal; 2016-10-09 09:30)
DX: K22.2 Esophageal obstruction (principal); E43 Unspecified severe protein-calorie malnutrition; R64 Cachexia; C78.02 Secondary malignant neoplasm of left lung; C77.9 Secondary and unspecified malignant neoplasm of lymph node, unspecified; C79.31 Secondary malignant neoplasm of brain; R13.19 Other dysphagia; C79.51 Secondary malignant neoplasm of bone; Z68.1 Body mass index [BMI] 19.9 or less, adult; C34.91 Malignant neoplasm of unspecified part of right bronchus or lung; E86.0 Dehydration; R11.2 Nausea with vomiting, unspecified; J44.9 Chronic obstructive pulmonary disease, unspecified; G89.3 Neoplasm related pain (acute) (chronic); M54.5 Low back pain; Z87.891 Personal history of nicotine dependence; Z92.21 Personal history of antineoplastic chemotherapy; Z92.3 Personal history of irradiation; Z66 Do not resuscitate; K59.03 Drug induced constipation; K21.9 Gastro-esophageal reflux disease without esophagitis
CPT/HCPCS: 70491; 70553; 72158; 72197; 74230; 76937; 77336; 77412; 77427; 80048; 80053; 81001; 82550; 82948; 83735; 84484; 85025; 93005; 96361; 96374; 96375; A9579; J0780; J1170; J1200; J2270; J2405; J3480; J7030; J7040; J8540; Q0169; Q9963; Q9967

== ENCOUNTER 2016-10-27 13:44 | Emergency (ER) | payer MEDICAID ==
[~2016-10-27] VITALS: Ht 198.1 cm; Wt 63.6 kg
[~2016-10-27 13:44] MED LIST changes: +BACL10TA PO; +Calcium Carbonate Chew CHEW; +DEXA4TAB PO; +DRON5CAP PO; +FAMO20TA2 PO; +HOSP BED1; +LIDO5DIS5 T-DERMAL; +LORA-392 PO; +MEGE40SU PO; +MORP1TAB25 PO; -MSIR30 PO; -PRED10PA PO; -PREV30TA3 PO; +PROM25TA10 PO; -REGL10TA5 PO; +ROLLER WALKER1 MI1; +SENN1TAB PO; -ZOFR4TAB3 SL
[2016-10-27 13:47] VITALS: BP 111/81; PULSE 129; RESP 13; TEMP 97.9; O2SAT 100
--- NOTE | 2016-10-27 14:19 | PD ---
Physical Exam Date Seen by Provider: Oct 27, 2016 Time Seen by Provider: 14:17 Data Data Last Documented VS Vital Signs Date Time Temp Pulse Resp B/P Pulse Ox O2 Delivery O2 Flow Rate FiO2 10/27/16 13:47 97.9 129 13 111/81 100 MDM Supervised Visit with YORDY: No Narrative Course 45 YO M with complaint of SOB, N/V x 2 days. History of "stage IV lung CA." Brain metastasis. On chemo and radiation. States "they messed up my medications." Just dc'd from hospital ~1o days ago. Vitals reviewed. Seen in triage, awaiting bed placement. Hazel Guaman Oct 27, 2016 14:19
[2016-10-27] MEDS ORDERED: ONDANSETRON HCL 4 MG/2 ML VIAL IV PUSH ONE (15:45)
[2016-10-27] MEDS ORDERED: HYDROmorphone HCL PF 1 MG/ML VIAL IV PUSH ONE (15:45)
[2016-10-27] MEDS ORDERED: SODIUM CHLOR 0.9% 1000 ML INJ 1,000 ML IV ONE (15:45)
--- NOTE | 2016-10-27 15:59 | PD ---
HPI Chief Complaint: Respiratory Symptoms Time Seen by Provider: 15:23 Travel History International Travel<30 days: No Contact w/Intl Traveler<30days: No Traveled to known affect area: No History of Present Illness HPI This is a 45-year-old female who has a history of stage IV lung cancer who presents to the emergency department with nausea and vomiting that's been persistent ever since he was discharged from the hospital one week ago. He says his symptoms are constant, he can't keep anything down and he has been having pain in his abdomen and his lower back. He denies any fevers or chills. Dr. Samaniego is his oncologist. He is not currently receiving chemotherapy or radiation. PFSH Past Medical History Hx Anticoagulant Therapy: No Cancer: Yes (lung with Mets) Cardiovascular Problems: No Chemotherapy: Yes (R/T LUNG CA) COPD: Yes Endocrine: No Gastrointestinal Disorders: Yes (UPPER ENDOSCOPIES X2: FEBRUARY 2016) Genitourinary: No Immune Disorder: No Implanted Vascular Access Dvce: No Kidney Stones: Yes Musculoskeletal: No Neurologic: No Psychiatric: No Reproductive: No Respiratory: Yes (COPD, LUNG CA) Radiation Therapy: Yes ( DAILY -- 4 REMAINING ) Past Surgical History Body Medical Devices: LUQ PEG TUBE Other Surgery: Yes (G- TUBE PLACEMENT: FEBRUARY 2016 and removed 09/16/16) Social History Alcohol Use: No Tobacco Use: Yes (2016 hx of ;1ppd) Substance Use: No Allergies-Medications (Allergen,Severity, Reaction): Coded Allergies: No Known Allergies (Unverified , 10/27/16) Reported Meds & Prescriptions Reported Meds & Active Scripts Active Morphine ER (Morphine Sulfate) 30 Mg Tab 30 Mg PO Q12HR 15 Days Famotidine 20 Mg Tab 20 Mg PO BID Senna Plus 8.6-50 mg (Sennosides-Docusate Sodium) 1 Tab Tab 2 Tab PO HS Phenergan (Promethazine HCl) 25 Mg Tablet 25 Mg PO Q8HR PRN Megestrol Liq (Megestrol Acetate) 40 Mg/Ml Susp 400 Mg PO DAILY Ativan (Lorazepam) 0.5 Mg Tab 0.5 Mg PO Q8HR Lidoderm (Lidocaine) 5 % Adh..patch 1 Patch T-DERMAL DAILY 30 Days Dronabinol 5 Mg Cap 5 Mg PO BID@11,16 Dexamethasone 4 Mg Tab 4 Mg PO DAILY [Calcium Carbonate Chew] 500 MG Chew 500 Mg CHEW Q12HR 30 Days Baclofen 10 Mg Tab 5 Mg PO Q8HR 10 Days Hospital Bed - Electric 1 Ea Ea 1 Ea .ROUTE DIRECTED Roller Walker (Misc. Devices) 1 Mis Mis 1 Ea .ROUTE NOW Reported Advair Diskus Inh (Fluticasone-Salmeterol Inh) 250-50 Mcg/Blist Aer 2 Puff INH DAILY Rinse mouth after use. Review of Systems Except as stated in HPI: all other systems reviewed are Neg Respiratory: Positive: Shortness of Breath Gastrointestinal: Positive: Nausea, Vomiting, Abdominal Pain Musculoskeletal: Positive: Myalgias, Arthralgias Physical Exam Narrative GENERAL: Cachectic SKIN: Focused skin assessment warm and dry. HEAD: Atraumatic. Normocephalic. EYES: Pupils equal and round. No injection or drainage. ENT: Moist mucous membranes NECK: Trachea midline. CARDIOVASCULAR: Regular rate and rhythm. No murmur appreciated. RESPIRATORY: Clear to auscultation. Breath sounds equal bilaterally. GASTROINTESTINAL: Abdomen soft, tender to palpation in the epigastrium without rebound or guarding. MUSCULOSKELETAL: No obvious deformities. NEUROLOGICAL: Awake and alert. No obvious cranial nerve deficits. Moving all extremities. PSYCHIATRIC: Appropriate mood and affect; insight and judgment normal. Data Data Last Documented VS Vital Signs Date Time Temp Pulse Resp B/P Pulse Ox O2 Delivery O2 Flow Rate FiO2 10/27/16 13:47 97.9 129 13 111/81 100 Orders ^ Insert Iv (10/27/16 15:44) Ondansetron Inj (Zofran Inj) (10/27/16 15:45) Hydromorphone Pf Inj (Dilaudid Pf Inj) (10/27/16 15:45) Sodium Chlor 0.9% 1000 Ml Inj (Ns 1000 M (10/27/16 15:45) Hospice Consult (10/27/16 15:49) MDM Medical Decision Making Medical Screen Exam Complete: Yes Emergency Medical Condition: Yes Medical Record Reviewed: Yes (patient was just recently hospitalized in the setting of dehydration from nausea and vomiting. He was found at that time to have a brain metastasis and sacral metastases.) Interpretation(s) Afebrile, tachycardic, normotensive Differential Diagnosis Dehydration, pancreatitis, bowel obstruction, cancer Narrative Course This is a 45-year-old male who presents to the emergency department with nausea and vomiting in the setting of stage IV cancer. He feels like he can't keep anything down and his pain is [id number]. He has spoken to Dr. Samaniego in the past regarding hospice but has not elected to pursue it. I had a long conversation with the patient regarding the role of hospice in symptomatic care at the end of life. I spoke to Dr. Samaniego who thought the patient is hospice appropriate. An IV was established and the patient was given some IV hydration , antiemetics and pain control. [facility] saw the patient in the emergency department. They will admit the patient to the care center for medication titration. Diagnosis Primary Impression: Stage 4 lung cancer Qualified Code: C34.90 - Stage 4 lung cancer, unspecified laterality Patient Instructions: General Instructions Med/Other Pt SpecificInfo: No Change to Meds Disposition: 51 HOSPICE/MED FACILITY Condition: Serious Miesha Romero MD Oct 27, 2016 15:59
[2016-10-27] MEDS ORDERED: PREV15CA15 PO (19:06)
[2016-10-27] MEDS ORDERED: METH5TAB PO (19:06)
== END 2016-10-27 20:58 | disposition hospice, inpatient (51) ==
LOC: NEPE 13:44
DX: C34.90 Malignant neoplasm of unspecified part of unspecified bronchus or lung (principal); R11.2 Nausea with vomiting, unspecified; J44.9 Chronic obstructive pulmonary disease, unspecified; F17.200 Nicotine dependence, unspecified, uncomplicated; Z79.899 Other long term (current) drug therapy; Z79.52 Long term (current) use of systemic steroids
CPT/HCPCS: 96361; 96374; 96375; 99284; J1170; J2405; J7030